=== PATIENT | female | born 1945 | race Two or more races ===

== ENCOUNTER 2016-11-18 07:12 | Inpatient (IN) | payer MEDICARE, MEDICAID ==
[2016-11-18] MEDS: PROPOFOL 100 ML IV PRN ×3 (07:28→23:15)
[2016-11-18] MEDS ORDERED: ETOMIDATE INJ/PF 20 MG/10 ML SDV IV ONE (07:32)
[2016-11-18] MEDS ORDERED: SUCCINYLCHOLINE CHLORIDE INJ 200 MG/10 ML VIAL IV ONE (07:32)
--- NOTE | 2016-11-18 07:32 | ER Document Report ---
ED General - General Stated Complaint: STROKE ALERT Mode of Arrival: Medic Information source: Emergency Med Personnel Cannot obtain history due to: Altered mental status Notes: 71-year-old female history of seizures presents seizing, patient was noted to be posturing by EMS concerns for CVA, patient noted to have uncontrolled hypertension. Patient not responding to any stimuli. TRAVEL OUTSIDE OF THE [place] IN LAST 30 DAYS: No - HPI Onset: Just prior to arrival Onset/Duration: Sudden Quality of pain: No pain Severity: Severe Pain Level: Denies Associated symptoms: Other Exacerbated by: Denies Relieved by: Denies Similar symptoms previously: Yes Recently seen / treated by doctor: No - Related Data Allergies/Adverse Reactions: codeine [Codeine] Allergy (Unknown, Verified 10/06/16 12:35) aspirin [Aspirin] Allergy (Verified 10/06/16 12:35) Past Medical History - Social History Smoking Status: Unknown if Ever Smoked Cigarette use (# per day): No Chew tobacco use (# tins/day): No Smoking Education Provided: No Family History: Reviewed & Not Pertinent - Past Medical History Cardiac Medical History: Reports: Hx Coronary Artery Disease Denies: Hx Heart Attack, Hx Hypertension Pulmonary Medical History: Reports: Hx COPD, Hx Pneumonia Denies: Hx Bronchitis, Hx Tuberculosis Neurological Medical History: Reports: Hx Seizures - 21 years. Denies: Hx Cerebrovascular Accident GI Medical History: Reports: Hx Gastroesophageal Reflux Disease Musculoskeltal Medical History: Reports Hx Arthritis, Reports Hx Musculoskeletal Trauma - spinal fx after fall, RECENT SHOULDER FX Skin Medical History: Denies Hx MRSA Psychiatric Medical History: Reports: Hx Dementia, Hx Depression Traumatic Medical History: Reports: Hx Fractures - Right shoulder fracture, spinal fractures after a fall Past Surgical History: Reports: Hx Cardiac Catheterization, Hx Hysterectomy, Hx Nose Surgery, Hx Orthopedic Surgery - back - Immunizations Immunizations up to date: Yes Hx Diphtheria, Pertussis, Tetanus Vaccination: Yes Hx Pneumococcal Vaccination: 05/07/14 Review of Systems - Review of Systems Notes: Unable to obtain review of systems due to patient's presentation PHYSICAL EXAMINATION: GENERAL: Thin chronically emaciated appearing, patient not responding to stimuli. HEAD: Atraumatic, normocephalic. EYES: Pupils equal round and reactive to light, extraocular movements intact, conjunctiva are normal. ENT: Nares patent, oropharynx clear without exudates. Moist mucous membranes. NECK: Normal range of motion, supple without lymphadenopathy LUNGS: Breath sounds clear to auscultation bilaterally and equal. No wheezes rales or rhonchi. HEART: Regular rate and rhythm without murmurs ABDOMEN: Soft, nontender, nondistended abdomen. No guarding, no rebound. No masses appreciated. Female : deferred Musculoskeletal: Patient is not moving any extremities even to painful stimuli NEUROLOGICAL: GCS 4 SKIN: Warm, Dry, normal turgor, no rashes or lesions noted. Physical Exam - Vital signs Vitals: Pulse Ox 100 11/18/16 07:16 Course - Re-evaluation Re-evalutation: 11/18/16 07:35 Patient was not responsive to pain stimuli, due to concerns of impending airway failure due to lack of protection with a GCS of 4, patient was intubated on the second try. Patient did not become hypoxic Patient's immediately being sent for CT of the head at this time to rule out acute CVA 11/18/16 08:41 pt noted ot be on keppra, levels and infusion ordered - Vital Signs Vital signs: Temp Pulse Resp BP Pulse Ox 98.3 F 14 137/84 H 100 11/18/16 09:56 11/18/16 09:56 11/18/16 09:56 11/18/16 09:56 - Laboratory Result Diagrams: 11/18/16 07:19 11/18/16 07:19 Laboratory results interpreted by me: 11/18/16 11/18/16 07:19 07:19 Hgb 15.6 H Sodium 136.5 L Carbon Dioxide 11 L Anion Gap 27 H Glucose 198 H Calcium 10.4 H Total Protein 9.2 H Albumin 5.1 H - Diagnostic Test Radiology reviewed: Image reviewed, Reports reviewed Procedures - Intubation Orotracheal Time of Intubation: 07:27 Airway evaluation: Normal anatomy Mallampati Classification: Class 3 Medications: Etomidate, Succinylcholine Blade type: Chris Blade size: 4 ETT size: 7.0 ETT secured at: Teeth ETT secured at (cm): 22 Breath Sounds after Intubation: Equal End tidal CO2 confirmed: Yes Intubation Complications: Oral-unsuccessful attempt - Additional Procedures IO insertion Time performed: 07:20 Additional Procedures: IO insertion - right tib placement, removed after IV access obtained Critical Care Note - Critical Care Note Total time excluding time spent on procedures (mins): 45 Comments: minutes of critical care time spent in direct contact evaluating and reevaluating the patient, treating symptoms, reviewing labs and studies and speaking with family and consultants excluding any procedures Discharge - Discharge Clinical Impression: Seizure, Post-ictal state, Endotracheally intubated Condition: Fair Disposition: ADMITTED INPATIENT Admitting Provider: [facility] Admitted: ICU
[2016-11-18 07:33] LABS: PROTHROMBIN TIME 13.5 SEC (11.4-15.4)
[2016-11-18 07:34] LABS: PARTIAL THROMBOPLASTIN TIME 27.5 SEC (23.5-35.8)
[2016-11-18] MEDS ORDERED: EPTIFIBATIDE 0 MG/0 ML INFUS..BTL IV ONE (07:40)
[2016-11-18 07:43] LABS: ABSOLUTE LYMPHOCYTES (AUTO) 2.8 10^3/uL (0.5-4.7); ABSOLUTE MONOCYTES (AUTO) 0.4 10^3/uL (0.1-1.4); ABSOLUTE NEUT (AUTO) 3.8 10^3/uL (1.7-8.2); BASOPHILS % (AUTO) 0.7 % (0-2); EOSINOPHILS % (AUTO) 0.3 % (0-6); HEMOGLOBIN 15.6 g/dL (12.0-15.5); HGB HCT DIFFERENCE -0.2; LYMPHOCYTES % (AUTO) 39.1 % (13-45); MEAN CORPUSCULAR HEMOGLOBIN 29.6 pg (27.0-33.4); MEAN CORPUSCULAR HGB CONC 33.2 g/dL (32.0-36.0); MEAN CORPUSCULAR VOLUME 89 fl (80-97); MONOCYTES % (AUTO) 5.9 % (3-13); RED BLOOD COUNT 5.27 10^6/uL (3.72-5.28); RED CELL DISTRIBUTION WIDTH 13.9 % (11.5-14.0); WHITE BLOOD COUNT 7.1 10^3/uL (4.0-10.5)
[2016-11-18 07:55] LABS: CREATINE KINASE MB 1.24 ng/mL (<4.55)
[2016-11-18 08:05] LABS: TROPONIN I < 0.012 ng/mL
[2016-11-18 08:06] LABS: ALANINE AMINOTRANSFERASE 10 U/L (9-52); ALBUMIN 5.1 g/dL (3.5-5.0); ALKALINE PHOSPHATASE 84 U/L (38-126); ASPARTATE AMINO TRANSFERASE 32 U/L (14-36); BILIRUBIN,TOTAL 0.6 mg/dL (0.2-1.3); BLOOD UREA NITROGEN 8 mg/dL (7-20); CALCIUM 10.4 mg/dL (8.4-10.2); CARBON DIOXIDE 11 mmol/L (22-30); CHLORIDE 99 mmol/L (98-107); CREATINE KINASE 62 U/L (30-135); CREATININE RESULT 0.79 mg/dL (0.52-1.25); GLUCOSE 198 mg/dL (75-110); SODIUM 136.5 mmol/L (137-145); TOTAL PROTEIN 9.2 g/dL (6.3-8.2)
[2016-11-18 08:19] LABS: ANION GAP 27 (5-19)
[2016-11-18] MEDS ORDERED: MIDAZOLAM HCL 100 ML IV PRN (08:26)
[2016-11-18] MEDS ORDERED: MIDAZOLAM HCL 100 ML IV ONE (08:28)
[2016-11-18] MEDS ORDERED: DIAZEPAM INJ 10 MG/2 ML DISP.SYRIN IV ONE (09:39)
[2016-11-18] MEDS ORDERED: NORMAL SALINE 1000 ML 1,000 ML IV ONE (09:40)
[2016-11-18] MEDS ORDERED: LEVETIRACETAM 1500 MG/NACL-ISO 100 ML IV SCH (10:00)
[2016-11-18] MEDS ORDERED: ACETAMINOPHEN 650 MG SUPP.RECT PR PRN (10:49)
[2016-11-18] MEDS ORDERED: LORAZEPAM INJ 2 MG/1 ML VIAL IV PRN (10:54)
[2016-11-18] MEDS ORDERED: ENOXAPARIN SODIUM INJ 40 MG/0.4 ML DISP.SYRIN SUBCUT ONE (11:15)
--- NOTE | 2016-11-18 11:28 | EKG REPORT ---
SEVERITY:- OTHERWISE NORMAL ECG - SINUS TACHYCARDIA BORDERLINE RIGHT AXIS DEVIATION : Confirmed by: Adelina Nicolas 18-Nov-2016 11:27:00
[2016-11-18] MEDS: CEFTRIAXONE 1 GM/D5W RTU 1 GM/50 ML RTUPB IV SCH (11:39)
[2016-11-18] MEDS ORDERED: PROPOFOL 100 ML IV ONE (12:41)
[2016-11-18] MEDS ORDERED: LEVETIRACETAM 1500 MG/NACL-ISO 1,500 MG/100 ML RTUPB IV SCH (13:00)
--- NOTE | 2016-11-18 14:10 | PDOC H&P ---
History of Present Illness Admission Date/PCP: 11/18/16 10:49 BARBARA TEJADA MD Patient complains of: Altered mental status and uncontrolled seizure History of Present Illness: JOSELITO RODRIGUEZ is a 71 year old female This is a 71-year-old with a significant history of the seizures disorder COPD and macroglobulinemia and top of that is a very noncompliant and a chronic smoker also during the in a hospital in several hospital admissions because of been noncompliant uncontrolled seizures came to the emergency department because of the patient had a seizures this morning and patient's was patient was intubated in the emergency depart initial CT scan of the head is negative for any acute stroke patient's otherwise according to the nursing stop patient is not taking the medications as prescribed for the seizures also patient is known for that pretty much patient at this point is currently intubated in the ER intensive care unit for further evaluation and treatment. Was given IV Keppra and continues IV fluid and IV antibiotic and consult pulmonary for further evaluation. Past Medical History Cardiac Medical History: Reports: Coronary Artery Disease Denies: Myocardial Infarction, Hypertension Pulmonary Medical History: Reports: Chronic Obstructive Pulmonary Disease (COPD) , Pneumonia Denies: Bronchitis, Tuberculosis Neurological Medical History: Reports: Seizures - 21 years GI Medical History: Reports: Gastroesophageal Reflux Disease Musculoskeltal Medical History: Reports: Arthritis Psychiatric Medical History: Reports: Dementia, Depression Hematology: Reports: Anemia Past Surgical History Past Surgical History: Reports: Cardiac Catheterization, Hysterectomy, Orthopedic Surgery - back Social History Smoking Status: Current Every Day Smoker Frequency of Alcohol Use: Social Hx Recreational Drug Use: No Hx Prescription Drug Abuse: No Family History Family History: Reviewed & Not Pertinent Parental Family History Reviewed: Yes Children Family History Reviewed: Yes Sibling(s) Family History Reviewed.: Yes Medication/Allergy Allergies/Adverse Reactions: codeine [Codeine] Allergy (Unknown, Verified 10/06/16 12:35) aspirin [Aspirin] Allergy (Verified 10/06/16 12:35) Review of Systems ROS unobtainable: Due to endotracheal tube, Due to mental status All systems: reviewed and no additional remarkable complaints except as stated Physical Exam Vital Signs: Temp Pulse Resp BP Pulse Ox 99.6 F 14 107/78 110 H 11/18/16 13:51 11/18/16 13:51 11/18/16 13:51 11/18/16 13:51 General appearance: PRESENT: no acute distress, other - Currently intubated under sedation Head exam: PRESENT: normocephalic Eye exam: PRESENT: PERRLA Mouth exam: PRESENT: neck supple Respiratory exam: PRESENT: clear to auscultation pavel Cardiovascular exam: PRESENT: +S1, +S2 GI/Abdominal exam: PRESENT: normal bowel sounds, soft Extremities exam: ABSENT: pedal edema Neurological exam: PRESENT: altered Additional comments: Currently under sedation Skin exam: PRESENT: dry Results Impressions: Chest X-Ray 11/18/16 07:16 IMPRESSION: COPD. SATISFACTORY POSITION OF THE LIFE LINES. NO ACUTE RADIOGRAPHIC FINDING IN THE CHEST. Head CT 11/18/16 07:16 IMPRESSION: CHRONIC CHANGES OF ATROPHY AND MICROVASCULAR ISCHEMIA. CHRONIC ENCEPHALOMALACIA IN THE LEFT OCCIPITAL LOBE. NO ACUTE PROCESS. Assessment & Plan - Diagnosis (1) Endotracheally intubated Is this a current diagnosis for this admission?: YesPlan: From respiratory distress currently follow with the pulmonary (2) Post-ictal state Is this a current diagnosis for this admission?: YesPlan: Patient start IV Keppra and put the as needed Ativan (3) Acute respiratory failure Qualifiers: Respiratory failure complication: hypoxia Qualified Code(s): J96.01 - Acute respiratory failure with hypoxia Is this a current diagnosis for this admission?: YesPlan: Uncontrolled seizures and the COPD currently intubated and follow-up with the pulmonary (4) Alcohol abuse Is this a current diagnosis for this admission?: YesPlan: Several counseling was done in the past and they may be triggered the patient's uncontrolled seizures with a not taking med (5) COPD (chronic obstructive pulmonary disease) Is this a current diagnosis for this admission?: YesPlan: Continuous nebulizer treatment (6) Hearing impairment Is this a current diagnosis for this admission?: Yes (7) 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 Herman (9) Pulmonary nodule Is this a current diagnosis for this admission?: YesPlan: Patient is seeing outpatients Dr. Herman and scheduled a PET scan on the December - Time Time Spent: 50 to 70 Minutes Critical Time spent with patient: 25-34 minutes Medications reviewed and adjusted accordingly: Yes Anticipated discharge: Other - Inpatient Certification Medical Necessity: Significant Comorbidiites Make Outpatient Treatment Too Risky , Need For IV Fluids, Need for Nebulizer Therapy and Monitoring of Response Post Hospital Care: D/C Tie Knitter Helper Documentation - Plan Summary Plan Summary: Patient however this is a recurrent episode of the hospital admission from noncompliance of the seizures medication for non-patient's currently intubated and followed with the no sign of an acute stroke and initial CT scan will further evaluate the patient's neurological symptoms when the patient extubated otherwise continues the current medication
[2016-11-18] MEDS: LEVALBUTEROL HCL NEB 1.25 MG/3 ML AMPUL NEB SCH ×2 (14:20→20:52)
[2016-11-18] MEDS ORDERED: SUCCINYLCHOLINE CHLORIDE INJ 200 MG/10 ML VIAL ONE (14:58)
[2016-11-18 15:10] LABS: ARTERIAL BLOOD BASE EXCESS -5.1 mmol/L
[2016-11-18] MEDS: NORMAL SALINE 1000 ML 1,000 ML IV PRN (15:18)
[2016-11-18] MEDS: LEVETIRACETAM 1500 MG/NACL-ISO 1,500 MG/100 ML RTUPB IV SCH (22:17)
[2016-11-18] MEDS: FAMOTIDINE INJ/PF 20 MG/2 ML SDV IV SCH (23:04)
[2016-11-19] MEDS: NORMAL SALINE 1000 ML 1,000 ML IV PRN ×2 (00:47→20:40)
[2016-11-19] MEDS: LEVALBUTEROL HCL NEB 1.25 MG/3 ML AMPUL NEB SCH ×4 (03:18→20:29)
[2016-11-19 04:41] LABS: ABSOLUTE LYMPHOCYTES (AUTO) 1.2 10^3/uL (0.5-4.7); ABSOLUTE MONOCYTES (AUTO) 0.7 10^3/uL (0.1-1.4); BASOPHILS % (AUTO) 0.5 % (0-2); EOSINOPHILS % (AUTO) 0.2 % (0-6); HEMATOCRIT 35.9 % (36.0-47.0); HGB HCT DIFFERENCE 1.3; LYMPHOCYTES % (AUTO) 24.5 % (13-45); MEAN CORPUSCULAR HEMOGLOBIN 29.5 pg (27.0-33.4); MEAN CORPUSCULAR HGB CONC 34.5 g/dL (32.0-36.0); MEAN CORPUSCULAR VOLUME 86 fl (80-97); MONOCYTES % (AUTO) 14.1 % (3-13); RED CELL DISTRIBUTION WIDTH 13.8 % (11.5-14.0); SEGMENTED NEUTROPHILS % (AUTO) 60.7 % (42-78); WHITE BLOOD COUNT 4.9 10^3/uL (4.0-10.5)
[2016-11-19 04:46] LABS: ALANINE AMINOTRANSFERASE 25 U/L (9-52); ALBUMIN 3.3 g/dL (3.5-5.0); ALKALINE PHOSPHATASE 61 U/L (38-126); ANION GAP 9 (5-19); ASPARTATE AMINO TRANSFERASE 22 U/L (14-36); BILIRUBIN,TOTAL 0.6 mg/dL (0.2-1.3); BLOOD UREA NITROGEN 6 mg/dL (7-20); CALCIUM 9.1 mg/dL (8.4-10.2); CHLORIDE 107 mmol/L (98-107); CREATININE RESULT 0.63 mg/dL (0.52-1.25); GLUCOSE 91 mg/dL (75-110); MAGNESIUM 1.8 mg/dL (1.6-2.3); PHOSPHORUS 3.4 mg/dL (2.5-4.5); POTASSIUM 3.1 mmol/L (3.6-5.0); SODIUM 137.1 mmol/L (137-145); TOTAL PROTEIN 6.3 g/dL (6.3-8.2)
[2016-11-19 04:48] LABS: HEMOGLOBIN 12.4 g/dL (12.0-15.5)
[2016-11-19 04:57] LABS: CARBON DIOXIDE 21 mmol/L (22-30)
--- NOTE | 2016-11-19 09:58 | PDOC PROGRESS REPORT ---
Subjective Progress Note for:: 11/19/16 Subjective:: Patient is still currently intubated otherwise no other events happen no any seizures activity. She is otherwise doing same per ICU nurses. Physical Exam Vital Signs: Temp Pulse Resp BP Pulse Ox 98.9 F 82 14 99/66 L 100 11/19/16 07:01 11/19/16 08:36 11/19/16 08:36 11/19/16 07:01 11/19/16 08:36 Intake & Output 11/18/16 11/19/16 11/20/16 06:59 06:59 06:59 Intake Total 300 Output Total 780 Balance -780 300 Physical Exam: Currently intubated and under sedation General appearance: PRESENT: no acute distress Head exam: PRESENT: normocephalic Eye exam: PRESENT: PERRLA Mouth exam: PRESENT: neck supple Respiratory exam: PRESENT: decreased breath sounds Cardiovascular exam: PRESENT: +S1, +S2 GI/Abdominal exam: PRESENT: normal bowel sounds, soft Additional comments: Currently intubated under sedation Skin exam: PRESENT: dry Results Laboratory Results: 11/19/16 04:14 11/19/16 04:14 11/18/16 11/19/16 11/19/16 14:56 04:14 04:14 WBC 4.9 RBC 4.20 Hgb 12.4 D Hct 35.9 L MCV 86 MCH 29.5 MCHC 34.5 RDW 13.8 Plt Count 106 L Seg Neutrophils % 60.7 Lymphocytes % 24.5 Monocytes % 14.1 H Eosinophils % 0.2 Basophils % 0.5 Absolute Neutrophils 3.0 Absolute Lymphocytes 1.2 Absolute Monocytes 0.7 Absolute Eosinophils 0.0 Absolute Basophils 0.0 Carbonic Acid 0.85 L HCO3/H2CO3 Ratio 21:1 ABG pH 7.42 ABG pCO2 28.4 L ABG pO2 146.8 H ABG HCO3 17.9 L ABG O2 Saturation 99.0 H ABG Base Excess -5.1 FiO2 40% Sodium 137.1 Potassium 3.1 L Chloride 107 Carbon Dioxide 21 L D Anion Gap 9 BUN 6 L Creatinine 0.63 Est GFR ( Amer) > 60 Est GFR (Non-Af Amer) > 60 Glucose 91 Calcium 9.1 Phosphorus 3.4 Magnesium 1.8 Total Bilirubin 0.6 AST 22 ALT 25 Alkaline Phosphatase 61 Total Protein 6.3 Albumin 3.3 L Impressions: Head CT 11/18/16 07:16 IMPRESSION: CHRONIC CHANGES OF ATROPHY AND MICROVASCULAR ISCHEMIA. CHRONIC ENCEPHALOMALACIA IN THE LEFT OCCIPITAL LOBE. NO ACUTE PROCESS. Chest X-Ray 11/19/16 06:00 IMPRESSION: COPD. STABLE APPEARANCE. NO ACUTE RADIOGRAPHIC FINDING IN THE CHEST. Assessment & Plan - Diagnosis (1) Endotracheally intubated Is this a current diagnosis for this admission?: YesPlan: From respiratory distress currently follow with the pulmonary (2) Post-ictal state Is this a current diagnosis for this admission?: YesPlan: Patient start IV Keppra and put the as needed Ativan (3) Acute respiratory failure Qualifiers: Respiratory failure complication: hypoxia Qualified Code(s): J96.01 - Acute respiratory failure with hypoxia Is this a current diagnosis for this admission?: YesPlan: Uncontrolled seizures and the COPD currently intubated and follow-up with the pulmonary (4) Alcohol abuse Is this a current diagnosis for this admission?: YesPlan: Several counseling was done in the past and they may be triggered the patient's uncontrolled seizures with a not taking med (5) COPD (chronic obstructive pulmonary disease) Is this a current diagnosis for this admission?: YesPlan: Continuous nebulizer treatment (6) Hearing impairment Is this a current diagnosis for this admission?: Yes (7) 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 Herman (9) Pulmonary nodule Is this a current diagnosis for this admission?: YesPlan: Patient is seeing outpatients Dr. Herman and scheduled a PET scan on the December - Time Time Spent with patient: 15-24 minutes Critical Time spent with patient: 15-24 minutes Medications reviewed and adjusted accordingly: Yes Anticipated discharge: Home - Inpatient Certification Medical Necessity: Need Close Monitoring Due to Risk of Patient Decompensation, Need for IV Antibiotics Post Hospital Care: D/C Rv Repairer Documentation - Plan Summary Plan Summary: Continues the IV Keppra and continues the current other medications follow with the pulmonary and replace the potassium and discussed with the ICU nurses the patient's continues to be improved
[2016-11-19] MEDS: POTASSI CL 20 MEQ/50 ML RIDER 20 MEQ/50 ML RTUPB IV SCH ×2 (10:00→13:19)
[2016-11-19] MEDS: LEVETIRACETAM 1500 MG/NACL-ISO 1,500 MG/100 ML RTUPB IV SCH (10:06)
[2016-11-19] MEDS: ENOXAPARIN SODIUM INJ 40 MG/0.4 ML DISP.SYRIN SUBCUT SCH (10:41)
[2016-11-19] MEDS: FAMOTIDINE INJ/PF 20 MG/2 ML SDV IV SCH ×2 (10:42→21:58)
[2016-11-19] MEDS: CEFTRIAXONE 1 GM/D5W RTU 1 GM/50 ML RTUPB IV SCH (14:46)
[2016-11-19 15:21] LABS: ARTERIAL BLOOD BASE EXCESS -5.9 mmol/L; ARTERIAL BLOOD O2 SATURATION 99.5 % (94-98)
[2016-11-19] MEDS: PROPOFOL 100 ML IV PRN ×2 (17:23→20:39)
[2016-11-19] MEDS: MIDAZOLAM HCL 100 ML IV PRN (20:38)
[2016-11-19] MEDS ORDERED: LEVETIRACETAM INJ/PF 500 MG/5 ML SDV IV ONE (23:48)
[2016-11-20] MEDS: PROPOFOL 100 ML IV PRN ×3 (00:21→17:56)
[2016-11-20] MEDS: LEVETIRACETAM 1500 MG/NACL-ISO 1,500 MG/100 ML RTUPB IV SCH ×3 (01:10→21:28)
[2016-11-20] MEDS: LEVALBUTEROL HCL NEB 1.25 MG/3 ML AMPUL NEB SCH ×4 (02:17→20:32)
[2016-11-20] MEDS ORDERED: INFLUENZA ADLT QUAD (36MOS+) 2016-17 VAC 0.5 ML SYR IM PRN (02:41)
[2016-11-20] MEDS: MIDAZOLAM HCL 100 ML IV PRN (03:33)
[2016-11-20] MEDS: NORMAL SALINE 1000 ML 1,000 ML IV PRN ×3 (03:34→23:10)
[2016-11-20 04:52] LABS: ABSOLUTE LYMPHOCYTES (AUTO) 0.6 10^3/uL (0.5-4.7); ABSOLUTE MONOCYTES (AUTO) 0.4 10^3/uL (0.1-1.4); ABSOLUTE NEUT (AUTO) 3.5 10^3/uL (1.7-8.2); BASOPHILS % (AUTO) 0.5 % (0-2); EOSINOPHILS % (AUTO) 0.7 % (0-6); HEMATOCRIT 34.3 % (36.0-47.0); HEMOGLOBIN 11.7 g/dL (12.0-15.5); HGB HCT DIFFERENCE 0.8; LYMPHOCYTES % (AUTO) 13.7 % (13-45); MEAN CORPUSCULAR HEMOGLOBIN 29.6 pg (27.0-33.4); MEAN CORPUSCULAR HGB CONC 34.1 g/dL (32.0-36.0); MEAN CORPUSCULAR VOLUME 87 fl (80-97); MONOCYTES % (AUTO) 9.5 % (3-13); RED BLOOD COUNT 3.95 10^6/uL (3.72-5.28); RED CELL DISTRIBUTION WIDTH 13.8 % (11.5-14.0); SEGMENTED NEUTROPHILS % (AUTO) 75.6 % (42-78); WHITE BLOOD COUNT 4.6 10^3/uL (4.0-10.5)
[2016-11-20 05:05] LABS: ANION GAP 10 (5-19); BLOOD UREA NITROGEN 4 mg/dL (7-20); CALCIUM 8.8 mg/dL (8.4-10.2); CARBON DIOXIDE 20 mmol/L (22-30); CHLORIDE 111 mmol/L (98-107); CREATININE RESULT 0.47 mg/dL (0.52-1.25); GLUCOSE 78 mg/dL (75-110); POTASSIUM 3.3 mmol/L (3.6-5.0); TRIGLYCERIDES 89 mg/dL (<150)
[2016-11-20] MEDS: POTASSIUM CHLORIDE 20 MEQ/50 ML RTU IV SCH ×2 (05:31→09:39)
[2016-11-20] MEDS: FAMOTIDINE INJ/PF 20 MG/2 ML SDV IV SCH ×2 (09:37→21:28)
[2016-11-20] MEDS: ENOXAPARIN SODIUM INJ 40 MG/0.4 ML DISP.SYRIN SUBCUT SCH (09:37)
[2016-11-20] MEDS: CEFTRIAXONE 1 GM/D5W RTU 1 GM/50 ML RTUPB IV SCH (12:04)
[2016-11-21] MEDS: LEVALBUTEROL HCL NEB 1.25 MG/3 ML AMPUL NEB SCH ×4 (01:33→21:18)
[2016-11-21] MEDS: PROPOFOL 100 ML IV PRN ×3 (01:49→23:24)
[2016-11-21 05:18] LABS: ABSOLUTE LYMPHOCYTES (AUTO) 0.8 10^3/uL (0.5-4.7); ABSOLUTE MONOCYTES (AUTO) 0.5 10^3/uL (0.1-1.4); ABSOLUTE NEUT (AUTO) 2.8 10^3/uL (1.7-8.2); HEMATOCRIT 33.9 % (36.0-47.0); HEMOGLOBIN 11.7 g/dL (12.0-15.5); HGB HCT DIFFERENCE 1.2; LYMPHOCYTES % (AUTO) 19.5 % (13-45); MEAN CORPUSCULAR HEMOGLOBIN 29.7 pg (27.0-33.4); MEAN CORPUSCULAR HGB CONC 34.4 g/dL (32.0-36.0); MEAN CORPUSCULAR VOLUME 86 fl (80-97); RED BLOOD COUNT 3.93 10^6/uL (3.72-5.28); RED CELL DISTRIBUTION WIDTH 13.7 % (11.5-14.0); SEGMENTED NEUTROPHILS % (AUTO) 66.5 % (42-78); WHITE BLOOD COUNT 4.1 10^3/uL (4.0-10.5)
[2016-11-21] MEDS: ENOXAPARIN SODIUM INJ 40 MG/0.4 ML DISP.SYRIN SUBCUT SCH (07:59)
[2016-11-21 08:25] LABS: ANION GAP 10 (5-19); BLOOD UREA NITROGEN 6 mg/dL (7-20); CALCIUM 9.1 mg/dL (8.4-10.2); CARBON DIOXIDE 20 mmol/L (22-30); CHLORIDE 109 mmol/L (98-107); CREATININE RESULT 0.45 mg/dL (0.52-1.25); GLUCOSE 78 mg/dL (75-110); SODIUM 138.6 mmol/L (137-145)
[2016-11-21 08:49] LABS: POTASSIUM 3.3 mmol/L (3.6-5.0)
[2016-11-21] MEDS: LEVETIRACETAM 1500 MG/NACL-ISO 1,500 MG/100 ML RTUPB IV SCH ×2 (09:05→21:31)
[2016-11-21] MEDS: NORMAL SALINE 1000 ML 1,000 ML IV PRN ×2 (09:05→19:55)
[2016-11-21] MEDS: FAMOTIDINE INJ/PF 20 MG/2 ML SDV IV SCH ×2 (09:05→21:31)
[2016-11-21] MEDS: POTASSIUM CHLORIDE 20 MEQ/50 ML RTU IV SCH ×2 (10:15→11:59)
[2016-11-21] MEDS: MIDAZOLAM HCL 100 ML IV PRN (10:21)
[2016-11-21] MEDS: CEFTRIAXONE 1 GM/D5W RTU 1 GM/50 ML RTUPB IV SCH (11:59)
--- NOTE | 2016-11-21 15:20 | PDOC PROGRESS REPORT ---
Subjective Progress Note for:: 11/20/16 Subjective:: Patient was seen in ICU, intubated, sedated Physical Exam Vital Signs: Temp Pulse Resp BP Pulse Ox 100.4 F 111 H 14 139/83 H 100 11/20/16 16:00 11/20/16 16:00 11/20/16 16:00 11/20/16 16:00 11/20/16 16:00 Intake & Output 11/19/16 11/20/16 11/21/16 06:59 06:59 06:59 Intake Total 3277 Output Total 780 1525 1060 Balance -780 1752 -1060 Weight 49.2 kg Eye exam: PRESENT: PERRLA Respiratory exam: PRESENT: unlabored Cardiovascular exam: PRESENT: +S1, +S2 Results Laboratory Results: 11/20/16 04:10 11/20/16 14:35 11/19/16 11/20/16 11/20/16 17:20 04:10 04:10 WBC 4.6 RBC 3.95 Hgb 11.7 L Hct 34.3 L MCV 87 MCH 29.6 MCHC 34.1 RDW 13.8 Plt Count 92 L Seg Neutrophils % 75.6 Lymphocytes % 13.7 Monocytes % 9.5 Eosinophils % 0.7 Basophils % 0.5 Absolute Neutrophils 3.5 Absolute Lymphocytes 0.6 Absolute Monocytes 0.4 Absolute Eosinophils 0.0 Absolute Basophils 0.0 Sodium 141.0 Potassium 3.6 3.3 L Chloride 111 H Carbon Dioxide 20 L Anion Gap 10 BUN 4 L Creatinine 0.47 L Est GFR ( Amer) > 60 Est GFR (Non-Af Amer) > 60 Glucose 78 Calcium 8.8 Triglycerides 89 11/20/16 14:35 WBC RBC Hgb Hct MCV MCH MCHC RDW Plt Count Seg Neutrophils % Lymphocytes % Monocytes % Eosinophils % Basophils % Absolute Neutrophils Absolute Lymphocytes Absolute Monocytes Absolute Eosinophils Absolute Basophils Sodium Potassium 4.7 D Chloride Carbon Dioxide Anion Gap BUN Creatinine Est GFR ( Amer) Est GFR (Non-Af Amer) Glucose Calcium Triglycerides 11/18/16 11:04 Catheterized Urine Urine Culture - Final NO GROWTH 2 DAYS Impressions: Head CT 11/18/16 07:16 IMPRESSION: CHRONIC CHANGES OF ATROPHY AND MICROVASCULAR ISCHEMIA. CHRONIC ENCEPHALOMALACIA IN THE LEFT OCCIPITAL LOBE. NO ACUTE PROCESS. Chest X-Ray 11/19/16 06:00 IMPRESSION: COPD. STABLE APPEARANCE. NO ACUTE RADIOGRAPHIC FINDING IN THE CHEST. Assessment & Plan - Diagnosis (1) Endotracheally intubated Is this a current diagnosis for this admission?: Yes (2) Post-ictal state Is this a current diagnosis for this admission?: Yes (3) Seizure Is this a current diagnosis for this admission?: Yes (4) Acute respiratory failure Qualifiers: Respiratory failure complication: hypoxia Qualified Code(s): J96.01 - Acute respiratory failure with hypoxia Is this a current diagnosis for this admission?: YesPlan: Continue mechanical ventilation, patient to be started on Tuesday (5) Alcohol abuse Is this a current diagnosis for this admission?: Yes (6) Alcoholism Is this a current diagnosis for this admission?: Yes (7) COPD (chronic obstructive pulmonary disease) Is this a current diagnosis for this admission?: Yes
--- NOTE | 2016-11-21 15:21 | PDOC PROGRESS REPORT ---
Subjective Progress Note for:: 11/21/16 Subjective:: Patient still intubated on mechanical ventilation Physical Exam Vital Signs: Temp Pulse Resp BP Pulse Ox 100.1 F 92 21 H 110/68 100 11/21/16 14:00 11/21/16 14:00 11/21/16 14:01 11/21/16 14:01 11/21/16 14:01 Intake & Output 11/20/16 11/21/16 11/22/16 06:59 06:59 06:59 Intake Total 3277 3433 Output Total 1525 2210 965 Balance 1752 1223 -965 Weight 49.2 kg 50.8 kg Eye exam: PRESENT: PERRLA Respiratory exam: PRESENT: rhonchi Cardiovascular exam: PRESENT: +S1, +S2 Results Laboratory Results: 11/21/16 04:20 11/21/16 04:20 11/20/16 11/21/16 11/21/16 14:35 04:20 04:20 WBC 4.1 RBC 3.93 Hgb 11.7 L Hct 33.9 L MCV 86 MCH 29.7 MCHC 34.4 RDW 13.7 Plt Count 91 L Seg Neutrophils % 66.5 Lymphocytes % 19.5 Monocytes % 12.0 Eosinophils % 1.0 Basophils % 1.0 Absolute Neutrophils 2.8 Absolute Lymphocytes 0.8 Absolute Monocytes 0.5 Absolute Eosinophils 0.0 Absolute Basophils 0.0 Sodium 138.6 Potassium 4.7 D 3.3 L D Chloride 109 H Carbon Dioxide 20 L Anion Gap 10 BUN 6 L Creatinine 0.45 L Est GFR ( Amer) > 60 Est GFR (Non-Af Amer) > 60 Glucose 78 Calcium 9.1 11/18/16 11:04 Catheterized Urine Urine Culture - Final NO GROWTH 2 DAYS Impressions: Head CT 11/18/16 07:16 IMPRESSION: CHRONIC CHANGES OF ATROPHY AND MICROVASCULAR ISCHEMIA. CHRONIC ENCEPHALOMALACIA IN THE LEFT OCCIPITAL LOBE. NO ACUTE PROCESS. Chest X-Ray 11/19/16 06:00 IMPRESSION: COPD. STABLE APPEARANCE. NO ACUTE RADIOGRAPHIC FINDING IN THE CHEST. Assessment & Plan - Diagnosis (1) Endotracheally intubated Is this a current diagnosis for this admission?: Yes (2) Post-ictal state Is this a current diagnosis for this admission?: Yes (3) Seizure Is this a current diagnosis for this admission?: Yes (4) Acute respiratory failure Qualifiers: Respiratory failure complication: hypoxia Qualified Code(s): J96.01 - Acute respiratory failure with hypoxia Is this a current diagnosis for this admission?: Yes (5) Alcohol abuse Is this a current diagnosis for this admission?: Yes (6) Alcoholism Is this a current diagnosis for this admission?: Yes (7) COPD (chronic obstructive pulmonary disease) Is this a current diagnosis for this admission?: Yes
[2016-11-22] MEDS: LEVALBUTEROL HCL NEB 1.25 MG/3 ML AMPUL NEB SCH ×4 (02:00→19:57)
[2016-11-22] MEDS: NORMAL SALINE 1000 ML 1,000 ML IV PRN ×2 (05:34→16:41)
[2016-11-22 06:34] LABS: ANION GAP 7 (5-19); BLOOD UREA NITROGEN 7 mg/dL (7-20); CARBON DIOXIDE 24 mmol/L (22-30); CHLORIDE 109 mmol/L (98-107); CREATININE RESULT 0.43 mg/dL (0.52-1.25); GLUCOSE 98 mg/dL (75-110); POTASSIUM 3.3 mmol/L (3.6-5.0); SODIUM 140.4 mmol/L (137-145)
[2016-11-22] MEDS ORDERED: POTASSI CL 20 MEQ/50 ML RIDER 20 MEQ/50 ML RTUPB IV ONE (06:50)
[2016-11-22] MEDS: ENOXAPARIN SODIUM INJ 40 MG/0.4 ML DISP.SYRIN SUBCUT SCH (08:00)
[2016-11-22] MEDS: POTASSIUM CHLORIDE 20 MEQ/50 ML RTU IV SCH ×2 (08:00→09:11)
[2016-11-22] MEDS ORDERED: POTASSI CL 20 MEQ/50 ML RIDER 50 ML IV ONE (08:45)
[2016-11-22] MEDS: FAMOTIDINE INJ/PF 20 MG/2 ML SDV IV SCH ×2 (09:09→21:19)
[2016-11-22] MEDS: LEVETIRACETAM 1500 MG/NACL-ISO 1,500 MG/100 ML RTUPB IV SCH ×2 (09:09→21:19)
[2016-11-22] MEDS: CEFTRIAXONE 1 GM/D5W RTU 1 GM/50 ML RTUPB IV SCH (11:51)
[2016-11-22] MEDS: MIDAZOLAM HCL 100 ML IV PRN (11:52)
[2016-11-22] MEDS: PROPOFOL 100 ML IV PRN (18:12)
--- NOTE | 2016-11-22 19:33 | PROGRESS NOTE E ---
Progress Note NAME: JOSELITO RODRIGUEZ : 1945 AGE: 71Y DATE: 11/22/2016 ROOM: ED11 SUBJECTIVE: Patient is currently still intubated and *------*. Discussed with the ICU nurse. No seizures. The patient is currently followed by Dr. Bailey and no change in the weekend. OBJECTIVE: VITAL SIGNS: Blood pressure was 135/79. Pulse is 90. Respiration was currently on mechanical ventilator. GENERAL: The patient is lying in the bed currently *------*. HEAD AND NECK: Normocephalic. PERRLA. LUNGS: There is no wheezing, no rales. HEART: S1, S2 present. ABDOMEN: Soft. Bowel sounds present. EXTREMITIES: No edema. NEUROLOGIC: The patient is currently intubated. ASSESSMENT: 1. ACUTE RESPIRATORY DISTRESS STATUS POST INTUBATION. 2. UNCONTROLLED SEIZURES, CURRENTLY ON IV KEPPRA, STABLE. 3. CHRONIC OBSTRUCTIVE PULMONARY DISEASE. 4. STAPHYLOCOCCUS AUREUS PNEUMONIA CURRENTLY ON ROCEPHIN. 5. HYPERTENSION. 6. CHRONIC SMOKER. 7. HYPOGAMMAGLOBINEMIA. PLAN: At this point, continue IV Rocephin. Continue to follow with Pulmonary for vent management. Order the chest x-ray and continue to monitor the patient. DICTATING PHYSICIAN: BARBARA TEJADA M.D. [id number] [id number] ID: [id number] JOB#: [id number] ACCT: [id number] cc: >
[2016-11-23] MEDS: PROPOFOL 100 ML IV PRN ×4 (00:31→19:41)
[2016-11-23] MEDS: LEVALBUTEROL HCL NEB 1.25 MG/3 ML AMPUL NEB SCH ×4 (02:08→21:00)
[2016-11-23] MEDS: NORMAL SALINE 1000 ML 1,000 ML IV PRN ×2 (03:18→15:33)
[2016-11-23 04:35] LABS: ANION GAP 6 (5-19); BLOOD UREA NITROGEN 6 mg/dL (7-20); CALCIUM 8.7 mg/dL (8.4-10.2); CARBON DIOXIDE 26 mmol/L (22-30); CHLORIDE 111 mmol/L (98-107); CREATININE RESULT 0.45 mg/dL (0.52-1.25); GLUCOSE 97 mg/dL (75-110); POTASSIUM 3.4 mmol/L (3.6-5.0); SODIUM 143.2 mmol/L (137-145); TRIGLYCERIDES 65 mg/dL (<150)
[2016-11-23 04:45] LABS: ABSOLUTE EOSINOPHILS # (AUTO) 0.1 10^3/uL (0.0-0.6); ABSOLUTE LYMPHOCYTES (AUTO) 0.8 10^3/uL (0.5-4.7); ABSOLUTE MONOCYTES (AUTO) 0.4 10^3/uL (0.1-1.4); ABSOLUTE NEUT (AUTO) 2.2 10^3/uL (1.7-8.2); BASOPHILS % (AUTO) 0.8 % (0-2); HEMATOCRIT 32.6 % (36.0-47.0); HEMOGLOBIN 11.1 g/dL (12.0-15.5); HGB HCT DIFFERENCE 0.7; LYMPHOCYTES % (AUTO) 22.2 % (13-45); MEAN CORPUSCULAR HEMOGLOBIN 29.5 pg (27.0-33.4); MEAN CORPUSCULAR HGB CONC 34.1 g/dL (32.0-36.0); MEAN CORPUSCULAR VOLUME 87 fl (80-97); MONOCYTES % (AUTO) 11.9 % (3-13); RED BLOOD COUNT 3.77 10^6/uL (3.72-5.28); RED CELL DISTRIBUTION WIDTH 14.4 % (11.5-14.0); SEGMENTED NEUTROPHILS % (AUTO) 63.1 % (42-78); WHITE BLOOD COUNT 3.5 10^3/uL (4.0-10.5)
[2016-11-23 05:27] LABS: ARTERIAL BLOOD BASE EXCESS 0.3 mmol/L
--- NOTE | 2016-11-23 08:24 | PDOC PROGRESS REPORT ---
Subjective Progress Note for:: 11/23/16 Subjective:: Patient is is doing same . No seziure overnight patient still intubated and currently under sedations Physical Exam Vital Signs: Temp Pulse Resp BP Pulse Ox 99.2 F 78 14 88/51 L 97 11/22/16 16:00 11/23/16 02:10 11/23/16 06:02 11/23/16 06:02 11/23/16 06:02 Intake & Output 11/22/16 11/23/16 11/24/16 06:59 06:59 06:59 Intake Total 3616 3428 Output Total 2190 2565 Balance 1426 863 Weight 52 kg 52.4 kg Physical Exam: Currently intubated and under sedation General appearance: PRESENT: no acute distress Eye exam: PRESENT: PERRLA Mouth exam: PRESENT: neck supple Respiratory exam: PRESENT: clear to auscultation pavel Cardiovascular exam: PRESENT: +S1, +S2 GI/Abdominal exam: PRESENT: normal bowel sounds Extremities exam: ABSENT: pedal edema Neurological exam: PRESENT: alert, awake Psychiatric exam: PRESENT: anxious Skin exam: PRESENT: dry Results Laboratory Results: 11/23/16 03:52 11/23/16 03:52 11/22/16 11/23/16 11/23/16 14:47 03:52 03:52 WBC 3.5 L RBC 3.77 Hgb 11.1 L Hct 32.6 L MCV 87 MCH 29.5 MCHC 34.1 RDW 14.4 H Plt Count 92 L Seg Neutrophils % 63.1 Lymphocytes % 22.2 Monocytes % 11.9 Eosinophils % 2.0 Basophils % 0.8 Absolute Neutrophils 2.2 Absolute Lymphocytes 0.8 Absolute Monocytes 0.4 Absolute Eosinophils 0.1 Absolute Basophils 0.0 Carbonic Acid HCO3/H2CO3 Ratio ABG pH ABG pCO2 ABG pO2 ABG HCO3 ABG O2 Saturation ABG Base Excess FiO2 Sodium 143.2 Potassium 4.1 3.4 L Chloride 111 H Carbon Dioxide 26 Anion Gap 6 BUN 6 L Creatinine 0.45 L Est GFR ( Amer) > 60 Est GFR (Non-Af Amer) > 60 Glucose 97 Calcium 8.7 Triglycerides 65 11/23/16 05:15 WBC RBC Hgb Hct MCV MCH MCHC RDW Plt Count Seg Neutrophils % Lymphocytes % Monocytes % Eosinophils % Basophils % Absolute Neutrophils Absolute Lymphocytes Absolute Monocytes Absolute Eosinophils Absolute Basophils Carbonic Acid 1.14 HCO3/H2CO3 Ratio 21:1 ABG pH 7.43 ABG pCO2 38.0 ABG pO2 89.1 ABG HCO3 24.5 ABG O2 Saturation 97.0 ABG Base Excess 0.3 FiO2 28% Sodium Potassium Chloride Carbon Dioxide Anion Gap BUN Creatinine Est GFR ( Amer) Est GFR (Non-Af Amer) Glucose Calcium Triglycerides Impressions: Head CT 11/18/16 07:16 IMPRESSION: CHRONIC CHANGES OF ATROPHY AND MICROVASCULAR ISCHEMIA. CHRONIC ENCEPHALOMALACIA IN THE LEFT OCCIPITAL LOBE. NO ACUTE PROCESS. Chest X-Ray 11/23/16 06:00 IMPRESSION: Ill-defined bibasilar densities as noted above. Other findings as noted above. Assessment & Plan - Diagnosis (1) Endotracheally intubated Is this a current diagnosis for this admission?: YesPlan: From respiratory distress currently follow with the pulmonary (2) Post-ictal state Is this a current diagnosis for this admission?: YesPlan: Patient start IV Keppra and put the as needed Ativan (3) Acute respiratory failure Qualifiers: Respiratory failure complication: hypoxia Qualified Code(s): J96.01 - Acute respiratory failure with hypoxia Is this a current diagnosis for this admission?: YesPlan: Uncontrolled seizures and the COPD currently intubated and follow-up with the pulmonary (4) Alcohol abuse Is this a current diagnosis for this admission?: YesPlan: Several counseling was done in the past and they may be triggered the patient's uncontrolled seizures with a not taking med (5) COPD (chronic obstructive pulmonary disease) Is this a current diagnosis for this admission?: YesPlan: Continuous nebulizer treatment (6) Hearing impairment Is this a current diagnosis for this admission?: Yes (7) 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 Herman (9) Pulmonary nodule Is this a current diagnosis for this admission?: Yes - Time Time Spent with patient: 15-24 minutes Medications reviewed and adjusted accordingly: Yes Anticipated discharge: Home - Inpatient Certification Post Hospital Care: D/C Sewage Disposal Engineer Documentation - Plan Summary Plan Summary: Continues the current medication
[2016-11-23] MEDS: FAMOTIDINE INJ/PF 20 MG/2 ML SDV IV SCH ×2 (11:29→21:33)
[2016-11-23] MEDS: LEVETIRACETAM 1500 MG/NACL-ISO 1,500 MG/100 ML RTUPB IV SCH ×2 (11:30→21:33)
[2016-11-23] MEDS: CEFTRIAXONE 1 GM/D5W RTU 1 GM/50 ML RTUPB IV SCH (11:30)
[2016-11-23] MEDS: MIDAZOLAM HCL 100 ML IV PRN (22:00)
[2016-11-24] MEDS: LEVALBUTEROL HCL NEB 1.25 MG/3 ML AMPUL NEB SCH ×4 (02:08→19:58)
[2016-11-24 04:42] LABS: ANION GAP 7 (5-19); BLOOD UREA NITROGEN 7 mg/dL (7-20); CALCIUM 8.6 mg/dL (8.4-10.2); CARBON DIOXIDE 26 mmol/L (22-30); CHLORIDE 110 mmol/L (98-107); CREATININE RESULT 0.46 mg/dL (0.52-1.25); GLUCOSE 96 mg/dL (75-110); POTASSIUM 3.5 mmol/L (3.6-5.0); SODIUM 142.9 mmol/L (137-145)
[2016-11-24] MEDS: PROPOFOL 100 ML IV PRN (07:15)
[2016-11-24 08:23] LABS: ARTERIAL BLOOD BASE EXCESS -0.3 mmol/L; ARTERIAL BLOOD O2 SATURATION 97.2 % (94-98)
--- NOTE | 2016-11-24 08:26 | PDOC PROGRESS REPORT ---
Subjective Progress Note for:: 11/24/16 Subjective:: Patient is is doing same . No seziure overnight patient still intubated and currently under sedations Physical Exam Vital Signs: Temp Pulse Resp BP Pulse Ox 98.4 F 80 10 L 126/79 H 100 11/24/16 03:00 11/24/16 02:08 11/24/16 06:01 11/24/16 06:00 11/24/16 06:01 Intake & Output 11/23/16 11/24/16 11/25/16 06:59 06:59 06:59 Intake Total 3428 3145 Output Total 2565 2075 Balance 863 1070 Weight 52.4 kg 54 kg Physical Exam: intbated and under sedation General appearance: PRESENT: no acute distress Eye exam: PRESENT: PERRLA Mouth exam: PRESENT: neck supple Respiratory exam: PRESENT: clear to auscultation pavel Cardiovascular exam: PRESENT: +S1, +S2 GI/Abdominal exam: PRESENT: normal bowel sounds, soft Extremities exam: ABSENT: pedal edema Neurological exam: PRESENT: other Additional comments: under sedation Results Laboratory Results: 11/23/16 03:52 11/24/16 04:17 11/24/16 04:17 Sodium 142.9 Potassium 3.5 L Chloride 110 H Carbon Dioxide 26 Anion Gap 7 BUN 7 Creatinine 0.46 L Est GFR ( Amer) > 60 Est GFR (Non-Af Amer) > 60 Glucose 96 Calcium 8.6 11/18/16 12:36 Blood Blood Culture - Final NO GROWTH IN 5 DAYS Impressions: Head CT 11/18/16 07:16 IMPRESSION: CHRONIC CHANGES OF ATROPHY AND MICROVASCULAR ISCHEMIA. CHRONIC ENCEPHALOMALACIA IN THE LEFT OCCIPITAL LOBE. NO ACUTE PROCESS. Chest X-Ray 11/23/16 06:00 IMPRESSION: Ill-defined bibasilar densities as noted above. Other findings as noted above. Assessment & Plan - Diagnosis (1) Endotracheally intubated Is this a current diagnosis for this admission?: YesPlan: try to extubated today (2) Post-ictal state Is this a current diagnosis for this admission?: YesPlan: stable (3) Acute respiratory failure Qualifiers: Respiratory failure complication: hypoxia Qualified Code(s): J96.01 - Acute respiratory failure with hypoxia Is this a current diagnosis for this admission?: YesPlan: Uncontrolled seizures and the COPD currently intubated and follow-up with the pulmonary (4) Alcohol abuse Is this a current diagnosis for this admission?: YesPlan: Several counseling was done in the past and they may be triggered the patient's uncontrolled seizures with a not taking med (5) COPD (chronic obstructive pulmonary disease) Is this a current diagnosis for this admission?: YesPlan: Continuous nebulizer treatment (6) Hearing impairment Is this a current diagnosis for this admission?: Yes (7) 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 Is this a current diagnosis for this admission?: YesPlan: Currently put on IV Keppra (8) Waldenstrom macroglobulinemia Is this a current diagnosis for this admission?: Yes (9) Pulmonary nodule Is this a current diagnosis for this admission?: Yes - Time Time Spent with patient: 15-24 minutes Critical Time spent with patient: 15-24 minutes Medications reviewed and adjusted accordingly: Yes Anticipated discharge: Home - Inpatient Certification Medical Necessity: Need Close Monitoring Due to Risk of Patient Decompensation Post Hospital Care: D/C Telecommunications Switch Technician Documentation - Plan Summary Plan Summary: d/w icu nurse order cxr order abg f/u with pulmonary plan to extubated today per protocol d/w rajendra
[2016-11-24] MEDS: FAMOTIDINE INJ/PF 20 MG/2 ML SDV IV SCH ×2 (09:22→21:00)
[2016-11-24] MEDS: LEVETIRACETAM 1500 MG/NACL-ISO 1,500 MG/100 ML RTUPB IV SCH ×2 (09:22→21:00)
[2016-11-24] MEDS: CEFTRIAXONE 1 GM/D5W RTU 1 GM/50 ML RTUPB IV SCH (11:03)
[2016-11-24] MEDS: NORMAL SALINE 1000 ML 1,000 ML IV PRN ×2 (12:26→17:31)
[2016-11-24 13:17] LABS: ARTERIAL BLOOD BASE EXCESS -1.9 mmol/L
[2016-11-25] MEDS: LEVALBUTEROL HCL NEB 1.25 MG/3 ML AMPUL NEB SCH ×4 (01:52→20:45)
[2016-11-25 04:32] LABS: ABSOLUTE EOSINOPHILS # (AUTO) 0.1 10^3/uL (0.0-0.6); ABSOLUTE LYMPHOCYTES (AUTO) 0.8 10^3/uL (0.5-4.7); ABSOLUTE MONOCYTES (AUTO) 0.3 10^3/uL (0.1-1.4); ABSOLUTE NEUT (AUTO) 2.3 10^3/uL (1.7-8.2); BASOPHILS % (AUTO) 0.7 % (0-2); EOSINOPHILS % (AUTO) 2.5 % (0-6); HEMATOCRIT 35.9 % (36.0-47.0); HGB HCT DIFFERENCE 0.1; LYMPHOCYTES % (AUTO) 22.9 % (13-45); MEAN CORPUSCULAR HEMOGLOBIN 29.4 pg (27.0-33.4); MEAN CORPUSCULAR HGB CONC 33.5 g/dL (32.0-36.0); MEAN CORPUSCULAR VOLUME 88 fl (80-97); MONOCYTES % (AUTO) 9.5 % (3-13); RED BLOOD COUNT 4.09 10^6/uL (3.72-5.28); RED CELL DISTRIBUTION WIDTH 14.3 % (11.5-14.0); SEGMENTED NEUTROPHILS % (AUTO) 64.4 % (42-78); WHITE BLOOD COUNT 3.5 10^3/uL (4.0-10.5)
[2016-11-25 05:09] LABS: ANION GAP 10 (5-19); BLOOD UREA NITROGEN 6 mg/dL (7-20); CALCIUM 9.5 mg/dL (8.4-10.2); CARBON DIOXIDE 27 mmol/L (22-30); CHLORIDE 107 mmol/L (98-107); CREATININE RESULT 0.38 mg/dL (0.52-1.25); GLUCOSE 71 mg/dL (75-110); POTASSIUM 3.3 mmol/L (3.6-5.0); SODIUM 144.2 mmol/L (137-145)
[2016-11-25] MEDS: NORMAL SALINE 1000 ML 1,000 ML IV PRN (06:50)
--- NOTE | 2016-11-25 08:22 | PDOC PROGRESS REPORT ---
Subjective Progress Note for:: 11/25/16 Subjective:: Patient's is successfully extubated yesterday currently on 3 L nasal cannula and patient is currently doing much better. His denied any chest pain no shortness of the breath and no fever and no seizures activity Physical Exam Vital Signs: Temp Pulse Resp BP Pulse Ox 98.0 F 86 20 160/85 H 100 11/25/16 08:00 11/25/16 08:00 11/25/16 08:00 11/25/16 08:00 11/25/16 08:00 Intake & Output 11/24/16 11/25/16 11/26/16 06:59 06:59 06:59 Intake Total 3145 2983 Output Total 3291 6145 75 Balance 1070 -4212 -75 Weight 54 kg 49.4 kg General appearance: PRESENT: no acute distress Head exam: PRESENT: normocephalic Eye exam: PRESENT: PERRLA Mouth exam: PRESENT: neck supple Respiratory exam: PRESENT: clear to auscultation pavel Cardiovascular exam: PRESENT: +S1, +S2 GI/Abdominal exam: PRESENT: normal bowel sounds, soft. ABSENT: tenderness Neurological exam: PRESENT: alert, awake, oriented to person, oriented to place , oriented to time Skin exam: PRESENT: dry Results Laboratory Results: 11/25/16 03:54 11/25/16 03:54 11/24/16 11/24/16 11/25/16 08:00 12:55 03:54 WBC RBC Hgb Hct MCV MCH MCHC RDW Plt Count Seg Neutrophils % Lymphocytes % Monocytes % Eosinophils % Basophils % Absolute Neutrophils Absolute Lymphocytes Absolute Monocytes Absolute Eosinophils Absolute Basophils Carbonic Acid 1.07 1.13 HCO3/H2CO3 Ratio 21:1 20:1 ABG pH 7.44 7.40 ABG pCO2 35.7 37.6 ABG pO2 90.0 108.5 H ABG HCO3 23.5 22.6 ABG O2 Saturation 97.2 98.0 ABG Base Excess -0.3 -1.9 FiO2 28% 40% Sodium 144.2 Potassium 3.3 L Chloride 107 Carbon Dioxide 27 Anion Gap 10 BUN 6 L Creatinine 0.38 L Est GFR ( Amer) > 60 Est GFR (Non-Af Amer) > 60 Glucose 71 L Calcium 9.5 11/25/16 03:54 WBC 3.5 L RBC 4.09 Hgb 12.0 Hct 35.9 L MCV 88 MCH 29.4 MCHC 33.5 RDW 14.3 H Plt Count 105 L Seg Neutrophils % 64.4 Lymphocytes % 22.9 Monocytes % 9.5 Eosinophils % 2.5 Basophils % 0.7 Absolute Neutrophils 2.3 Absolute Lymphocytes 0.8 Absolute Monocytes 0.3 Absolute Eosinophils 0.1 Absolute Basophils 0.0 Carbonic Acid HCO3/H2CO3 Ratio ABG pH ABG pCO2 ABG pO2 ABG HCO3 ABG O2 Saturation ABG Base Excess FiO2 Sodium Potassium Chloride Carbon Dioxide Anion Gap BUN Creatinine Est GFR ( Amer) Est GFR (Non-Af Amer) Glucose Calcium Impressions: Head CT 11/18/16 07:16 IMPRESSION: CHRONIC CHANGES OF ATROPHY AND MICROVASCULAR ISCHEMIA. CHRONIC ENCEPHALOMALACIA IN THE LEFT OCCIPITAL LOBE. NO ACUTE PROCESS. Chest X-Ray 11/24/16 00:00 IMPRESSION: Stable chest status post extubation. No pneumothorax. Assessment & Plan - Diagnosis (1) Endotracheally intubated Is this a current diagnosis for this admission?: YesPlan: Currently extubated (2) Post-ictal state Is this a current diagnosis for this admission?: YesPlan: Stable (3) Acute respiratory failure Qualifiers: Respiratory failure complication: hypoxia Qualified Code(s): J96.01 - Acute respiratory failure with hypoxia Is this a current diagnosis for this admission?: YesPlan: Resolved (4) Alcohol abuse Is this a current diagnosis for this admission?: YesPlan: Several counseling was done in the past and they may be triggered the patient's uncontrolled seizures with a not taking med (5) COPD (chronic obstructive pulmonary disease) Is this a current diagnosis for this admission?: YesPlan: Continuous nebulizer treatment (6) Hearing impairment Is this a current diagnosis for this admission?: Yes (7) 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 Is this a current diagnosis for this admission?: YesPlan: DC IV Keppra and start the by mouth (8) Waldenstrom macroglobulinemia Is this a current diagnosis for this admission?: Yes (9) Pulmonary nodule Is this a current diagnosis for this admission?: Yes - Time Time Spent with patient: 15-24 minutes Medications reviewed and adjusted accordingly: Yes Anticipated discharge: Home Within: within 48 hours - Inpatient Certification Medical Necessity: Significant Comorbidiites Make Outpatient Treatment Too Risky Post Hospital Care: D/C Retail Merchandising Specialist Documentation - Plan Summary Plan Summary: Now patient was transported to the telemetry bed and DC on IV med and start the by mouth medications and continues towards next 2448 hrs. discussed with the son the patient's current conditions and plan
[2016-11-25] MEDS: LEVETIRACETAM 500 MG TABLET PO SCH ×2 (10:18→21:38)
[2016-11-25] MEDS: METOPROLOL SUCCINATE 25 MG TAB.SR.24H PO SCH (10:19)
[2016-11-25] MEDS: FLUTICASONE/SALMETEROL DISKUS 100-50 MCG/DOSE IH SCH ×2 (11:32→21:38)
[2016-11-25] MEDS: POTASSIUM CHLORIDE 20 MEQ/50 ML RTU IV SCH ×2 (11:32→13:17)
[2016-11-25] MEDS: GABAPENTIN 300 MG CAPSULE PO SCH ×2 (13:23→21:38)
[2016-11-25] MEDS: DOCUSATE SODIUM 100 MG CAPSULE PO SCH (17:45)
[2016-11-26] MEDS: LEVALBUTEROL HCL NEB 1.25 MG/3 ML AMPUL NEB SCH ×4 (02:01→20:11)
[2016-11-26 05:50] LABS: ABSOLUTE EOSINOPHILS # (AUTO) 0.1 10^3/uL (0.0-0.6); ABSOLUTE LYMPHOCYTES (AUTO) 0.8 10^3/uL (0.5-4.7); ABSOLUTE MONOCYTES (AUTO) 0.3 10^3/uL (0.1-1.4); ABSOLUTE NEUT (AUTO) 1.9 10^3/uL (1.7-8.2); BASOPHILS % (AUTO) 0.7 % (0-2); EOSINOPHILS % (AUTO) 2.3 % (0-6); HEMATOCRIT 34.7 % (36.0-47.0); HEMOGLOBIN 11.7 g/dL (12.0-15.5); HGB HCT DIFFERENCE 0.4; LYMPHOCYTES % (AUTO) 25.9 % (13-45); MEAN CORPUSCULAR HEMOGLOBIN 29.1 pg (27.0-33.4); MEAN CORPUSCULAR HGB CONC 33.7 g/dL (32.0-36.0); MEAN CORPUSCULAR VOLUME 86 fl (80-97); RED BLOOD COUNT 4.02 10^6/uL (3.72-5.28); RED CELL DISTRIBUTION WIDTH 14.1 % (11.5-14.0); SEGMENTED NEUTROPHILS % (AUTO) 60.1 % (42-78); WHITE BLOOD COUNT 3.1 10^3/uL (4.0-10.5)
[2016-11-26 06:08] LABS: ANION GAP 10 (5-19); BLOOD UREA NITROGEN 7 mg/dL (7-20); CALCIUM 9.9 mg/dL (8.4-10.2); CARBON DIOXIDE 28 mmol/L (22-30); CHLORIDE 105 mmol/L (98-107); CREATININE RESULT 0.41 mg/dL (0.52-1.25); GLUCOSE 80 mg/dL (75-110); POTASSIUM 3.1 mmol/L (3.6-5.0)
[2016-11-26] MEDS: GABAPENTIN 300 MG CAPSULE PO SCH ×3 (06:46→21:12)
[2016-11-26] MEDS ORDERED: POTASSIUM CHLORIDE 10 MEQ TABLET.SA PO ONE (08:00)
[2016-11-26] MEDS ORDERED: POTASSI CL 20 MEQ/50 ML RIDER 50 ML IV ONE (08:00)
[2016-11-26] MEDS: METOPROLOL SUCCINATE 25 MG TAB.SR.24H PO SCH (09:34)
[2016-11-26] MEDS: DOCUSATE SODIUM 100 MG CAPSULE PO SCH ×2 (09:34→17:43)
[2016-11-26] MEDS: LEVETIRACETAM 500 MG TABLET PO SCH ×2 (09:35→21:12)
[2016-11-26] MEDS: FLUTICASONE/SALMETEROL DISKUS 100-50 MCG/DOSE IH SCH ×2 (09:35→21:12)
--- NOTE | 2016-11-26 13:17 | PDOC PROGRESS REPORT ---
Subjective Progress Note for:: 11/26/16 Subjective:: Patient is feeling much better denied any chest pain no shortness of the. Patient is having no seizures activity Physical Exam Vital Signs: Temp Pulse Resp BP Pulse Ox 98.6 F 84 16 113/67 98 11/26/16 11:41 11/26/16 11:41 11/26/16 11:41 11/26/16 11:41 11/26/16 11:41 Intake & Output 11/25/16 11/26/16 11/27/16 06:59 06:59 06:59 Intake Total 1933 545 Output Total 6171 2841 Balance -4212 -2204 Weight 49.4 kg 50.5 kg General appearance: PRESENT: no acute distress Head exam: PRESENT: normocephalic Eye exam: PRESENT: PERRLA Mouth exam: PRESENT: neck supple Respiratory exam: PRESENT: clear to auscultation pavel Cardiovascular exam: PRESENT: +S1, +S2 GI/Abdominal exam: PRESENT: normal bowel sounds, soft Extremities exam: ABSENT: pedal edema Neurological exam: PRESENT: alert, awake, oriented to person, oriented to place , oriented to time, oriented to situation Psychiatric exam: PRESENT: anxious Results Laboratory Results: 11/26/16 04:49 11/26/16 04:49 11/26/16 11/26/16 04:49 04:49 WBC 3.1 L RBC 4.02 Hgb 11.7 L Hct 34.7 L MCV 86 MCH 29.1 MCHC 33.7 RDW 14.1 H Plt Count 129 L Seg Neutrophils % 60.1 Lymphocytes % 25.9 Monocytes % 11.0 Eosinophils % 2.3 Basophils % 0.7 Absolute Neutrophils 1.9 Absolute Lymphocytes 0.8 Absolute Monocytes 0.3 Absolute Eosinophils 0.1 Absolute Basophils 0.0 Sodium 143.0 Potassium 3.1 L Chloride 105 Carbon Dioxide 28 Anion Gap 10 BUN 7 Creatinine 0.41 L Est GFR ( Amer) > 60 Est GFR (Non-Af Amer) > 60 Glucose 80 Calcium 9.9 Impressions: Head CT 11/18/16 07:16 IMPRESSION: CHRONIC CHANGES OF ATROPHY AND MICROVASCULAR ISCHEMIA. CHRONIC ENCEPHALOMALACIA IN THE LEFT OCCIPITAL LOBE. NO ACUTE PROCESS. Chest X-Ray 11/26/16 00:00 IMPRESSION: New trace bilateral pleural effusions right greater than left Assessment & Plan - Diagnosis (1) Endotracheally intubated Is this a current diagnosis for this admission?: YesPlan: Currently extubated (2) Post-ictal state Is this a current diagnosis for this admission?: YesPlan: Stable (3) Acute respiratory failure Qualifiers: Respiratory failure complication: hypoxia Qualified Code(s): J96.01 - Acute respiratory failure with hypoxia Is this a current diagnosis for this admission?: YesPlan: All resolved (4) Alcohol abuse Is this a current diagnosis for this admission?: YesPlan: Several counseling was done in the past and they may be triggered the patient's uncontrolled seizures with a not taking med (5) COPD (chronic obstructive pulmonary disease) Is this a current diagnosis for this admission?: YesPlan: Continuous nebulizer treatment (6) Hearing impairment Is this a current diagnosis for this admission?: Yes (7) 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 Is this a current diagnosis for this admission?: YesPlan: DC IV Keppra and start the by mouth (8) Waldenstrom macroglobulinemia Is this a current diagnosis for this admission?: Yes (9) Pulmonary nodule Is this a current diagnosis for this admission?: Yes - Time Time Spent with patient: 15-24 minutes Medications reviewed and adjusted accordingly: Yes Anticipated discharge: Home - Plan Summary Plan Summary: The chest x-ray shows some mild pleural effusion patient's clinically looks much since potassium is low will replace the potassium rechecked today and put the patient in the oral antibiotics
[2016-11-26] MEDS: CEPHALEXIN 500 MG CAPSULE PO SCH ×2 (14:40→21:11)
[2016-11-27] MEDS: LEVALBUTEROL HCL NEB 1.25 MG/3 ML AMPUL NEB SCH ×4 (02:36→20:02)
[2016-11-27 04:42] LABS: ANION GAP 8 (5-19); BLOOD UREA NITROGEN 9 mg/dL (7-20); CALCIUM 10.1 mg/dL (8.4-10.2); CARBON DIOXIDE 28 mmol/L (22-30); CHLORIDE 108 mmol/L (98-107); CREATININE RESULT 0.45 mg/dL (0.52-1.25); GLUCOSE 87 mg/dL (75-110); POTASSIUM 3.6 mmol/L (3.6-5.0); SODIUM 143.7 mmol/L (137-145)
[2016-11-27] MEDS: GABAPENTIN 300 MG CAPSULE PO SCH ×3 (07:06→22:36)
[2016-11-27] MEDS: CEPHALEXIN 500 MG CAPSULE PO SCH ×3 (07:06→22:36)
[2016-11-27] MEDS: FLUTICASONE/SALMETEROL DISKUS 100-50 MCG/DOSE IH SCH ×2 (10:27→22:36)
[2016-11-27] MEDS: DOCUSATE SODIUM 100 MG CAPSULE PO SCH ×2 (10:28→17:28)
[2016-11-27] MEDS: METOPROLOL SUCCINATE 25 MG TAB.SR.24H PO SCH (10:28)
[2016-11-27] MEDS: LEVETIRACETAM 500 MG TABLET PO SCH ×2 (10:28→22:36)
--- NOTE | 2016-11-27 12:09 | PDOC PROGRESS REPORT ---
Subjective Progress Note for:: 11/27/16 Subjective:: Patient reported ongoing improvement in her breathing. No recurrent seizure activities. She denied any chest pain. No nausea or vomiting. P.O intake remain fairly satisfactory. No fever or chills but reported been always cold. Physical Exam Vital Signs: Temp Pulse Resp BP Pulse Ox 98.0 F 92 17 122/79 94 11/27/16 07:28 11/27/16 08:19 11/27/16 08:19 11/27/16 07:28 11/27/16 07:28 Intake & Output 11/26/16 11/27/16 11/28/16 06:59 06:59 06:59 Intake Total 545 1550 Output Total 2750 Balance -2205 1550 Weight 50.5 kg 49.3 kg General appearance: PRESENT: no acute distress, cooperative, thin Head exam: PRESENT: atraumatic, normocephalic Eye exam: PRESENT: conjunctiva pink, EOMI, PERRLA. ABSENT: scleral icterus Mouth exam: PRESENT: moist Neck exam: PRESENT: full ROM. ABSENT: carotid bruit, JVD, lymphadenopathy, thyromegaly Respiratory exam: PRESENT: decreased breath sounds. ABSENT: accessory muscle use, chest wall tenderness, clear to auscultation pavel, crackles, prolonged expiratory phas, rales, retraction, rhonchi, stridor, symmetrical, tachypnea, unlabored, wheezes, other Cardiovascular exam: PRESENT: RRR. ABSENT: diastolic murmur, rubs, systolic murmur GI/Abdominal exam: PRESENT: normal bowel sounds, soft. ABSENT: distended, guarding, mass, organolmegaly, rebound, tenderness Extremities exam: PRESENT: full ROM Musculoskeletal exam: PRESENT: ambulatory, deformity - due to joint involvement with arthritis, full ROM Neurological exam: PRESENT: alert, awake, oriented to person, oriented to place , oriented to time, oriented to situation, CN II-XII grossly intact. ABSENT: motor sensory deficit Psychiatric exam: PRESENT: appropriate affect, normal mood. ABSENT: homicidal ideation, suicidal ideation Results Laboratory Results: 11/26/16 04:49 11/27/16 04:02 11/26/16 11/27/16 13:59 04:02 Sodium 143.7 Potassium 4.1 D 3.6 Chloride 108 H Carbon Dioxide 28 Anion Gap 8 BUN 9 Creatinine 0.45 L Est GFR ( Amer) > 60 Est GFR (Non-Af Amer) > 60 Glucose 87 Calcium 10.1 Impressions: Head CT 11/18/16 07:16 IMPRESSION: CHRONIC CHANGES OF ATROPHY AND MICROVASCULAR ISCHEMIA. CHRONIC ENCEPHALOMALACIA IN THE LEFT OCCIPITAL LOBE. NO ACUTE PROCESS. Chest X-Ray 11/26/16 00:00 IMPRESSION: New trace bilateral pleural effusions right greater than left Assessment & Plan - Diagnosis (1) Seizure Is this a current diagnosis for this admission?: YesPlan: Continue current medication management. (2) COPD (chronic obstructive pulmonary disease) Is this a current diagnosis for this admission?: YesPlan: Continue current medication management. (3) 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 Is this a current diagnosis for this admission?: YesPlan: Continue current medication management. Monitor anti seizure medication serum level to tailor her medication management. (4) Smoker Is this a current diagnosis for this admission?: YesPlan: Continue current medication management. Continue counseling was done on smoking cessation and associated health risks. - Time Time Spent with patient: 25-34 minutes Smoking Cessation Education: 3 to 10 minutes Medications reviewed and adjusted accordingly: Yes Anticipated discharge: Home with Homehealth Within: Other - Inpatient Certification Based on my medical assessment, after consideration of the patient's comorbidities, presenting symptoms, or acuity I expect that the services needed warrant INPATIENT care.: Yes I certify that my determination is in accordance with my understanding of Medicare's requirements for reasonable and necessary INPATIENT services [42 CFR 412.3e].: Yes Medical Necessity: Risk of Complication if Not Cared For in Hospital Post Hospital Care: D/C H[employer] Cooper Documentation - Plan Summary Plan Summary: see covering attending note.
[2016-11-28] MEDS: LEVALBUTEROL HCL NEB 1.25 MG/3 ML AMPUL NEB SCH ×4 (02:20→19:37)
[2016-11-28 05:49] LABS: ANION GAP 9 (5-19); BLOOD UREA NITROGEN 7 mg/dL (7-20); CALCIUM 9.8 mg/dL (8.4-10.2); CARBON DIOXIDE 26 mmol/L (22-30); CHLORIDE 107 mmol/L (98-107); CREATININE RESULT 0.46 mg/dL (0.52-1.25); GLUCOSE 79 mg/dL (75-110); POTASSIUM 3.4 mmol/L (3.6-5.0)
[2016-11-28] MEDS: CEPHALEXIN 500 MG CAPSULE PO SCH ×3 (06:16→21:49)
[2016-11-28] MEDS: GABAPENTIN 300 MG CAPSULE PO SCH ×3 (06:16→21:49)
[2016-11-28] MEDS: LEVETIRACETAM 500 MG TABLET PO SCH ×2 (10:36→21:49)
[2016-11-28] MEDS: METOPROLOL SUCCINATE 25 MG TAB.SR.24H PO SCH (10:37)
[2016-11-28] MEDS: DOCUSATE SODIUM 100 MG CAPSULE PO SCH ×2 (10:37→18:49)
[2016-11-28] MEDS: FLUTICASONE/SALMETEROL DISKUS 100-50 MCG/DOSE IH SCH ×2 (10:38→21:49)
--- NOTE | 2016-11-28 10:56 | PDOC PROGRESS REPORT ---
Subjective Progress Note for:: 11/28/16 Subjective:: Patient reported no chest pain or difficulty with breathing. No recurrent seizure activities. No nausea or vomiting. P.O intake remain fairly satisfactory. No fever or chills. Physical Exam Vital Signs: Temp Pulse Resp BP Pulse Ox 98.4 F 85 14 110/70 96 11/28/16 07:51 11/28/16 07:51 11/28/16 07:51 11/28/16 07:51 11/28/16 07:51 Intake & Output 11/27/16 11/28/16 11/29/16 06:59 06:59 06:59 Intake Total 1550 1875 Balance 1550 1875 Weight 49.3 kg 47.8 kg Physical Exam: General appearance: PRESENT: no acute distress, cooperative, thin Head exam: PRESENT: atraumatic, normocephalic Eye exam: PRESENT: conjunctiva pink, EOMI, PERRLA. ABSENT: scleral icterus Mouth exam: PRESENT: moist Neck exam: PRESENT: full ROM. ABSENT: carotid bruit, JVD, lymphadenopathy, thyromegaly Respiratory exam: PRESENT: decreased breath sounds. ABSENT: accessory muscle use, chest wall tenderness, clear to auscultation pavel, crackles, prolonged expiratory phas, rales, retraction, rhonchi, stridor, symmetrical, tachypnea, unlabored, wheezes, other Cardiovascular exam: PRESENT: RRR. ABSENT: diastolic murmur, rubs, systolic murmur GI/Abdominal exam: PRESENT: normal bowel sounds, soft. ABSENT: distended, guarding, mass, organolmegaly, rebound, tenderness Extremities exam: PRESENT: full ROM Musculoskeletal exam: PRESENT: ambulatory, deformity - due to joint involvement with arthritis, full ROM Neurological exam: PRESENT: alert, awake, oriented to person, oriented to place , oriented to time, oriented to situation, CN II-XII grossly intact. ABSENT: motor sensory deficit Psychiatric exam: PRESENT: appropriate affect, normal mood. ABSENT: homicidal ideation, suicidal ideation Results Laboratory Results: 11/26/16 04:49 11/28/16 04:37 11/28/16 04:37 Sodium 142.0 Potassium 3.4 L Chloride 107 Carbon Dioxide 26 Anion Gap 9 BUN 7 Creatinine 0.46 L Est GFR ( Amer) > 60 Est GFR (Non-Af Amer) > 60 Glucose 79 Calcium 9.8 Impressions: Head CT 11/18/16 07:16 IMPRESSION: CHRONIC CHANGES OF ATROPHY AND MICROVASCULAR ISCHEMIA. CHRONIC ENCEPHALOMALACIA IN THE LEFT OCCIPITAL LOBE. NO ACUTE PROCESS. Chest X-Ray 11/26/16 00:00 IMPRESSION: New trace bilateral pleural effusions right greater than left Assessment & Plan - Diagnosis (1) Seizure Is this a current diagnosis for this admission?: YesPlan: Continue current medication management. (2) COPD (chronic obstructive pulmonary disease) Is this a current diagnosis for this admission?: Yes (3) 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 Is this a current diagnosis for this admission?: YesPlan: Continue current medication management. (4) Smoker Is this a current diagnosis for this admission?: Yes (5) Hypokalemia due to inadequate potassium intake Is this a current diagnosis for this admission?: YesPlan: Patient will receive oral replacement of potassium. I will check her magnesium level for possible need for replacement. - Time Time Spent with patient: 25-34 minutes Medications reviewed and adjusted accordingly: Yes Anticipated discharge: Other Within: Other - Inpatient Certification Medical Necessity: Need Close Monitoring Due to Risk of Patient Decompensation, Risk of Complication if Not Cared For in Hospital Post Hospital Care: D/C Manager Clinical Informatics Documentation - Plan Summary Plan Summary: see covering physician orders for details.
[2016-11-28] MEDS: POTASSIUM CHLORIDE 10 MEQ TABLET.SA PO SCH ×2 (10:57→14:35)
[2016-11-29] MEDS: LEVALBUTEROL HCL NEB 1.25 MG/3 ML AMPUL NEB SCH ×2 (02:45→08:04)
[2016-11-29] MEDS: CEPHALEXIN 500 MG CAPSULE PO SCH (05:50)
[2016-11-29] MEDS: GABAPENTIN 300 MG CAPSULE PO SCH (05:50)
[2016-11-29 06:26] LABS: ANION GAP 10 (5-19); BLOOD UREA NITROGEN 8 mg/dL (7-20); CALCIUM 10.2 mg/dL (8.4-10.2); CARBON DIOXIDE 25 mmol/L (22-30); CHLORIDE 107 mmol/L (98-107); CREATININE RESULT 0.53 mg/dL (0.52-1.25); GLUCOSE 79 mg/dL (75-110); POTASSIUM 4.5 mmol/L (3.6-5.0); SODIUM 141.6 mmol/L (137-145)
[2016-11-29] MEDS: FLUTICASONE/SALMETEROL DISKUS 100-50 MCG/DOSE IH SCH (09:30)
[2016-11-29] MEDS: METOPROLOL SUCCINATE 25 MG TAB.SR.24H PO SCH (09:31)
[2016-11-29] MEDS: LEVETIRACETAM 500 MG TABLET PO SCH (09:31)
[2016-11-29] MEDS: DOCUSATE SODIUM 100 MG CAPSULE PO SCH (09:31)
[2016-11-29 09:39] VITALS: BP 127/77
--- NOTE | 2016-11-29 12:36 | PDOC DISCHARGE SUMMARY ---
General - Admit/Disc Date/PCP Admission Date/Primary Care Provider: 11/18/16 10:49 BARBARA TEJADA MD Discharge Date: 12/06/16 - Discharge Diagnosis (1) Endotracheally intubated Is this a current diagnosis for this admission?: YesSummary: Extubated and doing (2) Post-ictal state Is this a current diagnosis for this admission?: Yes (3) Acute respiratory failure Is this a current diagnosis for this admission?: YesSummary: All resolved (4) Alcohol abuse Is this a current diagnosis for this admission?: YesSummary: Discussed with the patient and the son not using any alcohol due to the seizures medications (5) COPD (chronic obstructive pulmonary disease) Is this a current diagnosis for this admission?: YesSummary: Continues the current inhaler and discuss about the smoking cessation (6) Hearing impairment Is this a current diagnosis for this admission?: Yes (7) 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 Is this a current diagnosis for this admission?: YesSummary: Discussed with the patient and the son about complaints about the medication (8) Waldenstrom macroglobulinemia Is this a current diagnosis for this admission?: YesSummary: Follow-up with the oncology (9) Pulmonary nodule Is this a current diagnosis for this admission?: YesSummary: Patient scheduled for the PET scan as per oncology next - Additional Information Resuscitation Status: Full Code Discharge Activity: Activity As Tolerated Home Medications: Gabapentin 600 mg PO Q8 11/18/16 Levetiracetam [Keppra 500 mg Tablet] 1,500 mg PO Q12 11/18/16 Metoprolol Succinate [Toprol Xl] 25 mg PO DAILY 11/18/16 Tiotropium Odem [Spiriva Handihaler 18 mcg/dose (30 Dose)] 1 cap IH DAILY 12/03 Cephalexin Monohydrate [Keflex 500 mg Capsule] 500 mg PO Q8 #21 capsule Fluticasone/Salmeterol [Advair 100-50 Diskus 14 Dose/Diskus] 1 inh IH Q12 #1 inhaler 11/29/16 History of Present Illness History of Present Illness: JOSELITO RODRIGUEZ is a 71 year old female This is a 71-year-old with a significant history of the seizures disorder COPD and macroglobulinemia and top of that is a very noncompliant and a chronic smoker also during the in a hospital in several hospital admissions because of been noncompliant uncontrolled seizures came to the emergency department because of the patient had a seizures this morning and patient's was patient was intubated in the emergency depart initial CT scan of the head is negative for any acute stroke patient's otherwise according to the nursing stop patient is not taking the medications as prescribed for the seizures also patient is known for that pretty much patient at this point is currently intubated in the ER intensive care unit for further evaluation and treatment. Was given IV Keppra and continues IV fluid and IV antibiotic and consult pulmonary for further evaluation. Hospital Course Hospital Course: This is a 71-year-old female with a significant history of recurrent episode of the hospital admission due to the noncompliance of the medication and the seizures activity in the patient's came with the uncontrolled seizure and respiratory distress and patient was intubated and kept in ICU. Patient's was extubated and patient's put on all p.o. medic and patient's renal from the oxygen and patient is doing much better. Patient is walking the hallway without any patient with no seizures and patient's p.o. intake is good. Maylin with the son about the patient's current condition and compliance of the medication and son is tried to move patients with him is going to take care of the Physical Exam Vital Signs: Temp Pulse Resp BP Pulse Ox 97.5 F 71 18 127/77 H 98 11/29/16 09:37 11/29/16 09:37 11/29/16 09:37 11/29/16 09:37 11/29/16 09:37 Intake & Output 11/28/16 11/29/16 11/30/16 06:59 06:59 06:59 Intake Total 1875 2400 Balance 1875 2400 Weight 47.8 kg 48.2 kg General appearance: PRESENT: no acute distress, well-developed, well-nourished Head exam: PRESENT: atraumatic, normocephalic Eye exam: PRESENT: conjunctiva pink, EOMI, PERRLA. ABSENT: scleral icterus Ear exam: PRESENT: normal external ear exam Mouth exam: PRESENT: moist, tongue midline Neck exam: PRESENT: full ROM. ABSENT: carotid bruit, JVD, lymphadenopathy, thyromegaly Cardiovascular exam: PRESENT: RRR. ABSENT: diastolic murmur, rubs, systolic murmur Pulses: PRESENT: normal dorsalis pedis pul, +2 pedal pulses bilateral Vascular exam: PRESENT: normal capillary refill GI/Abdominal exam: PRESENT: normal bowel sounds, soft. ABSENT: distended, guarding, mass, organolmegaly, rebound, tenderness Rectal exam: PRESENT: deferred Neurological exam: PRESENT: alert, awake, oriented to person, oriented to place , oriented to time, oriented to situation, CN II-XII grossly intact. ABSENT: motor sensory deficit Psychiatric exam: PRESENT: appropriate affect, normal mood. ABSENT: homicidal ideation, suicidal ideation Skin exam: PRESENT: dry, intact, warm. ABSENT: cyanosis, rash Results Laboratory Results: 11/26/16 04:49 11/29/16 05:26 11/29/16 05:26 Sodium 141.6 Potassium 4.5 Chloride 107 Carbon Dioxide 25 Anion Gap 10 BUN 8 Creatinine 0.53 Est GFR ( Amer) > 60 Est GFR (Non-Af Amer) > 60 Glucose 79 Calcium 10.2 Impressions: Head CT 11/18/16 07:16 IMPRESSION: CHRONIC CHANGES OF ATROPHY AND MICROVASCULAR ISCHEMIA. CHRONIC ENCEPHALOMALACIA IN THE LEFT OCCIPITAL LOBE. NO ACUTE PROCESS. Chest X-Ray 11/26/16 00:00 IMPRESSION: New trace bilateral pleural effusions right greater than left Plan Time Spent: Greater than 30 Minutes - Discussed with the son about the compliance of the med and continues to take same medicine and follow an outpatient in the office in 1 week
== END 2016-11-29 09:52 | disposition home or self-care (01) | DRG 207 ==
LOC: ER 07:12 → EH 10:49 → UNDOADMIN 10:52 → EH 10:52 → 5 11-25 15:20
PROVIDERS: ADMIT Family Medicine; ATTEND Family Medicine
PROC: 0BH17EZ Insertion of Endotracheal Airway into Trachea, Via Natural or Artificial Opening (ICD-10-PCS; principal; 2016-11-18)
PROC: 5A1955Z Respiratory Ventilation, Greater than 96 Consecutive Hours (ICD-10-PCS; 2016-11-18)
DX: J96.01 Acute respiratory failure with hypoxia (principal); J15.211 Pneumonia due to Methicillin susceptible Staphylococcus aureus; E87.6 Hypokalemia; G40.909 Epilepsy, unspecified, not intractable, without status epilepticus; Z91.14 Patient's other noncompliance with medication regimen; F10.10 Alcohol abuse, uncomplicated; J44.9 Chronic obstructive pulmonary disease, unspecified; R91.1 Solitary pulmonary nodule; C88.0 Waldenstrom macroglobulinemia; I25.10 Atherosclerotic heart disease of native coronary artery without angina pectoris; K21.9 Gastro-esophageal reflux disease without esophagitis; M19.90 Unspecified osteoarthritis, unspecified site; H91.90 Unspecified hearing loss, unspecified ear; Z79.899 Other long term (current) drug therapy; F17.200 Nicotine dependence, unspecified, uncomplicated; Z90.710 Acquired absence of both cervix and uterus; Z88.6 Allergy status to analgesic agent; Z88.8 Allergy status to other drugs, medicaments and biological substances
CPT/HCPCS: 36415; 36600; 51702; 70450; 71010; 71020; 80048; 80053; 80177; 82550; 82553; 82803; 83735; 84100; 84132; 84478; 84484; 85025; 85610; 85730; 87040; 87070; 87077; 87086; 87186; 87205; 90686; 93005; 93010; 94002; 94003; 94640; 96361; 96374; 99291; G8978-GP; G8979-GP; J0330; J0696; J1650; J1953; J2250; J2704; J3360; J3480; J3490; J7030; S0028

== ENCOUNTER 2017-02-22 10:18 | Day surgery (SDC) | payer MEDICARE, MEDICAID ==
[~2017-02-22 10:18] MED LIST: BACITRACIN INJ 50,000 UNIT VIAL MC PRN; CEFAZOLIN 1 GM/D5W RTU 1 GM/50 ML RTUPB IV PRN; DEXTROSE 5%-1/2 NORMAL SALINE 1,000 ML IV PRN
[2017-02-22] MEDS ORDERED: DIAZEPAM 5 MG TABLET ONE (11:41)
[2017-02-22] MEDS ORDERED: OXYCODONE-ACETAMINOPHEN 5-325 MG TABLET ONE (11:42)
[2017-02-22] MEDS ORDERED: CEFAZOLIN 1 GM/D5W RTU 1 GM/50 ML RTUPB IV ONE (11:43)
[2017-02-22 11:59] LABS: HEMATOCRIT 42.1 % (36.0-47.0); HEMOGLOBIN 14.4 g/dL (12.0-15.5); HGB HCT DIFFERENCE 1.1; MEAN CORPUSCULAR HEMOGLOBIN 29.9 pg (27.0-33.4); MEAN CORPUSCULAR HGB CONC 34.3 g/dL (32.0-36.0); MEAN CORPUSCULAR VOLUME 87 fl (80-97); RED BLOOD COUNT 4.83 10^6/uL (3.72-5.28); RED CELL DISTRIBUTION WIDTH 14.1 % (11.5-14.0); WHITE BLOOD COUNT 3.7 10^3/uL (4.0-10.5)
[2017-02-22] MEDS ORDERED: MIDAZOLAM 2 MG/2 ML INJ ONE (12:10)
[2017-02-22] MEDS ORDERED: FENTANYL CITRATE INJ/PF 100 MCG/2 ML AMPUL ONE (12:12)
[2017-02-22 12:18] LABS: ANION GAP 13 (5-19); BLOOD UREA NITROGEN 12 mg/dL (7-20); CALCIUM 10.4 mg/dL (8.4-10.2); CARBON DIOXIDE 25 mmol/L (22-30); CHLORIDE 100 mmol/L (98-107); CREATININE RESULT 0.55 mg/dL (0.52-1.25); GLUCOSE 100 mg/dL (75-110); SODIUM 137.5 mmol/L (137-145)
[2017-02-22] MEDS ORDERED: LIDOCAINE 0.5% INJ-PF (5 MG/ML) 50 ML SDV ONE (12:52)
--- NOTE | 2017-02-22 14:00 | PDOC H&P ---
General Chief Complaint: This patient is seen for insertion of a Port-A-Cath. She has a diagnosis of lung cancer requiring chemotherapy. - Current Medications/Allergies Home Medications: Gabapentin 600 mg PO Q8 11/18/16 Levetiracetam [Keppra 500 mg Tablet] 1,500 mg PO Q12 11/18/16 Metoprolol Succinate [Toprol Xl] 25 mg PO DAILY 11/18/16 Tiotropium [place] [Spiriva Handihaler 18 mcg/dose (30 Dose)] 1 cap IH DAILY 12/03 Allergies/Adverse Reactions: aspirin [Aspirin] Allergy (Unknown, Verified 02/22/17 10:51) codeine [Codeine] Allergy (Unknown, Verified 02/22/17 10:51) Past Medical History Cardiac Medical History: Reports: Coronary Artery Disease Denies: Myocardial Infarction, Hypertension Pulmonary Medical History: Reports: Chronic Obstructive Pulmonary Disease (COPD) Denies: Asthma, Bronchitis, Pneumonia, Tuberculosis Neurological Medical History: Reports: Seizures - 2 MONTHS GI Medical History: Reports: Gastroesophageal Reflux Disease Musculoskeltal Medical History: Reports: Arthritis Psychiatric Medical History: Reports: Dementia, Depression Hematology: Reports: Anemia Past Surgical History Past Surgical History: Reports: Cardiac Catheterization, Hysterectomy, Orthopedic Surgery - back Family History Family History: Reviewed & Not Pertinent Parental Family History Reviewed: No Children Family History Reviewed: No Sibling(s) Family History Reviewed.: No Social History Smoking Status: Current Every Day Smoker Frequency of Alcohol Use: Social Hx Recreational Drug Use: No Drugs: None Hx Prescription Drug Abuse: No Physical Exam Vital Signs: Temp Pulse Resp BP Pulse Ox 97.5 F 61 16 115/62 100 02/22/17 10:56 02/22/17 13:53 02/22/17 10:56 02/22/17 10:56 02/22/17 10:56 Intake & Output 02/21/17 02/22/17 02/23/17 06:59 06:59 06:59 Weight 45 kg 44.906 kg Additional comments: Constitutional: A well-developed well-nourished lady. No acute distress. Eyes: Mucous membranes pink and moist, sclerae anicteric, pupils react normally. Respiratory: No shortness of breath or wheezing. Breath sounds are normal and equal. Cardiac: Heart sounds normal, no murmurs, no increased JVP. Peripheral edema. Extremities: Upper extremities shows normal range of movement and pulses. Psychiatric: judgment, memory, insight seem normal. Mood is normal, appropriate and pleasant. Impression/Plan Impression: #1 lung cancer. #2 COPD. #3 history of seizures. # Waldenstrom's macroglobulinemia. #5 hyperlipidemia. Plan: Insertion of a Port-A-Cath is recommended for reliable access in this patient needs multiple IV axis cc per medication and that testing. The risks, benefits , expected outcome alternatives were discussed with her and she is agreeable to proceeding.
--- NOTE | 2017-02-22 14:04 | PDOC DISCHARGE SUMMARY ---
Discharge Summary (SDC) - Discharge Final Diagnosis: #1 lung cancer. #2 COPD. #3 history of seizures. # Waldenstrom's macroglobulinemia. #5 hyperlipidemia. Date of Surgery: 02/22/17 Discharge Date: 02/22/17 Condition: Fair Treatment or Instructions: #1 discharge patient home after achieving ASU criteria. #2 continue medications per medication reconciliation sheet. #3 follow-up in office by appointment in about 1 week, call for appointment. #4 dressing to be left on until office. #5 Percocet prescription for pain. #6 may shower starting in 48 hours. Important to keep dressings clean and dry Prescriptions: Oxycodone HCl/Acetaminophen [Percocet 5-325 mg Tablet] 1 tab PO ASDIR PRN #15 tab PRN Reason: Discharge Diet: As Tolerated Respiratory Treatments at Home: Deep Breathing/Coughing Discharge Activity: Activity As Tolerated Report the Following to Your Physician Immediately: Shortness of Breath, Unusual Bleeding
--- NOTE | 2017-02-22 14:07 | Operative Report ---
Operative Report DATE OF SURGERY: 02/22/17 PREOPERATIVE DIAGNOSIS: #1 lung cancer. #2 COPD. #3 history of seizures. # Waldenstrom's macroglobulinemia. #5 hyperlipidemia. POSTOPERATIVE DIAGNOSIS: #1 lung cancer. Post insertion of Port-A-Cath. #2 COPD. #3 history of seizures. # Waldenstrom's macroglobulinemia. #5 hyperlipidemia. OPERATION: #1 ultrasound evaluation of the right internal jugular vein. #2 Port -A-Cath insertion via real-time access on ultrasound guidance in the right internal jugular vein. #3 angiogram and interpretation. SURGEON: VICTOR HUGO CASTRO VP CARDIOVASCULAR SERVICE LINE: none ANESTHESIA: Moderate Sedation TISSUE REMOVED OR ALTERED: Not applicable. COMPLICATIONS: None ESTIMATED BLOOD LOSS: 5 mL. INTRAOPERATIVE FINDINGS: Satisfactory right internal jugular vein to support Port-A-Cath. Estimated to be 1.2 cm in diameter. Satisfactory position of catheter with the tip just down in the right atrium. Smooth flow of contrast through the right atrium, ventricle and pulmonary outflow tract. Easy egress of blood and ingress of heparinized solution. PROCEDURE: After obtaining informed consent, the patient was taken to the [facility] and positioned supine. The [right] neck and chest were prepared with chlorhexidine and draped out with sterile linen. After the " universal timeout", in which it was verified that the patient continued to receive antibiotic, the procedure commenced. A steriley sheathed ultrasound probe was used to evaluate the [ right] internal jugular vein. Local anesthesia was infiltrated adjacent to the probe. Access into the [right] internal jugular vein was obtained using a micropuncture needle, followed by micropuncture wire and then a micropuncture catheter. This was followed by introduction of a 0.035 guidewire the tip of which was placed down into the inferior vena cava . The port sites was marked , locally anesthetized and incision made. Dissection now proceeded to the deep subcutaneous subcutaneous tissues so that a pocket for the port was made. Meticulous hemostasis was secured and the catheter was tunneled between the 2 incisions. Proximally, the catheter was now positioned using a peel-away sheath. Distally the catheter was tailored to an appropriate length and then mated to the port using the contained fixating device. The port was now placed in the pocket and the catheter optimally positioned. The port was accessed with a White needle and an angiogram done under digital subtraction. The findings as dictated. With adequate and satisfactory positioning, both lumens of the chamber were irrigated with heparinized solution. The wounds were now closed using interrupted 3-0 PDS to the subcutaneous tissues and a continuous subcuticular suture of 4-0 Monocryl to the skin. These are reinforced with Steri-Strips over benzoin and then dressings applied. Time: 0.1 Minute. Dose: 3m Gy Contrast: 5 mls. Isovue 300. Copies of the dictated operative report for Dr. Victor Hugo Delgado MD.
[2017-02-22 15:20] VITALS: BP 121/77
--- NOTE | 2017-02-22 17:01 | EKG REPORT ---
SEVERITY:- ABNORMAL ECG - SINUS RHYTHM NONSPECIFIC T ABNORMALITIES, ANT-LAT LEADS : Confirmed by: Adelina Nicolas 22-Feb-2017 17:00:36
== END 2017-02-22 15:15 | disposition home or self-care (01) ==
LOC: CCL 10:18
PROVIDERS: ATTEND Surgery
PROC: 05H533Z Insertion of Infusion Device into Right Subclavian Vein, Percutaneous Approach (ICD-10-PCS; principal; 2017-02-22)
DX: C34.12 Malignant neoplasm of upper lobe, left bronchus or lung (principal); C88.0 Waldenstrom macroglobulinemia; J44.9 Chronic obstructive pulmonary disease, unspecified; E78.5 Hyperlipidemia, unspecified; I25.10 Atherosclerotic heart disease of native coronary artery without angina pectoris; D64.9 Anemia, unspecified; F17.210 Nicotine dependence, cigarettes, uncomplicated; G40.909 Epilepsy, unspecified, not intractable, without status epilepticus; Z79.51 Long term (current) use of inhaled steroids; Z79.899 Other long term (current) drug therapy; Z88.6 Allergy status to analgesic agent; Z88.5 Allergy status to narcotic agent
CPT/HCPCS: 36415; 85027; 80048; 36561; 76937; 77001; 71010; 93005; 93010; C1788; Q9967; J2250; J3490 ×2; J0690; A9270 ×2; J3010; J1644

== ENCOUNTER 2017-05-13 07:38 | Emergency (ER) | payer MEDICARE, MEDICAID ==
[2017-05-13] MEDS ORDERED: LORAZEPAM INJ 2 MG/1 ML VIAL ONE (07:46)
[2017-05-13] MEDS ORDERED: LORAZEPAM INJ 2 MG/1 ML VIAL IM ONE (07:47)
[2017-05-13] MEDS ORDERED: NORMAL SALINE 1000 ML 1,000 ML IV ONE ×3 (07:51→17:06)
[2017-05-13 08:23] LABS: ABSOLUTE BASOPHILS # (AUTO) 0.1 10^3/uL (0.0-0.2); ABSOLUTE MONOCYTES (AUTO) 0.7 10^3/uL (0.1-1.4); ABSOLUTE NEUT (AUTO) 12.9 10^3/uL (1.7-8.2); BASOPHILS % (AUTO) 0.4 % (0-2); EOSINOPHILS % (AUTO) 0.2 % (0-6); HEMATOCRIT 41.7 % (36.0-47.0); HEMOGLOBIN 13.7 g/dL (12.0-15.5); HGB HCT DIFFERENCE -0.6; LYMPHOCYTES % (AUTO) 12.8 % (13-45); MEAN CORPUSCULAR HEMOGLOBIN 29.2 pg (27.0-33.4); MEAN CORPUSCULAR HGB CONC 32.9 g/dL (32.0-36.0); MEAN CORPUSCULAR VOLUME 89 fl (80-97); MONOCYTES % (AUTO) 4.4 % (3-13); RED CELL DISTRIBUTION WIDTH 14.5 % (11.5-14.0); SEGMENTED NEUTROPHILS % (AUTO) 82.2 % (42-78); WHITE BLOOD COUNT 15.6 10^3/uL (4.0-10.5)
--- NOTE | 2017-05-13 08:37 | ER Document Report ---
ED Seizure - General Chief Complaint: Seizure Stated Complaint: POSSIBLE SEIZURE Time Seen by Provider: 05/13/17 07:47 Notes: The patient is a 72-year-old female, past medical history seizure disorder ( frequently non-compliant with Keppra), COPD, current smoker, presents by EMS after a family member witnessed generalized seizure activity earlier today. The family member has Down's syndrome and called 911. He does not know how long the seizure lasted. When EMS arrived, the patient appeared postictal. She was only responding to painful stimulation. During transport, the patient became combative and arrived combative in the emergency room. She is nonverbal at this time and unable to provide any additional history. No family member in ED. - Related Data Allergies/Adverse Reactions: codeine [Codeine] Allergy (Unknown, Verified 02/22/17 10:51) Home Medications: Current Home Medications Ondansetron HCl [Ondansetron HCl] 8 mg PO Q4H PRN 05/13/17 [History] Promethazine HCl 25 mg PO Q6H PRN 05/13/17 [History] Past Medical History - General Information source: Emergency Med Personnel - Social History Smoking Status: Current Every Day Smoker Family History: Reviewed & Not Pertinent - Past Medical History Cardiac Medical History: Reports: Hx Coronary Artery Disease Denies: Hx Heart Attack, Hx Hypertension Pulmonary Medical History: Reports: Hx COPD Denies: Hx Asthma, Hx Bronchitis, Hx Pneumonia, Hx Tuberculosis Neurological Medical History: Reports: Hx Cerebrovascular Accident, Hx Seizures - 2 MONTHS GI Medical History: Reports: Hx Gastroesophageal Reflux Disease Musculoskeltal Medical History: Reports Hx Arthritis, Reports Hx Musculoskeletal Trauma - spinal fx after fall, RECENT SHOULDER FX Skin Medical History: Denies Hx MRSA Psychiatric Medical History: Reports: Hx Dementia, Hx Depression Traumatic Medical History: Reports: Hx Fractures - Right shoulder fracture, spinal fractures after a fall Past Surgical History: Reports: Hx Cardiac Catheterization, Hx Hysterectomy, Hx Nose Surgery, Hx Orthopedic Surgery - back - Immunizations Immunizations up to date: Yes Hx Diphtheria, Pertussis, Tetanus Vaccination: No Hx Pneumococcal Vaccination: 05/07/14 Review of Systems - Review of Systems -: Yes ROS unobtainable due to patient's medical condition Physical Exam - Vital signs Vitals: Pulse Ox 90 L 05/13/17 07:44 - Notes Notes: PHYSICAL EXAMINATION: GENERAL: Slight agitation. Non-verbal. HEAD: Atraumatic, normocephalic. EYES: Pupils equal round and reactive to light, extraocular movements intact, sclera anicteric, conjunctiva are normal. ENT: nares patent, oropharynx clear without exudates. Moist mucous membranes. NECK: Normal range of motion, supple without lymphadenopathy LUNGS: Breath sounds clear to auscultation bilaterally and equal. No wheezes rales or rhonchi. HEART: Tachycardic. ABDOMEN: Soft, nontender, normoactive bowel sounds. No guarding, no rebound. No masses appreciated. EXTREMITIES: Normal range of motion, no pitting or edema. No cyanosis. NEUROLOGICAL: Moving all 4 extremities. SKIN: Warm, Dry, normal turgor, no rashes or lesions noted. Course - Re-evaluation Re-evalutation: 05/13/17 08:[address] Mcnally (director of diversity and inclusion Cardiology EKG reads) about concerning EKG with [address] Elevation in V3-V4, but no reciprocal changes. On repeat EKGs, it resolved and there are no posterior or reciprocal changes. He thinks that the ST changes are related to the rate since they resolved when her HR slowed down. First troponin 0.161. Patient no longer had any seizure activities on the emergency room. She missed her Keppra dose last night and this was provided to her through the IV. 05/13/17 15:22 Second troponin 0.4. Family members at bedside and said that patient often has a prolonged postictal phase where she does get intermittently agitated. Aspirin and Lovenox provided to patient. Patient needs transfer to facility with dairy technologist due to NSTEMI. Spoke to [facility] patient transfer center at 1520 and awaiting callback. 05/13/17 15:33 Spoke to Carmelina (her daughter) and she said that her mom has had care by the supervisor sintering plant at [facility] and is requesting transfer there. Spoke to [facility] transfer center at 1535 and awaiting callback. 05/13/17 16:[address] Avitia at [facility] and she has accepted patient. 4-6 hour wait at [facility]. 05/13/17 16:[address] Logan ([facility] Nuerologist) and he has accepted patient to Neurology floor. Dr. Gordillo (prosthetic aides teacher) said that he will consult. No beds at [facility] currently. - Vital Signs Vital signs: Temp Pulse Resp BP Pulse Ox 98.5 F 18 106/75 98 05/13/17 10:16 05/13/17 15:00 05/13/17 13:01 05/13/17 15:00 - Laboratory Result Diagrams: 05/13/17 08:15 05/13/17 08:15 Laboratory results interpreted by me: 05/13/17 05/13/17 05/13/17 08:15 08:15 10:18 WBC 15.6 H RDW 14.5 H Seg Neutrophils % 82.2 H Lymphocytes % 12.8 L Absolute Neutrophils 12.9 H Sodium 132.5 L Chloride 97 L Carbon Dioxide 12 L Anion Gap 24 H Glucose 204 H Calcium 10.3 H Creatine Kinase 178 H Total Protein 8.7 H Urine Protein 30 H Urine Blood SMALL H - Diagnostic Test Radiology reviewed: Image reviewed, Reports reviewed Radiology results interpreted by me: CXR: NAD - EKG Interpretation by Me EKG shows normal: Sinus rhythm, [place] Rate: Tachycardia Critical Care Note - Critical Care Note Total time excluding time spent on procedures (mins): 55 Discharge - Discharge Clinical Impression: NSTEMI (non-ST elevated myocardial infarction), Seizure Condition: Stable Disposition: [facility] Forms: Parent Work Note Referrals: BARBARA TEJADA MD [Primary Care Provider] - Follow up as needed
[2017-05-13 08:45] LABS: ALANINE AMINOTRANSFERASE 21 U/L (9-52); ALBUMIN 4.8 g/dL (3.5-5.0); ALKALINE PHOSPHATASE 103 U/L (38-126); ASPARTATE AMINO TRANSFERASE 29 U/L (14-36); BILIRUBIN,DIRECT 0.4 mg/dL (0.0-0.4); BILIRUBIN,TOTAL 0.5 mg/dL (0.2-1.3); BLOOD UREA NITROGEN 8 mg/dL (7-20); CALCIUM 10.3 mg/dL (8.4-10.2); CHLORIDE 97 mmol/L (98-107); CREATINE KINASE 178 U/L (30-135); CREATININE RESULT 0.81 mg/dL (0.52-1.25); GLUCOSE 204 mg/dL (75-110); POTASSIUM 4.3 mmol/L (3.6-5.0); TOTAL PROTEIN 8.7 g/dL (6.3-8.2)
--- NOTE | 2017-05-13 08:45 | EKG REPORT ---
SEVERITY:- ABNORMAL ECG - SINUS TACHYCARDIA RIGHT AXIS DEVIATION BORDERLINE R WAVE PROGRESSION, ANTERIOR LEADS NONSPECIFIC T ABNORMALITIES, DIFFUSE LEADS : Confirmed by: Nicolle Guerra MD 13-May-2017 08:45:25
[2017-05-13 08:50] LABS: ALCOHOL < 10 mg/dL (NONE DETECTED)
[2017-05-13 08:57] LABS: CARBON DIOXIDE 12 mmol/L (22-30); SODIUM 132.5 mmol/L (137-145)
[2017-05-13 09:03] LABS: ANION GAP 24 (5-19)
--- NOTE | 2017-05-13 09:09 | RADIOLOGY REPORT (SQ) ---
EXAM DESCRIPTION: CHEST SINGLE VIEW COMPLETED DATE/TIME: 05/13/2017 8:54 am REASON FOR STUDY: hypoxia COMPARISON: None. NUMBER OF VIEWS: One view. TECHNIQUE: Single frontal radiographic view of the chest acquired. LIMITATIONS: None. FINDINGS: LUNGS AND PLEURA: No opacities, masses or pneumothorax. No pleural effusion. Attenuated bl ood vessels and flattened joao-diaphragms. MEDIASTINUM AND HILAR STRUCTURES: No masses. Contour normal. HEART AND VASCULAR STRUCTURES: Heart normal in size. Normal vasculature. BONES: No acute findings. Chronic changes in the spine with kyphoplasty. HARDWARE: Vascular access port. Surgical clips. OTHER: No other significant finding. IMPRESSION: COPD. NO ACUTE RADIOGRAPHIC FINDING IN THE CHEST. TECHNICAL DOCUMENTATION: JOB ID: [id number] [employer]- All Rights Reserved
[2017-05-13] MEDS ORDERED: ASPIRIN 300 MG SUPP, RECTAL PR ONE (09:49)
[2017-05-13] MEDS ORDERED: LEVETIRACETAM 1500 MG/NACL-ISO 100 ML IV ONE (10:16)
[2017-05-13 10:50] LABS: APPEARANCE,URINE CLEAR; BILIRUBIN,URINE NEGATIVE (NEGATIVE); GLUCOSE, URINE NEGATIVE (NEGATIVE); KETONES,URINE NEGATIVE (NEGATIVE); LEUKOCYTE ESTERASE,URINE NEGATIVE (NEGATIVE); NITRITE,URINE NEGATIVE (NEGATIVE); PROTEIN,URINE 30 mg/dL (NEGATIVE); URINE SPECIFIC GRAVITY 1.008; UROBILINOGEN,URINE NEGATIVE mg/dL (<2.0)
--- NOTE | 2017-05-13 12:16 | EKG REPORT ---
SEVERITY:- OTHERWISE NORMAL ECG - SINUS TACHYCARDIA : Confirmed by: Nicolle Guerra MD 13-May-2017 12:16:10
[2017-05-13] MEDS ORDERED: ENOXAPARIN SODIUM INJ 60 MG/0.6 ML DISP.SYRIN SUBCUT SCH (15:30)
--- NOTE | 2017-05-13 16:44 | RADIOLOGY REPORT (SQ) ---
EXAM DESCRIPTION: CT HEAD WITHOUT COMPLETED DATE/TIME: 05/13/2017 4:35 pm REASON FOR STUDY: AMS COMPARISON: 11/18/2016. TECHNIQUE: Axial images acquired through the brain without intravenous contrast. Images reviewed wi th bone, brain and subdural windows. Images stored on PACS. All CT scanners at this facility use dose modulation, iterative reconstruction, and/or weight based d osing when appropriate to reduce radiation dose to as low as reasonably achievable (ALARA). [facility]: Dose Right [facility]: CareDose [facility]: Dose Right [facility]: Teradose 4D [facility]: [employer] RADIATION DOSE: Up-to-date CT equipment and radiation dose reduction techniques were employed. CTDIv ol: 67.0 mGy. DLP: 1450 mGy-cm.mGy. LIMITATIONS: None. FINDINGS: VENTRICLES: Prominent. CEREBRUM: No masses. No hemorrhage. No midline shift. Areas of low density in the white matter mos t likely due to chronic micro-vascular ischemic change. Old encephalomalacia in the left occipital l obe. No evidence for acute infarction. CEREBELLUM: No masses. No hemorrhage. No alteration of density. No evidence for acute infarction. EXTRAAXIAL SPACES: Age-related involutional change. No fluid collections. No masses. ORBITS AND GLOBE: No intra- or extraconal masses. Normal contour of globe without masses. CALVARIUM: No fracture. PARANASAL SINUSES: No fluid or mucosal thickening. SOFT TISSUES: No mass or hematoma. OTHER: No other significant finding. IMPRESSION: CHRONIC CHANGES OF ATROPHY AND MICROVASCULAR ISCHEMIA. OLD ENCEPHALOMALACIA IN THE LEFT OCCIPITAL LOBE. NO ACUTE PROCESS. TECHNICAL DOCUMENTATION: JOB ID: [id number] Quality ID # [id number]: Final reports with documentation of one or more dose reduction techniques (e.g., Au tomated exposure control, adjustment of the mA and/or kV according to patient size, use of iterative reconstruction technique) 2010 [employer]- All Rights Reserved
--- NOTE | 2017-05-13 18:59 | EKG REPORT ---
SEVERITY:- ABNORMAL ECG - SINUS TACHYCARDIA PROBABLE LEFT ATRIAL ABNORMALITY BORDERLINE RIGHT AXIS DEVIATION CONSIDER ANTEROSEPTAL INFARCT BORDERLINE T ABNORMALITIES, INFERIOR LEADS : Confirmed by: Nicolle Guerra MD 13-May-2017 18:58:09
[2017-05-13 19:26] VITALS: BP 106/65
[2017-05-13] MEDS ORDERED: LEVETIRACETAM 1500 MG/NACL-ISO 100 ML IV SCH (22:00)
== END 2017-05-13 20:30 | disposition short-term general hospital (02) ==
LOC: ER 07:38
DX: G40.909 Epilepsy, unspecified, not intractable, without status epilepticus (principal); T42.6X6A Underdosing of other antiepileptic and sedative-hypnotic drugs, initial encounter; Z91.14 Patient's other noncompliance with medication regimen; I21.4 Non-ST elevation (NSTEMI) myocardial infarction; R00.0 Tachycardia, unspecified; I25.10 Atherosclerotic heart disease of native coronary artery without angina pectoris; J44.9 Chronic obstructive pulmonary disease, unspecified; F17.200 Nicotine dependence, unspecified, uncomplicated; Z88.5 Allergy status to narcotic agent; Z79.899 Other long term (current) drug therapy
CPT/HCPCS: 93005; 99291; 96372; 96361; 96374; 96375; 36415; 80177; 80307; 82550; 85025; 80053; 81001; 84484; 71010; 70450; 93010; A9270; J2060; J7030; J1650; J1953; J3490

== ENCOUNTER → 2017-06-17 | Outpatient (CLI) | payer MEDICARE, MEDICAID ==
--- NOTE | 2017-06-20 13:52 | RADIOLOGY REPORT (SQ) ---
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 TECHNIQUE: Blood glucose level was verified. Above dose of FDG was injected intravenously. 2-D seg mented attenuation correction images were obtained from the base of the skull to the midthighs. Nonc ontrast CT images were obtained for attenuation correction and fusion with emission images. CT image s were performed without oral or intravenous contrast and are not sensitive for parenchymal lesions. A series of overlapping emission PET images were obtained. Images reviewed and manipulated at [facility] work station by the radiologist. Images stored on PACS. LIMITATIONS: None. FINDINGS: HEAD AND NECK: No areas of abnormal metabolic activity in the soft tissues of the head and neck. CHEST: No areas of abnormal metabolic activity in the chest. ABDOMEN AND PELVIS: No areas of abnormal metabolic activity in the abdomen or pelvis. Expected physi ologic activity is present in the genitourinary system and bowel. PROXIMAL LOWER EXTREMITIES: No areas of abnormal metabolic activity in the soft tissues of the lower extremities. BONES: No abnormal metabolic activity in the visualized skeleton. ADDITIONAL CT FINDINGS: Right-sided permanent central line tip superior vena cava. Stable scarring i n the left upper lobe, non metabolic. Obstructive lung disease. Hiatal hernia. Mucous membrane thi ckening left maxillary sinus. Heavy atherosclerotic aortoiliac calcifications. OTHER: There is diffuse mild increased uptake throughout the right upper extremity venous system to t he right subclavian vein. This could be FDG activity within a right upper extremity venous thrombus. Recommend follow-up with bilateral upper extremity venous Doppler. Blood pool activity 1.0 SUV, liver activity 1.2 SUV. IMPRESSION: No hypermetabolic lesions in the left upper lobe worrisome for recurrent malignancy. There is diffuse FDG uptake along the right upper extremity multiple basilic or cephalic vein. Bilat eral upper extremity venous Doppler recommended for followup. TECHNICAL DOCUMENTATION: JOB ID: [id number]- All Rights Reserved
== END ==
LOC: RAD 16:18
PROVIDERS: ATTEND Internal Medicine
DX: C34.12 Malignant neoplasm of upper lobe, left bronchus or lung (principal)
CPT/HCPCS: 78815; A9552

== ENCOUNTER → 2017-07-07 | Outpatient (CLI) | payer MEDICARE, MEDICAID ==
--- NOTE | 2017-07-07 12:21 | XCELERA REPORT ---
[address] [address] Upper Extremity Venous Evaluation Name: JOSELITO RODRIGUEZ Age: 72 yrs Gender: Female : 1945 Patient Status: Outpatient Patient Location: Study Date: 07/07/2017 10:05 AM Procedure: Unilateral duplex scan of the right upper extremity veins was performed, including responses to compression and other maneuvers. Reason For Study: RUE SWELLING Ordering Physician: KELLY TAPIA Performed By: Orly Soto Right Side Venous Evaluation Normal vessel filling wall to wall, compression and augmentation as well as Colour flow down to the forearm veins. Interpretation Summary Normal compression, patency, spontaneous and phasic flow of the right upper extremity veins. : KELLY TAPIA > Thomas Delgado
== END ==
LOC: SP 09:59
PROVIDERS: ATTEND Internal Medicine
DX: R22.31 Localized swelling, mass and lump, right upper limb (principal)
CPT/HCPCS: 93971

== ENCOUNTER 2017-08-30 12:53 | Emergency (ER) | payer MEDICARE, MEDICAID ==
[2017-08-30 13:13] VITALS: BP 117/73
[2017-08-30] MEDS ORDERED: NORMAL SALINE 1000 ML 1,000 ML IV ONE (13:37)
--- NOTE | 2017-08-30 13:37 | ER Document Report ---
ED Medical Screen (RME) - General Chief Complaint: Headache Stated Complaint: HEADACHES NOSEBLEED Time Seen by Provider: 08/30/17 13:32 Notes: pt with [place] presents with headache, chest congestion and productive cough, and nosebleed. Patient is also been weak and fatigued. TRAVEL OUTSIDE OF THE [place] IN LAST 30 DAYS: No - Related Data Allergies/Adverse Reactions: codeine [Codeine] Allergy (Unknown, Verified 02/22/17 10:51) Home Medications: Current Home Medications Atorvastatin Calcium 40 mg PO DAILY 08/30/17 [History] Clopidogrel Bisulfate [Clopidogrel] 1 tab PO DAILY 08/30/17 [History] Metoprolol Succinate 1 tab PO DAILY 08/30/17 [History] Past Medical History - Social History Chew tobacco use (# tins/day): - 15 Frequency of alcohol use: Rare Drug Abuse: None - Past Medical History Cardiac Medical History: Reports: Hx Coronary Artery Disease Denies: Hx Heart Attack, Hx Hypertension Pulmonary Medical History: Reports: Hx COPD Denies: Hx Asthma, Hx Bronchitis, Hx Pneumonia, Hx Tuberculosis Neurological Medical History: Reports: Hx Cerebrovascular Accident, Hx Seizures - 2 MONTHS Renal/ Medical History: Denies: Hx Peritoneal Dialysis GI Medical History: Reports: Hx Gastroesophageal Reflux Disease Musculoskeltal Medical History: Reports Hx Arthritis, Reports Hx Musculoskeletal Trauma - spinal fx after fall, RECENT SHOULDER FX Skin Medical History: Denies Hx MRSA Psychiatric Medical History: Reports: Hx Dementia, Hx Depression Traumatic Medical History: Reports: Hx Fractures - Right shoulder fracture, spinal fractures after a fall Past Surgical History: Reports: Hx Cardiac Catheterization, Hx Hysterectomy, Hx Nose Surgery, Hx Orthopedic Surgery - back - Immunizations Immunizations up to date: Yes Hx Diphtheria, Pertussis, Tetanus Vaccination: No Physical Exam - Vital signs Vitals: Temp Pulse Resp BP Pulse Ox 97.2 F 101 H 18 117/73 97 08/30/17 13:10 08/30/17 13:10 08/30/17 13:10 08/30/17 13:10 08/30/17 13:10 Course - Vital Signs Vital signs: Temp Pulse Resp BP Pulse Ox 97.2 F 101 H 18 117/73 97 08/30/17 13:10 08/30/17 13:10 08/30/17 13:10 08/30/17 13:10 08/30/17 13:10
--- NOTE | 2017-08-30 14:07 | RADIOLOGY REPORT (SQ) ---
EXAM DESCRIPTION: CT HEAD WITHOUT COMPLETED DATE/TIME: 08/30/2017 1:46 pm REASON FOR STUDY: hughes COMPARISON: April 2017 TECHNIQUE: Axial images acquired through the brain without intravenous contrast. Images reviewed wi th bone, brain and subdural windows. Images stored on PACS. All CT scanners at this facility use dose modulation, iterative reconstruction, and/or weight based d osing when appropriate to reduce radiation dose to as low as reasonably achievable (ALARA). [facility]: Dose Right [facility]: CareDose [facility]: Dose Right [facility]: Teradose 4D [facility]: Smart Verdiem RADIATION DOSE: Up-to-date CT equipment and radiation dose reduction techniques were employed. CTDIv ol: 64.6 mGy. DLP: 1034 mGy-cm.mGy. LIMITATIONS: None. FINDINGS: VENTRICLES: Prominent. CEREBRUM: No masses. No hemorrhage. No midline shift. Areas of low density in the white matter mos t likely due to chronic micro-vascular ischemic change. The previously described old encephalomalaci a in the left occipital lobe appears stable. No evidence for acute infarction. CEREBELLUM: No masses. No hemorrhage. No alteration of density. No evidence for acute infarction. EXTRAAXIAL SPACES: Age-related involutional change. No fluid collections. No masses. ORBITS AND GLOBE: No intra- or extraconal masses. Normal contour of globe without masses. CALVARIUM: No fracture. PARANASAL SINUSES: Mucosal thickening is identified in the left maxillary antra with associated corti romy thickening of the roberts of the sinus. SOFT TISSUES: No mass or hematoma. OTHER: No other significant finding. IMPRESSION: CHRONIC CHANGES OF ATROPHY AND MICROVASCULAR ISCHEMIA. NO ACUTE PROCESS. EVIDENCE OF ACUTE STROKE: NO. TECHNICAL DOCUMENTATION: JOB ID: [id number] Quality ID # [id number]: Final reports with documentation of one or more dose reduction techniques (e.g., Au tomated exposure control, adjustment of the mA and/or kV according to patient size, use of iterative reconstruction technique) 2010 [employer]- All Rights Reserved
--- NOTE | 2017-08-30 14:10 | RADIOLOGY REPORT (SQ) ---
EXAM DESCRIPTION: CHEST PA/LAT COMPLETED DATE/TIME: 08/30/2017 1:48 pm REASON FOR STUDY: hughes COMPARISON: 11/26/2016 EXAM PARAMETERS: NUMBER OF VIEWS: two views TECHNIQUE: Digital Frontal and Lateral radiographic views of the chest acquired. RADIATION DOSE: NA LIMITATIONS: none FINDINGS: LUNGS AND PLEURA: The lungs are hyperexpanded. There are no infiltrates or effusions. Th ere is no mass. MEDIASTINUM AND HILAR STRUCTURES: No masses or contour abnormalities. HEART AND VASCULAR STRUCTURES: Heart normal size. No evidence for failure. BONES: No acute findings. HARDWARE: Kyphoplasty changes are present in 4 contiguous mid thoracic vertebrae. An injection port is present on the right. OTHER: No other significant finding. IMPRESSION: Chronic lung changes with no acute cardiopulmonary disease. TECHNICAL DOCUMENTATION: JOB ID: [id number] [employer]- All Rights Reserved
[2017-08-30 14:32] LABS: ABSOLUTE BASOPHILS # (AUTO) 0.1 10^3/uL (0.0-0.2); ABSOLUTE EOSINOPHILS # (AUTO) 0.1 10^3/uL (0.0-0.6); ABSOLUTE LYMPHOCYTES (AUTO) 1.4 10^3/uL (0.5-4.7); ABSOLUTE MONOCYTES (AUTO) 0.4 10^3/uL (0.1-1.4); ABSOLUTE NEUT (AUTO) 3.2 10^3/uL (1.7-8.2); BASOPHILS % (AUTO) 1.3 % (0-2); EOSINOPHILS % (AUTO) 1.5 % (0-6); HEMOGLOBIN 15.5 g/dL (12.0-15.5); HGB HCT DIFFERENCE 1.5; LYMPHOCYTES % (AUTO) 27.8 % (13-45); MEAN CORPUSCULAR HEMOGLOBIN 29.2 pg (27.0-33.4); MEAN CORPUSCULAR HGB CONC 34.4 g/dL (32.0-36.0); MEAN CORPUSCULAR VOLUME 85 fl (80-97); MONOCYTES % (AUTO) 7.1 % (3-13); RED BLOOD COUNT 5.31 10^6/uL (3.72-5.28); RED CELL DISTRIBUTION WIDTH 14.7 % (11.5-14.0); SEGMENTED NEUTROPHILS % (AUTO) 62.3 % (42-78); WHITE BLOOD COUNT 5.2 10^3/uL (4.0-10.5)
--- NOTE | 2017-08-30 15:51 | ER Document Report ---
ED General - General Chief Complaint: Headache Stated Complaint: HEADACHES NOSEBLEED Time Seen by Provider: 08/30/17 13:32 Notes: Patient has had a cough for the past month, worse in the past couple of days. She is producing phlegm with the cough. She has a history of severe COPD, lung cancer, and has a nebulizer machine at home. She started having a nosebleed 2 days ago but it stopped this morning and has not returned. It has been intermittent. Not aware of any fever. Patient has severe COPD and continues to smoke. Planes of a headache. TRAVEL OUTSIDE OF THE [place] IN LAST 30 DAYS: No - Related Data Allergies/Adverse Reactions: codeine [Codeine] Allergy (Unknown, Verified 02/22/17 10:51) Home Medications: Current Home Medications Atorvastatin Calcium 40 mg PO DAILY 08/30/17 [History] Clopidogrel Bisulfate [Clopidogrel] 1 tab PO DAILY 08/30/17 [History] Metoprolol Succinate 1 tab PO DAILY 08/30/17 [History] Past Medical History - Social History Smoking Status: Current Every Day Smoker Chew tobacco use (# tins/day): - 15 Frequency of alcohol use: Rare Drug Abuse: None Family History: Reviewed & Not Pertinent Patient has suicidal ideation: No Patient has homicidal ideation: No - Past Medical History Cardiac Medical History: Reports: Hx Coronary Artery Disease Pulmonary Medical History: Reports: Hx COPD Neurological Medical History: Reports: Hx Cerebrovascular Accident, Hx Seizures - 2 MONTHS GI Medical History: Reports: Hx Gastroesophageal Reflux Disease Musculoskeltal Medical History: Reports Hx Arthritis, Reports Hx Musculoskeletal Trauma - spinal fx after fall, RECENT SHOULDER FX Skin Medical History: Denies Hx MRSA Psychiatric Medical History: Reports: Hx Dementia, Hx Depression Traumatic Medical History: Reports: Hx Fractures - Right shoulder fracture, spinal fractures after a fall Past Surgical History: Reports: Hx Cardiac Catheterization, Hx Hysterectomy, Hx Nose Surgery, Hx Orthopedic Surgery - back - Immunizations Immunizations up to date: Yes Hx Diphtheria, Pertussis, Tetanus Vaccination: No Hx Pneumococcal Vaccination: 05/07/14 Review of Systems - Review of Systems Notes: REVIEW OF SYSTEMS: CONSTITUTIONAL : Denies fever. EENT: Denies eye, ear, or mouth or throat pain or other symptoms. Mitten nosebleed for the past 2 days. Not present now. CARDIOVASCULAR: Denies chest pain. RESPIRATORY: Has a cough and chest congestion and producing mucus. GASTROINTESTINAL: Denies abdominal pain or nausea, vomiting, or diarrhea. GENITOURINARY: Denies difficulty or painful urinating, urinary frequency, blood in urine. MUSCULOSKELETAL: Denies back or neck pain. Denies joint pain or swelling. SKIN: Denies rash or skin lesions. NEUROLOGICAL: Denies LOC or altered mental status. Complains of headache. Denies sensory loss or motor deficits. ALL OTHER SYSTEMS REVIEWED AND NEGATIVE. Constitutional: denies: Fever EENT: Other - Nosebleeds intermittently for a couple of days. Not present now. Cardiovascular: denies: Chest pain Respiratory: Cough, Short of breath. denies: Hemoptysis Physical Exam - Vital signs Vitals: Temp Pulse Resp BP Pulse Ox 97.2 F 101 H 18 117/73 97 08/30/17 13:10 08/30/17 13:10 08/30/17 13:10 08/30/17 13:10 08/30/17 13:10 Interpretation: Normal - Notes Notes: PHYSICAL EXAMINATION: GENERAL: Well-appearing, in no acute distress. Thin. HEAD: Atraumatic, normocephalic. EYES: Pupils equal round and reactive to light, extraocular movements intact. ENT: oropharynx clear without exudates. Moist mucous membranes. NECK: Normal range of motion, supple. LUNGS: Breath sounds decreased, but equal bilaterally. No wheezes present. HEART: Regular rate and rhythm without murmurs. ABDOMEN: Soft, nontender. No guarding or rebound. BACK: No tenderness throughout entire back. EXTREMITIES: Normal range of motion without pain. NEUROLOGICAL: Normal speech, normal gait. Normal sensory, motor, and reflex exams. Awake, alert, and oriented x3. Cranial nerves normal. PSYCH: Normal mood, normal affect. SKIN: Warm, dry, no rashes. Course - Re-evaluation Re-evalutation: 08/30/17 15:[address] Tejada, patient's private doctor and patient will be started on doxycycline twice a day for 7 days. He wants to see her in his office tomorrow morning. - Vital Signs Vital signs: Temp Pulse Resp BP Pulse Ox 97.2 F 101 H 18 117/73 97 08/30/17 13:10 08/30/17 13:10 08/30/17 13:10 08/30/17 13:10 08/30/17 13:10 - Laboratory Result Diagrams: 08/30/17 14:08 08/30/17 14:08 Laboratory results interpreted by me: 08/30/17 14:08 RBC 5.31 H RDW 14.7 H - Diagnostic Test Radiology reviewed: Image reviewed, Reports reviewed - CT scan of the head is essentially normal. Radiology results interpreted by me: 08/30/17 15:47 Chest x-ray shows severe COPD, but no other findings of significance. Discharge - Discharge Clinical Impression: COPD (chronic obstructive pulmonary disease), Bronchitis Condition: Stable Disposition: HOME, SELF-CARE Additional Instructions: Chronic Obstructive Lung Disease You have chronic obstructive lung disease (COPD). The symptoms come from emphysema (damage to small airways, with trapping of air in large sacks in the lung) and chronic bronchitis (repeated infection and damage to larger airways). The cause is almost always cigarette smoking, although dust exposure, asthma, and infections contribute. You should avoid fumes, dust, and smoke (especially tobacco smoke). Your condition will flare from time to time. There is no cure, but the symptoms can be treated. Bronchodilators (asthma medicine) are often helpful. Antibiotics help when infection is present. When shortness of breath is severe, we may prescribe cortisone medication. If medicine doesn't help enough, we can arrange for you to have an oxygen tank at home. Notify your doctor at once if sputum becomes thick, foul, or bloody, if you develop a fever or chest pain, or if your shortness of breath worsens. BRONCHITIS: You have acute bronchitis. This disease is an infection or inflammation of the air passageways in your lungs. Symptoms usually include cough, low grade fever, shortness of breath, and wheezing. The cough usually persists for a couple of weeks. Most cases of bronchitis get better without antibiotics. We prescribe antibiotics when we believe bacteria are damaging your airways, or if there's high risk the bronchitis will worsen into pneumonia. Increase your fluid intake. A cool mist humidifier may make your lungs more comfortable. An expectorant (cough medicine that loosens phlegm) can help. If you smoke, STOP!!! Recovery from bronchitis can be somewhat slow, but you should see improvement within a day or two. Repeated episodes of bronchitis may result in lung damage -- for example, chronic bronchitis, recurrent pneumonias, or emphysema. Call the doctor if you develop increasing fever, shortness of breath, chest pain, bloody sputum, or otherwise worsen. If you have not improved at all after several days, contact the physician. BRONCHITIS WITH BRONCHOSPASM (WHEEZING): You have bronchitis with bronchospasm (wheezing). Sometimes people develop wheezing with a chest cold. This occurs either because of an underlying tendency toward asthma or because the virus itself irritates the bronchial tubes. This irritation causes cough, shortness of breath, and wheezing. Emergency treatment of bronchospasm may include adrenaline shots or bronchodilator aerosol. You may feel lightheaded and have a rapid pulse for an hour or two. Rest and get plenty of fluids. At home, we'll treat you with a bronchodilator inhaler. Corticosteroids may be required for some patients. Until you recover, avoid chemical fumes, dusts, pollens, and exercising in very cold or dry air. If you smoke, stop now! Most cases of bronchitis get better without antibiotics. We prescribe antibiotics when we believe bacteria are damaging your airways, or if there's high risk the bronchitis will worsen into pneumonia. Increase your fluid intake. A cool mist humidifier may make your lungs more comfortable. An expectorant (cough medicine that loosens phlegm) can help. Repeated episodes of bronchitis and bronchospasm may result in lung damage -- for example, chronic bronchitis, recurrent pneumonias, or emphysema. If you develop a fever, increased wheezing, chest pain, or severe shortness of breath, you should contact the doctor immediately. Continue to use your home nebulizer. INHALED BRONCHODILATORS: You have received a treatment of and/or prescription for an inhaled bronchodilator -- a medication which stimulates the airways in the lung to dilate. This improves the flow of air in asthma, bronchitis, and emphysema. These medicines have some similarity to adrenaline, and can cause similar side effects: shakiness, racing heart, and a sense of nervousness. These side effects decrease with time. Contact your doctor if these side effects are severe. Do not over-use the medicine. Too-frequent use of the inhaler may make it ineffective. Call your doctor if the inhaler is not controlling your symptoms at the prescribed doses. ANTIBIOTIC THERAPY: You have been given an antibiotic prescription. It's important that you take all the medication, unless instructed otherwise by your physician. Failure to complete the entire course can result in relapse of your condition. Common side effects of antibiotics include nausea, intestinal cramping, or diarrhea. Women may develop vaginal yeast infections, and babies can get yeast (thrush) in the mouth following the use of antibiotics. Contact your physician if you develop significant side effects from this medication. Allergy to this antibiotic can result in hives, wheezing, faintness, or itching. If symptoms of allergy occur, stop the medication and call your doctor. DOXYCYCLINE: Doxycycline (Vibramycin, Doryx) is an antibiotic of the tetracycline family. This type of drug is useful for infections of the respiratory tract and genital tract, and is sometimes used for intestinal infections. Unlike most tetracyclines, doxycycline can be taken with food. It is longer acting, and (usually) less prone to side effects than regular tetracycline. Tetracycline antibiotics can stain immature teeth and SHOULD NOT BE TAKEN BY CHILDREN, NURSING MOTHERS, OR WOMEN. Tetracyclines can make you more prone to sunburn. Abdominal cramping, nausea, and diarrhea are occasional side effects. Women may experience vaginal yeast infections. Call the doctor at once if you develop hives, itching, shortness of breath , or lightheadedness. SMOKING: If you smoke, you should stop smoking. The tar and chemicals in cigarette smoke are harmful. Smoking has been shown to cause: emphysema chronic bronchitis lung cancer mouth and throat cancer stomach and pancreas cancer premature aging defects In addition, smoking increases ear and lung infections in children of smokers. FOLLOW-UP CARE: If you have been referred to a physician for follow-up care, call the physician s office for an appointment as you were instructed or within the next two days. If you experience worsening or a significant change in your symptoms, notify the physician immediately or return to the Emergency Department at any time for re-evaluation. Dr. Tejada wants to see you at 8:00 tomorrow morning in his office. Prescriptions: Doxycycline Hyclate 100 mg PO BID #14 capsule Referrals: BARBARA TEJADA MD [Primary Care Provider] - Follow up tomorrow
== END 2017-08-30 16:25 | disposition home or self-care (01) ==
LOC: ER 12:53
DX: J44.9 Chronic obstructive pulmonary disease, unspecified (principal); R05 Cough; R51 Headache; R04.0 Epistaxis; R09.89 Other specified symptoms and signs involving the circulatory and respiratory systems; R06.02 Shortness of breath; F17.200 Nicotine dependence, unspecified, uncomplicated; I25.10 Atherosclerotic heart disease of native coronary artery without angina pectoris; Z85.118 Personal history of other malignant neoplasm of bronchus and lung; Z86.73 Personal history of transient ischemic attack (TIA), and cerebral infarction without residual deficits
CPT/HCPCS: 99284; 96360; 36415; 85025; 71020; 70450; J7030

== ENCOUNTER → 2017-10-30 | Outpatient (CLI) | payer MEDICARE, MEDICAID ==
--- NOTE | 2017-10-31 10:21 | RADIOLOGY REPORT (SQ) ---
EXAM DESCRIPTION: PET CT SKULL/THIGH COMPLETED DATE/TIME: 10/30/2017 8:59 pm REASON FOR STUDY: LUNG CANCER C34.12 MALIGNANT NEOPLASM OF UPPER LOBE, LEFT BRONCHUS OR YAN COMPARISON: 06/17/2017 RADIONUCLIDE AND DOSE: 10.0 mCi F18 FDG The route of agent administration: Intravenous FASTING BLOOD SUGAR: 65 mg/dl CONTRAST TYPE AND DOSE: No CT contrast given. TECHNIQUE: Blood glucose level was verified. Above dose of FDG was injected intravenously. 2-D seg mented attenuation correction images were obtained from the base of the skull to the midthighs. Nonc ontrast CT images were obtained for attenuation correction and fusion with emission images. CT image s were performed without oral or intravenous contrast and are not sensitive for parenchymal lesions. A series of overlapping emission PET images were obtained. Images reviewed and manipulated at [facility] work station by the radiologist. Images stored on PACS. LIMITATIONS: None. FINDINGS: HEAD AND NECK: No areas of abnormal metabolic activity in the soft tissues of the head and neck. CHEST: No areas of abnormal metabolic activity in the chest. ABDOMEN AND PELVIS: No areas of abnormal metabolic activity in the abdomen or pelvis. Expected physi ologic activity is present in the genitourinary system and bowel. PROXIMAL LOWER EXTREMITIES: No areas of abnormal metabolic activity in the soft tissues of the lower extremities. BONES: No abnormal metabolic activity in the visualized skeleton. ADDITIONAL CT FINDINGS: Stable scarring left upper lobe. Right-sided central line tip in the SVC. OTHER: No other significant findings. IMPRESSION: No evidence of local recurrence or metastatic disease. TECHNICAL DOCUMENTATION: JOB ID: [id number] [employer]- All Rights Reserved
== END ==
LOC: RAD 18:27
PROVIDERS: ATTEND Internal Medicine
DX: C34.12 Malignant neoplasm of upper lobe, left bronchus or lung (principal)
CPT/HCPCS: 78815; A9552

== ENCOUNTER → 2017-11-09 | Outpatient (CLI) | payer MEDICARE, MEDICAID ==
--- NOTE | 2017-11-09 10:03 | WOMENS IMAGING REPORT ---
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 Additio nal selected color Doppler and spectral images recorded. LIMITATIONS: None. FINDINGS: PANCREAS: Midline pancreas unremarkable LIVER: No masses. Echotexture normal. LIVER VASCULATURE: Normal directional flow of the main portal vein and hepatic veins. GALLBLADDER: No stones. Normal wall thickness. No pericholecystic fluid. ULTRASOUND-DETECTED BRENNAN'S SIGN: Negative. INTRAHEPATIC DUCTS AND COMMON DUCT: CBD and intrahepatic ducts normal caliber. No filling defects. C ommon bile duct at the cat hepatis 6.3 mm in diameter. Distal most common duct not well seen due t o duodenum gas. INFERIOR VENA CAVA: Normal flow. AORTA: Not well seen RIGHT KIDNEY: 9 cm in length with diffuse cortical thinning and increased echogenicity likely from medical renal disease. No solid or suspicious masses. No hydronephrosis. No calcifications. LEFT KIDNEY: 11.5 cm in length with diffuse cortical thinning and increased echogenicity from medi romy renal disease No solid or suspicious masses. No hydronephrosis. No calcifications. SPLEEN: Normal size. No solid masses. PERITONEAL AND PLEURAL SPACES: No ascites or effusions. OTHER: No other significant finding. IMPRESSION: No gallstones. No biliary ductal dilatation. Echogenic kidneys with cortical thinning from medical renal disease. No hydronephrosis TECHNICAL DOCUMENTATION: JOB ID: [id number]- All Rights Reserved
== END ==
LOC: WI 07:44
PROVIDERS: ATTEND Internal Medicine
DX: E80.6 Other disorders of bilirubin metabolism (principal); R17 Unspecified jaundice
CPT/HCPCS: 76700

== ENCOUNTER → 2017-11-10 | Outpatient (CLI) | payer MEDICARE, MEDICAID ==
[2017-11-10 13:48] LABS: ALANINE AMINOTRANSFERASE 272 U/L (9-52); ALBUMIN 4.8 g/dL (3.5-5.0); ALKALINE PHOSPHATASE 826 U/L (38-126); ANION GAP 14 (5-19); ASPARTATE AMINO TRANSFERASE 621 U/L (14-36); BILIRUBIN,DIRECT 6.8 mg/dL (0.0-0.4); BILIRUBIN,TOTAL 7.7 mg/dL (0.2-1.3); BLOOD UREA NITROGEN 8 mg/dL (7-20); CALCIUM 10.9 mg/dL (8.4-10.2); CARBON DIOXIDE 26 mmol/L (22-30); CHLORIDE 94 mmol/L (98-107); GLUCOSE 100 mg/dL (75-110); SODIUM 134.2 mmol/L (137-145); TOTAL PROTEIN 9.8 g/dL (6.3-8.2)
== END ==
LOC: OD 12:42
PROVIDERS: ATTEND Physician Assistant Medical
DX: L94 Other localized connective tissue disorders (principal); R17 Unspecified jaundice; E80.6 Other disorders of bilirubin metabolism; C34.12 Malignant neoplasm of upper lobe, left bronchus or lung
CPT/HCPCS: 36415; 80053; 82140

== ENCOUNTER → 2017-11-15 | Outpatient (CLI) | payer MEDICARE, MEDICAID ==
--- NOTE | 2017-11-15 12:24 | RADIOLOGY REPORT (SQ) ---
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 TECHNIQUE: Noncontrast MRCP. Source and MIP images reviewed. LIMITATIONS: Patient motion. FINDINGS: GALLBLADDER: Normal. INTRAHEPATIC DUCTS: Nondilated. EXTRAHEPATIC DUCTS: Common duct is normal caliber. No dilatation of the pancreatic duct. No ductal filling defects noted. PANCREAS: Generally homogeneous, no gross mass or significant signal alteration. No surrounding infl ammatory changes or fluid. Pancreatic duct is normal. LIVER, SPLEEN, KIDNEYS, ADRENALS: No significant abnormality. VESSELS: No aneurysm. LUNG BASES: Grossly clear. OTHER: No other significant finding. IMPRESSION: NORMAL HEPATOBILIARY SYSTEM. NO STONES OR COMMON DUCT ABNORMALITIES. TECHNICAL DOCUMENTATION: JOB ID: [id number] [employer]- All Rights Reserved
== END ==
LOC: RAD 08:47
PROVIDERS: ATTEND Internal Medicine
DX: E80.6 Other disorders of bilirubin metabolism (principal); C34.12 Malignant neoplasm of upper lobe, left bronchus or lung; R17 Unspecified jaundice
CPT/HCPCS: 74181

== ENCOUNTER 2017-11-20 12:04 | Emergency (ER) | payer MEDICARE, MEDICAID ==
[2017-11-20 12:37] LABS: ABSOLUTE LYMPHOCYTES (AUTO) 0.5 10^3/uL (0.5-4.7); ABSOLUTE MONOCYTES (AUTO) 0.3 10^3/uL (0.1-1.4); ABSOLUTE NEUT (AUTO) 3.4 10^3/uL (1.7-8.2); BASOPHILS % (AUTO) 0.8 % (0-2); EOSINOPHILS % (AUTO) 0.2 % (0-6); HEMATOCRIT 41.9 % (36.0-47.0); HEMOGLOBIN 14.3 g/dL (12.0-15.5); LYMPHOCYTES % (AUTO) 12.8 % (13-45); MEAN CORPUSCULAR HEMOGLOBIN 29.1 pg (27.0-33.4); MEAN CORPUSCULAR VOLUME 86 fl (80-97); MONOCYTES % (AUTO) 7.4 % (3-13); PLATELET COUNT 174 10^3/uL (150-450); RED CELL DISTRIBUTION WIDTH 17.2 % (11.5-14.0); SEGMENTED NEUTROPHILS % (AUTO) 78.8 % (42-78); TOTAL CELLS COUNTED % (AUTO) 100 %; WHITE BLOOD COUNT 4.3 10^3/uL (4.0-10.5)
[2017-11-20 12:57] LABS: ALANINE AMINOTRANSFERASE 239 U/L (9-52); ALBUMIN 4.5 g/dL (3.5-5.0); ALKALINE PHOSPHATASE 531 U/L (38-126); ANION GAP 9 (5-19); ASPARTATE AMINO TRANSFERASE 229 U/L (14-36); BILIRUBIN,DIRECT 3.4 mg/dL (0.0-0.4); BILIRUBIN,TOTAL 4.2 mg/dL (0.2-1.3); BLOOD UREA NITROGEN 12 mg/dL (7-20); CALCIUM 10.9 mg/dL (8.4-10.2); CARBON DIOXIDE 27 mmol/L (22-30); CHLORIDE 97 mmol/L (98-107); GLUCOSE 85 mg/dL (75-110); POTASSIUM 4.2 mmol/L (3.6-5.0); SODIUM 132.6 mmol/L (137-145); TOTAL PROTEIN 9.2 g/dL (6.3-8.2)
[2017-11-20 13:16] LABS: APPEARANCE,URINE SLIGHTLY-CLOUDY; BILIRUBIN,URINE NEGATIVE (NEGATIVE); COLOR,URINE YELLOW; GLUCOSE, URINE NEGATIVE (NEGATIVE); KETONES,URINE TRACE mg/dL (NEGATIVE); LEUKOCYTE ESTERASE,URINE NEGATIVE (NEGATIVE); NITRITE,URINE NEGATIVE (NEGATIVE); PROTEIN,URINE NEGATIVE (NEGATIVE); UROBILINOGEN,URINE NEGATIVE mg/dL (<2.0)
--- NOTE | 2017-11-20 13:28 | ER Document Report ---
ED General - General Chief Complaint: Probable Seizure Stated Complaint: POSSIBLE SEIZURE Time Seen by Provider: 11/20/17 12:23 Information source: Transfer Record, [facility] Records TRAVEL OUTSIDE OF THE [place] IN LAST 30 DAYS: No - HPI Patient complains to provider of: sz Onset: Just prior to arrival Similar symptoms previously: Yes Recently seen / treated by doctor: Yes Notes: Patient has a history of seizures. Family stated they found her with urinary incontinence and appearing postictal. Seizure was not witnessed but it was assumed the patient did have a seizure today prior to arrival. - Related Data Allergies/Adverse Reactions: codeine [Codeine] Allergy (Unknown, Verified 02/22/17 10:51) Past Medical History - General Information source: Transfer Record, [facility] Records - Social History Smoking Status: Unknown if Ever Smoked Chew tobacco use (# tins/day): No Frequency of alcohol use: None Drug Abuse: None Lives with: Family Family History: Reviewed & Not Pertinent Patient has suicidal ideation: No Patient has homicidal ideation: No - Past Medical History Cardiac Medical History: Reports: Hx Coronary Artery Disease Denies: Hx Heart Attack, Hx Hypertension Pulmonary Medical History: Reports: Hx COPD Denies: Hx Asthma, Hx Bronchitis, Hx Pneumonia, Hx Tuberculosis Neurological Medical History: Reports: Hx Cerebrovascular Accident, Hx Seizures - 2 MONTHS Renal/ Medical History: Denies: Hx Peritoneal Dialysis Malignancy Medical History: Reports: Hx Lung Cancer GI Medical History: Reports: Hx Gastroesophageal Reflux Disease Musculoskeltal Medical History: Reports Hx Arthritis, Reports Hx Musculoskeletal Trauma - spinal fx after fall, RECENT SHOULDER FX Skin Medical History: Denies Hx MRSA Psychiatric Medical History: Reports: Hx Dementia, Hx Depression Traumatic Medical History: Reports: Hx Fractures - Right shoulder fracture, spinal fractures after a fall Past Surgical History: Reports: Hx Cardiac Catheterization, Hx Hysterectomy, Hx Nose Surgery, Hx Orthopedic Surgery - back, Hx Vascular Surgery - Port-A-Cath - Immunizations Immunizations up to date: Yes Hx Diphtheria, Pertussis, Tetanus Vaccination: No Hx Pneumococcal Vaccination: 05/07/14 Review of Systems - Review of Systems -: Yes ROS unobtainable due to patient's medical condition Physical Exam - Vital signs Vitals: Pulse Ox 98 11/20/17 12:10 - Notes Notes: PHYSICAL EXAMINATION: GENERAL: Frail elderly appearing female lying in bed in no apparent distress HEAD: Atraumatic, normocephalic. EYES: extraocular movements intact, conjunctiva are normal. PERRLA. ENT: Nares patent, oropharynx clear without exudates. Moist mucous membranes. NECK: Normal range of motion, supple without lymphadenopathy LUNGS: Breath sounds clear to auscultation bilaterally and equal. No wheezes rales or rhonchi. HEART: Regular rate and rhythm ABDOMEN: Soft, nontender, nondistended abdomen. No guarding, no rebound. No masses appreciated. Female : deferred Musculoskeletal: Normal range of motion, no pitting or edema. No cyanosis. NEUROLOGICAL: Cranial nerves grossly intact. Normal sensory, motor exams. PSYCH: flat affect SKIN: Warm, Dry, normal turgor, no rashes or lesions noted. Course - Re-evaluation Re-evalutation: 11/20/17 13:24 Dr. Tejada was in the ED and saw the patient. He states she is at her baseline and can go home if her lab work looks okay. 11/20/17 13:28 Patient's LFTs are abnormally high. However they have come down significantly since October. I did review old charts and patient had an abdominal MRI as well as an abdominal ultrasound and PET scan that showed normal hepatobiliary system without stones with no abnormality of the common bile duct. 11/20/17 13:29 Labs- All tests 24 hr 11/20/17 11/20/17 11/20/17 12:26 12:26 12:45 WBC 4.3 RBC 4.90 Hgb 14.3 Hct 41.9 MCV 86 MCH 29.1 MCHC 34.0 RDW 17.2 H Plt Count 174 Seg Neutrophils % 78.8 H Lymphocytes % 12.8 L Monocytes % 7.4 Eosinophils % 0.2 Basophils % 0.8 Absolute Neutrophils 3.4 Absolute Lymphocytes 0.5 Absolute Monocytes 0.3 Absolute Eosinophils 0.0 Absolute Basophils 0.0 Sodium 132.6 L Potassium 4.2 Chloride 97 L Carbon Dioxide 27 Anion Gap 9 BUN 12 Creatinine 0.58 Est GFR ( Amer) > 60 Est GFR (Non-Af Amer) > 60 Glucose 85 Calcium 10.9 H Total Bilirubin 4.2 H Direct Bilirubin 3.4 H Neonat Total Bilirubin Not Reportable Neonat Direct Bilirubin Not Reportable Neonat Indirect Bili Not Reportable AST 229 H ALT 239 H Alkaline Phosphatase 531 H Total Protein 9.2 H Albumin 4.5 Urine Color YELLOW Urine Appearance SLIGHTLY-CLOUDY Urine pH 8.0 Ur Specific [place] 1.010 Urine Protein NEGATIVE Urine Glucose (UA) NEGATIVE Urine Ketones TRACE H Urine Blood NEGATIVE Urine Nitrite NEGATIVE Urine Bilirubin NEGATIVE Urine Urobilinogen NEGATIVE Ur Leukocyte Esterase NEGATIVE Urine WBC (Auto) 1 Urine RBC (Auto) 1 Squamous Epi Cells Auto <1 Urine Mucus (Auto) RARE Urine Ascorbic Acid NEGATIVE - Vital Signs Vital signs: Temp Pulse Resp BP Pulse Ox 19 150/87 H 98 11/20/17 13:01 11/20/17 13:01 11/20/17 13:01 - Laboratory Result Diagrams: 11/20/17 12:26 11/20/17 12:26 Laboratory results interpreted by me: 11/20/17 11/20/17 11/20/17 12:26 12:26 12:45 RDW 17.2 H Seg Neutrophils % 78.8 H Lymphocytes % 12.8 L Sodium 132.6 L Chloride 97 L Calcium 10.9 H Total Bilirubin 4.2 H Direct Bilirubin 3.4 H AST 229 H ALT 239 H Alkaline Phosphatase 531 H Total Protein 9.2 H Urine Ketones TRACE H Discharge - Discharge Clinical Impression: Seizure Disposition: HOME, SELF-CARE Instructions: Seizure, Known Epileptic ([facility]) Additional Instructions: Follow-up Follow up with your physician tomorrow for further care or return to the ED IMMEDIATELY if symptoms worsen or new concerns occur. If you cannot afford to follow up with your primary care physician a list of low cost clinics have been provided at the end of your discharge papers as well. Referrals: BARBARA TEJADA MD [Primary Care Provider] - Follow up as needed
[2017-11-20 14:14] VITALS: BP 163/90
[2017-11-20] MEDS ORDERED: LORAZEPAM INJ 2 MG/1 ML VIAL ONE (15:29)
[2017-11-20] MEDS ORDERED: NORMAL SALINE 1000 ML 1,000 ML IV PRN (15:52)
[2017-11-20] MEDS ORDERED: ONDANSETRON HCL INJ/PF 4 MG/2 ML SDV IV PRN (15:52)
[2017-11-20] MEDS ORDERED: LEVALBUTEROL HCL NEB 1.25 MG/3 ML AMPUL NEB SCH (16:00)
[2017-11-20] MEDS ORDERED: LORAZEPAM INJ 2 MG/1 ML VIAL IV PRN (16:00)
--- NOTE | 2017-11-20 16:09 | EKG REPORT ---
SEVERITY:- ABNORMAL ECG - SINUS RHYTHM BORDERLINE RIGHT AXIS DEVIATION NONSPECIFIC T ABNORMALITIES, LATERAL LEADS : Confirmed by: Rubio Rodriguez MD 20-Nov-2017 16:09:00
--- NOTE | 2017-11-20 16:16 | PDOC H&P ---
History of Present Illness Admission Date/PCP: BARBARA TEJADA MD Patient complains of: Uncontrolled seizures History of Present Illness: JOSELITO RODRIGUEZ is a 72 year old female This is a 72-year-old female with a significant history of the COPD and a history of the multiple admissions for the uncontrolled seizures due to the noncompliance of the medicationWith recent history of the lung cancer and currently on immunotherapy with the history of the Waldenstrm gamma globin anemiaCame to the emergency department with the complaining of uncontrolled seizuresIn the initially patient was giving the Lorazepam and pretty much controlled seizures and pretty much ready to discharge but again the patient have a couple of more seizures activity and possible aspirations and decided to admit in the hospital Patient's also recently have a diagnosed with the elevated LFT and a bilirubin and an extensive workup done by oncology including the abdominal MRI and the recent PET scans was all stable Patient's denied any abdominal pain no nausea no vomiting Patient is a very hard to hearing due to significant hearing loss Past Medical History Cardiac Medical History: Reports: Coronary Artery Disease Denies: Myocardial Infarction, Hypertension Pulmonary Medical History: Reports: Chronic Obstructive Pulmonary Disease (COPD) , Intubation Denies: Asthma, Bronchitis, Pneumonia, Tuberculosis Neurological Medical History: Reports: Seizures - 2 MONTHS Malignancy Medical History: Reports: Lung Cancer GI Medical History: Reports: Gastroesophageal Reflux Disease Musculoskeltal Medical History: Reports: Arthritis Psychiatric Medical History: Reports: Dementia, Depression Hematology: Reports: Anemia Past Surgical History Past Surgical History: Reports: Cardiac Catheterization, Hysterectomy, Orthopedic Surgery - back, Vascular Surgery - Port-A-Cath Social History Lives with: Family Smoking Status: Unknown if Ever Smoked Frequency of Alcohol Use: Social Hx Recreational Drug Use: No Drugs: None Hx Prescription Drug Abuse: No Family History Family History: Reviewed & Not Pertinent Parental Family History Reviewed: Yes Children Family History Reviewed: Yes Sibling(s) Family History Reviewed.: Yes Medication/Allergy Home Medications: Gabapentin 600 mg PO Q8 11/18/16 Levetiracetam [Keppra 500 mg Tablet] 1,500 mg PO BID 11/18/16 Tiotropium [place] [Spiriva Handihaler 18 mcg/dose (30 Dose)] 1 cap IH DAILY 12/03 Atorvastatin Calcium 40 mg PO DAILY 08/30/17 Clopidogrel Bisulfate [Clopidogrel] 1 tab PO DAILY 08/30/17 Doxycycline Hyclate 100 mg PO BID #14 capsule 08/30/17 Metoprolol Succinate 1 tab PO DAILY 08/30/17 Allergies/Adverse Reactions: codeine [Codeine] Allergy (Unknown, Verified 02/22/17 10:51) Review of Systems Constitutional: ABSENT: chills, fever(s), headache(s), weight gain, weight loss Eyes: ABSENT: visual disturbances Ears: ABSENT: hearing changes Cardiovascular: ABSENT: chest pain, dyspnea on exertion, edema, orthropnea, palpitations Respiratory: ABSENT: cough, hemoptysis Gastrointestinal: ABSENT: abdominal pain, constipation, diarrhea, hematemesis, hematochezia, nausea, vomiting Genitourinary: ABSENT: dysuria, hematuria Musculoskeletal: ABSENT: joint swelling Integumentary: ABSENT: rash, wounds Neurological: ABSENT: abnormal gait, abnormal speech, confusion, dizziness, focal weakness, syncope Psychiatric: ABSENT: anxiety, depression, homidical ideation, suicidal ideation Endocrine: ABSENT: cold intolerance, heat intolerance, menstrual abnormalities, polydipsia, polyuria Hematologic/Lymphatic: ABSENT: easy bleeding, easy bruising, lymphadenopathy Physical Exam Vital Signs: Temp Pulse Resp BP Pulse Ox 81 18 163/90 H 98 11/20/17 14:13 11/20/17 14:13 11/20/17 14:13 11/20/17 14:13 General appearance: PRESENT: no acute distress, well-developed, well-nourished Head exam: PRESENT: atraumatic, normocephalic Eye exam: PRESENT: conjunctiva pink, EOMI, PERRLA. ABSENT: scleral icterus Ear exam: PRESENT: normal external ear exam Mouth exam: PRESENT: moist, tongue midline Neck exam: PRESENT: full ROM. ABSENT: carotid bruit, JVD, lymphadenopathy, thyromegaly Respiratory exam: PRESENT: clear to auscultation pavel Cardiovascular exam: PRESENT: RRR. ABSENT: diastolic murmur, rubs, systolic murmur Pulses: PRESENT: normal dorsalis pedis pul, +2 pedal pulses bilateral Vascular exam: PRESENT: normal capillary refill GI/Abdominal exam: PRESENT: normal bowel sounds, soft. ABSENT: distended, guarding, mass, organolmegaly, rebound, tenderness Rectal exam: PRESENT: deferred Neurological exam: PRESENT: alert, awake, oriented to person. ABSENT: motor sensory deficit Additional comments: After the seizure patients go to the postictal status Psychiatric exam: PRESENT: appropriate affect, normal mood. ABSENT: homicidal ideation, suicidal ideation Skin exam: PRESENT: dry, intact, warm. ABSENT: cyanosis, rash Results Laboratory Results: 11/20/17 12:26 11/20/17 12:26 11/20/17 11/20/17 11/20/17 12:26 12:26 12:45 WBC 4.3 RBC 4.90 Hgb 14.3 Hct 41.9 MCV 86 MCH 29.1 MCHC 34.0 RDW 17.2 H Plt Count 174 Seg Neutrophils % 78.8 H Lymphocytes % 12.8 L Monocytes % 7.4 Eosinophils % 0.2 Basophils % 0.8 Absolute Neutrophils 3.4 Absolute Lymphocytes 0.5 Absolute Monocytes 0.3 Absolute Eosinophils 0.0 Absolute Basophils 0.0 Sodium 132.6 L Potassium 4.2 Chloride 97 L Carbon Dioxide 27 Anion Gap 9 BUN 12 Creatinine 0.58 Est GFR ( Amer) > 60 Est GFR (Non-Af Amer) > 60 Glucose 85 Calcium 10.9 H Total Bilirubin 4.2 H AST 229 H ALT 239 H Alkaline Phosphatase 531 H Total Protein 9.2 H Albumin 4.5 Urine Color YELLOW Urine Appearance SLIGHTLY-CLOUDY Urine pH 8.0 Ur Specific [place] 1.010 Urine Protein NEGATIVE Urine Glucose (UA) NEGATIVE Urine Ketones TRACE H Urine Blood NEGATIVE Urine Nitrite NEGATIVE Ur Leukocyte Esterase NEGATIVE Urine WBC (Auto) 1 Urine RBC (Auto) 1 Assessment & Plan - Diagnosis (1) Uncontrolled seizures Qualifiers: Convulsion type: unspecified Qualified Code(s): R56.9 - Unspecified convulsions Is this a current diagnosis for this admission?: Yes Plan: Start the patient on IV KeppraMost likely due to the patient's with a significant noncompliance with the medications Seizures precautions (2) Aspiration pneumonia Qualifiers: Aspiration pneumonia type: unspecified Is this a current diagnosis for this admission?: Yes Plan: Start the patient on IV antibiotic (3) Hearing impairment Qualifiers: Hearing loss type: unspecified Is this a current diagnosis for this admission?: Yes (4) Lung cancer Qualifiers: Lung location: unspecified part of lung Is this a current diagnosis for this admission?: Yes Plan: We consult the oncology for further continuous care (5) Migraine Qualifiers: Migraine type: unspecified Is this a current diagnosis for this admission?: Yes (6) Waldenstrom macroglobulinemia Is this a current diagnosis for this admission?: Yes Plan: Follow with oncology (7) Abnormal LFTs Is this a current diagnosis for this admission?: Yes Plan: Patient had very extensive evaluations done by oncology be consulted Dr. Lemon for further evaluation (8) Alcoholism Is this a current diagnosis for this admission?: Yes Plan: According to the family patient is not drinking since last several months - Time Time Spent: 30 to 50 Minutes Medications reviewed and adjusted accordingly: Yes Anticipated discharge: Other Within: Other - Inpatient Certification Medical Necessity: Need Close Monitoring Due to Risk of Patient Decompensation, Need For IV Fluids, Need for IV Antibiotics Post Hospital Care: D/C Optical Advisor Documentation - Plan Summary Plan Summary: Admit the patient in IMCU start the patient on IV Keppra and IV fluid and IV antibiotic and see other MD orders
[2017-11-20] MEDS ORDERED: CEFEPIME 1 GM/D5W RTU 1 GM/50 ML RTUPB IV SCH (22:00)
[2017-11-20] MEDS ORDERED: HEPARIN SOD (PORCINE) 5,000 UNIT/ML 1 ML SYRINGE SUBCUT SCH (22:00)
[2017-11-20] MEDS ORDERED: FAMOTIDINE INJ/PF 20 MG/2 ML SDV IV SCH (22:00)
[2017-11-20] MEDS ORDERED: LEVETIRACETAM 1500 MG/NACL-ISO 1,500 MG/100 ML RTUPB IV SCH (22:00)
== END 2017-11-20 14:14 | disposition home or self-care (01) ==
LOC: ER 12:04
DX: R56.9 Unspecified convulsions (principal); R32 Unspecified urinary incontinence
CPT/HCPCS: 36415; 51701; 80053; 81001; 85025; 87040; 93005; 93010; 99284

== ENCOUNTER 2017-11-20 15:21 | Inpatient (IN) | payer MEDICARE, MEDICAID ==
[2017-11-20] MEDS ORDERED: NORMAL SALINE 1000 ML 1,000 ML IV PRN ×2 (15:52→20:56)
[2017-11-20] MEDS ORDERED: ONDANSETRON HCL INJ/PF 4 MG/2 ML SDV IV PRN (15:52)
[2017-11-20] MEDS ORDERED: LORAZEPAM INJ 2 MG/1 ML VIAL IV PRN (16:00)
--- NOTE | 2017-11-20 16:01 | ER Document Report ---
ED General - General Stated Complaint: UNRESPONSIVE Time Seen by Provider: 11/20/17 15:39 Mode of Arrival: Medic Information source: Emergency Med Personnel, [facility] Records TRAVEL OUTSIDE OF THE [place] IN LAST 30 DAYS: No - HPI Patient complains to provider of: Seizure Onset: Just prior to arrival Notes: Patient was just discharged from here. She returns with a tonic-clonic seizure in route to the hospital. EMS did give 2-1/2 mg of intranasal Versed and the seizure did cease. Medics stated that the patient had a right lateral deviation she felt the patient was having another seizure so she gave 2 mg of Ativan. - Related Data Allergies/Adverse Reactions: codeine [Codeine] Allergy (Unknown, Verified 02/22/17 10:51) Past Medical History - General Information source: [facility] Records - Social History Smoking Status: Never Smoker Family History: Reviewed & Not Pertinent - Past Medical History Cardiac Medical History: Reports: Hx Coronary Artery Disease Denies: Hx Heart Attack, Hx Hypertension Pulmonary Medical History: Reports: Hx COPD Denies: Hx Asthma, Hx Bronchitis, Hx Pneumonia, Hx Tuberculosis Neurological Medical History: Reports: Hx Cerebrovascular Accident, Hx Seizures - 2 MONTHS Renal/ Medical History: Denies: Hx Peritoneal Dialysis Malignancy Medical History: Reports: Hx Lung Cancer GI Medical History: Reports: Hx Gastroesophageal Reflux Disease Musculoskeltal Medical History: Reports Hx Arthritis, Reports Hx Musculoskeletal Trauma - spinal fx after fall, RECENT SHOULDER FX Skin Medical History: Denies Hx MRSA Psychiatric Medical History: Reports: Hx Dementia, Hx Depression Traumatic Medical History: Reports: Hx Fractures - Right shoulder fracture, spinal fractures after a fall Past Surgical History: Reports: Hx Cardiac Catheterization, Hx Hysterectomy, Hx Nose Surgery, Hx Orthopedic Surgery - back, Hx Vascular Surgery - Port-A-Cath - Immunizations Immunizations up to date: Yes Hx Diphtheria, Pertussis, Tetanus Vaccination: No Hx Pneumococcal Vaccination: 05/07/14 Review of Systems - Review of Systems -: Yes ROS unobtainable due to patient's medical condition Physical Exam - Notes Notes: PHYSICAL EXAMINATION: GENERAL: Patient is laying in bed, responsive to noxious stimuli only, with spontaneous respirations. HEAD: Atraumatic, normocephalic. EYES: Pupils equal round and reactive to light, extraocular movements intact, conjunctiva are normal. ENT: Nares patent, oropharynx clear without exudates. Moist mucous membranes. NECK: Trachea midline, supple without lymphadenopathy. LUNGS: Breath sounds clear to auscultation bilaterally and equal. Rhonchi b/l. HEART: Tachy without murmurs ABDOMEN: Soft, nontender, nondistended abdomen. No guarding, no rebound. No masses appreciated. Female : deferred Musculoskeletal: No pitting or edema. No cyanosis. NEUROLOGICAL: Patient moves towards noxious stimuli. She does open her eyes spontaneously. SKIN: Warm, Dry, normal turgor, no rashes or lesions noted. Course - Re-evaluation Re-evalutation: 11/20/17 15:[address] Franco he wants a CT of the chest without. I told him is get a chest x-ray CT of the head dense patient had seizures with history of lung cancer. Patient will also get [address] Franco to admit. 11/20/17 17:[address] 11/20/17 15:44 IMPRESSION: No acute findings EVIDENCE OF ACUTE STROKE: NO. Chest CT 11/20/17 15:45 IMPRESSION: Obstructive lung disease. Stable scarring posterior left upper lobe. 11/20/17 17:25 Patient originally came in her vital signs are stable. Her heart rate was a bit tacky at 140 sinus tach. She did have right eye deviation. She has spontaneous respirations and pulse ox showed 97-99. Patient was given 2 mg IV upon arrival for possible seizure activity. 11/20/17 17:26 DR. Franco was called back and I did go over the CT chest results with him. He stated here to put in orders. - Laboratory Result Diagrams: 11/20/17 16:14 11/20/17 16:14 Laboratory results interpreted by me: 11/20/17 11/20/17 16:14 16:14 RDW 17.3 H Seg Neuts % (Manual) 89 H Lymphocytes % (Manual) 4 L Abs Lymphs (Manual) 0.3 L Sodium 133.0 L Chloride 96 L Glucose 111 H Calcium 10.8 H Critical Care Note - Critical Care Note Total time excluding time spent on procedures (mins): 30 Comments: 30 minutes of critical care time spent in direct contact evaluating and reevaluating the patient, treating symptoms, reviewing labs and studies and speaking with family and consultants excluding any procedures Discharge - Discharge Clinical Impression: Seizure Condition: Serious Disposition: ADMITTED INPATIENT Admitting Provider: [facility] Unit Admitted: ICU
[2017-11-20] MEDS ORDERED: LORAZEPAM INJ 2 MG/1 ML VIAL IV ONE (16:05)
[2017-11-20 16:50] LABS: MEAN CORPUSCULAR HEMOGLOBIN 29.2 pg (27.0-33.4); MEAN CORPUSCULAR HGB CONC 34.1 g/dL (32.0-36.0); MEAN CORPUSCULAR VOLUME 86 fl (80-97); PLATELET COUNT 163 10^3/uL (150-450); RED BLOOD COUNT 4.79 10^6/uL (3.72-5.28); RED CELL DISTRIBUTION WIDTH 17.3 % (11.5-14.0); WHITE BLOOD COUNT 6.9 10^3/uL (4.0-10.5)
[2017-11-20 17:07] LABS: ANION GAP 13 (5-19); BLOOD UREA NITROGEN 12 mg/dL (7-20); CALCIUM 10.8 mg/dL (8.4-10.2); CARBON DIOXIDE 24 mmol/L (22-30); CHLORIDE 96 mmol/L (98-107); GLUCOSE 111 mg/dL (75-110); POTASSIUM 4.5 mmol/L (3.6-5.0)
--- NOTE | 2017-11-20 17:10 | RADIOLOGY REPORT (SQ) ---
EXAM DESCRIPTION: CT HEAD WITHOUT COMPLETED DATE/TIME: 11/20/2017 4:45 pm REASON FOR STUDY: seizure/lung cancer COMPARISON: CT brain 08/30/2017, 01/24/2016 TECHNIQUE: Axial images acquired through the brain without intravenous contrast. Images reviewed wi th bone, brain and subdural windows. Images stored on PACS. All CT scanners at this facility use dose modulation, iterative reconstruction, and/or weight based d osing when appropriate to reduce radiation dose to as low as reasonably achievable (ALARA). [facility]: Dose Right [facility]: CareDose [facility]: Dose Right [facility]: Teradose 4D [facility]: Smart Technologies RADIATION DOSE: CT Rad equipment meets quality standard of care and radiation dose reduction techniq ues were employed. CTDIvol: 63.3 mGy. DLP: 1034 mGy-cm. mGy. LIMITATIONS: None. FINDINGS: VENTRICLES: Normal size and contour. CEREBRUM: Old infarct in the left posterior temporal/ occipital cortex and subcortical white matter. No CT evidence of acute large territory ischemic change, acute intracranial hemorrhage, mass effect, or midline shift. Spotty low attenuation in the white matter from chronic small vessel ischemic cabrales ge. CEREBELLUM: No masses. No hemorrhage. No alteration of density. No evidence for acute infarction. EXTRAAXIAL SPACES: No fluid collections. No masses. ORBITS AND GLOBE: Post cataract surgery CALVARIUM: No fracture. PARANASAL SINUSES: Chronic inflammatory change left maxillary sinus with mucoperiosteal thickening. SOFT TISSUES: No mass or hematoma. OTHER: No other significant finding. IMPRESSION: No acute findings EVIDENCE OF ACUTE STROKE: NO. COMMENT: Quality ID # [id number]: Final reports with documentation of one or more dose reduction techniques (e.g., Automated exposure control, adjustment of the mA and/or kV according to patient size, use of iterative reconstruction technique) TECHNICAL DOCUMENTATION: JOB ID: [id number] [employer]- All Rights Reserved
[2017-11-20 17:13] LABS: ABSOLUTE LYMPHOCYTES# (MANUAL) 0.3 10^3/uL (0.5-4.7); ABSOLUTE MONOCYTES # (MANUAL) 0.4 10^3/uL (0.1-1.4); ABSOLUTE NEUTROPHILS# (MANUAL) 6.1 10^3/uL (1.7-8.2); BASOPHILS % (MANUAL) 0 % (0-2); EOSINOPHILS % (MANUAL) 0 % (0-6); LYMPHOCYTES % (MANUAL) 4 % (13-45); MONOCYTES % (MANUAL) 6 % (3-13); SEGMENTED NEUTROPHILS % (MAN) 89 % (42-78); TOTAL CELLS COUNTED 100
--- NOTE | 2017-11-20 17:13 | RADIOLOGY REPORT (SQ) ---
EXAM DESCRIPTION: CT CHEST WITHOUT COMPLETED DATE/TIME: 11/20/2017 4:45 pm REASON FOR STUDY: seizure/lung cancer COMPARISON: CT chest 11/03/2015, 02/19/2015, 05/03/2014 PET-CT 10/30/2017 TECHNIQUE: CT scan performed of the chest without intravenous contrast. Images reviewed with lung, soft tissue and bone windows. Reconstructed coronal and sagittal MPR images reviewed. All images st ored on PACS. All CT scanners at this facility use dose modulation, iterative reconstruction, and/or weight based d osing when appropriate to reduce radiation dose to as low as reasonably achievable (ALARA). [facility]: Dose Right [facility]: CareDose [facility]: Dose Right [facility]: Teradose 4D [facility]: [employer] RADIATION DOSE: CT Rad equipment meets quality standard of care and radiation dose reduction techniq ues were employed. CTDIvol: 14.4 mGy. DLP: 577 mGy-cm. mGy. LIMITATIONS: No technical limitations. FINDINGS: LUNGS AND PLEURA: Minimal bandlike scarring is present in the posterior aspect left upper lobe, stable over the series of exams. There is extensive obstructive lung disease with hyperinflation and hyperlucency. No acute infiltrat es. No pleural effusion. No pneumothorax. HILAR AND MEDIASTINAL STRUCTURES: No identified masses or abnormal nodes. No obvious aneurysm. HEART AND VASCULAR STRUCTURES: No aneurysm. No pericardial effusion. UPPER ABDOMEN: No significant findings. Limited exam. THYROID AND OTHER SOFT TISSUES: No masses. No adenopathy. BONES: Multiple stable treated compression deformities with kyphoplasty. Untreated stable upper lumb ar compression deformities. HARDWARE: Right-sided permanent central line tip superior vena cava OTHER: No other significant findings. IMPRESSION: Obstructive lung disease. Stable scarring posterior left upper lobe. TECHNICAL DOCUMENTATION: JOB ID: [id number] Quality ID # [id number]: Final reports with documentation of one or more dose reduction techniques (e.g., Au tomated exposure control, adjustment of the mA and/or kV according to patient size, use of iterative reconstruction technique) 2010 [employer]- All Rights Reserved
[2017-11-20 17:14] LABS: ANISOCYTOSIS 1+; HYPOCHROMASIA SLIGHT; PLATELET COMMENT ADEQUATE
[2017-11-20] MEDS ORDERED: CEFEPIME 1 GM/D5W RTU 1 GM/50 ML RTUPB IV ONE (21:30)
[2017-11-20] MEDS ORDERED: ACETAMINOPHEN 650 MG SUPP.RECT PR ONE (21:30)
[2017-11-20] MEDS: LEVALBUTEROL HCL NEB 1.25 MG/3 ML AMPUL NEB SCH (21:33)
[2017-11-20] MEDS ORDERED: LEVETIRACETAM 1,000 MG in NORMAL SALINE 100 ML IV SCH (22:00)
[2017-11-20] MEDS ORDERED: LEVETIRACETAM 1000 MG/NACL-ISO 1,000 MG/100 ML RTUPB IV SCH (22:00)
[2017-11-20] MEDS: HEPARIN SOD (PORCINE) 5,000 UNIT/ML 1 ML SYRINGE SUBCUT SCH (22:24)
[2017-11-20] MEDS ORDERED: LEVETIRACETAM INJ/PF 500 MG/5 ML SDV IV ONE (22:32)
[2017-11-20] MEDS: FAMOTIDINE INJ/PF 20 MG/2 ML SDV IV SCH (22:38)
[2017-11-20] MEDS: LEVETIRACETAM 1500 MG/NACL-ISO 1,500 MG/100 ML RTUPB IV SCH (22:50)
[2017-11-21] MEDS: LEVALBUTEROL HCL NEB 1.25 MG/3 ML AMPUL NEB SCH ×6 (00:09→20:41)
[2017-11-21] MEDS: HEPARIN SOD (PORCINE) 5,000 UNIT/ML 1 ML SYRINGE SUBCUT SCH ×3 (05:28→21:56)
[2017-11-21 07:16] LABS: ABSOLUTE LYMPHOCYTES (AUTO) 0.8 10^3/uL (0.5-4.7); ABSOLUTE MONOCYTES (AUTO) 0.5 10^3/uL (0.1-1.4); ABSOLUTE NEUT (AUTO) 3.6 10^3/uL (1.7-8.2); BASOPHILS % (AUTO) 0.7 % (0-2); MEAN CORPUSCULAR HEMOGLOBIN 29.5 pg (27.0-33.4); MEAN CORPUSCULAR HGB CONC 35.1 g/dL (32.0-36.0); MEAN CORPUSCULAR VOLUME 84 fl (80-97); MONOCYTES % (AUTO) 9.8 % (3-13); PLATELET COUNT 165 10^3/uL (150-450); RED BLOOD COUNT 4.04 10^6/uL (3.72-5.28); RED CELL DISTRIBUTION WIDTH 16.5 % (11.5-14.0); SEGMENTED NEUTROPHILS % (AUTO) 72.5 % (42-78); TOTAL CELLS COUNTED % (AUTO) 100 %; WHITE BLOOD COUNT 4.9 10^3/uL (4.0-10.5)
[2017-11-21 07:18] LABS: HEMOGLOBIN 11.9 g/dL (12.0-15.5)
[2017-11-21 07:22] LABS: ALANINE AMINOTRANSFERASE 163 U/L (9-52); ALBUMIN 3.5 g/dL (3.5-5.0); ALKALINE PHOSPHATASE 375 U/L (38-126); ANION GAP 9 (5-19); ASPARTATE AMINO TRANSFERASE 129 U/L (14-36); BILIRUBIN,DIRECT 2.5 mg/dL (0.0-0.4); BILIRUBIN,TOTAL 3.3 mg/dL (0.2-1.3); BLOOD UREA NITROGEN 11 mg/dL (7-20); CALCIUM 10.1 mg/dL (8.4-10.2); CARBON DIOXIDE 21 mmol/L (22-30); CHLORIDE 100 mmol/L (98-107); GLUCOSE 75 mg/dL (75-110); LIPASE 240.4 U/L (23-300); POTASSIUM 3.6 mmol/L (3.6-5.0); SODIUM 130.4 mmol/L (137-145); TOTAL PROTEIN 7.3 g/dL (6.3-8.2)
--- NOTE | 2017-11-21 08:44 | PDOC CONSULTATION ---
Consultation Consult Date: 11/21/17 Attending physician:: BARBARA TEJADA Consult reason:: Known hx of stage IV lung ca here w/ recurrent seizures and transaminase elevation History of Present Illness Admission Date/PCP: 11/20/17 17:58 BABRARA TEJADA MD Patient complains of: Seizures History of Present Illness: JOSELITO RODRIGUEZ is a 72 year old female well-known to our oncology clinic with known history of stage III versus 4 non-small cell lung cancer, who was on immunotherapy with Keytruda, she has had a complete response to therapy, most recent PET/CT was completely negative indicating continued full response. She has been tolerating the drug very well until recently. About 3 weeks ago, she began increasing her transaminases, the AST and ALT was being checked very closely on a weekly basis and they peaked at 400 each, the bilirubin also went up, up to 18, we did fractionate the bilirubin and it was primarily direct, we also did an extensive liver workup. We did lab work including hepatitis panel and she does have now diagnosed hepatitis C, she also had a full workup for autoimmune causes which were negative, we did a ultrasound first followed by MRCP, and there is nothing reversible noted on imaging. As noted previously the PET/CT showed a complete response of there is no liver metastasis on PET/ CT. Ultimately we thought this was either because of her inherent liver dysfunction, she does have an extensive drinking history, and probably has some element of cirrhosis, versus the hepatitis C, versus possibly the immunotherapy as 1 of the side effects is liver abnormalities, the mechanism would be T-cell up regulation and the cells attacking the liver along with the cancer cells. We put her on high-dose steroids at prednisone 40 mg daily about 2 weeks ago, it was after that that the bilirubin started trending down and the transaminases started trending down. However, we are unsure of the true cause of the liver dysfunction at this point. We did do an ammonia level and it was normal about 10 days ago. She presented to the ED with a witnessed seizure, she does have known history of seizure disorder, she was stabilized and then she was going to be discharged and as soon as she began leaving the building she had another seizure so she was admitted for observation. Since being admitted she has not had a witnessed seizure. Past Medical History Cardiac Medical History: Reports: Coronary Artery Disease Denies: Myocardial Infarction, Hypertension Pulmonary Medical History: Reports: Chronic Obstructive Pulmonary Disease (COPD) Denies: Asthma, Bronchitis, Pneumonia, Tuberculosis Neurological Medical History: Reports: Seizures - 2 MONTHS Malignancy Medical History: Reports: Lung Cancer GI Medical History: Reports: Gastroesophageal Reflux Disease Musculoskeltal Medical History: Reports: Arthritis Psychiatric Medical History: Reports: Dementia, Depression Hematology: Reports: Anemia Past Surgical History Past Surgical History: Reports: Cardiac Catheterization, Hysterectomy, Orthopedic Surgery - back, Vascular Surgery - Port-A-Cath Social History Smoking Status: Never Smoker Frequency of Alcohol Use: None Hx Recreational Drug Use: No Drugs: None Hx Prescription Drug Abuse: No Past Social History Note: Known history of heavy EtOH abuse, but none last year she has not had anything to drink. - Advance Directive Resuscitation Status: Full Code Family History Family History: Reviewed & Not Pertinent Parental Family History Reviewed: Yes Children Family History Reviewed: Yes Sibling(s) Family History Reviewed.: Yes Medication/Allergy Allergies/Adverse Reactions: codeine [Codeine] Allergy (Unknown, Verified 02/22/17 10:51) Review of Systems ROS unobtainable: Due to mental status Physical Exam Vital Signs: Temp Pulse Resp BP Pulse Ox 97.3 F 90 16 114/57 L 100 11/21/17 03:21 11/21/17 03:21 11/21/17 03:21 11/21/17 03:21 11/21/17 03:21 Intake & Output 11/20/17 11/21/17 11/22/17 06:59 06:59 06:59 Intake Total 420 Balance 420 Weight 38.3 kg General appearance: PRESENT: no acute distress, well-developed, well-nourished Head exam: PRESENT: atraumatic, normocephalic Eye exam: PRESENT: conjunctiva pink, EOMI, PERRLA. ABSENT: scleral icterus Ear exam: PRESENT: normal external ear exam Mouth exam: PRESENT: moist, tongue midline Neck exam: ABSENT: carotid bruit, JVD, lymphadenopathy, thyromegaly Respiratory exam: PRESENT: clear to auscultation pavel. ABSENT: rales, rhonchi, wheezes Cardiovascular exam: PRESENT: RRR. ABSENT: diastolic murmur, rubs, systolic murmur Pulses: PRESENT: normal dorsalis pedis pul Vascular exam: PRESENT: normal capillary refill GI/Abdominal exam: PRESENT: normal bowel sounds, soft. ABSENT: distended, guarding, mass, organolmegaly, rebound, tenderness Rectal exam: PRESENT: deferred Extremities exam: PRESENT: full ROM. ABSENT: calf tenderness, clubbing, pedal edema Neurological exam: PRESENT: alert, awake, oriented to person, oriented to place , oriented to time, oriented to situation, CN II-XII grossly intact. ABSENT: motor sensory deficit Psychiatric exam: PRESENT: appropriate affect, normal mood. ABSENT: homicidal ideation, suicidal ideation Skin exam: PRESENT: dry, intact, warm. ABSENT: cyanosis, rash Results Laboratory Results: 11/21/17 05:33 11/21/17 05:33 11/21/17 11/21/17 05:33 05:33 WBC 4.9 RBC 4.04 Hgb 11.9 L D Hct 34.0 L MCV 84 MCH 29.5 MCHC 35.1 RDW 16.5 H Plt Count 165 Seg Neutrophils % 72.5 Lymphocytes % 17.0 Monocytes % 9.8 Eosinophils % 0.0 Basophils % 0.7 Absolute Neutrophils 3.6 Absolute Lymphocytes 0.8 Absolute Monocytes 0.5 Absolute Eosinophils 0.0 Absolute Basophils 0.0 Sodium 130.4 L Potassium 3.6 Chloride 100 Carbon Dioxide 21 L Anion Gap 9 BUN 11 Creatinine 0.49 L Est GFR ( Amer) > 60 Est GFR (Non-Af Amer) > 60 Glucose 75 Calcium 10.1 Total Bilirubin 3.3 H AST 129 H ALT 163 H Alkaline Phosphatase 375 H Total Protein 7.3 Albumin 3.5 Lipase 240.4 Impressions: Head CT 11/20/17 15:44 IMPRESSION: No acute findings EVIDENCE OF ACUTE STROKE: NO. Chest CT 11/20/17 15:45 IMPRESSION: Obstructive lung disease. Stable scarring posterior left upper lobe. Assessment & Plan - Diagnosis (1) Abnormal LFTs Is this a current diagnosis for this admission?: Yes Plan: Unknown cause of elevation but it could be related to immunotherapy versus cirrhosis versus hepatitis C, Dr. Tejada has consulted Dr. Lemon, we will make sure that all of the labs that we joan through our office and other workup is in the chart. Of note the imaging was done here at [facility] so [facility]. Currently immunotherapy is on hold until transaminases normalize and prednisone is fully tapered. I have asked Dr. Tejada to continue the prednisone taper. But it does seem to be improving. (2) Adenocarcinoma of right lung Is this a current diagnosis for this admission?: Yes Plan: Patient complete response, doing very well from the standpoint, immunotherapy will be on hold as above until steroid is tapered down to less than 5 mg a day. We could restart, depending on how she is doing. (3) Seizure Is this a current diagnosis for this admission?: Yes Plan: Known seizure disorder, Keppra level pending, could be that the liver dysfunction had something to do with this, but otherwise not truly cancer related. - Time Time Spent: Greater than 70 Minutes - Inpatient Certification Based on my medical assessment, after consideration of the patient's comorbidities, presenting symptoms, or acuity I expect that the services needed warrant INPATIENT care.: Yes I certify that my determination is in accordance with my understanding of Medicare's requirements for reasonable and necessary INPATIENT services [42 CFR 412.3e].: Yes Medical Necessity: Risk of Complication if Not Cared For in Hospital
[2017-11-21] MEDS: LEVETIRACETAM 1500 MG/NACL-ISO 1,500 MG/100 ML RTUPB IV SCH ×2 (10:37→21:55)
[2017-11-21] MEDS: FAMOTIDINE INJ/PF 20 MG/2 ML SDV IV SCH ×2 (10:37→21:55)
[2017-11-21] MEDS: CEFEPIME 1 GM/D5W RTU 1 GM/50 ML RTUPB IV SCH ×2 (10:37→21:54)
--- NOTE | 2017-11-21 10:55 | PDOC PROGRESS REPORT ---
Subjective Progress Note for:: 11/21/17 Subjective:: Patient is currently doing fair No seizures activity Patient CT head and CT chest is all stable Patient's denied any chest pain denied any shortness of the breath Reason For Visit: UNCONTROLLED SEIZURE,ABNORMAL LFT,LUNG CANCER Physical Exam Vital Signs: Temp Pulse Resp BP Pulse Ox 98.5 F 86 15 100/53 L 99 11/21/17 08:25 11/21/17 08:25 11/21/17 08:25 11/21/17 08:25 11/21/17 08:25 Intake & Output 11/20/17 11/21/17 11/22/17 06:59 06:59 06:59 Intake Total 420 Balance 420 Weight 38.3 kg General appearance: PRESENT: no acute distress, well-developed, well-nourished Head exam: PRESENT: atraumatic, normocephalic Eye exam: PRESENT: conjunctiva pink, EOMI, PERRLA. ABSENT: scleral icterus Ear exam: PRESENT: normal external ear exam Mouth exam: PRESENT: moist, tongue midline Neck exam: PRESENT: full ROM. ABSENT: carotid bruit, JVD, lymphadenopathy, thyromegaly Respiratory exam: PRESENT: clear to auscultation pavel Cardiovascular exam: PRESENT: RRR. ABSENT: diastolic murmur, rubs, systolic murmur Pulses: PRESENT: normal dorsalis pedis pul, +2 pedal pulses bilateral Vascular exam: PRESENT: normal capillary refill GI/Abdominal exam: PRESENT: normal bowel sounds, soft. ABSENT: distended, guarding, mass, organolmegaly, rebound, tenderness Rectal exam: PRESENT: deferred Extremities exam: ABSENT: pedal edema Neurological exam: PRESENT: alert, awake, oriented to person, oriented to place. ABSENT: motor sensory deficit Psychiatric exam: PRESENT: appropriate affect, normal mood. ABSENT: homicidal ideation, suicidal ideation Skin exam: PRESENT: dry, intact, warm. ABSENT: cyanosis, rash Results Laboratory Results: 11/21/17 05:33 11/21/17 05:33 11/21/17 11/21/17 05:33 05:33 WBC 4.9 RBC 4.04 Hgb 11.9 L D Hct 34.0 L MCV 84 MCH 29.5 MCHC 35.1 RDW 16.5 H Plt Count 165 Seg Neutrophils % 72.5 Lymphocytes % 17.0 Monocytes % 9.8 Eosinophils % 0.0 Basophils % 0.7 Absolute Neutrophils 3.6 Absolute Lymphocytes 0.8 Absolute Monocytes 0.5 Absolute Eosinophils 0.0 Absolute Basophils 0.0 Sodium 130.4 L Potassium 3.6 Chloride 100 Carbon Dioxide 21 L Anion Gap 9 BUN 11 Creatinine 0.49 L Est GFR ( Amer) > 60 Est GFR (Non-Af Amer) > 60 Glucose 75 Calcium 10.1 Total Bilirubin 3.3 H AST 129 H ALT 163 H Alkaline Phosphatase 375 H Total Protein 7.3 Albumin 3.5 Lipase 240.4 Impressions: Head CT 11/20/17 15:44 IMPRESSION: No acute findings EVIDENCE OF ACUTE STROKE: NO. Chest CT 11/20/17 15:45 IMPRESSION: Obstructive lung disease. Stable scarring posterior left upper lobe. Assessment & Plan - Diagnosis (1) Uncontrolled seizures Qualifiers: Convulsion type: unspecified Qualified Code(s): R56.9 - Unspecified convulsions Is this a current diagnosis for this admission?: Yes (2) Abnormal LFTs Is this a current diagnosis for this admission?: Yes (3) Aspiration pneumonia Qualifiers: Aspiration pneumonia type: unspecified Is this a current diagnosis for this admission?: Yes (4) Hearing impairment Qualifiers: Hearing loss type: unspecified Is this a current diagnosis for this admission?: Yes (5) Lung cancer Qualifiers: Lung location: unspecified part of lung Is this a current diagnosis for this admission?: Yes (6) Migraine Qualifiers: Migraine type: unspecified Is this a current diagnosis for this admission?: Yes (7) Waldenstrom macroglobulinemia Is this a current diagnosis for this admission?: Yes - Time Time Spent with patient: 15-24 minutes Medications reviewed and adjusted accordingly: Yes Within: Other - Inpatient Certification Medical Necessity: Need For IV Fluids, Need for IV Antibiotics Post Hospital Care: D/C [employer] Documentation - Plan Summary Plan Summary: Continues to IV Keppra was switched to the p.o. once the patient's more stable in the next [address] Lemon to further evaluate about the abnormal LFT Continues IV fluid
[2017-11-21] MEDS ORDERED: ONDANSETRON HCL INJ/PF 4 MG/2 ML SDV IV PRN (13:00)
[2017-11-21] MEDS: GABAPENTIN 300 MG CAPSULE PO SCH ×2 (15:26→22:12)
[2017-11-21] MEDS ORDERED: INFLUENZA ADLT QUAD (36MOS+) 2017-18 VAC 0.5 ML SYR IM PRN (17:14)
--- NOTE | 2017-11-21 20:41 | PDOC CONSULTATION ---
Consultation Consult Date: 11/21/17 History of Present Illness Admission Date/PCP: 11/20/17 17:58 BARBARA TEJADA MD History of Present Illness: This is a 72-year-old patient who was admitted on 11/21/2017 with recurrent seizures and abnormal liver function tests. Consultation is requested for elevated liver function tests. Patient is confused and no history was obtainable. Review of her records shows a history of lung cancer that is being treated with immunotherapy. Her cancer seem to be under control with a negative PET scan recently. She has had problems with increasing liver function tests with her bilirubin going as high as 18. She had workup including hepatitis and autoimmune serology and came back as showing hepatitis C. I do not have access to these records. She also has a history of alcohol abuse. Currently bilirubin is 3.3 with a direct of 2.5. Her transaminases and alkaline phosphatase remain elevated. At home she was on Plavix, Lipitor, prednisone, metoprolol, gabapentin and Advair. She was also on Keytruda Past Medical History Cardiac Medical History: Reports: Coronary Artery Disease Denies: Myocardial Infarction, Hypertension Pulmonary Medical History: Reports: Chronic Obstructive Pulmonary Disease (COPD) Denies: Asthma, Bronchitis, Pneumonia, Tuberculosis Neurological Medical History: Reports: Seizures - 2 MONTHS Malignancy Medical History: Reports: Lung Cancer GI Medical History: Reports: Gastroesophageal Reflux Disease Musculoskeltal Medical History: Reports: Arthritis Psychiatric Medical History: Reports: Dementia, Depression Hematology: Reports: Anemia Past Surgical History Past Surgical History: Reports: Cardiac Catheterization, Hysterectomy, Orthopedic Surgery - back, Vascular Surgery - Port-A-Cath Social History Smoking Status: Never Smoker Frequency of Alcohol Use: None Hx Recreational Drug Use: No Drugs: None Hx Prescription Drug Abuse: No - Advance Directive Resuscitation Status: Full Code Family History Family History: Reviewed & Not Pertinent Parental Family History Reviewed: No Children Family History Reviewed: NA Sibling(s) Family History Reviewed.: NA Medication/Allergy Home Medications: Atorvastatin Calcium [Lipitor 40 mg Tablet] 40 mg PO DAILY 11/21/17 Clopidogrel Bisulfate [Plavix 75 mg Tablet] 75 mg PO DAILY 11/21/17 Fluticasone/Salmeterol [Advair 250-50 Diskus 14 Dose/Diskus] 1 puff IH Q12 11/21 Gabapentin [Neurontin 300 mg Capsule] 600 mg PO Q8 02/05/18 Metoprolol Succinate [Toprol Xl 25 mg Tab.sr] 25 mg PO DAILY 11/21/17 Prednisone [Deltasone 10 mg Tablet] 30 mg PO DAILY 11/21/17 Allergies/Adverse Reactions: codeine [Codeine] Allergy (Unknown, Verified 02/22/17 10:51) Review of Systems ROS unobtainable: Due to mental status Physical Exam Vital Signs: Temp Pulse Resp BP Pulse Ox 97.8 F 64 15 118/61 100 11/21/17 15:36 11/21/17 15:36 11/21/17 15:36 11/21/17 15:36 11/21/17 15:36 Intake & Output 11/20/17 11/21/17 11/22/17 06:59 06:59 06:59 Intake Total 420 700 Balance 420 700 Weight 38.3 kg Exam: General: Patient is alert very thin and confused HEENT: There is mild pallor and jaundice. PERRLA. Oropharynx normal Respiratory: There is some kyphoscoliosis. No respiratory distress. Chest wall palpitation was unremarkable. Breath sounds were normal Cardiovascular: Heart sounds 1 and 2 normal with no murmurs. Abdominal: Not distended. Soft and nontender. Liver and spleen not palpable. No ascites demonstrated. Bowel sounds active. Rectal examination was deferred. Extremities: No edema Neurological: not examined Skin: No significant rash Results Laboratory Results: 11/21/17 05:33 11/21/17 05:33 11/21/17 11/21/17 05:33 05:33 WBC 4.9 RBC 4.04 Hgb 11.9 L D Hct 34.0 L MCV 84 MCH 29.5 MCHC 35.1 RDW 16.5 H Plt Count 165 Seg Neutrophils % 72.5 Lymphocytes % 17.0 Monocytes % 9.8 Eosinophils % 0.0 Basophils % 0.7 Absolute Neutrophils 3.6 Absolute Lymphocytes 0.8 Absolute Monocytes 0.5 Absolute Eosinophils 0.0 Absolute Basophils 0.0 Sodium 130.4 L Potassium 3.6 Chloride 100 Carbon Dioxide 21 L Anion Gap 9 BUN 11 Creatinine 0.49 L Est GFR ( Amer) > 60 Est GFR (Non-Af Amer) > 60 Glucose 75 Calcium 10.1 Total Bilirubin 3.3 H AST 129 H ALT 163 H Alkaline Phosphatase 375 H Total Protein 7.3 Albumin 3.5 Lipase 240.4 Impressions: Head CT 11/20/17 15:44 IMPRESSION: No acute findings EVIDENCE OF ACUTE STROKE: NO. Chest CT 11/20/17 15:45 IMPRESSION: Obstructive lung disease. Stable scarring posterior left upper lobe. Assessment & Plan - Diagnosis (1) Abnormal LFTs Is this a current diagnosis for this admission?: Yes Plan: Her liver disease is most likely multifactorial. According to Dr. Turpin she has hepatitis C and her liver disease was probably made worse by some of her medications. Her bilirubin went as high as 18 but is now down to 3. She is not a candidate for hepatitis C treatment at this time but I will follow her up in the office. We should continue to avoid hepatotoxic drugs. (2) Hepatitis C Qualifiers: Viral hepatitis chronicity: chronic Is this a current diagnosis for this admission?: Yes (3) Adenocarcinoma of right lung Is this a current diagnosis for this admission?: Yes (4) Seizure Is this a current diagnosis for this admission?: Yes
[2017-11-21] MEDS: FLUTICASONE/SALMETEROL DISKUS 250-50 MCG/DOSE IH SCH (21:54)
[2017-11-22] MEDS: LEVALBUTEROL HCL NEB 1.25 MG/3 ML AMPUL NEB SCH ×6 (00:16→20:08)
[2017-11-22 06:04] LABS: ABSOLUTE LYMPHOCYTES (AUTO) 0.9 10^3/uL (0.5-4.7); ABSOLUTE MONOCYTES (AUTO) 0.5 10^3/uL (0.1-1.4); BASOPHILS % (AUTO) 1.3 % (0-2); EOSINOPHILS % (AUTO) 0.6 % (0-6); HEMATOCRIT 33.1 % (36.0-47.0); HEMOGLOBIN 11.2 g/dL (12.0-15.5); LYMPHOCYTES % (AUTO) 25.4 % (13-45); MEAN CORPUSCULAR HEMOGLOBIN 28.5 pg (27.0-33.4); MEAN CORPUSCULAR HGB CONC 33.8 g/dL (32.0-36.0); MEAN CORPUSCULAR VOLUME 84 fl (80-97); MONOCYTES % (AUTO) 13.2 % (3-13); PLATELET COUNT 137 10^3/uL (150-450); RED BLOOD COUNT 3.92 10^6/uL (3.72-5.28); RED CELL DISTRIBUTION WIDTH 16.8 % (11.5-14.0); SEGMENTED NEUTROPHILS % (AUTO) 59.5 % (42-78); TOTAL CELLS COUNTED % (AUTO) 100 %; WHITE BLOOD COUNT 3.4 10^3/uL (4.0-10.5)
[2017-11-22 06:24] LABS: ALANINE AMINOTRANSFERASE 126 U/L (9-52); ALBUMIN 3.4 g/dL (3.5-5.0); ALKALINE PHOSPHATASE 351 U/L (38-126); ANION GAP 6 (5-19); ASPARTATE AMINO TRANSFERASE 105 U/L (14-36); BILIRUBIN,DIRECT 2.4 mg/dL (0.0-0.4); BLOOD UREA NITROGEN 10 mg/dL (7-20); CALCIUM 9.6 mg/dL (8.4-10.2); CARBON DIOXIDE 26 mmol/L (22-30); CHLORIDE 106 mmol/L (98-107); GLUCOSE 64 mg/dL (75-110); SODIUM 137.8 mmol/L (137-145); TOTAL PROTEIN 7.2 g/dL (6.3-8.2)
[2017-11-22] MEDS: HEPARIN SOD (PORCINE) 5,000 UNIT/ML 1 ML SYRINGE SUBCUT SCH ×3 (06:30→21:36)
[2017-11-22 06:32] LABS: POTASSIUM 2.8 mmol/L (3.6-5.0)
[2017-11-22] MEDS: GABAPENTIN 300 MG CAPSULE PO SCH ×3 (06:32→21:32)
--- NOTE | 2017-11-22 07:56 | PDOC PROGRESS REPORT ---
Subjective Progress Note for:: 11/22/17 Subjective:: Pt was in restraints overnight, asks to go home today. apparently slept thru the night, yesterday was combative, so restraints had to be replaced. Reason For Visit: UNCONTROLLED SEIZURE,ABNORMAL LFT,LUNG CANCER Physical Exam Vital Signs: Temp Pulse Resp BP Pulse Ox 97.7 F 76 16 99/42 L 100 11/22/17 04:24 11/22/17 04:24 11/22/17 04:24 11/22/17 04:24 11/22/17 04:24 Intake & Output 11/21/17 11/22/17 11/23/17 06:59 06:59 06:59 Intake Total 420 1077 Output Total 100 Balance 420 977 Weight 38.3 kg 40.2 kg General appearance: PRESENT: hard of hearing Respiratory exam: PRESENT: clear to auscultation pavel. ABSENT: rales, rhonchi, wheezes Cardiovascular exam: PRESENT: RRR. ABSENT: diastolic murmur, rubs, systolic murmur GI/Abdominal exam: PRESENT: normal bowel sounds, soft. ABSENT: distended, guarding, mass, organolmegaly, rebound, tenderness Rectal exam: PRESENT: deferred Neurological exam: PRESENT: altered Results Laboratory Results: 11/22/17 05:18 11/22/17 05:18 11/22/17 11/22/17 05:18 05:18 WBC 3.4 L RBC 3.92 Hgb 11.2 L Hct 33.1 L MCV 84 MCH 28.5 MCHC 33.8 RDW 16.8 H Plt Count 137 L Seg Neutrophils % 59.5 Lymphocytes % 25.4 Monocytes % 13.2 H Eosinophils % 0.6 Basophils % 1.3 Absolute Neutrophils 2.0 Absolute Lymphocytes 0.9 Absolute Monocytes 0.5 Absolute Eosinophils 0.0 Absolute Basophils 0.0 Sodium 137.8 Potassium 2.8 L* Chloride 106 Carbon Dioxide 26 Anion Gap 6 BUN 10 Creatinine 0.50 L Est GFR ( Amer) > 60 Est GFR (Non-Af Amer) > 60 Glucose 64 L Calcium 9.6 Total Bilirubin 3.0 H AST 105 H ALT 126 H Alkaline Phosphatase 351 H Total Protein 7.2 Albumin 3.4 L Impressions: Head CT 11/20/17 15:44 IMPRESSION: No acute findings EVIDENCE OF ACUTE STROKE: NO. Chest CT 11/20/17 15:45 IMPRESSION: Obstructive lung disease. Stable scarring posterior left upper lobe. Assessment & Plan - Diagnosis (1) Abnormal LFTs Is this a current diagnosis for this admission?: Yes Plan: Multifactorial, bili improving, will con't to monitor. On pred taper (2) Adenocarcinoma of right lung Is this a current diagnosis for this admission?: Yes Plan: stable, no acute issue from this standpoint, con't to hold chemo (3) Seizure Is this a current diagnosis for this admission?: Yes Plan: No activity here
[2017-11-22] MEDS ORDERED: POTASSIUM CHLORIDE 10 MEQ TABLET.SA PO ONE (08:00)
[2017-11-22] MEDS ORDERED: HALOPERIDOL LACTATE INJ 5 MG/1 ML VIAL IV PRN (09:54)
[2017-11-22] MEDS ORDERED: PREDNISONE 10 MG TABLET PO SCH (10:00)
[2017-11-22] MEDS: LEVETIRACETAM 500 MG TABLET PO SCH ×2 (10:07→21:36)
[2017-11-22] MEDS: PREDNISONE 20 MG TABLET PO SCH (10:07)
[2017-11-22] MEDS: FAMOTIDINE INJ/PF 20 MG/2 ML SDV IV SCH ×2 (10:08→21:32)
[2017-11-22] MEDS: FLUTICASONE/SALMETEROL DISKUS 250-50 MCG/DOSE IH SCH ×2 (10:08→21:36)
[2017-11-22] MEDS: METOPROLOL SUCCINATE 25 MG TAB.SR.24H PO SCH (10:08)
[2017-11-22] MEDS: POTASSI CL 20 MEQ/50 ML RIDER 20 MEQ/50 ML RTUPB IV SCH ×2 (10:09→12:49)
[2017-11-22] MEDS: CEFEPIME 1 GM/D5W RTU 1 GM/50 ML RTUPB IV SCH ×2 (10:23→21:32)
--- NOTE | 2017-11-22 11:56 | PDOC PROGRESS REPORT ---
Subjective Progress Note for:: 11/22/17 Subjective:: Patient is currently doing fair Yesterday patient was very agitated but currently all stable Patient's denied any chest pain denied any shortness of the breath and no fever overnight No seizures activity noticed Reason For Visit: UNCONTROLLED SEIZURE,ABNORMAL LFT,LUNG CANCER Physical Exam Vital Signs: Temp Pulse Resp BP Pulse Ox 98.9 F 72 20 110/70 100 11/22/17 08:34 11/22/17 11:23 11/22/17 11:23 11/22/17 08:34 11/22/17 11:23 Intake & Output 11/21/17 11/22/17 11/23/17 06:59 06:59 06:59 Intake Total 420 2080 Output Total 100 Balance 420 1980 Weight 38.3 kg 40.2 kg General appearance: PRESENT: no acute distress, well-developed, well-nourished Head exam: PRESENT: atraumatic, normocephalic Eye exam: PRESENT: conjunctiva pink, EOMI, PERRLA. ABSENT: scleral icterus Ear exam: PRESENT: normal external ear exam Mouth exam: PRESENT: moist, tongue midline Neck exam: PRESENT: full ROM. ABSENT: carotid bruit, JVD, lymphadenopathy, thyromegaly Respiratory exam: PRESENT: clear to auscultation pavel Cardiovascular exam: PRESENT: RRR. ABSENT: diastolic murmur, rubs, systolic murmur Pulses: PRESENT: normal dorsalis pedis pul, +2 pedal pulses bilateral Vascular exam: PRESENT: normal capillary refill GI/Abdominal exam: PRESENT: normal bowel sounds, soft. ABSENT: distended, guarding, mass, organolmegaly, rebound, tenderness Rectal exam: PRESENT: deferred Extremities exam: ABSENT: pedal edema Neurological exam: PRESENT: alert, awake, oriented to person, oriented to place. ABSENT: motor sensory deficit Psychiatric exam: PRESENT: appropriate affect, normal mood. ABSENT: homicidal ideation, suicidal ideation Skin exam: PRESENT: dry, intact, warm. ABSENT: cyanosis, rash Results Laboratory Results: 11/22/17 05:18 11/22/17 05:18 11/22/17 11/22/17 05:18 05:18 WBC 3.4 L RBC 3.92 Hgb 11.2 L Hct 33.1 L MCV 84 MCH 28.5 MCHC 33.8 RDW 16.8 H Plt Count 137 L Seg Neutrophils % 59.5 Lymphocytes % 25.4 Monocytes % 13.2 H Eosinophils % 0.6 Basophils % 1.3 Absolute Neutrophils 2.0 Absolute Lymphocytes 0.9 Absolute Monocytes 0.5 Absolute Eosinophils 0.0 Absolute Basophils 0.0 Sodium 137.8 Potassium 2.8 L* Chloride 106 Carbon Dioxide 26 Anion Gap 6 BUN 10 Creatinine 0.50 L Est GFR ( Amer) > 60 Est GFR (Non-Af Amer) > 60 Glucose 64 L Calcium 9.6 Total Bilirubin 3.0 H AST 105 H ALT 126 H Alkaline Phosphatase 351 H Total Protein 7.2 Albumin 3.4 L Impressions: Head CT 11/20/17 15:44 IMPRESSION: No acute findings EVIDENCE OF ACUTE STROKE: NO. Chest CT 11/20/17 15:45 IMPRESSION: Obstructive lung disease. Stable scarring posterior left upper lobe. Assessment & Plan - Diagnosis (1) Uncontrolled seizures Qualifiers: Convulsion type: unspecified Qualified Code(s): R56.9 - Unspecified convulsions Is this a current diagnosis for this admission?: Yes Plan: Switch to the p.o. medications (2) Abnormal LFTs Is this a current diagnosis for this admission?: Yes Plan: Seen by the Dr. Lemon suggested continues to follow outpatient (3) Aspiration pneumonia Qualifiers: Aspiration pneumonia type: unspecified Is this a current diagnosis for this admission?: Yes Plan: We will repeat the chest x-ray (4) Hearing impairment Qualifiers: Hearing loss type: unspecified Is this a current diagnosis for this admission?: Yes (5) Lung cancer Qualifiers: Lung location: unspecified part of lung Is this a current diagnosis for this admission?: Yes Plan: Currently all stable (6) Migraine Qualifiers: Migraine type: unspecified Is this a current diagnosis for this admission?: Yes (7) Waldenstrom macroglobulinemia Is this a current diagnosis for this admission?: Yes - Time Time Spent with patient: 15-24 minutes Anticipated discharge: Home Within: Other - Inpatient Certification Medical Necessity: Need Close Monitoring Due to Risk of Patient Decompensation, Need for IV Antibiotics Post Hospital Care: D/C [employer] Documentation - Plan Summary Plan Summary: We will replace the potassium Repeat the chest x-ray DC the IV fluid PT evaluations
--- NOTE | 2017-11-22 15:02 | RADIOLOGY REPORT (SQ) ---
EXAM DESCRIPTION: CHEST PA/LAT COMPLETED DATE/TIME: 11/22/2017 2:46 pm REASON FOR STUDY: pnemonia COMPARISON: CT chest 11/20/2017 Two-view chest 08/30/2017 EXAM PARAMETERS: NUMBER OF VIEWS: two views TECHNIQUE: Digital Frontal and Lateral radiographic views of the chest acquired. RADIATION DOSE: NA LIMITATIONS: none FINDINGS: LUNGS AND PLEURA: Lungs are hyperinflated and hyperlucent. No focal infiltrates. No pleu ral effusion. No pneumothorax. Radiotherapy treatment markers over the left upper lobe. No adjacent mass by plain film. MEDIASTINUM AND HILAR STRUCTURES: No masses or contour abnormalities. HEART AND VASCULAR STRUCTURES: Heart normal size. No evidence for failure. BONES: Osteoporotic with multiple kyphoplasties in the mid thoracic spine HARDWARE: Right-sided permanent central line tip superior vena cava OTHER: No other significant finding. IMPRESSION: No acute infiltrates TECHNICAL DOCUMENTATION: JOB ID: [id number] [employer]- All Rights Reserved
[2017-11-23] MEDS: LEVALBUTEROL HCL NEB 1.25 MG/3 ML AMPUL NEB SCH ×4 (00:06→11:53)
[2017-11-23 06:04] LABS: ABSOLUTE LYMPHOCYTES (AUTO) 0.7 10^3/uL (0.5-4.7); ABSOLUTE MONOCYTES (AUTO) 0.4 10^3/uL (0.1-1.4); ABSOLUTE NEUT (AUTO) 2.3 10^3/uL (1.7-8.2); BASOPHILS % (AUTO) 0.6 % (0-2); EOSINOPHILS % (AUTO) 0.2 % (0-6); HEMATOCRIT 29.7 % (36.0-47.0); HEMOGLOBIN 10.2 g/dL (12.0-15.5); LYMPHOCYTES % (AUTO) 21.2 % (13-45); MEAN CORPUSCULAR HEMOGLOBIN 29.2 pg (27.0-33.4); MEAN CORPUSCULAR HGB CONC 34.4 g/dL (32.0-36.0); MEAN CORPUSCULAR VOLUME 85 fl (80-97); MONOCYTES % (AUTO) 12.2 % (3-13); PLATELET COUNT 100 10^3/uL (150-450); RED CELL DISTRIBUTION WIDTH 17.1 % (11.5-14.0); SEGMENTED NEUTROPHILS % (AUTO) 65.8 % (42-78); TOTAL CELLS COUNTED % (AUTO) 100 %; WHITE BLOOD COUNT 3.4 10^3/uL (4.0-10.5)
[2017-11-23] MEDS: GABAPENTIN 300 MG CAPSULE PO SCH (06:07)
[2017-11-23] MEDS: HEPARIN SOD (PORCINE) 5,000 UNIT/ML 1 ML SYRINGE SUBCUT SCH (06:08)
[2017-11-23 06:23] LABS: ALANINE AMINOTRANSFERASE 119 U/L (9-52); ALBUMIN 3.2 g/dL (3.5-5.0); ALKALINE PHOSPHATASE 307 U/L (38-126); ANION GAP 8 (5-19); ASPARTATE AMINO TRANSFERASE 83 U/L (14-36); BILIRUBIN,DIRECT 1.9 mg/dL (0.0-0.4); BILIRUBIN,TOTAL 2.5 mg/dL (0.2-1.3); BLOOD UREA NITROGEN 8 mg/dL (7-20); CARBON DIOXIDE 25 mmol/L (22-30); CHLORIDE 106 mmol/L (98-107); GLUCOSE 96 mg/dL (75-110); POTASSIUM 3.5 mmol/L (3.6-5.0); SODIUM 138.8 mmol/L (137-145); TOTAL PROTEIN 6.4 g/dL (6.3-8.2)
--- NOTE | 2017-11-23 08:03 | PDOC PROGRESS REPORT ---
Subjective Progress Note for:: 11/23/17 Subjective:: No acute events overnight, pt has been off restraints now x 24 hours, hopeful d/ c home today Reason For Visit: UNCONTROLLED SEIZURE,ABNORMAL LFT,LUNG CANCER Physical Exam Vital Signs: Temp Pulse Resp BP Pulse Ox 99.3 F 65 16 99/47 L 95 11/23/17 04:27 11/23/17 07:48 11/23/17 07:48 11/23/17 04:27 11/23/17 07:48 Intake & Output 11/22/17 11/23/17 11/24/17 06:59 06:59 06:59 Intake Total 2080 900 Output Total 100 Balance 1980 900 Weight 40.2 kg 46.1 kg General appearance: PRESENT: no acute distress Head exam: PRESENT: atraumatic Eye exam: PRESENT: other - scleral icterus greatly improved Teeth exam: PRESENT: poor dentation Respiratory exam: PRESENT: clear to auscultation pavel. ABSENT: rales, rhonchi, wheezes Cardiovascular exam: PRESENT: RRR. ABSENT: diastolic murmur, rubs, systolic murmur GI/Abdominal exam: PRESENT: normal bowel sounds, soft. ABSENT: distended, guarding, mass, organolmegaly, rebound, tenderness Rectal exam: PRESENT: deferred Neurological exam: PRESENT: altered Skin exam: PRESENT: other - jaundice greatly improved Results Laboratory Results: 11/23/17 05:22 11/23/17 05:22 11/23/17 11/23/17 05:22 05:22 WBC 3.4 L RBC 3.50 L Hgb 10.2 L Hct 29.7 L MCV 85 MCH 29.2 MCHC 34.4 RDW 17.1 H Plt Count 100 L Seg Neutrophils % 65.8 Lymphocytes % 21.2 Monocytes % 12.2 Eosinophils % 0.2 Basophils % 0.6 Absolute Neutrophils 2.3 Absolute Lymphocytes 0.7 Absolute Monocytes 0.4 Absolute Eosinophils 0.0 Absolute Basophils 0.0 Sodium 138.8 Potassium 3.5 L Chloride 106 Carbon Dioxide 25 Anion Gap 8 BUN 8 Creatinine 0.67 Est GFR ( Amer) > 60 Est GFR (Non-Af Amer) > 60 Glucose 96 Calcium 10.0 Total Bilirubin 2.5 H AST 83 H ALT 119 H Alkaline Phosphatase 307 H Total Protein 6.4 Albumin 3.2 L Impressions: Head CT 11/20/17 15:44 IMPRESSION: No acute findings EVIDENCE OF ACUTE STROKE: NO. Chest CT 11/20/17 15:45 IMPRESSION: Obstructive lung disease. Stable scarring posterior left upper lobe. Chest X-Ray 11/22/17 00:00 IMPRESSION: No acute infiltrates Assessment & Plan - Diagnosis (1) Abnormal LFTs Is this a current diagnosis for this admission?: Yes Plan: Multifactorial, improving, decrease pred to 20mg daily, d/c w/ 20mg daily x 1 wk then every other day x 1 wk then stop (2) Adenocarcinoma of right lung Is this a current diagnosis for this admission?: Yes Plan: Will be holding on restart of Keytruda until LFTs fully normalize. We will follow up next week. (3) Seizure Is this a current diagnosis for this admission?: Yes - Time Time Spent with patient: 35 or more minutes
--- NOTE | 2017-11-23 09:05 | PDOC DISCHARGE SUMMARY ---
General - Admit/Disc Date/PCP Admission Date/Primary Care Provider: 11/20/17 17:58 BARBARA TEJADA MD Discharge Date: 11/23/17 - Discharge Diagnosis (1) Uncontrolled seizures Is this a current diagnosis for this admission?: Yes Summary: Currently stable for the last 24 hours with the p.o. medications (2) Abnormal LFTs Is this a current diagnosis for this admission?: Yes Summary: Currently all stable follow-up outpatients Dr. Lemon most likely a medication side effect from immunotherapy (3) Aspiration pneumonia Is this a current diagnosis for this admission?: Yes Summary: Currently all resolved will give a Keflex as outpatients (4) Hearing impairment Is this a current diagnosis for this admission?: Yes (5) Lung cancer Is this a current diagnosis for this admission?: Yes Summary: Follow with the Dr. [place] (6) Migraine Is this a current diagnosis for this admission?: Yes Summary: Currently on gabapentin (7) Waldenstrom macroglobulinemia Is this a current diagnosis for this admission?: Yes Summary: Currently well under control per oncology - Additional Information Resuscitation Status: Full Code Discharge Diet: Cardiac Discharge Activity: Activity As Tolerated Prescriptions: Cephalexin Monohydrate [Keflex 500 mg Capsule] 500 mg PO TID #21 capsule Levetiracetam [Keppra 500 mg Tablet] 1,500 mg PO Q12 #60 tablet Prednisone [Deltasone 20 mg Tablet] 20 mg PO DAILY #10 tablet Home Medications: Fluticasone/Salmeterol [Advair 250-50 Diskus 14 Dose/Diskus] 1 puff IH Q12 11/21 Gabapentin [Neurontin 300 mg Capsule] 600 mg PO Q8 11/21/17 Metoprolol Succinate [Toprol Xl 25 mg Tab.sr] 25 mg PO DAILY 11/21/17 Cephalexin Monohydrate [Keflex 500 mg Capsule] 500 mg PO TID #21 capsule Levetiracetam [Keppra 500 mg Tablet] 1,500 mg PO Q12 #60 tablet 11/23/17 Prednisone [Deltasone 20 mg Tablet] 20 mg PO DAILY #10 tablet 11/23/17 History of Present Illness History of Present Illness: JOSELITO RODRIGUEZ is a 72 year old female This is a 72-year-old female present in the ER because of uncontrolled seizures and abnormal LFT and patient was admitted for IV medications and IV fluid Hospital Course Hospital Course: This is a 72-year-old female with a multiple hospital admissions with uncontrolled seizures due to the noncompliance of the medications came in the ER because of the uncontrolled seizures and patient was started on IV Keppra as usual and patient was started on IV fluid and IV antibiotic for possible aspirations due to the seizures activity Patient's response very well and switch to the p.o. seizures medications Since last 24 hours of the p.o. medications Patient was some behavior issues most likely from steroid induce which currently all resolved and taper the steroid doseAs per the discussed with the oncology Patient CT head and CT chest was all stable Patients have abnormal LFT with the bilirubin was high and patient had extensive workup done by oncology was all stable and seen by Dr. Lemon and suggest most likely medications and follow-up outpatients Patient's otherwise remained stable p.o. intake is good back to the baseline discussed with the daughter patient's discharge home with the stable condition and follow-up outpatients Is all culture is negative Patients have a pancytopenia which is follow with oncology as outpatient as he will repeat the CBC next week Physical Exam Vital Signs: Temp Pulse Resp BP Pulse Ox 98.5 F 65 16 124/68 95 11/23/17 07:17 11/23/17 07:48 11/23/17 07:48 11/23/17 07:17 11/23/17 07:48 Intake & Output 11/22/17 11/23/17 11/24/17 06:59 06:59 06:59 Intake Total 2080 900 Output Total 100 Balance 1980 900 Weight 40.2 kg 46.1 kg General appearance: PRESENT: no acute distress, well-developed, well-nourished Head exam: PRESENT: atraumatic, normocephalic Eye exam: PRESENT: conjunctiva pink, EOMI, PERRLA. ABSENT: scleral icterus Ear exam: PRESENT: normal external ear exam Mouth exam: PRESENT: moist, tongue midline Neck exam: PRESENT: full ROM. ABSENT: carotid bruit, JVD, lymphadenopathy, thyromegaly Respiratory exam: PRESENT: clear to auscultation pavel Cardiovascular exam: PRESENT: RRR. ABSENT: diastolic murmur, rubs, systolic murmur Pulses: PRESENT: normal dorsalis pedis pul, +2 pedal pulses bilateral Vascular exam: PRESENT: normal capillary refill GI/Abdominal exam: PRESENT: normal bowel sounds, soft. ABSENT: distended, guarding, mass, organolmegaly, rebound, tenderness Rectal exam: PRESENT: deferred Musculoskeletal exam: PRESENT: ambulatory Neurological exam: PRESENT: alert, awake, oriented to person, oriented to place , oriented to time, oriented to situation, CN II-XII grossly intact. ABSENT: motor sensory deficit Psychiatric exam: PRESENT: appropriate affect, normal mood. ABSENT: homicidal ideation, suicidal ideation Skin exam: PRESENT: dry, intact, warm. ABSENT: cyanosis, rash Results Laboratory Results: 11/23/17 05:22 11/23/17 05:22 11/23/17 11/23/17 05:22 05:22 WBC 3.4 L RBC 3.50 L Hgb 10.2 L Hct 29.7 L MCV 85 MCH 29.2 MCHC 34.4 RDW 17.1 H Plt Count 100 L Seg Neutrophils % 65.8 Lymphocytes % 21.2 Monocytes % 12.2 Eosinophils % 0.2 Basophils % 0.6 Absolute Neutrophils 2.3 Absolute Lymphocytes 0.7 Absolute Monocytes 0.4 Absolute Eosinophils 0.0 Absolute Basophils 0.0 Sodium 138.8 Potassium 3.5 L Chloride 106 Carbon Dioxide 25 Anion Gap 8 BUN 8 Creatinine 0.67 Est GFR ( Amer) > 60 Est GFR (Non-Af Amer) > 60 Glucose 96 Calcium 10.0 Total Bilirubin 2.5 H AST 83 H ALT 119 H Alkaline Phosphatase 307 H Total Protein 6.4 Albumin 3.2 L Impressions: Head CT 11/20/17 15:44 IMPRESSION: No acute findings EVIDENCE OF ACUTE STROKE: NO. Chest CT 11/20/17 15:45 IMPRESSION: Obstructive lung disease. Stable scarring posterior left upper lobe. Chest X-Ray 11/22/17 00:00 IMPRESSION: No acute infiltrates Plan Time Spent: Greater than 30 Minutes - Patient's discharge home with the stable conditions and p.o. intake is good and Walk in the hallway without any problems
[2017-11-23] MEDS ORDERED: POTASSIUM CHLORIDE 10 MEQ TABLET.SA PO ONE (09:30)
[2017-11-23] MEDS: FAMOTIDINE INJ/PF 20 MG/2 ML SDV IV SCH (09:32)
[2017-11-23] MEDS: CEFEPIME 1 GM/D5W RTU 1 GM/50 ML RTUPB IV SCH (09:32)
[2017-11-23] MEDS: FLUTICASONE/SALMETEROL DISKUS 250-50 MCG/DOSE IH SCH (09:32)
[2017-11-23] MEDS: METOPROLOL SUCCINATE 25 MG TAB.SR.24H PO SCH (09:33)
[2017-11-23] MEDS: PREDNISONE 20 MG TABLET PO SCH (09:33)
[2017-11-23] MEDS: LEVETIRACETAM 500 MG TABLET PO SCH (09:33)
[2017-11-23 12:50] VITALS: BP 94/44
--- NOTE | 2017-12-30 15:46 | PDOC H&P ---
History of Present Illness Admission Date/PCP: 11/20/17 17:58 BARBARA TEJADA MD Patient complains of: Uncontrolled seizures History of Present Illness: JOSELITO RODRIGUEZ is a 72 year old female This is a 72-year-old female present in the ER because of uncontrolled seizures and abnormal LFT and patient was admitted for IV medications and IV fluid Past Medical History Cardiac Medical History: Reports: Coronary Artery Disease Denies: Myocardial Infarction, Hypertension Pulmonary Medical History: Reports: Chronic Obstructive Pulmonary Disease (COPD) Denies: Asthma, Bronchitis, Pneumonia, Tuberculosis Neurological Medical History: Reports: Seizures - 2 MONTHS Malignancy Medical History: Reports: Lung Cancer GI Medical History: Reports: Gastroesophageal Reflux Disease Musculoskeltal Medical History: Reports: Arthritis Psychiatric Medical History: Reports: Dementia, Depression Hematology: Reports: Anemia Past Surgical History Past Surgical History: Reports: Cardiac Catheterization, Hysterectomy, Orthopedic Surgery - back, Vascular Surgery - Port-A-Cath Social History Smoking Status: Never Smoker Frequency of Alcohol Use: None Hx Recreational Drug Use: No Drugs: None Hx Prescription Drug Abuse: No - Advance Directive Resuscitation Status: Full Code Family History Family History: Reviewed & Not Pertinent Parental Family History Reviewed: Yes Children Family History Reviewed: Yes Sibling(s) Family History Reviewed.: Yes Medication/Allergy Home Medications: Fluticasone/Salmeterol [Advair 250-50 Diskus 14 Dose/Diskus] 1 puff IH Q12 11/21 Gabapentin [Neurontin 300 mg Capsule] 600 mg PO Q8 11/21/17 Metoprolol Succinate [Toprol Xl 25 mg Tab.sr] 25 mg PO DAILY 11/21/17 Cephalexin Monohydrate [Keflex 500 mg Capsule] 500 mg PO TID #21 capsule Levetiracetam [Keppra 500 mg Tablet] 1,500 mg PO Q12 #60 tablet 11/23/17 Prednisone [Deltasone 20 mg Tablet] 20 mg PO DAILY #10 tablet 11/23/17 Allergies/Adverse Reactions: codeine [Codeine] Allergy (Unknown, Verified 02/22/17 10:51) Review of Systems ROS unobtainable: Due to mental status All systems: as per PMH Physical Exam Vital Signs: Temp Pulse Resp BP Pulse Ox 98.5 F 69 16 107/52 L 97 11/23/17 12:17 11/23/17 12:17 11/23/17 12:17 11/23/17 12:17 11/23/17 12:17 General appearance: PRESENT: no acute distress Eye exam: PRESENT: PERRLA Neck exam: ABSENT: carotid bruit, full ROM, JVD, lymphadenopathy, meningismus, tenderness, thyromegaly, tracheal deviation, tracheostomy, other Respiratory exam: PRESENT: clear to auscultation pavel Cardiovascular exam: PRESENT: +S1, +S2 GI/Abdominal exam: PRESENT: normal bowel sounds, soft Extremities exam: ABSENT: pedal edema Neurological exam: PRESENT: altered Additional comments: Postictal Skin exam: PRESENT: dry Results Laboratory Results: 11/23/17 05:22 11/23/17 05:22 Impressions: Head CT 11/20/17 15:44 IMPRESSION: No acute findings EVIDENCE OF ACUTE STROKE: NO. Chest CT 11/20/17 15:45 IMPRESSION: Obstructive lung disease. Stable scarring posterior left upper lobe. Chest X-Ray 11/22/17 00:00 IMPRESSION: No acute infiltrates Assessment & Plan - Diagnosis (1) Uncontrolled seizures Qualifiers: Convulsion type: unspecified Qualified Code(s): R56.9 - Unspecified convulsions Is this a current diagnosis for this admission?: Yes Plan: Switch to the p.o. medications (2) Abnormal LFTs Is this a current diagnosis for this admission?: Yes Plan: Seen by the Dr. Lemon suggested continues to follow outpatient (3) Aspiration pneumonia Qualifiers: Aspiration pneumonia type: unspecified Is this a current diagnosis for this admission?: Yes Plan: We will repeat the chest x-ray (4) Hearing impairment Qualifiers: Hearing loss type: unspecified Is this a current diagnosis for this admission?: Yes (5) Lung cancer Qualifiers: Lung location: unspecified part of lung Is this a current diagnosis for this admission?: Yes Plan: Currently all stable (6) Migraine Qualifiers: Migraine type: unspecified Is this a current diagnosis for this admission?: Yes (7) Waldenstrom macroglobulinemia Is this a current diagnosis for this admission?: Yes - Time Time Spent: 30 to 50 Minutes Medications reviewed and adjusted accordingly: Yes Anticipated discharge: Home Within: Other - Inpatient Certification Medical Necessity: Need Close Monitoring Due to Risk of Patient Decompensation, Need For IV Fluids, Need for IV Antibiotics Post Hospital Care: D/C Command And Control Documentation - Plan Summary Plan Summary: See other MD orders
== END 2017-11-23 12:50 | disposition home or self-care (01) | DRG 101 ==
LOC: ER 15:21 → EH 17:58 → 3W 11-21 00:39
PROVIDERS: ADMIT Family Medicine; ATTEND Family Medicine
DX: G40.909 Epilepsy, unspecified, not intractable, without status epilepticus (principal); C34.91 Malignant neoplasm of unspecified part of right bronchus or lung; D61.818 Other pancytopenia; I25.10 Atherosclerotic heart disease of native coronary artery without angina pectoris; J44.9 Chronic obstructive pulmonary disease, unspecified; K21.9 Gastro-esophageal reflux disease without esophagitis; M19.90 Unspecified osteoarthritis, unspecified site; F41.9 Anxiety disorder, unspecified; F03.90 Unspecified dementia, unspecified severity, without behavioral disturbance, psychotic disturbance, mood disturbance, and anxiety; B18.2 Chronic viral hepatitis C; R74.0 Nonspecific elevation of levels of transaminase and lactic acid dehydrogenase [LDH]; F32.9 Major depressive disorder, single episode, unspecified; C88.0 Waldenstrom macroglobulinemia; H91.90 Unspecified hearing loss, unspecified ear; F10.10 Alcohol abuse, uncomplicated; G43.909 Migraine, unspecified, not intractable, without status migrainosus; Z78.1 Physical restraint status; Z88.5 Allergy status to narcotic agent; Z86.73 Personal history of transient ischemic attack (TIA), and cerebral infarction without residual deficits; Z91.19 Patient's noncompliance with other medical treatment and regimen; Z79.899 Other long term (current) drug therapy; Z90.710 Acquired absence of both cervix and uterus; Z79.02 Long term (current) use of antithrombotics/antiplatelets; T38.0X5A Adverse effect of glucocorticoids and synthetic analogues, initial encounter; R46.89 Other symptoms and signs involving appearance and behavior
CPT/HCPCS: 36415; 51701; 70450; 71046; 71250; 80048; 80053; 80076; 81001; 82962; 83690; 85025; 87040; 87086; 90686; 93005; 93010; 94640; 96374; 96375; 99284; 99291; G8978-GP; G8979-GP; G8980-GP; J0692; J1630; J1644; J1953; J2060; J3480; J3490; J7030; J7512; S0028

== ENCOUNTER → 2018-01-22 | Outpatient (CLI) | payer MEDICARE, MEDICAID ==
--- NOTE | 2018-01-23 17:02 | RADIOLOGY REPORT (SQ) ---
EXAM DESCRIPTION: PET CT SKULL/THIGH COMPLETED DATE/TIME: 01/22/2018 8:27 pm REASON FOR STUDY: LUNG CANCER C34.12 MALIGNANT NEOPLASM OF UPPER LOBE, LEFT BRONCHUS OR YAN COMPARISON: CT chest 11/20/2017 MRI abdomen 11/15/2017 PET-CT 10/30/2017, 06/17/2017, 09/10/2016 CT brain 08/30/2017 RADIONUCLIDE AND DOSE: 9.7 mCi F18 FDG The route of agent administration: Intravenous FASTING BLOOD SUGAR: 71 mg/dl CONTRAST TYPE AND DOSE: No CT contrast given. TECHNIQUE: Blood glucose level was verified. Above dose of FDG was injected intravenously. 2-D seg mented attenuation correction images were obtained from the base of the skull to the midthighs. Nonc ontrast CT images were obtained for attenuation correction and fusion with emission images. CT image s were performed without oral or intravenous contrast and are not sensitive for parenchymal lesions. A series of overlapping emission PET images were obtained. Images reviewed and manipulated at [facility] work station by the radiologist. Images stored on PACS. LIMITATIONS: None. FINDINGS: HEAD AND NECK: No areas of abnormal metabolic activity in the soft tissues of the head and neck. CHEST: There are non metabolic bandlike scars in the left upper lobe on axial images 61-65. These ar e unchanged from 11/20/2017, 10/30/2017, and 06/17/2017. Radiotherapy treatment markers are present in the left upper lobe. Obstructive lung disease. No worrisome pulmonary nodules. No pleural effusion. No hilar or mediast inal metabolically active lymph nodes. ABDOMEN AND PELVIS: No areas of abnormal metabolic activity in the abdomen or pelvis. Expected physi ologic activity is present in the genitourinary system and bowel. PROXIMAL LOWER EXTREMITIES: No areas of abnormal metabolic activity in the soft tissues of the lower extremities. BONES: Post kyphoplasty in the mid thoracic spine. Because of the density of the bone cement, there is artifactual FDG activity displaced on the fusion images. ADDITIONAL CT FINDINGS: Right central line tip superior vena cava. Thoracic kyphoplasties. Obstruct stephanie lung disease. Hiatal hernia. Atherosclerotic arterial vascular and calcifications, very heavy a long the abdominal aorta and iliac vessels. No abdominal aortic aneurysm. Liver background activity 1.76 SUV. Blood pool background activity 1.3 SUV OTHER: No other significant findings. IMPRESSION: No hypermetabolic lesions worrisome for recurrent lung adenocarcinoma TECHNICAL DOCUMENTATION: JOB ID: [id number] [employer]- All Rights Reserved Reading location - IP/workstation name: [email or web address]
== END ==
LOC: RAD 17:10
PROVIDERS: ATTEND Internal Medicine
DX: C34.12 Malignant neoplasm of upper lobe, left bronchus or lung (principal)
CPT/HCPCS: 78815; A9552

== ENCOUNTER 2018-04-12 14:48 | Emergency (ER) | payer MEDICARE, MEDICAID ==
--- NOTE | 2018-04-12 16:30 | RADIOLOGY REPORT (SQ) ---
EXAM DESCRIPTION: L SPINE WHOLE COMPLETED DATE/TIME: 04/12/2018 4:13 pm REASON FOR STUDY: fall/pain COMPARISON: None. NUMBER OF VIEWS: Five views including obliques. TECHNIQUE: AP, lateral, oblique, and sacral radiographic images acquired of the lumbar spine. LIMITATIONS: None FINDINGS: MINERALIZATION: Osteopenia SEGMENTATION: Normal. No transitional anatomy. ALIGNMENT: Normal. VERTEBRAE: There are multiple central compression fractures along the lower spine including L1, L2, L 3, L4. These are age indeterminate. DISCS: Preserved height. No significant osteophytes or end plate irregularity. POSTERIOR ELEMENTS: Pedicles and facets are intact. No pars defect or posterior arch defects. HARDWARE: None in the spine. PARASPINAL SOFT TISSUES: Normal. PELVIS: Intact as visualized. No fractures or worrisome bone lesions. SI joints intact. OTHER: No other significant finding. IMPRESSION: Multiple age indeterminate compression fractures. TECHNICAL DOCUMENTATION: JOB ID: [id number] [employer]- All Rights Reserved Reading location - IP/workstation name: [email or web address]
[2018-04-12] MEDS ORDERED: IBUPROFEN 400 MG TABLET PO ONE (16:40)
[2018-04-12] MEDS ORDERED: ACETAMINOPHEN 325 MG TABLET PO ONE (16:40)
--- NOTE | 2018-04-12 19:12 | RADIOLOGY REPORT (SQ) ---
EXAM DESCRIPTION: MRI LUMBAR SPINE WITHOUT COMPLETED DATE/TIME: 04/12/2018 6:53 pm REASON FOR STUDY: Fall, lumbar pain, compression fractures on x-ray COMPARISON: None. TECHNIQUE: Sagittal and Axial imaging includes T1, T2, STIR and gradient echo sequences. Coronal T2/ HASTE imaging. LIMITATIONS: None. FINDINGS: VISUALIZED UPPER ABDOMEN: Limited evaluation. No acute or suspicious findings suggested. SEGMENTATION: No transitional anatomy. The lowest well-developed disc space is labeled L5-S1. ALIGNMENT: Anatomic. VERTEBRAE: Compression changes are present at T12, L1, L2, and L3. There is slight loss of height of L4 and L5. There is some acute edema in the inferior aspect of the L2 vertebra suggesting an acute component. BONE MARROW: Normal. No marrow replacement or reactive changes. DISC SIGNAL: There is mildly decreased signal intensity at L4-5 and L5-S1. POSTERIOR ELEMENTS: Generally intact. No pars defect evident. HARDWARE: None in the spine. CORD AND CONUS: Normal in size and signal intensity. Conus at the L1-2 level. SOFT TISSUES: No aortic aneurysm seen. No bulky retroperitoneal adenopathy or mass. No paraspinal mas s or fluid. L1-L2: No significant spinal stenosis or exit foraminal stenosis. L2-L3: No significant spinal stenosis or exit foraminal stenosis. L3-L4: No significant spinal stenosis or exit foraminal stenosis. L4-L5: No significant spinal stenosis or exit foraminal stenosis. L5-S1: No significant spinal stenosis or exit foraminal stenosis. LOWER THORACIC: Incompletely imaged. No stenosis seen. SACRUM: Visualized upper sacrum intact. OTHER: No other significant findings. IMPRESSION: Multilevel relatively mild compression changes as described. The presence of some marro w edema at the inferior aspect of L2 suggests an acute compression component. TECHNICAL DOCUMENTATION: JOB ID: [id number] [employer]- All Rights Reserved Reading location - IP/workstation name: [email or web address]
--- NOTE | 2018-04-12 19:33 | ER Document Report ---
ED Neck/Back Problem - General Chief Complaint: Back Injury Stated Complaint: BACK PAIN Time Seen by Provider: 04/12/18 16:37 Notes: Patient is complaining of pain in the lower lumbar back. She says that this morning, she accidentally tripped on the carpet and fell landing on her left side and buttock area. She had difficulty getting up, but was eventually able to get up from the floor to a chair. Denies any other injuries. She can move both of her legs, although it seems painful to do so. No loss of use of either leg. No head or neck injury. Denies difficulty breathing or shortness of breath. Denies abdominal pains. TRAVEL OUTSIDE OF THE [place] IN LAST 30 DAYS: No - Related Data Allergies/Adverse Reactions: codeine [Codeine] Allergy (Unknown, Verified 02/22/17 10:51) aspirin Allergy (Verified 04/12/18 15:01) Past Medical History - Social History Smoking Status: Unknown if Ever Smoked Family History: Reviewed & Not Pertinent Patient has suicidal ideation: No Patient has homicidal ideation: No - Past Medical History Cardiac Medical History: Reports: Hx Coronary Artery Disease Pulmonary Medical History: Reports: Hx COPD Neurological Medical History: Reports: Hx Cerebrovascular Accident, Hx Seizures - 2 MONTHS. Denies: None, Hx Migraine, Other Malignancy Medical History: Reports: Hx Lung Cancer GI Medical History: Reports: Hx Gastroesophageal Reflux Disease Musculoskeltal Medical History: Reports Hx Arthritis, Reports Hx Musculoskeletal Trauma - spinal fx after fall, RECENT SHOULDER FX Psychiatric Medical History: Reports: Hx Dementia, Hx Depression Traumatic Medical History: Reports: Hx Fractures - Right shoulder fracture, spinal fractures after a fall Past Surgical History: Reports: Hx Cardiac Catheterization, Hx Hysterectomy, Hx Nose Surgery, Hx Orthopedic Surgery - back, Hx Vascular Surgery - Port-A-Cath - Immunizations Immunizations up to date: Yes Hx Diphtheria, Pertussis, Tetanus Vaccination: No Hx Pneumococcal Vaccination: 05/07/14 Review of Systems - Review of Systems Notes: REVIEW OF SYSTEMS: CONSTITUTIONAL : Denies fever. EENT: Denies eye, ear, nose or mouth or throat pain or other symptoms. CARDIOVASCULAR: Denies chest pain. RESPIRATORY: Denies cough, chest congestion, or shortness of breath. GASTROINTESTINAL: Denies abdominal pain or nausea, vomiting, or diarrhea. GENITOURINARY: Denies difficulty or painful urinating, urinary frequency, blood in urine. MUSCULOSKELETAL: See HPI. SKIN: Denies rash or skin lesions. NEUROLOGICAL: Denies LOC or altered mental status. Patient does have a history of dementia. Denies headache. Denies sensory loss or motor deficits. ALL OTHER SYSTEMS REVIEWED AND NEGATIVE. Physical Exam - Vital signs Vitals: Temp Pulse Resp BP 99.3 F 68 16 103/56 L 04/12/18 15:04 04/12/18 15:04 04/12/18 15:04 04/12/18 15:04 Interpretation: Normal - Notes Notes: PHYSICAL EXAMINATION: GENERAL: Well-appearing, in no acute distress. Laying comfortably on the stretcher. Moving both legs. HEAD: Atraumatic, normocephalic. ENT: oropharynx clear without exudates. Moist mucous membranes. NECK: Normal range of motion, supple. LUNGS: Breath sounds clear and equal bilaterally. No rib tenderness. HEART: Regular rate and rhythm without murmurs. ABDOMEN: Soft, nontender. No guarding or rebound. No masses. BACK: Tender to palpate across the lumbar spine area in the back. EXTREMITIES: Normal range of motion without pain. NEUROLOGICAL: Normal speech. Normal sensory, motor, and reflex exams. Awake, alert. Patient can stand at the bedside without assistance. She does appear to be a little unsteady on her feet and might benefit from a walker which I will prescribe. PSYCH: Normal mood, normal affect. SKIN: Warm, dry, no rashes. Course - Vital Signs Vital signs: Temp Pulse Resp BP Pulse Ox 98.3 F 64 17 122/64 100 04/12/18 19:33 04/12/18 19:33 04/12/18 19:33 04/12/18 19:33 04/12/18 19:33 - Diagnostic Test Radiology reviewed: Image reviewed, Reports reviewed - MRI of the lumbar back reveals multilevel mild compression changes, but no stenosis from L1 through S1 noted. Radiology results interpreted by me: 04/12/18 20:10 Multilevel compression injuries to the lumbar vertebrae noted on plain films. Discharge - Discharge Clinical Impression: Fall, Lumbar back pain Condition: Stable Disposition: HOME, SELF-CARE Additional Instructions: LOW BACK PAIN: Three out of every four people will have an episode of disabling back pain during their lifetime. Most commonly the pain is due to straining of the muscles and ligaments in the low back. Usual treatment includes: (1) Rest on a firm surface. Avoid lying on your stomach. (2) Ice pack the painful area. After a few days, gentle heat may be used intermittently to relax the area, or ice packs can be continued. (3) Medication may be needed -- muscle relaxers and antiinflammatory medicines are commonly used. (4) As the back improves, exercises are prescribed to strengthen the back and abdominal muscles. Your doctor will advise you on the proper care for your back at each stage in your recovery. You may be better in a few days -- or healing may take several weeks. If new symptoms of a "herniated disc" (radiation of pain, numbness, or tingling down the back of the leg or weakness in the leg) occur, you should be re-examined. Further testing may be necessary. USE OF ACETAMINOPHEN (Tylenol): Acetaminophen may be taken for pain relief or fever control. It's much safer than aspirin, offering a wider range of "safe" dosages. It is safe during . Some brand names are Tylenol, Panadol, Datril, Anacin 3, Tempra, and Liquiprin. Acetaminophen can be repeated every four hours. The following are maximum recommended dosages: WEIGHT Dose Drops Elixir Chewable( 80mg) (LBS.) drprs=droppers tsp=teaspoon >89 pounds or adults 650 mg to 900 mg Acetaminophen can be repeated every four hours. Maximum dose not to exceed 4000 mg a day. These maximum recommended dosages are slightly higher than the dosages written on the product container, but these dosages are very safe and below the toxic dosage for acetaminophen. ORAL NARCOTIC MEDICATION: You have been given a prescription for pain control. This medication is a narcotic. It's best taken with food, as nausea can result if taken on an empty stomach. Don't operate machinery or drive within six hours of taking this medication. Do not combine this medicine with alcohol, or with any medication which can cause sedation (such as cold tablets or sleeping pills) unless you get permission from the physician. Narcotics tend to cause constipation. If possible, drink plenty of fluids and eat a diet high in fiber and fruits. FOLLOW-UP CARE: If you have been referred to a physician for follow-up care, call the physician s office for an appointment as you were instructed or within the next two days. If you experience worsening or a significant change in your symptoms, notify the physician immediately or return to the Emergency Department at any time for re-evaluation. Follow-up with Dr. Tejada if you have continuing back pain. Return for us to evaluate at any time if you develop weakness or numbness or paralysis anywhere. Prescriptions: Oxycodone HCl/Acetaminophen [Percocet 5-325 mg Tablet] 1 tab PO Q6HP PRN #10 tablet PRN Reason: Walker [Folding Walker] 1 each MC ASDIR PRN #1 each PRN Reason: Forms: Return to Work Referrals: JACKIE TEJADA MD [Primary Care Provider] - Follow up as needed
[2018-04-12 19:35] VITALS: BP 122/64
== END 2018-04-12 19:45 | disposition home or self-care (01) ==
LOC: ER 14:48
DX: M54.5 Low back pain (principal); W18.09XA Striking against other object with subsequent fall, initial encounter; I25.10 Atherosclerotic heart disease of native coronary artery without angina pectoris; J44.9 Chronic obstructive pulmonary disease, unspecified
CPT/HCPCS: 99284; 72148; 72110; A9270

== ENCOUNTER → 2018-04-30 | Outpatient (CLI) | payer MEDICARE, MEDICAID ==
--- NOTE | 2018-05-01 09:33 | RADIOLOGY REPORT (SQ) ---
EXAM DESCRIPTION: PET CT SKULL/THIGH COMPLETED DATE/TIME: 04/30/2018 6:25 pm REASON FOR STUDY: LUNG CANCER C34.12 MALIGNANT NEOPLASM OF UPPER LOBE, LEFT BRONCHUS OR YAN COMPARISON: PET-CT 09/10/2016, 06/17/2017, 10/30/2017, 4188 RADIONUCLIDE AND DOSE: 10.4 mCi F18 FDG The route of agent administration: Intravenous FASTING BLOOD SUGAR: 76 mg/dl CONTRAST TYPE AND DOSE: No CT contrast given. TECHNIQUE: Blood glucose level was verified. Above dose of FDG was injected intravenously. 2-D seg mented attenuation correction images were obtained from the base of the skull to the midthighs. Nonc ontrast CT images were obtained for attenuation correction and fusion with emission images. CT image s were performed without oral or intravenous contrast and are not sensitive for parenchymal lesions. A series of overlapping emission PET images were obtained. Images reviewed and manipulated at [facility] work station by the radiologist. Images stored on PACS. LIMITATIONS: None. FINDINGS: HEAD AND NECK: No areas of abnormal metabolic activity in the soft tissues of the head and neck. CHEST: No areas of abnormal metabolic activity in the chest. There is minimal bandlike scarring in t he anterior left upper lobe axial image 67 which is non metabolic. Anterior left upper lobe pleural based nodule seen on 09/10/2016 is no longer identified. Underlying obstructive lung disease is pres ent. ABDOMEN AND PELVIS: No areas of abnormal metabolic activity in the abdomen or pelvis. Expected physi ologic activity is present in the genitourinary system and bowel. PROXIMAL LOWER EXTREMITIES: No areas of abnormal metabolic activity in the soft tissues of the lower extremities. BONES: No abnormal metabolic activity in the visualized skeleton. Old thoracic kyphoplasties. ADDITIONAL CT FINDINGS: Old left posterior temporal lobe infarct. Air-fluid level left maxillary sin us from sinusitis. 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 OTHER: Liver background activity 2.1 SUV. Blood pool background activity 1.6 SUV IMPRESSION: No findings worrisome for recurrent lung cancer TECHNICAL DOCUMENTATION: JOB ID: [id number]- All Rights Reserved Reading location - IP/workstation name: [email or web address]
== END ==
LOC: RAD 15:32
PROVIDERS: ATTEND Internal Medicine
DX: C34.12 Malignant neoplasm of upper lobe, left bronchus or lung (principal)
CPT/HCPCS: 78815; A9552

== ENCOUNTER 2018-07-17 19:52 | Emergency (ER) | payer MEDICARE, MEDICAID ==
[2018-07-17] MEDS ORDERED: ETOMIDATE INJ/PF 20 MG/10 ML SDV IV ONE ×2 (20:01→22:38)
[2018-07-17] MEDS ORDERED: NORMAL SALINE 500 ML IV ONE (20:08)
[2018-07-17] MEDS ORDERED: PROPOFOL 1,000 MG/100 ML INFUS..BTL IV ONE (20:18)
[2018-07-17] MEDS ORDERED: PROPOFOL 1,000 MG/100 ML INFUS..BTL IV PRN (20:18)
[2018-07-17 20:19] LABS: ABSOLUTE BASOPHILS # (AUTO) 0.1 10^3/uL (0.0-0.2); ABSOLUTE MONOCYTES (AUTO) 0.5 10^3/uL (0.1-1.4); ABSOLUTE NEUT (AUTO) 4.6 10^3/uL (1.7-8.2); BASOPHILS % (AUTO) 0.7 % (0-2); EOSINOPHILS % (AUTO) 0.2 % (0-6); HEMOGLOBIN 14.6 g/dL (12.0-15.5); MEAN CORPUSCULAR HEMOGLOBIN 29.3 pg (27.0-33.4); MEAN CORPUSCULAR HGB CONC 33.1 g/dL (32.0-36.0); MEAN CORPUSCULAR VOLUME 89 fl (80-97); MONOCYTES % (AUTO) 6.5 % (3-13); PLATELET COUNT 209 10^3/uL (150-450); RED BLOOD COUNT 4.97 10^6/uL (3.72-5.28); RED CELL DISTRIBUTION WIDTH 14.7 % (11.5-14.0); SEGMENTED NEUTROPHILS % (AUTO) 64.6 % (42-78); TOTAL CELLS COUNTED % (AUTO) 100 %; WHITE BLOOD COUNT 7.1 10^3/uL (4.0-10.5)
[2018-07-17 20:25] LABS: INTERNATIONAL RATION (INR) 0.94; PROTHROMBIN TIME 13.1 SEC (11.4-15.4)
[2018-07-17 20:36] LABS: ALANINE AMINOTRANSFERASE < 6 U/L (9-52); ALKALINE PHOSPHATASE 102 U/L (38-126); ASPARTATE AMINO TRANSFERASE 45 U/L (14-36); BILIRUBIN,DIRECT 0.7 mg/dL (0.0-0.4); BILIRUBIN,TOTAL 0.8 mg/dL (0.2-1.3); BLOOD UREA NITROGEN 8 mg/dL (7-20); CALCIUM 10.1 mg/dL (8.4-10.2); CREATINE KINASE 68 U/L (30-135); GLUCOSE 157 mg/dL (75-110); POTASSIUM 3.6 mmol/L (3.6-5.0); TOTAL PROTEIN 9.8 g/dL (6.3-8.2)
[2018-07-17 20:41] LABS: CARBON DIOXIDE 14 mmol/L (22-30); CHLORIDE 93 mmol/L (98-107); SODIUM 132.1 mmol/L (137-145)
[2018-07-17 20:42] LABS: ANION GAP 25 (5-19)
[2018-07-17] MEDS ORDERED: LEVETIRACETAM 1000 MG/NACL-ISO 1,000 MG/100 ML RTUPB IV ONE (21:36)
--- NOTE | 2018-07-17 21:36 | ER Document Report ---
ED General - General Chief Complaint: Unresponsive Stated Complaint: PROBABLE SEIZURE Time Seen by Provider: 07/17/18 20:08 Notes: Patient is a 73-year-old female with seizure disorder that presents to the emergency department for chief complaint of unresponsive and seizure activity at home. History provided by EMS and family members. According to the patient' s family she apparently had went into the bathroom, and then had collapsed and had generalized tonic-clonic seizure activity that lasted a few minutes according to the family. They called EMS and she was brought to the emergency department. They report that she has a history of noncompliance with her seizure medications, often she will tongue them and then spit them out. She does have a history of CVA in the past as well. She does ambulate according to the family at baseline. No other history obtainable at this time. Past medical history obtained from the patient's family that is at bedside. Past Medical History: CVA, seizure disorder, hypergammaglobulinemia Past Surgical History: Not obtainable or pertinent at this time Social History: Lives at home with family. Family History: Reviewed and noncontributory for presenting illness Allergies: Reviewed, see documented allergy list. REVIEW OF SYSTEMS: Completely review of systems is not obtainable at this time secondary to patient being unresponsive. PHYSICAL EXAMINATION: Vital signs reviewed, nursing noted reviewed. GENERAL: Frail, elderly female, unresponsive HEAD: Atraumatic, normocephalic. EYES: Fixed gaze palsy to the right, corneal reflexes intact, PERRLA ENT: nares patent, oropharynx clear without exudates. Dry mucous membranes NECK: supple without lymphadenopathy LUNGS: Breath sounds, equal bilaterally, some faint crackles at the bases bilaterally. HEART: Heart rate tachycardic, regular rhythm, no audible murmur ABDOMEN: Soft, not apparently tender, normoactive bowel sounds. No distention or rigidity. No masses appreciated. EXTREMITIES: no pitting or edema. NEUROLOGICAL: GCS: 6, right fix gaze palsy, no spontaneous limb movements, will withdrawal to noxious stimuli PSYCH: Unresponsive SKIN: Warm, Dry, normal turgor, no rashes or lesions noted on exposed skin TRAVEL OUTSIDE OF THE [place] IN LAST 30 DAYS: No - Related Data Allergies/Adverse Reactions: codeine [Codeine] Allergy (Unknown, Verified 02/22/17 10:51) aspirin Allergy (Verified 04/12/18 15:01) Past Medical History - Social History Smoking Status: Unknown if Ever Smoked Family History: Reviewed & Not Pertinent - Past Medical History Cardiac Medical History: Reports: Hx Coronary Artery Disease Denies: Hx Heart Attack, Hx Hypertension Pulmonary Medical History: Reports: Hx COPD Denies: Hx Asthma, Hx Bronchitis, Hx Pneumonia, Hx Tuberculosis Neurological Medical History: Reports: Hx Cerebrovascular Accident, Hx Seizures - 2 MONTHS. Denies: Hx Migraine Renal/ Medical History: Denies: Hx Peritoneal Dialysis Malignancy Medical History: Reports: Hx Lung Cancer GI Medical History: Reports: Hx Gastroesophageal Reflux Disease Musculoskeletal Medical History: Reports Hx Arthritis, Reports Hx Musculoskeletal Trauma - spinal fx after fall, RECENT SHOULDER FX Skin Medical History: Denies Hx MRSA Psychiatric Medical History: Reports: Hx Dementia, Hx Depression Traumatic Medical History: Reports: Hx Fractures - Right shoulder fracture, spinal fractures after a fall Past Surgical History: Reports: Hx Cardiac Catheterization, Hx Hysterectomy, Hx Nose Surgery, Hx Orthopedic Surgery - back, Hx Vascular Surgery - Port-A-Cath - Immunizations Immunizations up to date: Yes Hx Diphtheria, Pertussis, Tetanus Vaccination: No Hx Pneumococcal Vaccination: 05/07/14 Physical Exam - Vital signs Vitals: Pulse Ox 100 07/17/18 20:14 Course - Re-evaluation Re-evalutation: Patient seen and examined vital signs reviewed. Laboratory data and imaging were ordered as appropriate for the patient's presenting symptoms and complaint, with consideration of any critical or life threatening conditions that may be associated with their obtained history and exam as noted above. Patient was treated with intubation to protect her airway, GCS was 6 on presentation, and was not improving, patient had agonal breathing as well, she was intubated with etomidate, and rocuronium, and started on propofol infusion, she was given IV fluid bolus a total of 2 L, and given a bolus of 1000 mg of Keppra IV. Results were reviewed when available and demonstrated possible acute on chronic infarct in the left parietal lobe, blood work demonstrated metabolic acidosis, likely the related to the patient's recent seizure. The patient was re-evaluated and was stable on the ventilator Evaluation was most consistent with acute on chronic CVA, that likely led to nonconvulsive status epilepticus, as the patient does have a history of seizure disorder this could also be secondary to noncompliance with seizure medications. Patient was becoming mildly hypotensive, on propofol therefore she was switched to Versed and fentanyl. Results were discussed with the patient's family at this point after careful consideration I feel that that patient should be transferred to [facility] due to suspected non-convulsive status epilepticus. Case was discussed with the neuro ICU, and accepted to Dr. Knowles this was discussed with the patient family that it is in the best interest for their care to be transferred , the risks and benefits of transfer were discussed, including but not limited to clinical deterioration during transport, respiratory distress, and potential for traumatic injuries. Patient family agreed with this plan of care. *Note is created using voice recognition software and may contain spelling, syntax or grammatical errors. Laboratory 07/17/18 07/17/18 07/17/18 20:03 20:03 20:03 WBC 7.1 RBC 4.97 Hgb 14.6 Hct 44.0 MCV 89 MCH 29.3 MCHC 33.1 RDW 14.7 H Plt Count 209 Seg Neutrophils % 64.6 Lymphocytes % 28.0 Monocytes % 6.5 Eosinophils % 0.2 Basophils % 0.7 Absolute Neutrophils 4.6 Absolute Lymphocytes 2.0 Absolute Monocytes 0.5 Absolute Eosinophils 0.0 Absolute Basophils 0.1 PT 13.1 INR 0.94 Sodium 132.1 L Potassium 3.6 Chloride 93 L Carbon Dioxide 14 L Anion Gap 25 H BUN 8 Creatinine 0.61 Est GFR ( Amer) > 60 Est GFR (Non-Af Amer) > 60 Glucose 157 H Calcium 10.1 Magnesium 2.5 H Total Bilirubin 0.8 Direct Bilirubin 0.7 H Neonat Total Bilirubin Not Reportable Neonat Direct Bilirubin Not Reportable Neonat Indirect Bili Not Reportable AST 45 H ALT < 6 L Alkaline Phosphatase 102 Creatine Kinase 68 Troponin I Total Protein 9.8 H Albumin 5.0 07/17/18 20:03 WBC RBC Hgb Hct MCV MCH MCHC RDW Plt Count Seg Neutrophils % Lymphocytes % Monocytes % Eosinophils % Basophils % Absolute Neutrophils Absolute Lymphocytes Absolute Monocytes Absolute Eosinophils Absolute Basophils PT INR Sodium Potassium Chloride Carbon Dioxide Anion Gap BUN Creatinine Est GFR ( Amer) Est GFR (Non-Af Amer) Glucose Calcium Magnesium Total Bilirubin Direct Bilirubin Neonat Total Bilirubin Neonat Direct Bilirubin Neonat Indirect Bili AST ALT Alkaline Phosphatase Creatine Kinase Troponin I < 0.012 Total Protein Albumin Head CT 07/17/18 20:09 IMPRESSION: Probable sequela of prior insults. Acute extension of ischemia in the left parietal lobe or in the right granda radiata is not excluded. MRI is much more sensitive and specific for acute ischemia than CT and if there is persistent concern for acute ischemia, I recommend MRI. Head CTA 07/17/18 20:09 vascular abnormality. IMPRESSION: Stenoses as above. The right vertebral artery is quite small proximally and distally. There is also narrowing of each ICA cavernous portion. TECHNIQUE: Images stored on PACS. All CT scanners at this facility use dose modulation, iterative reconstruction, and/or weight based dosing when appropriate to reduce radiation dose to as low as reasonably achievable (ALARA). [facility]: Dose Right [facility]: CareDose [facility]: Dose Right [facility]: Teradose 4D [facility]: [employer] LIMITATIONS: None. FINDINGS: IMPRESSION: TECHNICAL DOCUMENTATION: Quality ID # [id number]: Final reports with documentation of one or more dose reduction techniques (e.g., Automated exposure control, adjustment of the mA and/or kV according to patient size, use of iterative reconstruction technique) 2010 [employer]- All Rights Reserved - Vital Signs Vital signs: Temp Pulse Resp BP Pulse Ox 96.9 F L 18 99/69 L 100 07/17/18 23:06 07/17/18 23:06 07/17/18 23:06 07/17/18 23:06 - Laboratory Result Diagrams: 07/17/18 20:03 07/17/18 20:03 Laboratory results interpreted by me: 07/17/18 07/17/18 20:03 20:03 RDW 14.7 H Sodium 132.1 L Chloride 93 L Carbon Dioxide 14 L Anion Gap 25 H Glucose 157 H Magnesium 2.5 H Direct Bilirubin 0.7 H AST 45 H ALT < 6 L Total Protein 9.8 H - EKG Interpretation by Me Additional EKG results interpreted by me: EKG demonstrates sinus tachycardia with a ventricular rate of 116 bpm, right axis deviation, QTC 470 ms, T wave inversion in lead aVL, this is compared with prior EKG from 11/20/2017 without significant change. Procedures - Intubation Orotracheal Airway evaluation: Normal anatomy Mallampati Classification: Class 1 Medications: Etomidate - 15mg, Other - Rocuronium 50mg Intubation method: Orotracheal Blade type: Chris Blade size: 4 ETT size: 7.0 ETT secured at: Lips Breath Sounds after Intubation: Equal End tidal CO2 confirmed: Yes Ventilator settings: SIMV Tidal volume: 350 FiO2: 40 Respirations: 12 Pressure support: 10 PEEP: 5 Post Intubation Xray: Yes Intubation Complications: No complications Critical Care Note - Critical Care Note Total time excluding time spent on procedures (mins): 100 Comments: Critical care time 100 minutes exclusive from separate billable procedures for a patient requiring complex medical decision making, and high potential for clinical deterioration. In a patient that required intubation with mechanical ventilation, close monitoring, frequent reassessments, and maintenance on propofol for sedation. Time spent obtaining history from patient or surrogate, discussions with consultants, development of treatment plan with patient or surrogate, evaluation of patient's response to treatment, examination of patient , ordering and performing treatments and interventions, ordering and review of laboratory studies, re-evaluation of patient's condition, ordering and review of radiographic studies and review of old charts Discharge - Discharge Clinical Impression: Non-convulsive status epilepticus, Metabolic acidosis Acute respiratory failure Qualifiers: Respiratory failure complication: unspecified whether with hypoxia or hypercapnia Qualified Code(s): J96.00 - Acute respiratory failure, unspecified whether with hypoxia or hypercapnia Condition: Critical Disposition: [facility] Referrals: KELLY TAPIA MD [ACTIVE STAFF] - Follow up as needed
--- NOTE | 2018-07-17 21:45 | RADIOLOGY REPORT (SQ) ---
EXAM DESCRIPTION: CT HEAD WITHOUT IV CONTRAST COMPLETED DATE/TME: 07/17/2018 20:09 CLINICAL HISTORY: 73 years, Female, seizure, unresponsive, head injury COMPARISON: None. EXAM DESCRIPTION: CLINICAL HISTORY: seizure, unresponsive, head injury COMPARISON: None Available TECHNIQUE: Contiguous axial CT images of the head were obtained. Coronal and sagittal reconstructions were created from the axial data. This exam was performed according to our departmental dose-optimization program, which includes automated exposure control, adjustment of the mA and/or kV according to patient size and/or use of iterative reconstruction technique. FINDINGS: There is a large region of encephalomalacia involving the left occipital and temporal and parietal lobes. At the superior margin of this region, involving the left granda radiata and left periatrial deep white matter as well as subcortical white matter of the left parietal lobe, there is decreased attenuation that is poorly defined. Extension of ischemia/infarct is not excluded. Edema due to other cause such as an inflammatory or even neoplastic etiology is less likely but possible. The appearance is not likely related to recent trauma. Poorly defined decreased attenuation the right granda radiata is also nonspecific but could be sequela of prior insult. There is no definite acute mass effect to document acute edema. There is fluid in the left maxillary sinus, with moderate mucosal thickening. Soft tissue swelling involves the left forehead. No other definite acute abnormality. IMPRESSION: Probable sequela of prior insults. Acute extension of ischemia in the left parietal lobe or in the right granda radiata is not excluded. MRI is much more sensitive and specific for acute ischemia than CT and if there is persistent concern for acute ischemia, I recommend MRI.
--- NOTE | 2018-07-17 21:52 | RADIOLOGY REPORT (SQ) ---
EXAM DESCRIPTION: CT HEAD ANGIOGRAPHY WITHOUT THEN WITH IV CONTRAST COMPLETED DATE/TME: 07/17/2018 20:09 CLINICAL HISTORY: 73 years, Female, fixed gaze palsy unresponsive COMPARISON: EXAM DESCRIPTION: CLINICAL HISTORY: fixed gaze palsy unresponsive COMPARISON: None Available TECHNIQUE: Contiguous axial CT images of the head and neck were obtained. Images were obtained prior to and following intravenous contrast administration. Coronal and sagittal reconstructions were then created along with MIPs through the vessels of mary[place] of [place] and the neck. This exam was performed according to our departmental dose-optimization program, which includes automated exposure control, adjustment of the mA and/or kV according to patient size and/or use of iterative reconstruction technique. NASCET criteria utilized for the evaluation of any stenotic lesions. FINDINGS: There is calcification without significant stenosis at each carotid bulb. Calcification involves each ICA cavernous portion with approximately 50% stenosis on the right and 60% stenosis on the left. Both vertebral arteries are small. The proximal right vertebral artery is quite poorly seen, suggesting greater than 90% stenosis. The distal right vertebral artery is also quite poorly seen from the level of C1. Terminus, also suggesting high-grade stenosis. There is no evidence of aneurysm or vascular malformation. No dissection is seen. There are calcified nodules measuring up to 4 mm in the left upper lung.. No other acute vascular abnormality. IMPRESSION: Stenoses as above. The right vertebral artery is quite small proximally and distally. There is also narrowing of each ICA cavernous portion. TECHNIQUE: Images stored on PACS. All CT scanners at this facility use dose modulation, iterative reconstruction, and/or weight based dosing when appropriate to reduce radiation dose to as low as reasonably achievable (ALARA). [facility]: Dose Right [facility]: CareDose [facility]: Dose Right [facility]: Teradose 4D [facility]: [employer] LIMITATIONS: None. FINDINGS: IMPRESSION: TECHNICAL DOCUMENTATION: Quality ID # [id number]: Final reports with documentation of one or more dose reduction techniques (e.g., Automated exposure control, adjustment of the mA and/or kV according to patient size, use of iterative reconstruction technique) 2010 [employer]- All Rights Reserved
[2018-07-17] MEDS ORDERED: NORMAL SALINE 1000 ML 1,000 ML IV ONE (22:02)
[2018-07-17] MEDS ORDERED: ROCURONIUM BROMIDE INJ 50 MG/5 ML VIAL IV ONE (22:38)
[2018-07-17] MEDS ORDERED: MIDAZOLAM HCL 50 MG/100 ML RTUINJ IV PRN (22:39)
--- NOTE | 2018-07-17 22:56 | EKG REPORT ---
SEVERITY:- ABNORMAL ECG - SINUS TACHYCARDIA BORDERLINE RIGHT AXIS DEVIATION NONSPECIFIC T ABNORMALITIES, LATERAL LEADS : Confirmed by: Adelina Nicolas 17-Jul-2018 22:56:03
[2018-07-17] MEDS ORDERED: FENTANYL CITRATE INJ/PF 100 MCG/2 ML AMPUL IV ONE (23:17)
[2018-07-17 23:44] LABS: APPEARANCE,URINE CLEAR; BILIRUBIN,URINE NEGATIVE (NEGATIVE); COLOR,URINE STRAW; GLUCOSE, URINE 50 mg/dL (NEGATIVE); KETONES,URINE NEGATIVE (NEGATIVE); LEUKOCYTE ESTERASE,URINE NEGATIVE (NEGATIVE); NITRITE,URINE NEGATIVE (NEGATIVE); PROTEIN,URINE 100 mg/dL (NEGATIVE); URINE SPECIFIC GRAVITY 1.023; UROBILINOGEN,URINE NEGATIVE mg/dL (<2.0)
[2018-07-18] LABS: URINE AMPHETAMINES SCREEN NEGATIVE; URINE BARBITURATES SCREEN NEGATIVE; URINE BENZODIAZEPINES SCREEN UNCONFIRMED POSITIVE; URINE COCAINE SCREEN NEGATIVE; URINE MARIJUANA (THC) SCREEN NEGATIVE; URINE METHADONE SCREEN NEGATIVE; URINE PHENCYCLIDINE SCREEN NEGATIVE
[2018-07-18 00:34] LABS: ARTERIAL BLOOD BASE EXCESS -5.5 mmol/L; ARTERIAL BLOOD H2CO3 1.48 mmol/L (1.05-1.35); ARTERIAL BLOOD HCO3 21.7 mmol/L (20-24); ARTERIAL BLOOD O2 SATURATION 98.5 % (94-98); ARTERIAL BLOOD PCO2 49.3 mmHg (35-45); ARTERIAL BLOOD PH 7.26 (7.35-7.45); ARTERIAL BLOOD PO2 146.5 mmHg (80-100); ARTERIAL BLOOD TOTAL CO2 23.2 mmol/L (21-25)
[2018-07-18 00:36] LABS: ARTERIAL BLOOD FIO2 40%
[2018-07-18 01:55] VITALS: BP 98/73
--- NOTE | 2018-07-18 09:07 | RADIOLOGY REPORT (SQ) ---
EXAM DESCRIPTION: CHEST SINGLE VIEW COMPLETED DATE/TIME: 07/17/2018 8:40 pm REASON FOR STUDY: seizure, post intubation COMPARISON: None. EXAM PARAMETERS: NUMBER OF VIEWS: One view. TECHNIQUE: Single frontal radiographic view of the chest acquired. RADIATION DOSE: NA LIMITATIONS: None. FINDINGS: LUNGS AND PLEURA: Hyperinflation consistent with COPD. MEDIASTINUM AND HILAR STRUCTURES: No masses. Contour normal. HEART AND VASCULAR STRUCTURES: The heart is normal with normal pulmonary vasculature. BONES: Changes of mid dorsal vertebroplasty are noted. HARDWARE: None in the chest. OTHER: Interval placement of endotracheal tube in good position above julien. Port-A-Cath noted with tip overlying SVC. IMPRESSION: COPD. Otherwise, no acute disease. TECHNICAL DOCUMENTATION: JOB ID: [id number] 2010 [employer]- All Rights Reserved Reading location - IP/workstation name: [email or web address]
--- NOTE | 2018-07-18 09:10 | RADIOLOGY REPORT (SQ) ---
EXAM DESCRIPTION: CTA NECK COMPLETE DATE/TIME: 07/17/2018 8:39 pm REASON FOR STUDY: fixed gaze palsy unresponsive FINDINGS: Please see combined report for performance of procedure and radiologic supervision and int erpretation. IMPRESSION: Please see combined report for performance of procedure and radiologic supervision and i nterpretation. Reading location - IP/workstation name: [email or web address]
== END 2018-07-18 02:23 | disposition short-term general hospital (02) ==
LOC: ER 19:52
DX: G40.901 Epilepsy, unspecified, not intractable, with status epilepticus (principal); J96.00 Acute respiratory failure, unspecified whether with hypoxia or hypercapnia; E87.2 Acidosis; R00.0 Tachycardia, unspecified; I25.10 Atherosclerotic heart disease of native coronary artery without angina pectoris; I67.82 Cerebral ischemia; J44.9 Chronic obstructive pulmonary disease, unspecified; Z85.118 Personal history of other malignant neoplasm of bronchus and lung; Z86.73 Personal history of transient ischemic attack (TIA), and cerebral infarction without residual deficits; Z88.5 Allergy status to narcotic agent; Z88.6 Allergy status to analgesic agent
CPT/HCPCS: 93005; 99291; 99292; 96361; 96365; 36415; 80177; 82803; 82550; 83735; 85025; 85610; 80053; 81001; 84484; 80307; 71045; 70450; 70496; 70498; 94660; 93010; 31500; J3490 ×2; J3010; J2704; J2250; J1953

== ENCOUNTER → 2018-08-20 | Outpatient (CLI) | payer MEDICARE, MEDICAID ==
--- NOTE | 2018-08-21 09:05 | RADIOLOGY REPORT (SQ) ---
EXAM DESCRIPTION: PET CT SKULL/THIGH COMPLETED DATE/TIME: 08/20/2018 9:06 pm REASON FOR STUDY: LUNG CANCER C34.12 MALIGNANT NEOPLASM OF UPPER LOBE, LEFT BRONCHUS OR YAN COMPARISON: 04/30/2018, 01/22/2018, and 10/30/2017. RADIONUCLIDE AND DOSE: 10 mCi F18 FDG The route of agent administration: Intravenous FASTING BLOOD SUGAR: 94 mg/dl CONTRAST TYPE AND DOSE: No CT contrast given. TECHNIQUE: Blood glucose level was verified. Above dose of FDG was injected intravenously. 2-D seg mented attenuation correction images were obtained from the base of the skull to the midthighs. Nonc ontrast CT images were obtained for attenuation correction and fusion with emission images. CT image s were performed without oral or intravenous contrast and are not sensitive for parenchymal lesions. A series of overlapping emission PET images were obtained. Images reviewed and manipulated at [facility] work station by the radiologist. Images stored on PACS. LIMITATIONS: None. FINDINGS: HEAD AND NECK: No areas of abnormal metabolic activity in the soft tissues of the head and neck. CHEST: No areas of abnormal metabolic activity in the chest. ABDOMEN AND PELVIS: No areas of abnormal metabolic activity in the abdomen or pelvis. Expected physi ologic activity is present in the genitourinary system and bowel. PROXIMAL LOWER EXTREMITIES: No areas of abnormal metabolic activity in the soft tissues of the lower extremities. BONES: No abnormal metabolic activity in the visualized skeleton. ADDITIONAL CT FINDINGS: Old cerebral infarct in the posterior left temporal lobe. Left maxillary sin us disease. Chronic emphysematous changes in the lungs with scarring. Dense vascular calcifications . Chronic changes in the spine with several areas of kyphoplasty. No additional significant finding s on the noncontrast CT images. OTHER: No other significant findings. Background blood pool activity mean SUV 1.46. Background live r activity mean SUV 1.9. IMPRESSION: STABLE PET-CT. NO FINDINGS FOR RECURRENT MALIGNANCY OR METASTASIS. STABLE CHRONIC CT F INDINGS ABOVE. TECHNICAL DOCUMENTATION: JOB ID: [id number] [employer]- All Rights Reserved Reading location - IP/workstation name: [email or web address]
== END ==
LOC: RAD 18:20
PROVIDERS: ATTEND Internal Medicine
DX: C34.12 Malignant neoplasm of upper lobe, left bronchus or lung (principal)
CPT/HCPCS: 78815; A9552

== ENCOUNTER → 2018-09-12 | Outpatient (CLI) | payer MEDICARE, MEDICAID ==
--- NOTE | 2018-09-12 16:43 | RADIOLOGY REPORT (SQ) ---
EXAM DESCRIPTION: CHEST PA/LATERAL COMPLETED DATE/TIME: 09/12/2018 4:30 pm REASON FOR STUDY: COPD COMPARISON: PET-CT 08/20/2018 Chest films 07/17/2018, 08/30/2017 EXAM PARAMETERS: NUMBER OF VIEWS: two views TECHNIQUE: Digital Frontal and Lateral radiographic views of the chest acquired. RADIATION DOSE: NA LIMITATIONS: none FINDINGS: LUNGS AND PLEURA: Lungs are hyperinflated and hyperlucent from obstructive disease. Old radiotherapy treatment markers left upper lobe unchanged. No acute infiltrates. No pleural effusion. No pneumothorax. MEDIASTINUM AND HILAR STRUCTURES: No masses or contour abnormalities. HEART AND VASCULAR STRUCTURES: Heart normal size. No evidence for failure. BONES: Osteoporotic stable midthoracic compression deformities treated with kyphoplasty HARDWARE: Right jugular central line tip superior vena cava OTHER: No other significant finding. IMPRESSION: Obstructive lung disease. No acute findings TECHNICAL DOCUMENTATION: JOB ID: [id number] [employer]- All Rights Reserved Reading location - IP/workstation name: [email or web address]
== END ==
LOC: OD 16:17
PROVIDERS: ATTEND Obstetrics & Gynecology
DX: J44.9 Chronic obstructive pulmonary disease, unspecified (principal)
CPT/HCPCS: 71046

== ENCOUNTER 2018-11-06 23:03 | Emergency (ER) | payer MEDICARE, MEDICAID ==
--- NOTE | 2018-11-06 23:56 | ER Document Report ---
ED Medical Screen (RME) - General Chief Complaint: Arm Problem Stated Complaint: ARM PROBLEM Primary Care Provider: BAKARI TEJADA MD [Primary Care Provider] - Follow up as needed Notes: Patient is a 73-year-old female presents to the emergency department for generalized right forearm pain and erythema. Patient's daughter states 24 hours ago she did not notice any erythema or pain to the patient's right arm but states today prior to arrival to the emergency room she noted that the patient's posterior right arm appeared red and the patient states that her fingers were "tingly." Daughter states patient does "stumble a lot" and we are unsure if there is any sort of injury to the right forearm. Past medical history: Seizures Medications: Gabapentin Allergies: Aspirin, codeine EXTREMITIES: Moves all 4 extremities spontaneously. No edema, normal radial and dorsalis pedis pulses bilaterally. No cyanosis. Patient complains of pain in the entire palpation of right forearm. SKIN: Warm, dry, normal turgor. area of erythema noted to the distal right posterior forearm, no fluctuance or induration noted. Area is not warm to touch. Capillary refill less than 2 seconds distally I have greeted and performed a rapid initial assessment of this patient. A comprehensive ED assessment and evaluation of the patient, analysis of test results and completion of the medical decision making process will be conducted by additional ED providers. TRAVEL OUTSIDE OF THE [place] IN LAST 30 DAYS: No - Related Data Allergies/Adverse Reactions: codeine [Codeine] Allergy (Unknown, Verified 02/22/17 10:51) aspirin Allergy (Verified 04/12/18 15:01) Past Medical History - Past Medical History Cardiac Medical History: Reports: Hx Coronary Artery Disease Denies: Hx Heart Attack, Hx Hypertension Pulmonary Medical History: Reports: Hx COPD Denies: Hx Asthma, Hx Bronchitis, Hx Pneumonia, Hx Tuberculosis Neurological Medical History: Reports: Hx Cerebrovascular Accident, Hx Seizures - 2 MONTHS. Denies: Hx Migraine Renal/ Medical History: Denies: Hx Peritoneal Dialysis Malignancy Medical History: Reports: Hx Lung Cancer GI Medical History: Reports: Hx Gastroesophageal Reflux Disease Musculoskeltal Medical History: Reports Hx Arthritis, Reports Hx Musculoskeletal Trauma - spinal fx after fall, RECENT SHOULDER FX Skin Medical History: Denies Hx MRSA Psychiatric Medical History: Reports: Hx Dementia, Hx Depression Traumatic Medical History: Reports: Hx Fractures - Right shoulder fracture, spinal fractures after a fall Past Surgical History: Reports: Hx Cardiac Catheterization, Hx Hysterectomy, Hx Nose Surgery, Hx Orthopedic Surgery - back, Hx Vascular Surgery - Port-A-Cath - Immunizations Immunizations up to date: Yes Hx Diphtheria, Pertussis, Tetanus Vaccination: No History of Influenza Vaccine for 07/2017 - 12/2017 Season: No Physical Exam - Vital signs Vitals: Temp Pulse Resp BP 98.2 F 78 16 113/60 11/06/18 23:09 11/06/18 23:09 11/06/18 23:09 11/06/18 23:09 Course - Vital Signs Vital signs: Temp Pulse Resp BP Pulse Ox 98.2 F 78 16 113/60 11/06/18 23:09 11/06/18 23:09 11/06/18 23:09 11/06/18 23:09 Doctor's Discharge - Discharge Referrals: BAKARI TEJADA MD [Primary Care Provider] - Follow up as needed
[2018-11-07] MEDS ORDERED: ACETAMINOPHEN 325 MG TABLET PO ONE (00:37)
--- NOTE | 2018-11-07 01:13 | RADIOLOGY REPORT (SQ) ---
EXAM DESCRIPTION: XR FOREARM 2 VIEWS COMPLETED DATE/TME: 11/06/2018 23:54 CLINICAL HISTORY: 73 years, Female, pain COMPARISON: None. NUMBER OF VIEWS: 2 TECHNIQUE: 2 views of the right forearm LIMITATIONS: None. FINDINGS: Osteopenia. Negative for acute fracture or dislocation. Soft tissues are unremarkable IMPRESSION: Osteopenia. No acute osseous abnormality copyright 2010 [employer]- All Rights Reserved
[2018-11-07] MEDS ORDERED: CEPHALEXIN 500 MG CAPSULE PO ONE (01:37)
--- NOTE | 2018-11-07 01:37 | ER Document Report ---
HPI - HPI Patient complains to provider of: arm erythema Time Seen by Provider: 11/07/18 00:37 Pain Level: 1 Context: Patient is a 73-year-old female presents to the emergency department for generalized right forearm pain and erythema. Patient's daughter states 24 hours ago she did not notice any erythema or pain to the patient's right arm but states today prior to arrival to the emergency room she noted that the patient's posterior right arm appeared red and the patient states that her fingers were "tingly." Daughter states patient does "stumble a lot" and we are unsure if there is any sort of injury to the right forearm. Past medical history: Seizures Medications: Gabapentin Allergies: Aspirin, codeine - REPRODUCTIVE Reproductive: DENIES: : - DERM Skin Color: Normal Past Medical History - General Information source: Patient, Relative - Social History Smoking Status: Current Every Day Smoker Frequency of alcohol use: None Drug Abuse: None Family History: Reviewed & Not Pertinent Patient has suicidal ideation: No Patient has homicidal ideation: No - Past Medical History Cardiac Medical History: Reports: Hx Coronary Artery Disease, Hx Hypertension Denies: Hx Heart Attack Pulmonary Medical History: Reports: Hx Bronchitis, Hx COPD Denies: Hx Asthma, Hx Pneumonia, Hx Tuberculosis Neurological Medical History: Reports: Hx Cerebrovascular Accident, Hx Seizures - 2 MONTHS. Denies: Hx Migraine Renal/ Medical History: Denies: Hx Peritoneal Dialysis Malignancy Medical History: Reports: Hx Lung Cancer GI Medical History: Reports: Hx Gastroesophageal Reflux Disease Musculoskeletal Medical History: Reports Hx Arthritis, Reports Hx Musculoskeletal Trauma - spinal fx after fall, RECENT SHOULDER FX Skin Medical History: Denies Hx MRSA Psychiatric Medical History: Reports: Hx Dementia, Hx Depression Traumatic Medical History: Reports: Hx Fractures - Right shoulder fracture, spinal fractures after a fall Past Surgical History: Reports: Hx Cardiac Catheterization, Hx Hysterectomy, Hx Nose Surgery, Hx Orthopedic Surgery - back, Hx Vascular Surgery - Port-A-Cath - Immunizations Immunizations up to date: Yes Hx Diphtheria, Pertussis, Tetanus Vaccination: No Hx Pneumococcal Vaccination: 05/07/14 Vertical Provider Document - CONSTITUTIONAL Agree With Documented VS: Yes Notes: GENERAL: Alert, interacts well. No acute distress. HEAD: Normocephalic, atraumatic. EYES: Pupils equal, round, and reactive to light. Extraocular movements intact. ENT: Oral mucosa moist, tongue midline. NECK: Full range of motion. Supple. Trachea midline. LUNGS: Clear to auscultation bilaterally, no wheezes, rales, or rhonchi. No respiratory distress. HEART: Regular rate and rhythm. No murmur ABDOMEN: Soft, non-tender. Non-distended. Bowel sounds present in all 4 quadrants. EXTREMITIES: Moves all 4 extremities spontaneously. normal radial and dorsalis pedis pulses bilaterally. No cyanosis. Full range of motion right wrist, right elbow, right shoulder. Capillary refill less than 2 seconds distally right upper extremity. BACK: no cervical, thoracic, lumbar midline tenderness. No saddle anesthesia, normal distal neurovascular exam. NEUROLOGICAL: Alert and oriented x3. Normal speech. cranial nerves II through XII grossly intact. PSYCH: Normal affect, normal mood. SKIN: Warm, dry, normal turgor. 10cm x 5cm irregularly shaped Non-circumferential erythema noted to the posterior distal aspect of the patient's right forearm. No fluctuance or induration noted. No obvious break in the skin. It is non-excoriated. - INFECTION CONTROL TRAVEL OUTSIDE OF THE [place] IN LAST 30 DAYS: No Course - Re-evaluation Re-evalutation: 11/07/18 01:[address] Avelina Leal who stated he feels as though the pts skin is very dry. Stated that she may have scratched the area and it is now infected. Recommended sending the pt. home on Keflex. Pts XR shows no signed of acute fracture at this time. Stable for d/c. - Vital Signs Vital signs: Temp Pulse Resp BP Pulse Ox 98.2 F 78 16 113/60 11/06/18 23:09 11/06/18 23:09 11/06/18 23:09 11/06/18 23:09 Discharge - Discharge Clinical Impression: Cellulitis Qualifiers: Site of cellulitis: extremity Site of cellulitis of extremity: upper extremity Laterality: right Qualified Code(s): L03.113 - Cellulitis of right upper limb Condition: Stable Disposition: HOME, SELF-CARE Instructions: Cellulitis ([facility]), Cephalexin ([facility]) Additional Instructions: As we discussed you have been seen and treated in the emergency department for a skin in for the anterior right forearm. Your x-rays revealed no signs of fracture at this time. Please take antibiotics as prescribed. Please follow-up with your primary care provider and return to the emergency room for any other concerning symptoms. Prescriptions: Cephalexin Monohydrate [Keflex 500 mg Capsule] 500 mg PO BID 7 Days #14 capsule Referrals: BAKARI TEJADA MD [Primary Care Provider] - Follow up as needed
[2018-11-07 02:59] VITALS: BP 114/68
== END 2018-11-07 03:00 | disposition home or self-care (01) ==
LOC: ER 23:03
DX: L03.113 Cellulitis of right upper limb (principal); M79.631 Pain in right forearm; R20.0 Anesthesia of skin; F17.200 Nicotine dependence, unspecified, uncomplicated
CPT/HCPCS: 99283; 73090; A9270

== ENCOUNTER → 2018-12-17 | Outpatient (CLI) | payer MEDICARE, MEDICAID ==
--- NOTE | 2018-12-18 08:21 | RADIOLOGY REPORT (SQ) ---
EXAM DESCRIPTION: PET CT SKULL/THIGH COMPLETED DATE/TIME: 12/17/2018 8:43 pm REASON FOR STUDY: LUNG CANCER C34.12 MALIGNANT NEOPLASM OF UPPER LOBE, LEFT BRONCHUS OR YAN COMPARISON: PET-CT 08/20/2018, 04/30/2018 RADIONUCLIDE AND DOSE: 11.6 mCi F18 FDG The route of agent administration: Intravenous FASTING BLOOD SUGAR: 83 mg/dl CONTRAST TYPE AND DOSE: No CT contrast given. TECHNIQUE: Blood glucose level was verified. Above dose of FDG was injected intravenously. 2-D seg mented attenuation correction images were obtained from the base of the skull to the midthighs. Nonc ontrast CT images were obtained for attenuation correction and fusion with emission images. CT image s were performed without oral or intravenous contrast and are not sensitive for parenchymal lesions. A series of overlapping emission PET images were obtained. Images reviewed and manipulated at [facility] work station by the radiologist. Images stored on PACS. LIMITATIONS: None. FINDINGS: HEAD AND NECK: No areas of abnormal metabolic activity in the soft tissues of the head and neck. CHEST: No areas of abnormal metabolic activity in the chest. ABDOMEN AND PELVIS: No areas of abnormal metabolic activity in the abdomen or pelvis. Expected physi ologic activity is present in the genitourinary system and bowel. PROXIMAL LOWER EXTREMITIES: No areas of abnormal metabolic activity in the soft tissues of the lower extremities. BONES: No abnormal metabolic activity in the visualized skeleton. ADDITIONAL CT FINDINGS: Chronic left maxillary sinusitis. Old left posterior temporal stroke. Obstr uctive lung disease with stable scarring in the posterior left upper lobe. Right permanent central l ine tip superior vena cava. Thoracic kyphoplasties. Atherosclerotic aortoiliac calcifications. OTHER: No other significant findings. IMPRESSION: No PET-CT evidence of recurrent lung cancer TECHNICAL DOCUMENTATION: JOB ID: [id number] [employer]- All Rights Reserved Reading location - IP/workstation name: [email or web address]
== END ==
LOC: RAD 14:45
PROVIDERS: ATTEND Internal Medicine
DX: C34.12 Malignant neoplasm of upper lobe, left bronchus or lung (principal)
CPT/HCPCS: 78815; A9552

== ENCOUNTER 2019-02-07 03:53 | Emergency (ER) | payer MEDICARE, MEDICAID ==
--- NOTE | 2019-02-07 04:25 | ER Document Report ---
ED General - General Stated Complaint: ALTERED MENTAL STATUS Time Seen by Provider: 02/07/19 04:01 Primary Care Provider: LUPE SHARMA PA [PHYSICIAN MANAGER RISK] - Follow up as needed Notes: Patient is a 73-year-old female that comes to the emergency department for chief complaint of altered mental status. She comes by EMS from home, she lives with her daughter. Family member at bedside states that she was told by daughter that patient was "jerking in the bathroom", they found her unstable and unsteady on her feet, they guided her to the couch. They state that she was shaking her extremities although she was still awake. They state that they gave her her Keppra after they checked her medications and found that she was missing doses. They state that she intermittently would have shaking episodes although she was still awake. They state that she was not responsive like usual and she is now confused and not conversational which is not her baseline. She does have baseline dementia and confusion but is much more oriented and conversational than currently per family members. No fever, vomiting, or sick symptoms reported. No fall or injury reported. Past medical history includes lung cancer, in remission, not on chemotherapy or radiation. She also has a history of CVA which caused some dementia and resulted in occasional seizures per family. On evaluation patient follows commands, she is able to identify her family members, however she is confused otherwise including events, location, time. TRAVEL OUTSIDE OF THE [place] IN LAST 30 DAYS: No - Related Data Allergies/Adverse Reactions: codeine [Codeine] Allergy (Unknown, Verified 02/22/17 10:51) aspirin Allergy (Verified 04/12/18 15:01) Past Medical History - General Information source: Patient - Social History Smoking Status: Never Smoker Frequency of alcohol use: None Drug Abuse: None Lives with: Family Family History: Reviewed & Not Pertinent - Past Medical History Cardiac Medical History: Reports: Hx Coronary Artery Disease, Hx Hypertension Denies: Hx Heart Attack Pulmonary Medical History: Reports: Hx Bronchitis, Hx COPD Denies: Hx Asthma, Hx Pneumonia, Hx Tuberculosis Neurological Medical History: Reports: Hx Cerebrovascular Accident, Hx Seizures - 2 MONTHS. Denies: Hx Migraine Renal/ Medical History: Denies: Hx Peritoneal Dialysis Malignancy Medical History: Reports: Hx Lung Cancer GI Medical History: Reports: Hx Gastroesophageal Reflux Disease Musculoskeletal Medical History: Reports Hx Arthritis, Reports Hx Musculoskeletal Trauma - spinal fx after fall, RECENT SHOULDER FX Skin Medical History: Denies Hx MRSA Psychiatric Medical History: Reports: Hx Dementia, Hx Depression Traumatic Medical History: Reports: Hx Fractures - Right shoulder fracture, spinal fractures after a fall Past Surgical History: Reports: Hx Cardiac Catheterization, Hx Hysterectomy, Hx Nose Surgery, Hx Orthopedic Surgery - back, Hx Vascular Surgery - Port-A-Cath - Immunizations Immunizations up to date: Yes Hx Diphtheria, Pertussis, Tetanus Vaccination: No Hx Pneumococcal Vaccination: 05/07/14 Review of Systems - Review of Systems Constitutional: See HPI EENT: No symptoms reported Cardiovascular: No symptoms reported Respiratory: No symptoms reported Gastrointestinal: No symptoms reported Genitourinary: No symptoms reported Female Genitourinary: No symptoms reported Musculoskeletal: See HPI Skin: No symptoms reported Hematologic/Lymphatic: No symptoms reported Neurological/Psychological: See HPI Physical Exam - Vital signs Vitals: Resp BP Pulse Ox 19 141/72 H 88 L 02/07/19 04:02 02/07/19 04:02 02/07/19 04:02 - Notes Notes: GENERAL: Alert, interacts well. No acute distress. HEAD: Normocephalic, atraumatic. EYES: Pupils equal, round, and reactive to light. Extraocular movements intact. ENT: Oral mucosa moist, tongue midline. Oropharynx unremarkable. Airway patent. Nares patent, no nasal septal hematoma, TM's intact. NECK: Full range of motion. Supple. Trachea midline. LUNGS: Clear to auscultation bilaterally, no wheezes, rales, or rhonchi. No respiratory distress. HEART: Regular rate and rhythm. No murmur ABDOMEN: Soft, non-tender. Non-distended. Bowel sounds present in all 4 quadrants. GENITOURINARY: Deferred EXTREMITIES: Moves all 4 extremities spontaneously. No edema, normal radial and dorsalis pedis pulses bilaterally. No cyanosis. BACK: no cervical, thoracic, lumbar midline tenderness. No saddle anesthesia, normal distal neurovascular exam. NEUROLOGICAL: Alert but only oriented to person and family. Normal speech. Cranial nerves II through XII grossly intact. PSYCH: Normal affect, normal mood. SKIN: Warm, dry, normal turgor. No rashes or lesions noted. Course - Re-evaluation Re-evalutation: Patient is frail but she is alert and otherwise well-appearing. She is conversational but only oriented to person and family. She is cooperative with all commands but cannot tell me any specifics of time, place, or events. Family told me she was having another episode, I observed the patient at bedside with what appears to be jerking motion of the arms, worse on the right, patient appears to be trying to grab the side of the bed. She is alert, still f ollowing commands. Family states that this is consistent with the "episode" that she had at home. I do not see any evidence of seizure. Physical examination is unremarkable otherwise. Initial pulse oxygen was recorded at 88% but I suspect this is inaccurate based on patient's monitoring after this without oxygen. Chest x-ray, CAT scan of the head, laboratory work-up with no acute findings except hypokalemia at 2.7. Magnesium is not low. EKG does not show QT prolongation. Patient with no significant change on reevaluation's. I called and spoke with Dr. Franco, patient's primary provider, he states he is very familiar with this patient, he states that my description is consistent with patient's mental baseline. He recommends that she be given potassium 40 mEq IV, 40 mEq p.o., and a dose of Keppra p.o. He states that he will recheck her potassium tomorrow in the office, patient can be discharged with return precautions. I called and spoke with Sage, patient's son, discussed evaluation, work-up, recommendations. He states satisfaction and agreement with plan. - Vital Signs Vital signs: Temp Pulse Resp BP Pulse Ox 97.7 F 70 21 H 119/54 L 97 02/07/19 04:18 02/07/19 04:18 02/07/19 07:01 02/07/19 07:01 02/07/19 07:01 - Laboratory Result Diagrams: 02/07/19 04:56 02/07/19 04:56 Laboratory results interpreted by me: 02/07/19 02/07/19 04:56 04:56 RDW 15.8 H Plt Count 149 L Potassium 2.7 L* Chloride 118 H Carbon Dioxide 21 L Anion Gap 2 L Creatinine 0.38 L Glucose 71 L Calcium 7.3 L AST 12 L Total Protein 5.8 L Albumin 2.7 L Discharge - Discharge Clinical Impression: Hypokalemia, Tremor Condition: Stable Disposition: HOME, SELF-CARE Additional Instructions: Evaluation shows low potassium but no other concerning findings. The potassium has been supplemented here in the emergency department, this needs to be rechecked tomorrow by Dr. Franco. I did speak to Dr. Franco about the evaluation and work-up today. Return if she worsens including fever, vomiting, difficulty breathing, chest pain, passing out, or any other concerning or worsening symptoms. Referrals: LUPE SHARMA PA [PHYSICIAN MANAGER RISK] - Follow up as needed
--- NOTE | 2019-02-07 04:52 | RADIOLOGY REPORT (SQ) ---
EXAM DESCRIPTION: CT HEAD WITHOUT IV CONTRAST COMPLETED DATE/TME: 02/07/2019 04:16 CLINICAL HISTORY: 73 years, Female, altered mental status COMPARISON: 07/17/2018 TECHNIQUE: Axial CT images of the brain were obtained without contrast. Sagittal and coronal reformats were performed. [facility] [id number] Images stored on PACS. All CT scanners at this facility use dose modulation, iterative reconstruction, and/or weight based dosing when appropriate to reduce radiation dose to as low as reasonably achievable (ALARA). [facility]: Dose Right [facility]: CareDose [facility]: Dose Right [facility]: Teradose 4D [facility]: [employer] LIMITATIONS: None. FINDINGS: Again noted is cephalization along the left parietal, temporal, and occipital lobes. There is diffuse cerebral atrophy with periventricular and deep white matter microvascular changes. There is no acute cortical infarct, hemorrhage, mass, edema, hydrocephalus, or extra-axial fluid collection. The myles-white matter differentiation is preserved. The mastoid air cells are clear. There is near complete opacification of the left maxillary sinus with periosteal changes. There is no acute fracture. IMPRESSION: No significant change compared to the prior exam. No acute intracranial abnormality. Acute on chronic left maxillary sinusitis. TECHNICAL DOCUMENTATION: Quality ID # 436: Final reports with documentation of one or more dose reduction techniques (e.g., Automated exposure control, adjustment of the mA and/or kV according to patient size, use of iterative reconstruction technique) copyright 2011 [employer]- All Rights Reserved
--- NOTE | 2019-02-07 04:55 | RADIOLOGY REPORT (SQ) ---
EXAM DESCRIPTION: XR CHEST 1 VIEW COMPLETED DATE/TME: 02/07/2019 04:16 CLINICAL HISTORY: 73 years Female, altered mental status COMPARISON:Sep 12 2018 NUMBER OF VIEWS/TECHNIQUE: 1/AP FINDINGS: Increased lung volume, clear parenchyma, normal cardiac silhouette, multilevel mid thoracic vertebroplasty, and right miniport central line tip at the cavoatrial junction. IMPRESSION: No acute cardiopulmonary findings.
[2019-02-07 05:07] LABS: ABSOLUTE LYMPHOCYTES (AUTO) 1.3 10^3/uL (0.5-4.7); ABSOLUTE MONOCYTES (AUTO) 0.5 10^3/uL (0.1-1.4); ABSOLUTE NEUT (AUTO) 3.8 10^3/uL (1.7-8.2); BASOPHILS % (AUTO) 0.5 % (0-2); EOSINOPHILS % (AUTO) 0.4 % (0-6); HEMATOCRIT 38.1 % (36.0-47.0); HEMOGLOBIN 13.2 g/dL (12.0-15.5); LYMPHOCYTES % (AUTO) 22.6 % (13-45); MEAN CORPUSCULAR HEMOGLOBIN 29.9 pg (27.0-33.4); MEAN CORPUSCULAR HGB CONC 34.6 g/dL (32.0-36.0); MEAN CORPUSCULAR VOLUME 87 fl (80-97); PLATELET COUNT 149 10^3/uL (150-450); RED BLOOD COUNT 4.41 10^6/uL (3.72-5.28); RED CELL DISTRIBUTION WIDTH 15.8 % (11.5-14.0); SEGMENTED NEUTROPHILS % (AUTO) 67.5 % (42-78); TOTAL CELLS COUNTED % (AUTO) 100 %; WHITE BLOOD COUNT 5.6 10^3/uL (4.0-10.5)
[2019-02-07 05:29] LABS: ALANINE AMINOTRANSFERASE 22 U/L (9-52); ALBUMIN 2.7 g/dL (3.5-5.0); ALKALINE PHOSPHATASE 52 U/L (38-126); ASPARTATE AMINO TRANSFERASE 12 U/L (14-36); BILIRUBIN,DIRECT 0.2 mg/dL (0.0-0.4); BILIRUBIN,TOTAL 0.3 mg/dL (0.2-1.3); BLOOD UREA NITROGEN 8 mg/dL (7-20); CALCIUM 7.3 mg/dL (8.4-10.2); GLUCOSE 71 mg/dL (75-110); TOTAL PROTEIN 5.8 g/dL (6.3-8.2)
[2019-02-07 05:34] LABS: CARBON DIOXIDE 21 mmol/L (22-30); CHLORIDE 118 mmol/L (98-107); SODIUM 140.9 mmol/L (137-145)
[2019-02-07 05:36] LABS: APPEARANCE,URINE SLIGHTLY-CLOUDY; BILIRUBIN,URINE NEGATIVE (NEGATIVE); COLOR,URINE YELLOW; GLUCOSE, URINE NEGATIVE (NEGATIVE); KETONES,URINE NEGATIVE (NEGATIVE); LEUKOCYTE ESTERASE,URINE NEGATIVE (NEGATIVE); NITRITE,URINE NEGATIVE (NEGATIVE); PROTEIN,URINE NEGATIVE (NEGATIVE); URINE SPECIFIC GRAVITY 1.016; UROBILINOGEN,URINE NEGATIVE mg/dL (<2.0)
[2019-02-07 05:38] LABS: ANION GAP 2 (5-19)
[2019-02-07 05:39] LABS: POTASSIUM 2.7 mmol/L (3.6-5.0)
[2019-02-07] MEDS: POTASSI CL 20 MEQ/50 ML RIDER 20 MEQ/50 ML RTUPB IV SCH ×2 (06:11→07:48)
[2019-02-07] MEDS ORDERED: POTASSIUM CHLORIDE 10 MEQ CAPSULE.ER PO ONE (07:06)
[2019-02-07] MEDS ORDERED: LEVETIRACETAM 500 MG TABLET PO ONE (07:06)
[2019-02-07] MEDS ORDERED: POTASSIUM CHLORIDE 20 MEQ PACKET PO ONE ×2 (07:07→11:00)
[2019-02-07] MEDS ORDERED: LEVETIRACETAM ORAL SOLN 500 MG/5 ML UDCUP PO ONE ×2 (07:08→11:00)
--- NOTE | 2019-02-07 07:54 | EKG REPORT ---
SEVERITY:- ABNORMAL ECG - SINUS RHYTHM BORDERLINE RIGHT AXIS DEVIATION NONSPECIFIC T ABNORMALITIES, ANT-LAT LEADS : Confirmed by: Rubio Rodriguez MD 07-Feb-2019 07:54:07
[2019-02-07 10:26] VITALS: BP 114/63
[2019-02-07] MEDS ORDERED: NORMAL SALINE INJ/PF 0.9% 10 ML SDV IV PRN (10:37)
== END 2019-02-07 11:05 | disposition home or self-care (01) ==
LOC: ER 03:53
DX: R41.82 Altered mental status, unspecified (principal); E87.6 Hypokalemia; R25.1 Tremor, unspecified; I25.10 Atherosclerotic heart disease of native coronary artery without angina pectoris; I10 Essential (primary) hypertension; Z86.73 Personal history of transient ischemic attack (TIA), and cerebral infarction without residual deficits; Z85.118 Personal history of other malignant neoplasm of bronchus and lung
CPT/HCPCS: 93005; 36591; 99285; 96365; 96366; 36415; 80177; 83735; 85025; 80053; 81001; 84484; 71045; 70450; 93010; J3490 ×3; J3480

== ENCOUNTER → 2019-04-04 | Outpatient (CLI) | payer MEDICARE, MEDICAID ==
--- NOTE | 2019-04-04 14:34 | RADIOLOGY REPORT (SQ) ---
EXAM DESCRIPTION: CHEST PA/LATERAL COMPLETED DATE/TIME: 04/04/2019 10:20 am REASON FOR STUDY: CHRONIC OBSTRUCTIVE PULMONARY DISEASE, UNSPECIFIED COMPARISON: Chest films 01/16/2019, 09/12/2018 PET-CT 12/17/2018 EXAM PARAMETERS: NUMBER OF VIEWS: two views TECHNIQUE: Digital Frontal and Lateral radiographic views of the chest acquired. RADIATION DOSE: NA LIMITATIONS: none FINDINGS: LUNGS AND PLEURA: Lungs are hyperinflated and hyperlucent but free of focal infiltrates. No pleural effusion. No pneumothorax. MEDIASTINUM AND HILAR STRUCTURES: No masses or contour abnormalities. HEART AND VASCULAR STRUCTURES: Heart normal size. No evidence for failure. BONES: Multiple midthoracic spine kyphoplasties. Bones are osteoporotic HARDWARE: Right-sided permanent central line tip superior vena cava, radiotherapy treatment markers l eft upper lobe. No adjacent soft tissue mass OTHER: No other significant finding. IMPRESSION: Stable hyperinflation and hyperlucency. No acute findings. TECHNICAL DOCUMENTATION: JOB ID: [id number] [employer]- All Rights Reserved Reading location - IP/workstation name: [email or web address]
== END ==
LOC: OD 10:04
PROVIDERS: ATTEND Family Medicine
DX: J44.9 Chronic obstructive pulmonary disease, unspecified (principal)
CPT/HCPCS: 71046

== ENCOUNTER → 2019-07-02 | Outpatient (CLI) | payer MEDICARE, MEDICAID ==
--- NOTE | 2019-07-02 14:10 | RADIOLOGY REPORT (SQ) ---
EXAM DESCRIPTION: CT CHEST WITHOUT COMPLETED DATE/TIME: 07/02/2019 8:48 am REASON FOR STUDY: C34.12 C34.12 MALIGNANT NEOPLASM OF UPPER LOBE, LEFT BRONCHUS OR YAN COMPARISON: CT 11/20/2017 TECHNIQUE: CT scan performed of the chest without intravenous contrast. Images reviewed with lung, soft tissue and bone windows. Reconstructed coronal and sagittal MPR images reviewed. All images st ored on PACS. All CT scanners at this facility use dose modulation, iterative reconstruction, and/or weight based d osing when appropriate to reduce radiation dose to as low as reasonably achievable (ALARA). [facility]: Dose Right [facility]: CareDose [facility]: Dose Right [facility]: Teradose 4D [facility]: [employer] RADIATION DOSE: mGy. LIMITATIONS: No technical limitations. FINDINGS: LUNGS AND PLEURA: Scarring in the left up image 32 series 6. Centrilobular emphysema. No new or recurrent pulmonary mass. HILAR AND MEDIASTINAL STRUCTURES: There are some nonspecific mediastinal nodes. No true adenopathy. HEART AND VASCULAR STRUCTURES: No aneurysm. No pericardial effusion. UPPER ABDOMEN: See separate report of the CT of the abdomen. THYROID AND OTHER SOFT TISSUES: No masses. No adenopathy. BONES: Multilevel compression changes with kyphoplasty. HARDWARE: Surgical clips. OTHER: No other significant findings. IMPRESSION: No evidence or recurrent or metastatic neoplasm. TECHNICAL DOCUMENTATION: JOB ID: [id number] Quality ID # [id number]: Final reports with documentation of one or more dose reduction techniques (e.g., Au tomated exposure control, adjustment of the mA and/or kV according to patient size, use of iterative reconstruction technique) 2010 [employer]- All Rights Reserved Reading location - IP/workstation name: [email or web address]
--- NOTE | 2019-07-02 14:15 | RADIOLOGY REPORT (SQ) ---
EXAM DESCRIPTION: CT ABD/PELVIS NO ORAL OR IV COMPLETED DATE/TIME: 07/02/2019 8:48 am REASON FOR STUDY: C34.12 MALIGNANT NEOPLASM OF UPPER LOBE, LEFT BRONCHUS OR LUNG C34.12 MALIGNANT N EOPLASM OF UPPER LOBE, LEFT BRONCHUS OR YAN COMPARISON: PET-CT 12/17/2018 TECHNIQUE: CT scan of the abdomen and pelvis performed without intravenous or oral contrast. Images reviewed with lung, soft tissue, and bone windows. Reconstructed coronal and sagittal MPR images revi ewed. All images stored on PACS. All CT scanners at this facility use dose modulation, iterative reconstruction, and/or weight based d osing when appropriate to reduce radiation dose to as low as reasonably achievable (ALARA). [facility]: Dose Right [facility]: CareDose [facility]: Dose Right [facility]: Teradose 4D [facility]: Smart [employer] RADIATION DOSE: CT Rad equipment meets quality standard of care and radiation dose reduction techniq ues were employed. CTDIvol: 4.4 - 4.5 mGy. DLP: 348 mGy-cm.mGy. LIMITATIONS: None. FINDINGS: LOWER CHEST: See separate report of the CT of the chest. NON-CONTRASTED LIVER, SPLEEN, ADRENALS: Evaluation limited by lack of IV contrast. No identified sign ificant masses. PANCREAS: No masses. No peripancreatic inflammatory changes. GALLBLADDER: No identified stones by CT criteria. No inflammatory changes to suggest cholecystitis. RIGHT KIDNEY AND URETER: No suspicious masses. Assessment limited by lack of IV contrast. No signif icant calcifications. No hydronephrosis or hydroureter. LEFT KIDNEY AND URETER: No suspicious masses. Assessment limited by lack of IV contrast. No signifi cant calcifications. No hydronephrosis or hydroureter. AORTA AND RETROPERITONEUM: No aneurysm. Extensive atherosclerosis in the aorta and iliac vessels. T here is fairly dense atherosclerosis in the origin of the left renal artery. BOWEL AND PERITONEAL CAVITY: Sigmoid diverticulosis with no associated inflammation. No obvious christen l mass. APPENDIX: Not identified. PELVIS, BLADDER, AND ABDOMINAL WALL:No abnormal masses. No free fluid. Bladder normal. BONES: Multilevel compression changes in the lumbar spine, likely chronic. OTHER: No other significant finding. IMPRESSION: There is no evidence of metastatic disease in the abdomen or pelvis. There is considera ble atherosclerotic disease. Multilevel compression changes are present in the lumbar spine. COMMENT: Quality ID # 436: Final reports with documentation of one or more dose reduction techniques (e.g., Automated exposure control, adjustment of the mA and/or kV according to patient size, use of iterative reconstruction technique) TECHNICAL DOCUMENTATION: JOB ID: [id number] [employer]- All Rights Reserved Reading location - IP/workstation name: [email or web address]
== END ==
LOC: RAD 08:19
PROVIDERS: ATTEND Physician Assistant Medical
DX: C34.12 Malignant neoplasm of upper lobe, left bronchus or lung (principal)
CPT/HCPCS: 71250; 74176

== ENCOUNTER 2019-08-22 22:48 | Emergency (ER) | payer MEDICARE, MEDICAID ==
[2019-08-22] MEDS ORDERED: MIDAZOLAM 2 MG/2 ML INJ ONE (22:57)
[2019-08-22] MEDS ORDERED: MIDAZOLAM 2 MG/2 ML INJ IV ONE (23:04)
[2019-08-22] MEDS ORDERED: LEVETIRACETAM 1000 MG/NACL-ISO 1,000 MG/100 ML RTUPB IV ONE ×2 (23:15→23:18)
--- NOTE | 2019-08-22 23:38 | ER Document Report ---
ED General - General Chief Complaint: Seizure Stated Complaint: SEIZURE Time Seen by Provider: 08/22/19 23:18 Primary Care Provider: DANIELLE WAGGONER PA-C [ALLIED HEALTH PROFESSIONAL] - Follow up as needed Mode of Arrival: Medic Information source: Relative TRAVEL OUTSIDE OF THE [place] IN LAST 30 DAYS: No - HPI Notes: Mary Grace Ayers is 74 BF with h/o WaldenStrom's macroglobulinemia which had in the past required intermittent plasmaphereses though which has not been needed over the last few months now, more remote lung cancer in remission per family for over a year, One son left for work at 6 PM and says at that time she was acting her usual self up and about. the other son who was still at home sunil found her having a generalized tonic-clonic seizure which they reported as lasting "20 minutes before EMS arrived EMS said she was not seizing when they picked her up but did have some tonic-clonic activity in route and so they gave her 2-/2 Versed which abated muscle contractions but she continued to have eye deviation to the left and some rhythmic jaw clenching. One EMS provider said that she seemed she was trying to answer 1 of his questions but could not get it out, and EMS noted that the brief seizure in route was one-sided with tonic-clonic activity mainly in the left upper extremity with eye deviation to the left. Blood pressure was 130s, heart rate 110s, initial glucose within normal limits. Family say she had not been clinic complaining of any pain her last seizure was over a month ago and she has been compliant with her Keppra. And that she has not needed any plasmapheresis in quite some time now". Initial information obtained from 2 sons. Daughter was able to give more history once she was able to arrive and says mom's last seizure was months ago in past breakthrough seizures have been usually found secondary to noncompliance with her Keppra at home. Daughter says she used to live with her mom and 2 brothers but she has her own family and has been seeing her mom less. She says she and her brothers have discussed that even though mom does usually take care of her on self they still need to be checking and making sure she is taking her Keppra because at times she will suddenly have the belief that she does not need a medicine and will independently decide to stop it. So it is pretty recent that much of any supervision relies on be the brothers that she is still doing well. Daughter feels it is still the case though that they still expect her to oversee much of what is going on with their mom's health - Related Data Allergies/Adverse Reactions: codeine [Codeine] Allergy (Unknown, Verified 02/22/17 10:51) aspirin Allergy (Verified 04/12/18 15:01) Past Medical History - General Information source: Relative - Social History Smoking Status: Unknown if Ever Smoked Lives with: Family - Per daughter at baseline ambulatory able to take her own meds manage her own meds eats well. Daughter denies knowing mom ever using alcohol or other illicit or other ogrk-fnf-wpdezti substances. She does not drive. Sometimes cooks dinner still. Family History: Reviewed & Not Pertinent - Past Medical History Cardiac Medical History: Reports: Hx Coronary Artery Disease, Hx Hypertension Denies: Hx Heart Attack Pulmonary Medical History: Reports: Hx Bronchitis, Hx COPD Denies: Hx Asthma, Hx Pneumonia, Hx Tuberculosis Neurological Medical History: Reports: Hx Cerebrovascular Accident, Hx Seizures. Denies: Hx Migraine Renal/ Medical History: Denies: Hx Peritoneal Dialysis Malignancy Medical History: Reports: Hx Lung Cancer GI Medical History: Reports: Hx Gastroesophageal Reflux Disease Musculoskeletal Medical History: Reports Hx Arthritis, Reports Hx Musculoskeletal Trauma - spinal fx after fall, RECENT SHOULDER FX Skin Medical History: Denies Hx MRSA Psychiatric Medical History: Reports: Hx Dementia, Hx Depression Traumatic Medical History: Reports: Hx Fractures - Right shoulder fracture, spinal fractures after a fall Past Surgical History: Reports: Hx Cardiac Catheterization, Hx Hysterectomy, Hx Nose Surgery, Hx Orthopedic Surgery - back, Hx Vascular Surgery - Port-A-Cath for when she was requiring plasmapheresis for macroglobinanemia - Immunizations Immunizations up to date: Yes Hx Diphtheria, Pertussis, Tetanus Vaccination: No Hx Pneumococcal Vaccination: 05/07/14 Review of Systems - Review of Systems -: Yes ROS unobtainable due to patient's medical condition - Supplied by 2 sons and then further by daughter Constitutional: See HPI. denies: Diaphoresis, Fever, Weakness, Weight gain, Weight loss, Recent illness EENT: denies: Ear discharge, Nose discharge, Difficulty swallowing, Vertigo Cardiovascular: denies: Chest pain, Palpitations, Orthopnea, Dyspnea, Syncope, Dizziness, Lightheaded, Paroxysmal Nocturnal Dysp Respiratory: denies: Cough, Hemoptysis, Short of breath, Stridor Gastrointestinal: denies: Abdomen distended, Abdominal pain, Diarrhea, Vomiting, Poor appetite, Poor fluid intake Genitourinary: denies: Incontinence, Pain Female Genitourinary: denies: Vaginal bleeding Musculoskeletal: denies: Back pain, Joint swelling, Muscle pain, Muscle stiffness, Neck pain, Leg swelling Skin: denies: Rash Hematologic/Lymphatic: denies: Easy bleeding, Easy bruising, Enlarged lymph nodes Neurological/Psychological: denies: Confusion, Dementia, Depression, Hallucinations, Homicidal ideation, Gait changes - Did not get into detailed history of falls but family deny that she had increased her very recent falls, Headaches, Suicidal ideation, Tremor Physical Exam - Vital signs Vitals: Resp 23 H 08/22/19 22:53 Notes: Initially very mildly tachypneic breathing spontaneously without other evidence of increased work of breathing no hypoxia. Afebrile. BP WNL. Symmetric B/L chest rise. - General Notes: Symmetric b/l chest rise w/ spontaneous respirations initial tachypnea resolved and within normal limits for hours while still in the ED being observed after seizure activity resolved and was improving slowly postictally. On auscultation no gross WRR or focal findings. +symmetric full BS heard all post/lateral/ant lung bennett. - HEENT Head: Normocephalic, Atraumatic. No: Abrasions, Ecchymosis, Open wounds Eyes: No: Pale conjunctiva, Scleral icterus Conjunctiva: No: Injected, Purulent discharge - Respiratory Respiratory status: No: Agonal respirations, Cyanosis, Depressed respirations, Pursed lip breathing, Retractions Chest status: No: Tender, Ecchymosis, Wounds, Splinting - Cardiovascular Notes: All ext WWP, pulses symmetric RRR easily palpable and symmetric at distal UE/LE. No peripheral/truncal edema or color changes to suggest PVD. No JVD w/ HOB @ 30 deg. Quiet precordium w/o heaves/lifts. On auscultation no gross MRG. - Abdominal Notes: Benign exam. No distention/color changes/obvious masses. Nontender to deep palpation all 4 quadrants, no palpable masses or OMG. - Genitourinary Notes: No suprapubic distention or ttp. Clear urine per straight cath specimen No gross ttp or palpable masses at CVA or inguinal regions b/l. - Back Back: No: Deformity/step-off, Wounds - Extremities Notes: ___MSK:___Thin, overall decreased muscle bulk not does have some signs of frai lty though no evidence of central atrophy or skin breakdown and no evidence of acute gross joint or bony deformities. - Neurological Notes: On arrival exam: Breathing spontaneously not responsive to voice or following commands. No intentional movements, localizes to moderate to deep physical stimuli all extremities . Neck rotated slightly to left, + subtle repetitive jaw clenching. Upper and lower extremities slightly increased in tone mild flexion but without alternating tonic-clonic activity. Eyes open but deviated to left. Not blinking to threat in any field. pupils 5mm ERRL. No clonus evident on forced ankle plantarflexion. Downgoing Babinski bilaterally - Psychological Associated symptoms: Other - Could not obtain because patient initially seizing and then still postictal though clearing at time of signout - Skin Skin Temperature: Warm - No overlying erythema or drainage surrounding right chest wall Port-A-Cath site Skin Color: negative: Ecchymosis Skin irregularity: negative: Decubitus ulcer Course - Re-evaluation Re-evalutation: 09/06/19 17:20 Given patient's eye and neck deviation to the left slight increase in tone in extremities and repetitive jaw clenching on arrival even though EMS had just given 2 mg of Versed and report seizure resolution of more generalized tonic- clonic activity I feel the patient is still seizing and is not responsive. Initial POC glucose WNL. Patient given another 2 mg of Versed. Continued to have spontaneous respirations. Vital signs remained stable and patient states to have above signs of seizure subclinical on exam. CTH shows no new findings and no blood. Over minutes and then for hours while observed in the ED patient drowsy but arousable moving all extremities with intention nonverbal still slowly patient intermittently responded verbally to daughter is ED observation continued sent Keppra level which is send out and will daughter understands be something her neurologist and PCP will need to review. At time of signout continuing to let patient post ictal state clear. Team will call family before end of shift and reassess patient's ability to stand bear weight and her vital signs and sensorium and behavior prior to discharge confirming that she is nearing her baseline per family and that they understand importance of plan to continue Keppra and follow-up soon with her primary care doctor and neurologist and electronics inspector (though no gross abnormalities in any of her other blood work today. Metabolic panel derangements consistent with recent seizure. - Vital Signs Vital signs: Temp Pulse Resp BP Pulse Ox 98.4 F 23 H 128/78 H 100 08/23/19 08:00 08/23/19 08:00 08/23/19 08:00 08/23/19 07:01 - Laboratory Result Diagrams: 08/22/19 23:02 08/22/19 23:02 Laboratory results interpreted by me: 08/22/19 08/22/19 08/22/19 22:59 23:02 23:02 RDW 14.8 H Carbon Dioxide 15 L Anion Gap 23 H BUN 6 L Glucose 121 H POC Glucose 139 H Ammonia Total Protein 9.0 H TSH 08/22/19 08/22/19 23:02 23:02 RDW Carbon Dioxide Anion Gap BUN Glucose POC Glucose Ammonia 78.7 H Total Protein TSH 10.60 H - Diagnostic Test Radiology reviewed: Image reviewed - viewed CT head images CT spine images and single AP chest x-ray image as well as reviewed radiology interpretations., Reports reviewed Radiology results interpreted by me: 09/06/19 17:15 Alergies codeine [Codeine] Allergy (Unknown, Verified 02/22/17 10:51) aspirin Allergy (Verified 04/12/18 15:01) Patient Prescrptions Gabapentin [Neurontin 300 mg Capsule] 600 mg PO Q8 11/21/17 Metoprolol Succinate [Toprol Xl 25 mg Tab.sr] 25 mg PO DAILY 11/21/17 Levetiracetam [Keppra 500 mg Tablet] 1,500 mg PO Q12 #60 tablet 11/23/17 Oxycodone HCl/Acetaminophen [Percocet 5-325 mg Tablet] 1 tab PO Q6HP PRN #10 tablet 04/12/18 Walker [Folding Walker] 1 each MC ASDIR PRN #1 each 04/12/18 Cephalexin Monohydrate [Keflex 500 mg Capsule] 500 mg PO BID 7 Days #14 capsule 11/07/18 Clinical Data Isolation Standard IV? Yes : No Please enter food consistency: Regular Consistency Please choose liquid type: Regular Liquids Discharge Information ED Provider: JESS LEGGETT Status: Discharge Time Seen by Provider: 08/22/19 23:18 Condition: Stable Triaged At: 08/22/19 22:48 Emergency Discharge Date/Time: 08/23/19 08:20 Emergency Discharge Disposition: HOME, SELF-CARE Clinical Impression Seizure Post-ictal state 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 Emergency Discharge Comment: Discharge Intervention Last Done Vital Signs (ED) 08/23/19 06:30 Query Result Temperature 98.3 F Temperature Source Oral Discharge Documentation 08/23/19 08:28 Query Result Condition at discharge Improved IV removed Yes Pain Level 0 Vital signs performed within 30 minutes Yes of discharge? DC Transport Method Personal Vehicle DC Method Wheelchair Discharge instructions given to patient/family Verbalized understanding of discharge Yes instructions Notes Angela HOANG provides d/c instructions to patient and family. Pt to wheelchair with 2 person assist and wheeled out of ED. Breahtes even and unlabored, family present. Left Without Being Seen (LWBS) Left Against Medical Advice (AMA)/Eloped Instructions: Seizure, Known Epileptic ([facility]) Stand-Alone Forms: Prescriptions: Visit Report - Forms: - Referrals: DANIELLE WAGGONER PA-C (ALLIED HEALTH PROFESSIONAL) - Follow up as needed - Additional text: Please follow-up as soon as possible with primary care physician and discuss strategies for family being able to ensure and continue to ensure patient is taking her actual meds every day since there are multiple strategies to be able to achieve this. We will not have the Kejudsonra level back tonight but her provider can call for that result. Please ensure in the next few days she does take all her medications as prescribed though please return obviously if she has any breakthrough seizures or fevers chills sweats or change in mental status or other concerns. Medications Discontinued Medications Generic Name Dose Route Start Last Admin Trade Name Freq PRN Reason Stop Dose Admin Levetiracetam Confirm 08/22/19 23:15 08/22/19 23:32 Keppra Rtu 1000 Mg/Nacl-Iso 100 Ml Premix Administered 08/22/19 23:16 Not Given Dose 1,000 mg in 100 mls @ ud IV .STK-MED ONE Levetiracetam 1,000 mg in 100 mls @ 400 mls/hr 08/22/19 23:18 08/22/19 23:46 Keppra Rtu 1000 Mg/Nacl-Iso 100 Ml Premix IV 08/22/19 23:32 Infused NOW ONE Infusion Midazolam HCl Confirm 08/22/19 22:57 08/22/19 23:06 Versed 2 Mg/2 Ml Inj Administered 08/22/19 22:58 Not Given Dose 2 mg .ROUTE .STK-MED ONE Midazolam HCl 2 mg 08/22/19 23:04 08/22/19 23:05 Versed 2 Mg/2 Ml Inj IV 08/22/19 23:05 2 mg NOW ONE Administration Nursing Notes 08/23/19 06:30 (created 08/23/19 06:46) ED Nursing Note by COLLIN LAU This RN and K Jaclyn PCT assist pt to stand and ambulate to chair. Pt needs assistance when standing and ambulating, but this RN is told this is pt's baseline. Pt is able to maintain alertness to ambulate. Pt states "I just want to go back to bed. I'm tired." Dr. Car informed. Provider states to call daughter for ride home. This RN speaks with Carmelina, pt's daughter, who states she can be at the ED to apple picker the pt is approximately 45-60 min Initialized on 08/23/19 06:46 - END OF NOTE 08/23/19 05:14 ED Nursing Note by COLLIN LAU RN and K Jaclyn PCT at bedside to clean pt, place brief, and change linens. Pt able to lift buttocks from stretcher to pull pants on and off. Dr. Morgan at bedside to assess pt with standing. This RN and PCT Jaclyn assist pt to standing position, but pt states multiple times "NO, I don't want to. I can't". Dr. Morgan states to try to ambulate pt again a little later. If pt is able to stand and take a few steps, this RN is to call pt's daughter to pick her up. Will continue to monitor Initialized on 08/23/19 05:14 - END OF NOTE 08/23/19 04:51 ED Nursing Note by COLLIN LAU RN at bedside. Pt is roused to verbal stimuli after 2 attempts of saying pt's name. Pt makes eye contact with this RN and states she has to urinate. Pt is able to place thermometer under tongue for temp. This RN will assist pt with bedpan and continue to monitor Initialized on 08/23/19 04:51 - END OF NOTE 08/23/19 02:01 ED Nursing Note by OSBALDO ELAM pt's daughter at bedside, informed that pt will remain in ed until out of the post itcal state. daughter's number written on dry erase board. Initialized on 08/23/19 02:01 - END OF NOTE 08/23/19 01:32 ED PCT Note by TANNER SAUCEDO red top drawn and sent to the lab [id number] Initialized on 08/23/19 01:32 - END OF NOTE 08/22/19 23:13 ED Nursing Note by ANJU HWANG pt arrived via EMS on stretcher eyes opened pursed lip breathing, eyes not tracking with blank stare. EMS reports pt came from home. Family called EMS due to pt having a 20 min long seizure. EMS did not witness seizure. pt placed in truck when pt had second seizure in truck witnessed by EMS pt was given 2.5 mg of versed by ems which immediately stopped seizure activity per EMS. Pt pupils not reactive to light. pt breathing even and unlabored. pulse ox 100 % RA pt placed on cardiac monitors. Dr Leggett at beside. Initialized on 08/22/19 23:13 - END OF NOTE Orders 08/22/19 CT CERVICAL SPINE WITHOUT [CT] Stat CT HEAD WITHOUT [CT] Stat 08/22/19 22:57 Midazolam HCl [Versed 2 mg/2 ml Inj] 2 mg .ROUTE .STK-MED ONE 08/22/19 23:02 AMMONIA [CHEM] Stat CBC WITH DIFF [HEME] Stat CMP [COMPREHENSIVE METABOLIC PANEL] [CHEM] Stat LIPASE [CHEM] Stat PARTIAL THROMBOPLASTIN TIME [COAG] Stat PROTHROMBIN TIME/INR [COAG] Stat THYROID STIMULATING HORMONE [CHEM] Stat TROPONIN I [CHEM] Stat 08/22/19 23:04 Midazolam HCl [Versed 2 mg/2 ml Inj] 2 mg IV NOW ONE 08/22/19 23:15 Levetiracetam 1000 mg/NaCl-Iso [Keppra RTU 1000 mg/NaCl-Iso 100 ml Premix] 1,000 mg in 100 ml IV .STK-MED 08/22/19 23:18 Levetiracetam 1000 mg/NaCl-Iso [Keppra RTU 1000 mg/NaCl-Iso 100 ml Premix] 1,000 mg in 100 ml IV NOW 08/23/19 00:21 CHEST SINGLE VIEW [RAD] Stat 08/23/19 04:50 LEVETIRACETAM (KEPPRA) Stat Vital Signs Temp Resp BP Pulse Ox 08/23/19 08:00 98.4 F 23 H 128/78 H 08/23/19 07:01 20 129/59 H 100 08/23/19 07:00 20 100 08/23/19 06:30 98.3 F 08/23/19 06:01 17 116/59 L 98 08/23/19 06:00 18 97 08/23/19 05:12 17 124/65 99 08/23/19 05:11 19 97 08/23/19 05:04 19 08/23/19 04:51 98.3 F 08/23/19 04:01 19 143/69 H 99 08/23/19 04:00 19 99 08/23/19 03:18 21 H 139/73 H 100 08/23/19 03:17 19 99 08/23/19 03:00 20 100 08/23/19 02:00 19 100 08/23/19 01:00 19 08/23/19 00:01 24 H 120/76 95 08/23/19 00:00 18 97 08/22/19 23:30 22 H 08/22/19 23:01 26 H 135/90 H 08/22/19 23:00 25 H 08/22/19 22:54 23 H 136/82 H 08/22/19 22:53 23 H Assessments/Treatments *Supply Charge Start: 08/22/19 22:48 Freq: PRN Status: Discharge Protocol: Activity Type Activity Date Activity User E-Sign Co-Sign Detail Recorded Client Recorded Date Recorded By Document 08/22/19 22:48 [id number] 08/22/19 23:09 LOI 08/22/19 22:48 Cardiac Lead Wire Cardiac Lead Wire Charge Initial Placement - Cardiac Lead Wire O2 Sensor Charges ADULT O2 Sensor Charge Initial Placement - Adult O2 Sensor *Budder CAPTURE Start: 08/22/19 22:48 Freq: Status: Discharge Protocol: Activity Type Activity Date Activity User E-Sign Co-Sign Detail Recorded Client Recorded Date Recorded By Document 08/22/19 22:53 [facility] [id number] 08/22/19 23:31 [facility] Document 08/22/19 22:54 [facility] [id number] 08/22/19 23:31 [facility] Document 08/22/19 23:00 [facility] [id number] 08/22/19 23:31 [facility] Document 08/22/19 23:01 [facility] [id number] 08/22/19 23:31 [facility] Document 08/22/19 23:30 LUCY [email or web address] 08/23/19 03:30 LUCY Document 08/23/19 00:00 LUCY [email or web address] 08/23/19 03:30 LUCY Document 08/23/19 00:01 LUCY [email or web address] 08/23/19 03:30 LUCY Document 08/23/19 01:00 LUCY [email or web address] 08/23/19 03:30 LUCY Document 08/23/19 02:00 LUCY [email or web address] 08/23/19 03:30 LUCY Document 08/23/19 03:00 LUCY [email or web address] 08/23/19 03:30 LUCY Document 08/23/19 03:17 LUCY [email or web address] 08/23/19 03:30 LUCY Document 08/23/19 03:18 LUCY [email or web address] 08/23/19 03:30 LUCY Document 08/23/19 04:00 KGR ECART_ED_06 08/23/19 04:34 KGR Document 08/23/19 04:01 KGR ECART_ED_06 08/23/19 04:34 KGR Document 08/23/19 05:04 KGR ECART_ED_06 08/23/19 05:17 KGR Document 08/23/19 05:11 KGR ECART_ED_06 08/23/19 05:17 KGR Document 08/23/19 05:12 KGR ECART_ED_06 08/23/19 05:17 KGR Document 08/23/19 06:00 KGR ECART_ED_06 08/23/19 06:56 KGR Document 08/23/19 06:01 KGR ECART_ED_06 08/23/19 06:56 KGR Document 08/23/19 07:00 LAD [email or web address] 08/23/19 08:02 LAD Document 08/23/19 07:01 LAD [email or web address] 08/23/19 08:02 LAD Document 08/23/19 08:00 LAD [email or web address] 08/23/19 08:02 LAD 08/22/19 08/22/19 08/22/19 22:53 22:54 23:00 Temperature (97.0 F-100.4 F) ED Monitor Capture Heart Rate (Monitors) 120 120 125 Respiratory Rate (12-20) 23 23 25 Pulse Oximetry (92-100) Blood Pressure (100/60-125/85) 136/82 Blood Pressure Mean (mm Hg) 100 08/22/19 08/22/19 08/23/19 23:01 23:30 00:00 Temperature (97.0 F-100.4 F) ED Monitor Capture Heart Rate (Monitors) 124 89 101 Respiratory Rate (12-20) 26 22 18 Pulse Oximetry (92-100) 97 Blood Pressure (100/60-125/85) 135/90 Blood Pressure Mean (mm Hg) 105 08/23/19 08/23/19 08/23/19 00:01 01:00 02:00 Temperature (97.0 F-100.4 F) ED Monitor Capture Heart Rate (Monitors) 81 72 69 Respiratory Rate (12-20) 24 19 19 Pulse Oximetry (92-100) 95 100 Blood Pressure (100/60-125/85) 120/76 Blood Pressure Mean (mm Hg) 90 08/23/19 08/23/19 08/23/19 03:00 03:17 03:18 Temperature (97.0 F-100.4 F) ED Monitor Capture Heart Rate (Monitors) 64 64 69 Respiratory Rate (12-20) 20 19 21 Pulse Oximetry (92-100) 100 99 100 Blood Pressure (100/60-125/85) 139/73 Blood Pressure Mean (mm Hg) 95 08/23/19 08/23/19 08/23/19 04:00 04:01 05:04 Temperature (97.0 F-100.4 F) ED Monitor Capture Heart Rate (Monitors) 64 74 88 Respiratory Rate (12-20) 19 19 19 Pulse Oximetry (92-100) 99 99 Blood Pressure (100/60-125/85) 143/69 Blood Pressure Mean (mm Hg) 93 08/23/19 08/23/19 08/23/19 05:11 05:12 06:00 Temperature (97.0 F-100.4 F) ED Monitor Capture Heart Rate (Monitors) 97 83 70 Respiratory Rate (12-20) 19 17 18 Pulse Oximetry (92-100) 97 99 97 Blood Pressure (100/60-125/85) 124/65 Blood Pressure Mean (mm Hg) 84 08/23/19 08/23/19 08/23/19 06:01 07:00 07:01 Temperature (97.0 F-100.4 F) ED Monitor Capture Heart Rate (Monitors) 69 67 68 Respiratory Rate (12-20) 17 20 20 Pulse Oximetry (92-100) 98 100 100 Blood Pressure (100/60-125/85) 116/59 129/59 Blood Pressure Mean (mm Hg) 78 82 08/23/19 08:00 Temperature (97.0 F-100.4 F) 98.4 F ED Monitor Capture Heart Rate (Monitors) 106 Respiratory Rate (12-20) 23 Pulse Oximetry (92-100) Blood Pressure (100/60-125/85) 128/78 Blood Pressure Mean (mm Hg) 94 AccuChek (ED PCT) Start: 08/22/19 23:01 Freq: NOW Status: Discharge Protocol: Activity Type Activity Date Activity User E-Sign Co-Sign Detail Recorded Client Recorded Date Recorded By Document 08/22/19 23:01 [facility] [id number] 08/22/19 23:02 [facility] 08/22/19 23:01 AccuChek Verification AccuChek Performed Yes AccuChek Results Range (31-549) AccuChek Result (mg/dL) 137 Accucheck Provider notified JESS LEGGETT Time of notification 23:02 Orders received Yes Blood Drawn Start: 08/22/19 22:48 Freq: Status: Discharge Protocol: Activity Type Activity Date Activity User E-Sign Co-Sign Detail Recorded Client Recorded Date Recorded By Document 08/22/19 22:48 [facility] [id number] 08/22/19 23:31 [facility] 08/22/19 22:48 Blood Drawn Blood Draw Blood drawn/ sent to lab Collect Specimen: [id number] (KEPPRA) Start: 08/23/19 03:50 Freq: ONCE Status: Complete Protocol: Activity Type Activity Date Activity User E-Sign Co-Sign Detail Recorded Client Recorded Date Recorded By Document 08/23/19 03:50 KGR [email or web address] 08/23/19 04:21 KGR Discharge Documentation Start: 08/22/19 22:48 Freq: Status: Discharge Protocol: Activity Type Activity Date Activity User E-Sign Co-Sign Detail Recorded Client Recorded Date Recorded By Document 08/23/19 08:28 KMI [email or web address] 08/23/19 08:29 KMI 08/23/19 08:28 Discharge Documentation Condition at discharge Improved IV removed Yes Pain Level 0 Vital signs performed within 30 minutes Yes of discharge? DC Transport Method Private Vehicle Patient Discharged Via Wheelchair Discharge instructions given to patient/family Verbalized understanding of discharge Yes instructions Notes Angela RN provides d/c instructions to patient and family. Pt to wheelchair with 2 person assist and wheeled out of ED. Breahtes even and unlabored, family present. ED Hourly ROUNDS - Nursing Start: 08/22/19 22:48 Freq: 0100,0300,0500,0700,0900,1100,1300,1500,1700,1900,2100,2300 Status: Discharge Protocol: Activity Type Activity Date Activity User E-Sign Co-Sign Detail Recorded Client Recorded Date Recorded By Document 08/23/19 03:20 KGR ECART_ED_06 08/23/19 04:38 KGR Document 08/23/19 05:00 KGR ECART_ED_06 08/23/19 06:53 KGR Document 08/23/19 07:19 KGR ECART_ED_06 08/23/19 07:19 KGR 08/23/19 08/23/19 08/23/19 03:20 05:00 07:19 Hourly Rounding Report Given To Jerome Lau RN Gabbie Llanos RN Report Received From Madelaine Lau RN Report Via In Person In Person R - Are You Comfortable? Yes Yes O - Other Side (Does Patient Need to No No Turn?) U - Use the Bathroom (Does Patient Need No No Assistance)? N - Need Anything? No No D - Door/Curtain Open or Closed for Door - Open Door - Open Privacy? S - Safety (Call Narayan Will Reach and No Yes Yes Tripping Hazards)? Patient Location Patient in Room Patient in Room Patient Position Supine Right Side Patient Activity Resting Resting Peacefully Peacefully Patient Condition Stable,Breathes Stable,Breathes Even & Even & Unlabored Unlabored Patient Distribution Spec Present No No HPI- Seizure Start: 08/22/19 22:48 Freq: Q12H Status: Discharge Protocol: Activity Type Activity Date Activity User E-Sign Co-Sign Detail Recorded Client Recorded Date Recorded By Document 08/22/19 22:48 [facility] [id number] 08/22/19 23:30 [facility] 08/22/19 22:48 HPI- Seizure Seizure information Hx of seizure disorder Multiple episodes (if yes when they Yes: approx started) 2200 When was most recent episode 30 min ago Duration 1 min Continued on arrival to ED No Can details of seizure be obtained/ Yes verified Episode witnessed (by whom) Yes: EMS Lost consciousness Yes Unresponsive Partially Motor activity Generalized " shaking", Staring Other post-ictal symptoms staring Overall pain level Denies ED Focused Assessment ROS below otherwise negative Yes Fever No Chills No Seeking Treatment Today For No Mental Health Issues Eye Opening Spontaneous Verbal Response None Motor Response None GCS Total (15 points) 6 Medical/Surgical History Hx Arthritis Yes Hx Asthma No Hx Bronchitis Yes Hx Chronic Obstructive Pulmonary Disease Yes (COPD) Hx Depression Yes Hx Gastroesophageal Reflux Disease Yes Hx Heart Attack No Hx Hypertension Yes Hx Migraine No Hx Pneumonia No Hx Seizures Yes: 2 MONTHS Hx Tuberculosis No Hx Cardiac Catheterization Yes Hx Hysterectomy Yes Hx Nose Surgery Yes Hx Orthopedic Surgery Yes: back Hx Vascular Surgery Yes: Port-A- Cath 08/22/19 23:13 ED Nursing Note by ANJU HWANG pt arrived via EMS on stretcher eyes opened pursed lip breathing, eyes not tracking with blank stare. EMS reports pt came from home. Family called EMS due to pt having a 20 min long seizure. EMS did not witness seizure. pt placed in truck when pt had second seizure in truck witnessed by EMS pt was given 2.5 mg of versed by ems which immediately stopped seizure activity per EMS. Pt pupils not reactive to light. pt breathing even and unlabored. pulse ox 100 % RA pt placed on cardiac monitors. Dr Leggett at [facility]. Initialized on 08/22/19 23:13 - END OF NOTE Outpatient Fall Risk Assessment Start: 08/22/19 22:48 Freq: NOW, Q12H Status: Discharge Protocol: Activity Type Activity Date Activity User E-Sign Co-Sign Detail Recorded Client Recorded Date Recorded By Document 08/22/19 22:48 [facility] [id number] 08/22/19 23:30 [facility] 08/22/19 22:48 Outpatient Fall Risk Assessment History of Falling (immediate or Yes previous) Secondary Diagnosis (more than 2 medical Yes diagnoses in chart) Ambulatory Aid None/bed rest/ nurse assist IV/Heparin Lock No Gait/Transferring Impaired Mental Status Forgets limitations Hoffman Fall Scale Score 75 Hoffman Fall Scale Risk Level High Fall Risk Hoffman Fall Scale Action Implement High Fall Risk Precautions Mod/High Fall Risk Precautions Provide call light within reach and ask patient to demo use,Provide adequate lighting in patient's room, Make sure patient's belongings are within reach, Keep bed brakes locked,Keep bed in low position,Side rail position as appropriate, up for all sedated patients Procedures Start: 08/22/19 22:48 Freq: Status: Discharge Protocol: Activity Type Activity Date Activity User E-Sign Co-Sign Detail Recorded Client Recorded Date Recorded By Document 08/23/19 01:30 MLA ECART_ED_05 08/23/19 02:01 MLA 08/23/19 01:30 Procedures Notes while securing iv that ems had placed, pt moved, iv to rigth forearm came out. new iv placed, flushes without difficulty, and secured. Blood Draw Blood drawn/ sent to lab Right Hand -Was IV started prior to arrival No -IV Catheter Type Saline Lock -IV Catheter Gauge (gauge) 24 -IV started using aseptic technique Yes -Redness or swelling noted at the site No -IV site patent/flushes without Yes difficulty -Dressing applied and catheter secured Yes -Number of attempts 1 -Was IV insertion US guided? No Triage Assessment Start: 08/22/19 22:48 Freq: NOW Status: Discharge Protocol: Activity Type Activity Date Activity User E-Sign Co-Sign Detail Recorded Client Recorded Date Recorded By Document 08/22/19 22:48 [facility] [id number] 08/22/19 23:30 [facility] 08/22/19 22:48 Triage Nursing Assessment Chief Complaint Seizure Priority Level 2 Were Vital Signs Captured/Entered? Yes Is this a TPA alert? No Pain Level Denies Is This a Long Bone Pain Patient? No Allergies Verified Yes Seeking Treatment Today For No Mental Health Issues Do You Live Alone? No Is there family present? Yes Signs and Symptoms of Abuse/Neglect No Present Thoughts of by Suicide in the Last No 30 Days Homicidial Thoughts in the Last 30 Days No Smoking Status Unknown if Ever Smoked Dialysis Status NOT Dialysis Patient- CURRENLTY Infection Control Screen CRE Precaution Screen Negative History Isolation Precautions Standard ED Medication Reconciliation ED/Outpatient Home Medication Unobtainable Reconciliation Vital Signs (ED) Start: 08/22/19 22:48 Freq: Q1H Status: Discharge Protocol: Activity Type Activity Date Activity User E-Sign Co-Sign Detail Recorded Client Recorded Date Recorded By Document 08/23/19 04:51 KGR ECART_ED_06 08/23/19 04:51 KGR Document 08/23/19 06:30 KGR ECART_ED_06 08/23/19 06:57 KGR 08/23/19 08/23/19 04:51 06:30 Vital Signs Temperature (97.0 F-100.4 F) 98.3 F 98.3 F Temperature Source Oral Oral Critical Care Note - Critical Care Note Total time excluding time spent on procedures (mins): 30 Discharge - Discharge Clinical Impression: Post-ictal state, 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, Seizure Condition: Stable Disposition: HOME, SELF-CARE Instructions: Seizure, Known Epileptic ([facility]) Additional Instructions: Please follow-up as soon as possible with primary care physician and discuss strategies for family being able to ensure and continue to ensure patient is taking her actual meds every day since there are multiple strategies to be able to achieve this. We will not have the Adeel level back tonight but her provider can call for that result. Please ensure in the next few days she does take all her medications as prescribed though please return obviously if she has any breakthrough seizures or fevers chills sweats or change in mental status or other concerns. Referrals: DANIELLE WAGGONER PA-C [ALLIED HEALTH PROFESSIONAL] - Follow up as needed
--- NOTE | 2019-08-22 23:50 | RADIOLOGY REPORT (SQ) ---
EXAM DESCRIPTION: CT HEAD WITHOUT IV CONTRAST COMPLETED DATE/TME: 08/22/2019 00:00 CLINICAL HISTORY: 74 years, Female, seizure COMPARISON: Multiple priors; most recent from 02/07/2019 TECHNIQUE: Noncontrast CT of head was performed. Coronal and sagittal reformations were created. Images stored on PACS. All CT scanners at this facility use dose modulation, iterative reconstruction, and/or weight based dosing when appropriate to reduce radiation dose to as low as reasonably achievable (ALARA). [facility]: Dose Right [facility]: CareDose [facility]: Dose Right [facility]: Teradose 4D [facility]: Ahead LIMITATIONS: None. FINDINGS: Evaluation of the brain parenchyma reveals a zone of encephalomalacia about the left posterior temporoparietooccipital region, indicating sequela of remote infarct. Associated ex vacuo dilatation of the left occipital horn is noted. Otherwise, there is superimposed mild/moderate periventricular and patchy subcortical white matter low attenuation. No acute intracranial hemorrhage, mass effect, or extra-axial fluid is seen. Ventricles and sulcal spaces are overall mildly enlarged. Globes and orbits show no acute abnormality. There is near complete opacification of the left maxillary antrum with associated hyperostosis. Remaining paranasal sinuses and mastoid air cells are clear. Calcifications are evident about the parasellar carotid arteries. There are no depressed skull fractures. IMPRESSION: No acute intracranial abnormality. Mild/moderate chronic microvascular ischemic change with mild generalized atrophy as well as remote infarct involving the left posterior temporoparietooccipital region. Chronic left maxillary sinusitis. TECHNICAL DOCUMENTATION: Quality ID # [id number]: Final reports with documentation of one or more dose reduction techniques (e.g., Automated exposure control, adjustment of the mA and/or kV according to patient size, use of iterative reconstruction technique) copyright 2010 [employer]- All Rights Reserved
[2019-08-22 23:58] LABS: ABSOLUTE BASOPHILS # (AUTO) 0.1 10^3/uL (0.0-0.2); ABSOLUTE MONOCYTES (AUTO) 0.6 10^3/uL (0.1-1.4); ABSOLUTE NEUT (AUTO) 3.6 10^3/uL (1.7-8.2); BASOPHILS % (AUTO) 0.8 % (0-2); EOSINOPHILS % (AUTO) 0.4 % (0-6); HEMATOCRIT 41.9 % (36.0-47.0); HEMOGLOBIN 14.1 g/dL (12.0-15.5); MEAN CORPUSCULAR HGB CONC 33.5 g/dL (32.0-36.0); MEAN CORPUSCULAR VOLUME 90 fl (80-97); MONOCYTES % (AUTO) 8.6 % (3-13); PLATELET COUNT 186 10^3/uL (150-450); RED BLOOD COUNT 4.68 10^6/uL (3.72-5.28); RED CELL DISTRIBUTION WIDTH 14.8 % (11.5-14.0); SEGMENTED NEUTROPHILS % (AUTO) 49.2 % (42-78); TOTAL CELLS COUNTED % (AUTO) 100 %; WHITE BLOOD COUNT 7.4 10^3/uL (4.0-10.5)
[2019-08-23] LABS: INTERNATIONAL RATION (INR) 0.98
[2019-08-23 00:01] LABS: PARTIAL THROMBOPLASTIN TIME 27.7 SEC (23.5-35.8)
--- NOTE | 2019-08-23 00:03 | RADIOLOGY REPORT (SQ) ---
EXAM DESCRIPTION: CT cervical spine without contrast CLINICAL HISTORY: 74 years Female, seizure COMPARISON: None. TECHNIQUE: Axial images of the cervical spine were performed, without the use of intravenous contrast, with sagittal and coronal reformatted images This exam was performed according to our departmental dose-optimization program which includes use of Automated Exposure Control, adjustment of the mA and/or kV according to patient size and/or use of iterative reconstruction technique. FINDINGS: No fracture or dislocation. No evidence of prevertebral swelling. There are relatively mild degenerative changes, with no significant spinal stenosis. There are emphysematous changes in the lung apices. IMPRESSION: No acute finding. Other findings as described.
[2019-08-23 00:07] LABS: ALBUMIN 4.7 g/dL (3.5-5.0); ALKALINE PHOSPHATASE 92 U/L (38-126); ASPARTATE AMINO TRANSFERASE 35 U/L (14-36); BILIRUBIN,DIRECT 0.4 mg/dL (0.0-0.4); BILIRUBIN,TOTAL 0.5 mg/dL (0.2-1.3); BLOOD UREA NITROGEN 6 mg/dL (7-20); CALCIUM 10.2 mg/dL (8.4-10.2); GLUCOSE 121 mg/dL (75-110); POTASSIUM 3.8 mmol/L (3.6-5.0)
[2019-08-23 00:13] LABS: CARBON DIOXIDE 15 mmol/L (22-30); CHLORIDE 100 mmol/L (98-107)
[2019-08-23 00:15] LABS: ANION GAP 23 (5-19)
--- NOTE | 2019-08-23 01:07 | RADIOLOGY REPORT (SQ) ---
EXAM DESCRIPTION: XR CHEST 1 VIEW COMPLETED DATE/TME: 08/23/2019 00:21 CLINICAL HISTORY: 74 years, Female, diminished breath sounds right COMPARISON: X-ray chest 04/04/2019 NUMBER OF VIEWS: TECHNIQUE: LIMITATIONS: None. FINDINGS: There is emphysema. No evidence of pulmonary infiltrate or pleural effusion. The heart and mediastinum are unremarkable. Pulmonary vascularity appears normal. There are atherosclerotic changes and tortuosity of the thoracic aorta. There is a right-sided Port-A-Cath with its tip in the superior vena cava. There is evidence of prior vertebroplasty at several thoracic levels. There is no significant change, as compared with the prior x-ray(s). IMPRESSION: Emphysema. copyright 2010 [employer]- All Rights Reserved
[2019-08-23 08:02] VITALS: BP 128/78
== END 2019-08-23 08:20 | disposition home or self-care (01) ==
LOC: ER 22:48
DX: G40.909 Epilepsy, unspecified, not intractable, without status epilepticus (principal); R79.89 Other specified abnormal findings of blood chemistry; Z88.6 Allergy status to analgesic agent; I25.10 Atherosclerotic heart disease of native coronary artery without angina pectoris; I10 Essential (primary) hypertension; J44.9 Chronic obstructive pulmonary disease, unspecified; Z86.73 Personal history of transient ischemic attack (TIA), and cerebral infarction without residual deficits; Z90.710 Acquired absence of both cervix and uterus
CPT/HCPCS: 99284; 96374; 96375; 36415; 80177; 82962; 82140; 83690; 84443; 85025; 85610; 85730; 80053; 84484; 71045; 70450; 72125; J2250; J1953

== ENCOUNTER 2019-10-06 19:01 | Emergency (ER) | payer MEDICARE, MEDICAID ==
[2019-10-06] MEDS ORDERED: LORAZEPAM INJ 2 MG/1 ML VIAL IV ONE ×2 (20:05→20:08)
[2019-10-06 20:07] LABS: APPEARANCE,URINE CLEAR; BILIRUBIN,URINE NEGATIVE (NEGATIVE); COLOR,URINE YELLOW; GLUCOSE, URINE NEGATIVE (NEGATIVE); KETONES,URINE NEGATIVE (NEGATIVE); LEUKOCYTE ESTERASE,URINE NEGATIVE (NEGATIVE); NITRITE,URINE NEGATIVE (NEGATIVE); PROTEIN,URINE NEGATIVE (NEGATIVE); URINE SPECIFIC GRAVITY 1.015; UROBILINOGEN,URINE NEGATIVE mg/dL (<2.0)
--- NOTE | 2019-10-06 20:23 | RADIOLOGY REPORT (SQ) ---
EXAM DESCRIPTION: RadLex: CT HEAD WITHOUT IV CONTRAST CLINICAL HISTORY: 74 years Female; altered mental status TECHNIQUE: Noncontrast CT head. All CT scans at this facility use dose modulation, iterative reconstruction, and/or weight based dosing when appropriate to reduce radiation dose to as low as reasonably achievable. COMPARISON: CT 08/22/2019 FINDINGS: Large area of left parietal occipital encephalomalacia is again noted. There are mild chronic ischemic changes in the cerebral white matter. No acute hemorrhage or mass effect. No acute cortical edema. There is mucosal thickening and an air-fluid level in the left maxillary sinus, similar to prior exam. Chronic left maxillary sinus wall thickening is again noted. Surgical clip in the left pterygopalatine fossa is again noted. Other paranasal sinuses are clear. No mastoid effusion. Calvarium is intact. IMPRESSION: 1. No acute intracranial findings. 2. Acute on chronic left maxillary sinusitis 3. Chronic left parieto-occipital encephalomalacia as on multiple prior exams.
--- NOTE | 2019-10-06 21:26 | EKG REPORT ---
SEVERITY:- ABNORMAL ECG - SINUS RHYTHM SUPRAVENTRICULAR BIGEMINY BORDERLINE RIGHT AXIS DEVIATION NONSPECIFIC T ABNORMALITIES, ANT-LAT LEADS : Confirmed by: Adelina Nicolas 06-Oct-2019 21:25:30
[2019-10-06 22:08] LABS: ABSOLUTE LYMPHOCYTES (AUTO) 1.2 10^3/uL (0.5-4.7); ABSOLUTE MONOCYTES (AUTO) 0.3 10^3/uL (0.1-1.4); ABSOLUTE NEUT (AUTO) 4.7 10^3/uL (1.7-8.2); BASOPHILS % (AUTO) 0.7 % (0-2); EOSINOPHILS % (AUTO) 0.1 % (0-6); HEMATOCRIT 38.9 % (36.0-47.0); HEMOGLOBIN 13.2 g/dL (12.0-15.5); LYMPHOCYTES % (AUTO) 19.2 % (13-45); MEAN CORPUSCULAR HEMOGLOBIN 29.1 pg (27.0-33.4); MEAN CORPUSCULAR HGB CONC 33.9 g/dL (32.0-36.0); MEAN CORPUSCULAR VOLUME 86 fl (80-97); MONOCYTES % (AUTO) 5.3 % (3-13); PLATELET COUNT 227 10^3/uL (150-450); RED BLOOD COUNT 4.53 10^6/uL (3.72-5.28); RED CELL DISTRIBUTION WIDTH 13.6 % (11.5-14.0); SEGMENTED NEUTROPHILS % (AUTO) 74.7 % (42-78); TOTAL CELLS COUNTED % (AUTO) 100 %; WHITE BLOOD COUNT 6.3 10^3/uL (4.0-10.5)
[2019-10-06 22:39] LABS: ALKALINE PHOSPHATASE 74 U/L (38-126); ANION GAP 11 (5-19); ASPARTATE AMINO TRANSFERASE 21 U/L (14-36); BILIRUBIN,DIRECT 0.2 mg/dL (0.0-0.4); BILIRUBIN,TOTAL 0.4 mg/dL (0.2-1.3); BLOOD UREA NITROGEN 11 mg/dL (7-20); CALCIUM 9.9 mg/dL (8.4-10.2); CARBON DIOXIDE 25 mmol/L (22-30); CHLORIDE 98 mmol/L (98-107); GLUCOSE 89 mg/dL (75-110); POTASSIUM 4.5 mmol/L (3.6-5.0)
--- NOTE | 2019-10-07 00:19 | ER Document Report ---
ED General - General Information source: Patient TRAVEL OUTSIDE OF THE [place] IN LAST 30 DAYS: No <SARAHAYDEE - Last Filed: 10/07/19 00:44> <JUJU ROWLEY IV - Last Filed: 10/07/19 01:35> - General Chief Complaint: Altered Mental Status Stated Complaint: ALTERED MENTAL STATUS Time Seen by Provider: 10/06/19 19:07 Primary Care Provider: BARBARA TEJADA MD [Primary Care Provider] - Follow up as needed Notes: This 74-year-old woman presents to the emergency department with a history of seizure disorder. Apparently began acting unusual at home and EMS was called. In the emergency department she was noted to have constant movement of the lips and smacking and then later had a seizure episode. She is on Keppra for s eizures. Patient has post ictal and airway is patent. No injury is noted. She has a past medical history of lung cancer which is remote and in remission according to chart review, COPD, Waldenstrom's macroglobulinemia, and seizure disorder. (AYDEE SMITH) - Related Data Allergies/Adverse Reactions: codeine [Codeine] Allergy (Unknown, Verified 02/22/17 10:51) aspirin Allergy (Verified 04/12/18 15:01) Past Medical History - Social History Smoking Status: Never Smoker Chew tobacco use (# tins/day): No Frequency of alcohol use: None Drug Abuse: None Family History: Reviewed & Not Pertinent Patient has suicidal ideation: No Patient has homicidal ideation: No - Past Medical History Cardiac Medical History: Reports: Hx Coronary Artery Disease, Hx Hypertension Denies: Hx Heart Attack Pulmonary Medical History: Reports: Hx Bronchitis, Hx COPD Denies: Hx Asthma, Hx Pneumonia, Hx Tuberculosis Neurological Medical History: Reports: Hx Cerebrovascular Accident, Hx Seizures. Denies: Hx Migraine Renal/ Medical History: Denies: Hx Peritoneal Dialysis Malignancy Medical History: Reports: Hx Lung Cancer GI Medical History: Reports: Hx Gastroesophageal Reflux Disease Musculoskeletal Medical History: Reports Hx Arthritis, Reports Hx Musculoskeletal Trauma - spinal fx after fall, RECENT SHOULDER FX Skin Medical History: Denies Hx MRSA Psychiatric Medical History: Reports: Hx Dementia, Hx Depression Traumatic Medical History: Reports: Hx Fractures - Right shoulder fracture, spinal fractures after a fall Past Surgical History: Reports: Hx Cardiac Catheterization, Hx Hysterectomy, Hx Nose Surgery, Hx Orthopedic Surgery - back, Hx Vascular Surgery - Port-A-Cath for when she was requiring plasmapheresis for macroglobinanemia - Immunizations Immunizations up to date: Yes Hx Diphtheria, Pertussis, Tetanus Vaccination: No Hx Pneumococcal Vaccination: 05/07/14 <AYDEE SMITH - Last Filed: 10/07/19 00:44> Review of Systems - Review of Systems -: Yes ROS unobtainable due to patient's medical condition - Patient is post ict al and poorly responsive. Does open her eyes to command <AYDEE SMITH - Last Filed: 10/07/19 00:44> Physical Exam <AYDEE SMITH - Last Filed: 10/07/19 00:44> - Vital signs Vitals: Resp 22 H 10/06/19 19:04 - Notes Notes: PHYSICAL EXAMINATION: Physical Exam: General: Frail elderly female in no acute distress HEENT: NC/AT, pupils equal round and reactive to light, MM moist,nares clear, Neck: supple, no adenopathy, no masses. Lungs: clear, no wheezing, no rales no rhonchi CVS: Regular rate and rhythm no murmur gallop or rub Abdomen: Soft active nontender, no masses, no hepatosplenomegaly Ext: No edema clubbing or cyanosis. Neuro: Somnolent, arousable, no obvious focal neurologic findings. Skin: Intact no open lesions, no rash (AYDEE SMITH) Course - Laboratory Result Diagrams: 10/06/19 19:25 10/06/19 19:25 - Diagnostic Test Radiology reviewed: Image reviewed, Reports reviewed - CT of the head noncontrast: No acute hemorrhage or changes. <AYDEE SMITH - Last Filed: 10/07/19 00:44> - Laboratory Result Diagrams: 10/06/19 19:25 10/06/19 19:25 <JUJU ROWLEY IV - Last Filed: 10/07/19 01:35> - Re-evaluation Re-evalutation: 10/07/19 00:18 Patient presents with altered mental status, seizure episode, post ictal. CT scan of the head reveals chronic changes, no acute findings. Review of her labs and a urinalysis are nondiagnostic of pathology. Patient has had an improved status while waiting in the emergency department and is more alert and responsive however according to the daughter, she is not at her baseline at this time. 10/07/19 00:19 I have explained to them and I do not think the patient merits admission to the hospital as this is a post ictal process, airway is patent and the patient is now able to say that she is cold and improved overall status. We will observe her in the emergency department for return to baseline. 10/07/19 00:44 At time of signout continuing to sleep patient post ictal state clear. Discuss ed with the nurse that the family is very be contacted before the end of the shift and before discharge. Patient is to be reassessed for ability to use and and also reaffirmation that she is back to her normal baseline. (AYDEE SMITH) - Vital Signs Vital signs: Temp Pulse Resp BP Pulse Ox 98.7 F 75 22 H 123/87 H 98 10/06/19 22:12 10/06/19 19:09 10/07/19 00:30 10/07/19 00:30 10/07/19 00:30 - Laboratory Laboratory results interpreted by me: 10/06/19 19:25 Sodium 133.6 L 10/07/19 00:28 I have reviewed laboratory data and used this information for the treatment decisions regarding the patient. (AYDEE SMITH) Discharge <AYDEE SMITH - Last Filed: 10/07/19 00:44> <JUJU ROWLEY IV - Last Filed: 10/07/19 01:35> - Discharge Clinical Impression: Seizure, Seizure disorder Condition: Good Disposition: HOME, SELF-CARE Additional Instructions: Today you had a seizure. It is very important that you do take the Keppra as prescribed. Follow-up with your primary care doctor or neurologist. Please return to the ED immediately if you have multiple seizures close together, develop a severe headache, weakness, numbness, difficulty speaking, have a seizure in which you do not return to normal within 1 hour of the seizure, or have any other symptoms that are concerning to you. Referrals: BARBARA TEJADA MD [Primary Care Provider] - Follow up as needed
[2019-10-07] MEDS ORDERED: LEVETIRACETAM 500 MG/NACL-ISO 500 MG/100 ML RTUPB IV ONE (00:51)
[2019-10-07 02:14] VITALS: BP 131/72
== END 2019-10-07 02:20 | disposition home or self-care (01) ==
LOC: ER 19:01
DX: G40.909 Epilepsy, unspecified, not intractable, without status epilepticus (principal); R41.82 Altered mental status, unspecified; I10 Essential (primary) hypertension; Z86.73 Personal history of transient ischemic attack (TIA), and cerebral infarction without residual deficits; Z88.6 Allergy status to analgesic agent; Z85.118 Personal history of other malignant neoplasm of bronchus and lung
CPT/HCPCS: 93005; 99285; 96375; 96365; 36415; 82962; 83735; 85025; 80053; 81001; 70450; 93010; J2060; J1953; J1642

== ENCOUNTER → 2020-01-01 | Outpatient (CLI) | payer MEDICARE, MEDICAID ==
--- NOTE | 2020-01-01 08:53 | RADIOLOGY REPORT (SQ) ---
EXAM DESCRIPTION: CT CHEST WITHOUT COMPLETED DATE/TIME: 01/01/2020 7:26 am REASON FOR STUDY: LUNG CA C34.12 MALIGNANT NEOPLASM OF UPPER LOBE, LEFT BRONCHUS OR YAN COMPARISON: CT chest, 11/20/2017. CT chest, 07/02/2019. PET CT, 12/17/2018. . TECHNIQUE: CT scan performed of the chest without intravenous contrast. Images reviewed with lung, soft tissue and bone windows. Reconstructed coronal and sagittal MPR images reviewed. All images st ored on PACS. All CT scanners at this facility use dose modulation, iterative reconstruction, and/or weight based d osing when appropriate to reduce radiation dose to as low as reasonably achievable (ALARA). [facility]: Dose Right [facility]: CareDose [facility]: Dose Right [facility]: Teradose 4D [facility]: [employer] RADIATION DOSE: CT Rad equipment meets quality standard of care and radiation dose reduction techniq ues were employed. CTDIvol: 2.8 mGy. DLP: 108 mGy-cm. mGy. LIMITATIONS: No technical limitations. FINDINGS: LUNGS AND PLEURA: Trachea has normal caliber and appearance. No bronchial wall thickening or bronchiectasis. Background moderate pulmonary emphysema is stable. Persistent spiculated scar i n the left upper lobe measuring 1.2 x 0.6 cm, unchanged from prior. There is subpleural scarring clifford ng the left anterolateral pleura also stable. Fiducial markers in the left upper lobe are unchanged. No new nodule. No focal consolidation. Tiny area of ground-glass attenuation in the posterior lef t lower lobe is stable from prior measuring 4 mm. No pleural effusion or pneumothorax. HILAR AND MEDIASTINAL STRUCTURES: No identified masses or abnormal nodes. No obvious aneurysm. HEART AND VASCULAR STRUCTURES: No aneurysm. No pericardial effusion. UPPER ABDOMEN: No significant findings. Limited exam. THYROID AND OTHER SOFT TISSUES: No masses. No adenopathy. BONES: Kyphoplasty T5-T8 levels, stable. Mild superior endplate compression deformities at T9, T12, L1 and L2 are stable from prior. No suspicious bone lesions. HARDWARE: None in the chest. OTHER: No other significant findings. IMPRESSION: 1. Stable post treatment scarring in the left upper lobe. No evidence of recurrent or metastatic dis ease. 2. Moderate pulmonary emphysema. 3. Kyphoplasty and chronic compression fractures in the thoracolumbar spine, stable. No new fracture or suspicious bone lesion. TECHNICAL DOCUMENTATION: JOB ID: [id number] Quality ID # [id number]: Final reports with documentation of one or more dose reduction techniques (e.g., Au tomated exposure control, adjustment of the mA and/or kV according to patient size, use of iterative reconstruction technique) 2010 [employer]- All Rights Reserved Reading location - IP/workstation name: [email or web address]
== END ==
LOC: RAD 08:19
PROVIDERS: ATTEND Physician Assistant Medical
DX: C34.12 Malignant neoplasm of upper lobe, left bronchus or lung (principal)
CPT/HCPCS: 71250

== ENCOUNTER 2020-01-10 12:51 | Emergency (ER) | payer MEDICARE, MEDICAID ==
[2020-01-10] MEDS ORDERED: LEVETIRACETAM 1000 MG/NACL-ISO 1,000 MG/100 ML RTUPB IV ONE (12:58)
[2020-01-10 13:34] LABS: ABSOLUTE LYMPHOCYTES (AUTO) 0.6 10^3/uL (0.5-4.7); ABSOLUTE MONOCYTES (AUTO) 0.3 10^3/uL (0.1-1.4); ABSOLUTE NEUT (AUTO) 5.1 10^3/uL (1.7-8.2); BASOPHILS % (AUTO) 0.8 % (0-2); EOSINOPHILS % (AUTO) 0.1 % (0-6); HEMATOCRIT 43.1 % (36.0-47.0); HEMOGLOBIN 14.4 g/dL (12.0-15.5); LYMPHOCYTES % (AUTO) 10.4 % (13-45); MEAN CORPUSCULAR HEMOGLOBIN 28.8 pg (27.0-33.4); MEAN CORPUSCULAR HGB CONC 33.3 g/dL (32.0-36.0); MEAN CORPUSCULAR VOLUME 86 fl (80-97); MONOCYTES % (AUTO) 4.3 % (3-13); PLATELET COUNT 137 10^3/uL (150-450); RED BLOOD COUNT 4.99 10^6/uL (3.72-5.28); RED CELL DISTRIBUTION WIDTH 14.6 % (11.5-14.0); SEGMENTED NEUTROPHILS % (AUTO) 84.4 % (42-78); TOTAL CELLS COUNTED % (AUTO) 100 %
--- NOTE | 2020-01-10 13:44 | ER Document Report ---
ED General - General Chief Complaint: Seizure Stated Complaint: SEIZURE Time Seen by Provider: 01/10/20 12:54 Primary Care Provider: DANIELLE WAGGONER PA-C [Primary Care Provider] - Follow up as needed TRAVEL OUTSIDE OF THE [place] IN LAST 30 DAYS: No - HPI Notes: 74-year-old female with history of old CVA, dementia and chronic seizure disorder transported here via EMS after family reported she had a seizure at home. Family members indicate that patient does this several times a year and will usually have several seizures in succession with these episodes. They are concerned about possibility of more seizures and called EMS for transport to the hospital. Unable to obtain any history from patient at this time. EMS reports they gave IM Versed during transport for second seizure. Family members advised them the patient had been eating and drinking normally and had not been running a fever or otherwise ill. She is on Keppra at home and family indicates that this has been given as prescribed. Review of past records indicates a past medical history of lung cancer which is remote and in remission according to chart review, COPD, Waldenstrom's macroglobulinemia, dementia, and seizure disorder. - Related Data Allergies/Adverse Reactions: codeine [Codeine] Allergy (Unknown, Verified 02/22/17 10:51) aspirin Allergy (Verified 04/12/18 15:01) Past Medical History - General Information source: Relative, Emergency Med Personnel, [facility] Records Cannot obtain history due to: Altered mental status - Social History Smoking Status: Former Smoker Frequency of alcohol use: None Drug Abuse: None Lives with: Family Family History: Reviewed & Not Pertinent - Past Medical History Cardiac Medical History: Reports: Hx Coronary Artery Disease, Hx Hypertension Denies: Hx Heart Attack Pulmonary Medical History: Reports: Hx Bronchitis, Hx COPD Denies: Hx Asthma, Hx Pneumonia, Hx Tuberculosis Neurological Medical History: Reports: Hx Cerebrovascular Accident, Hx Seizures. Denies: Hx Migraine Renal/ Medical History: Denies: Hx Peritoneal Dialysis Malignancy Medical History: Reports: Hx Lung Cancer GI Medical History: Reports: Hx Gastroesophageal Reflux Disease Musculoskeletal Medical History: Reports Hx Arthritis, Reports Hx Musculoskeletal Trauma - spinal fx after fall, RECENT SHOULDER FX Skin Medical History: Denies Hx MRSA Psychiatric Medical History: Reports: Hx Dementia, Hx Depression Traumatic Medical History: Reports: Hx Fractures - Right shoulder fracture, spinal fractures after a fall Past Surgical History: Reports: Hx Cardiac Catheterization, Hx Hysterectomy, Hx Nose Surgery, Hx Orthopedic Surgery - back, Hx Vascular Surgery - Port-A-Cath for when she was requiring plasmapheresis for macroglobinanemia - Immunizations Immunizations up to date: Yes Hx Diphtheria, Pertussis, Tetanus Vaccination: No Hx Pneumococcal Vaccination: 05/07/14 Review of Systems - Review of Systems -: Yes ROS unobtainable due to patient's medical condition Physical Exam - Vital signs Vitals: Resp Pulse Ox 19 100 01/10/20 12:58 01/10/20 12:58 - Notes Notes: GENERAL: Elderly female with eyes deviated to the left side and rigid posture consistent with ongoing seizure activity upon arrival here. SKIN: Good turgor no rashes. Superficial skin tears right wrist and hand dorsal aspect. HEAD: Normocephalic atraumatic. EYES: Pupils dilated and equal with eyes deviated to the left. Conjunctivae and sclerae clear. EARS: CANALS AND TMS CLEAR. NOSE: CLEAR. MOUTH: Moist mucosa. Good dentition. No stridor or edema. No drooling. NECK: Supple. No masses or thyromegaly. No adenopathy. Carotids 2+ without bruits. No JVD. BACK: Symmetrical without tenderness. CHEST: Port-A-Cath present right upper anterior chest wall. Respirations unlabored. Breath sounds clear and symmetrical. HEART: Regular rhythm. No murmur gallop or rub. ABDOMEN: Soft without masses, organomegaly or rebound. Bowel sounds normally active. No bruits. GENITALIA: Deferred. EXTREMITIES: No edema. No calf tenderness. Cap refill less than 1.5 seconds. Dorsalis pedis and posterior tibial pulses 3+ and symmetrical. NEUROLOGICAL: Actively seizing with generalized increased tone. PSYCHIATRIC: Unable to assess. Course - Re-evaluation Re-evalutation: 01/10/20 13:[address] patient on supplemental oxygen and cardiac monitoring and access to her Port-A-Cath. Initially she was given some additional IV Versed with termination of her seizure activity. I am going to load her with some additional Keppra 1 g IV and we will obtain a noncontrast head CT and CBC with routine chemistries. We will also check a cath urine specimen and a chest x- ray. 01/10/20 13:48 Patient is postictal but arousable with loud verbal and tactile stimuli now. She is moving all 4 extremities spontaneously. 01/10/20 16:54 Patient is now back to her usual state. Her work-up here is been essentially negative. I think she can return home and continue Keppra and return here as needed for new or worsening problems. - Vital Signs Vital signs: Temp Pulse Resp BP Pulse Ox 22 H 131/91 H 100 01/10/20 13:10 01/10/20 13:10 01/10/20 13:10 - Laboratory Result Diagrams: 01/10/20 13:27 01/10/20 13:27 Laboratory results interpreted by me: 01/10/20 01/10/20 01/10/20 13:24 13:27 13:27 RDW 14.6 H Plt Count 137 L Lymph % (Auto) 10.4 L Seg Neutrophils % 84.4 H Sodium 134.7 L Glucose 123 H Total Protein 8.5 H Urine Protein 30 H Urine Ketones TRACE H Urine Urobilinogen 4.0 H - Diagnostic Test Radiology reviewed: Reports reviewed - Per radiologist chest x-ray shows mild hyperinflation is otherwise unremarkable. Noncontrast head CT shows chronic changes only. Discharge - Discharge Clinical Impression: Seizure Condition: Stable Disposition: HOME, SELF-CARE Additional Instructions: Continue your usual medications. Follow-up with your primary care physician next 3 to 5 days. Return to the emergency department as needed for new or worsening symptoms Referrals: DANIELLE WAGGONER PA-C [Primary Care Provider] - Follow up as needed
[2020-01-10 13:51] LABS: ALBUMIN 4.2 g/dL (3.5-5.0); ALKALINE PHOSPHATASE 73 U/L (38-126); ANION GAP 12 (5-19); ASPARTATE AMINO TRANSFERASE 25 U/L (14-36); BILIRUBIN,DIRECT 0.3 mg/dL (0.0-0.4); BILIRUBIN,TOTAL 0.6 mg/dL (0.2-1.3); BLOOD UREA NITROGEN 10 mg/dL (7-20); CALCIUM 9.7 mg/dL (8.4-10.2); CARBON DIOXIDE 22 mmol/L (22-30); CHLORIDE 101 mmol/L (98-107); GLUCOSE 123 mg/dL (75-110); POTASSIUM 4.2 mmol/L (3.6-5.0); TOTAL PROTEIN 8.5 g/dL (6.3-8.2)
[2020-01-10 13:53] LABS: ALCOHOL < 10 mg/dL (NONE DETECTED)
[2020-01-10 14:04] LABS: APPEARANCE,URINE CLEAR; BILIRUBIN,URINE NEGATIVE (NEGATIVE); COLOR,URINE YELLOW; GLUCOSE, URINE NEGATIVE (NEGATIVE); KETONES,URINE TRACE mg/dL (NEGATIVE); PROTEIN,URINE 30 mg/dL (NEGATIVE); URINE SPECIFIC GRAVITY 1.019
--- NOTE | 2020-01-10 14:04 | RADIOLOGY REPORT (SQ) ---
EXAM DESCRIPTION: CT HEAD WITHOUT COMPLETED DATE/TIME: 01/10/2020 1:55 pm REASON FOR STUDY: seizure COMPARISON: 10/06/2019 TECHNIQUE: Axial images acquired through the brain without intravenous contrast. Images reviewed wi th bone, brain and subdural windows. Additional sagittal and coronal reconstructions were generated. Images stored on PACS. All CT scanners at this facility use dose modulation, iterative reconstruction, and/or weight based d osing when appropriate to reduce radiation dose to as low as reasonably achievable (ALARA). [facility]: Dose Right [facility]: CareDose [facility]: Dose Right [facility]: Teradose 4D [facility]: Little1 RADIATION DOSE: CT Rad equipment meets quality standard of care and radiation dose reduction techniq ues were employed. CTDIvol: 53.2 - 55.2 mGy. DLP: 2128 mGy-cm.mGy. LIMITATIONS: None. FINDINGS: VENTRICLES: Prominent. CEREBRUM: No masses. No hemorrhage. No midline shift. Areas of low density in the white matter mos t likely due to chronic micro-vascular ischemic change. No evidence for acute infarction. Focal are a of encephalomalacia in the left posterior parietal lobe is again noted and unchanged. CEREBELLUM: No masses. No hemorrhage. No alteration of density. No evidence for acute infarction. EXTRAAXIAL SPACES: Age-related involutional change. No fluid collections. No masses. ORBITS AND GLOBE: No intra- or extraconal masses. Normal contour of globe without masses. CALVARIUM: No fracture. PARANASAL SINUSES: Stable changes in the left maxillary sinus. SOFT TISSUES: No mass or hematoma. OTHER: No other significant finding. IMPRESSION: CHRONIC CHANGES OF ATROPHY AND MICROVASCULAR ISCHEMIA. NO ACUTE PROCESS. EVIDENCE OF ACUTE STROKE: NO. TECHNICAL DOCUMENTATION: JOB ID: [id number] Quality ID # [id number]: Final reports with documentation of one or more dose reduction techniques (e.g., Au tomated exposure control, adjustment of the mA and/or kV according to patient size, use of iterative reconstruction technique) 2010 [employer]- All Rights Reserved Reading location - IP/workstation name: [email or web address]
--- NOTE | 2020-01-10 14:07 | RADIOLOGY REPORT (SQ) ---
EXAM DESCRIPTION: CHEST SINGLE VIEW COMPLETED DATE/TIME: 01/10/2020 1:58 pm REASON FOR STUDY: seizure COMPARISON: 08/23/2019 EXAM PARAMETERS: NUMBER OF VIEWS: One view. TECHNIQUE: Single frontal radiographic view of the chest acquired. RADIATION DOSE: NA LIMITATIONS: None. FINDINGS: LUNGS AND PLEURA: Lung bennett are hyperexpanded. Central line remains in place. No conso lidation or effusions. No pneumothorax. MEDIASTINUM AND HILAR STRUCTURES: No masses. Contour normal. HEART AND VASCULAR STRUCTURES: Heart normal in size. Normal vasculature. BONES: Unchanged. HARDWARE: None in the chest. OTHER: No other significant finding. IMPRESSION: Hyperexpansion otherwise negative portable chest. TECHNICAL DOCUMENTATION: JOB ID: [id number] 2010 [employer]- All Rights Reserved Reading location - IP/workstation name: [email or web address]
[2020-01-10 14:20] LABS: VENOUS BLOOD BASE EXCESS -3.8 mmol/L; VENOUS BLOOD PCO2 48.3 mmHg (35-63); VENOUS BLOOD PH 7.3 (7.30-7.42)
[2020-01-10 14:21] LABS: URINE AMPHETAMINES SCREEN NEGATIVE; URINE BARBITURATES SCREEN NEGATIVE; URINE COCAINE SCREEN NEGATIVE; URINE MARIJUANA (THC) SCREEN NEGATIVE; URINE METHADONE SCREEN NEGATIVE; URINE PHENCYCLIDINE SCREEN NEGATIVE
[2020-01-10 14:23] LABS: URINE BENZODIAZEPINES SCREEN UNCONFIRMED POSITIVE
--- NOTE | 2020-01-10 18:21 | RADIOLOGY REPORT (SQ) ---
EXAM DESCRIPTION: HAND RIGHT 3 VIEWS COMPLETED DATE/TIME: 01/10/2020 5:57 pm REASON FOR STUDY: fall COMPARISON: None. EXAM PARAMETERS: NUMBER OF VIEWS: Three views. TECHNIQUE: AP, lateral and oblique radiographic images acquired of the right hand. LIMITATIONS: None. FINDINGS: MINERALIZATION: Osteopenia. BONES: No acute fracture or dislocation. JOINTS: No effusions. SOFT TISSUES: No soft tissue swelling or radiopaque foreign body. OTHER: No other finding. IMPRESSION: No acute osseous abnormality of the right hand. TECHNICAL DOCUMENTATION: JOB ID: [id number] 2010 [employer]- All Rights Reserved Reading location - IP/workstation name: [email or web address]
[2020-01-10 19:08] VITALS: BP 126/76
--- NOTE | 2020-01-10 19:55 | EKG REPORT ---
SEVERITY:- ABNORMAL ECG - SINUS TACHYCARDIA BORDERLINE RIGHT AXIS DEVIATION NONSPECIFIC ST-T CHANGES LATERAL LEADS : Confirmed by: Rubio Rodriguez MD 10-Jan-2020 19:55:14
== END 2020-01-10 19:22 | disposition home or self-care (01) ==
LOC: ER 12:51
DX: G40.909 Epilepsy, unspecified, not intractable, without status epilepticus (principal); S61.511A Laceration without foreign body of right wrist, initial encounter; S61.411A Laceration without foreign body of right hand, initial encounter; X58.XXXA Exposure to other specified factors, initial encounter; J44.9 Chronic obstructive pulmonary disease, unspecified; I25.10 Atherosclerotic heart disease of native coronary artery without angina pectoris; I10 Essential (primary) hypertension; Z79.899 Other long term (current) drug therapy; Z87.891 Personal history of nicotine dependence; Z88.6 Allergy status to analgesic agent; Z88.5 Allergy status to narcotic agent; Z88.8 Allergy status to other drugs, medicaments and biological substances
CPT/HCPCS: 93005; 36591; 99285; 96365; 36415; 82962; 80307 ×2; 83735; 85025; 80053; 81001; 82803; 71045; 73130; 70450; 93010; J1953; J1642

== ENCOUNTER 2020-04-29 17:44 | Emergency (ER) | payer MEDICARE, MEDICAID ==
[2020-04-29] MEDS ORDERED: ONDANSETRON HCL INJ/PF 4 MG/2 ML SDV IV ONE (18:35)
[2020-04-29] MEDS ORDERED: HYDROMORPHONE HCL INJ/PF 2 MG/ML AMPULE IV ONE (18:35)
--- NOTE | 2020-04-29 19:13 | ER Document Report ---
ED General - General Chief Complaint: Probable Seizure Stated Complaint: SEIZURES Time Seen by Provider: 04/29/20 18:08 Primary Care Provider: DANIELLE WAGGONER PA-C [Primary Care Provider] - Follow up as needed Notes: 75-year-old female with a history of seizures brought to the emergency department via EMS for 2 seizures today. Speaking with the daughter the daughter states that the patient does not always take her Keppra as directed. She has a history of breakthrough seizures and typically has several at a time. Today she had one seizure at home and then normalized and walked inside and then had a second seizure inside. States that after the seizure she became confused and was in her usual postictal state. Daughter states that usually takes her 6 to 7 hours to normalize. Family spoke with the patient's primary care physician Dr. Franco who stated that they should bring the patient to the hospital so that we could see if her drug levels were normal. Family states that typically they would have kept her at home and not done anything. TRAVEL OUTSIDE OF THE [place] IN LAST 30 DAYS: No - Related Data Allergies/Adverse Reactions: codeine [Codeine] Allergy (Unknown, Verified 04/29/20 18:22) aspirin Allergy (Verified 04/29/20 18:22) Past Medical History - General Information source: Parent - Social History Smoking Status: Former Smoker Lives with: Family Family History: Reviewed & Not Pertinent Patient has homicidal ideation: No - Past Medical History Cardiac Medical History: Reports: Hx Coronary Artery Disease, Hx Hypertension Denies: Hx Heart Attack Pulmonary Medical History: Reports: Hx Bronchitis, Hx COPD Denies: Hx Asthma, Hx Pneumonia, Hx Tuberculosis Neurological Medical History: Reports: Hx Cerebrovascular Accident, Hx Seizures. Denies: Hx Migraine Renal/ Medical History: Denies: Hx Peritoneal Dialysis Malignancy Medical History: Reports: Hx Lung Cancer GI Medical History: Reports: Hx Gastroesophageal Reflux Disease Musculoskeletal Medical History: Reports Hx Arthritis, Reports Hx Musculoskeletal Trauma - spinal fx after fall, RECENT SHOULDER FX Skin Medical History: Denies Hx MRSA Psychiatric Medical History: Reports: Hx Dementia, Hx Depression Traumatic Medical History: Reports: Hx Fractures - Right shoulder fracture, spinal fractures after a fall Past Surgical History: Reports: Hx Cardiac Catheterization, Hx Hysterectomy, Hx Nose Surgery, Hx Orthopedic Surgery - back, Hx Vascular Surgery - Port-A-Cath for when she was requiring plasmapheresis for macroglobinanemia - Immunizations Immunizations up to date: Yes Hx Diphtheria, Pertussis, Tetanus Vaccination: No Hx Pneumococcal Vaccination: 05/07/14 Review of Systems - Review of Systems -: Yes ROS unobtainable due to patient's medical condition - Patient is very confused, cannot answer any questions. Physical Exam - Vital signs Vitals: Resp Pulse Ox 14 94 04/29/20 18:06 04/29/20 18:06 Interpretation: Hypertensive - Notes Notes: GENERAL: Alert, no acute distress. HEAD: Normocephalic, atraumatic EYES: Pupils equal, round and reactive to light, extraocular movements intact. ENT: Oral mucosa moist, tongue midline. NECK: Full range of motion, supple, trachea midline. LUNGS: Clear to auscultation bilaterally, no wheezes, rales or rhonchi, no respiratory distress. HEART: Regular rate and rhythm, no murmurs, gallops, rubs. ABDOMEN: Soft, nontender, nondistended, bowel sounds present in all 4 quadrants. EXTREMITIES: Moves all 4 extremities spontaneously, no edema, radial and dorsalis pedis pulses 2/4 bilaterally. No cyanosis. NEUROLOGICAL: Awake but confused, cannot tell me the date or where she is, does respond to her name, normal speech, no facial droop, biceps and patellar DTRs 2+ bilaterally. Does not follow commands. PSYCH: Appears somewhat anxious. SKIN: Warm, Dry, normal turgor, no rashes or lesions noted. Course - Re-evaluation Re-evalutation: 04/30/20 00:16 CBC shows very mild thrombocytopenia with platelets of 141, CMP shows slight low sodium at 133.6, calcium slightly elevated at 10.3 otherwise unremarkable, urinalysis shows trace ketones and trace leukocyte esterase, she has no symptoms of UTI, this will be sent for culture. Keppra level is pending. Chest x-ray is unremarkable. Patient is more awake than she has been, is able to follow instructions to squeeze my fingers but still cannot answer questions regarding orientation. Discussed with Dr. Franco possibly bringing her in for observation overnight as she still has not normalized. He states that this is actually pretty close to her baseline, states that if she can ambulate she can go home to continue normalizing and he will see her first thing in the morning. We will attempt to ambulate this patient. 04/30/20 01:42 Patient ambulated without difficulty, case discussed with family member, they are agreeable to the patient going home. Patient will be discharged. - Vital Signs Vital signs: Temp Pulse Resp BP Pulse Ox 98.1 F 70 18 142/78 H 97 04/29/20 18:22 04/29/20 18:22 04/30/20 00:00 04/29/20 22:00 04/30/20 00:00 - Laboratory Result Diagrams: 04/29/20 20:21 04/29/20 20:21 Laboratory results interpreted by me: 04/29/20 04/29/20 04/29/20 20:21 20:21 20:26 RDW 14.6 H Plt Count 141 L Lymph % (Auto) 10.5 L Seg Neutrophils % 85.6 H Sodium 133.6 L Calcium 10.3 H Total Protein 9.2 H Urine Protein 30 H Urine Ketones TRACE H Ur Leukocyte Esterase TRACE H Discharge - Discharge Clinical Impression: Post-ictal state Uncontrolled seizures Qualifiers: Convulsion type: unspecified Qualified Code(s): R56.9 - Unspecified convulsions Condition: Stable Disposition: HOME, SELF-CARE Additional Instructions: We did check a Keppra level, this is a send out which means it will not be back for 1 to 2 weeks. You will need to follow-up with Dr. Franco regarding this. Dr. Franco has stated that he will follow-up with you first thing in the morning if you are not completely back to your baseline. Please return to the emergency department this evening if you have another seizure. Referrals: DANIELLE WAGGONER PA-C [Primary Care Provider] - Follow up as needed
--- NOTE | 2020-04-29 19:29 | RADIOLOGY REPORT (SQ) ---
EXAM DESCRIPTION: CHEST SINGLE VIEW IMAGES COMPLETED DATE/TIME: 04/29/2020 7:18 pm REASON FOR STUDY: seizures COMPARISON: 01/10/2020. EXAM PARAMETERS: NUMBER OF VIEWS: One view. TECHNIQUE: Single frontal radiographic view of the chest acquired. RADIATION DOSE: NA LIMITATIONS: None. FINDINGS: LUNGS AND PLEURA: Hyperinflation of the lungs, unchanged finding. No acute pulmonary con solidation. No pneumothorax or pleural effusion. MEDIASTINUM AND HILAR STRUCTURES: No masses. Contour normal. HEART AND VASCULAR STRUCTURES: Heart normal in size. Normal vasculature. BONES: The osseous structures are stable in appearance. No acute findings. HARDWARE: Right Kfyphc-H-Zhdx catheter, unchanged finding. Three linear opaque densities overlie th e left upper lung zone, unchanged finding. OTHER: No other significant finding. IMPRESSION: 1. No significant interval changes since the prior examination dated 01/10/2020. Hyperi nflation of the lungs. No acute findings. TECHNICAL DOCUMENTATION: JOB ID: [id number] 2010 [employer]- All Rights Reserved Reading location - IP/workstation name: [email or web address]
[2020-04-29 20:37] LABS: APPEARANCE,URINE CLEAR; BILIRUBIN,URINE NEGATIVE (NEGATIVE); COLOR,URINE YELLOW; GLUCOSE, URINE NEGATIVE (NEGATIVE); KETONES,URINE TRACE mg/dL (NEGATIVE); LEUKOCYTE ESTERASE,URINE TRACE (NEGATIVE); NITRITE,URINE NEGATIVE (NEGATIVE); PROTEIN,URINE 30 mg/dL (NEGATIVE); URINE SPECIFIC GRAVITY 1.015; UROBILINOGEN,URINE NEGATIVE mg/dL (<2.0)
[2020-04-29 20:41] LABS: ABSOLUTE LYMPHOCYTES (AUTO) 0.6 10^3/uL (0.5-4.7); ABSOLUTE MONOCYTES (AUTO) 0.2 10^3/uL (0.1-1.4); ABSOLUTE NEUT (AUTO) 5.2 10^3/uL (1.7-8.2); BASOPHILS % (AUTO) 0.5 % (0-2); EOSINOPHILS % (AUTO) 0.1 % (0-6); HEMOGLOBIN 15.2 g/dL (12.0-15.5); LYMPHOCYTES % (AUTO) 10.5 % (13-45); MEAN CORPUSCULAR HEMOGLOBIN 29.1 pg (27.0-33.4); MEAN CORPUSCULAR HGB CONC 33.8 g/dL (32.0-36.0); MEAN CORPUSCULAR VOLUME 86 fl (80-97); MONOCYTES % (AUTO) 3.3 % (3-13); PLATELET COUNT 141 10^3/uL (150-450); RED BLOOD COUNT 5.24 10^6/uL (3.72-5.28); RED CELL DISTRIBUTION WIDTH 14.6 % (11.5-14.0); SEGMENTED NEUTROPHILS % (AUTO) 85.6 % (42-78); TOTAL CELLS COUNTED % (AUTO) 100 %; WHITE BLOOD COUNT 6.1 10^3/uL (4.0-10.5)
[2020-04-29 20:58] LABS: ALBUMIN 4.8 g/dL (3.5-5.0); ALKALINE PHOSPHATASE 80 U/L (38-126); ANION GAP 9 (5-19); ASPARTATE AMINO TRANSFERASE 31 U/L (14-36); BILIRUBIN,DIRECT 0.1 mg/dL (0.0-0.4); BILIRUBIN,TOTAL 0.6 mg/dL (0.2-1.3); BLOOD UREA NITROGEN 12 mg/dL (7-20); CALCIUM 10.3 mg/dL (8.4-10.2); CARBON DIOXIDE 27 mmol/L (22-30); CHLORIDE 98 mmol/L (98-107); GLUCOSE 94 mg/dL (75-110); POTASSIUM 4.4 mmol/L (3.6-5.0); TOTAL PROTEIN 9.2 g/dL (6.3-8.2)
[2020-04-29 22:14] VITALS: BP 142/78
== END 2020-04-30 01:52 | disposition home or self-care (01) ==
LOC: ER 17:44
DX: R56.9 Unspecified convulsions (principal); Z79.899 Other long term (current) drug therapy; Z88.8 Allergy status to other drugs, medicaments and biological substances; Z87.891 Personal history of nicotine dependence; I25.10 Atherosclerotic heart disease of native coronary artery without angina pectoris; I10 Essential (primary) hypertension; J44.9 Chronic obstructive pulmonary disease, unspecified
CPT/HCPCS: 36415; 71045; 80053; 80177; 81001; 85025; 87086; 99284

== ENCOUNTER → 2020-06-18 | Outpatient (CLI) | payer MEDICARE, MEDICAID ==
--- NOTE | 2020-06-18 11:55 | RADIOLOGY REPORT (SQ) ---
EXAM DESCRIPTION: CT CHEST WITHOUT IMAGES COMPLETED DATE/TIME: 06/18/2020 8:30 am REASON FOR STUDY: LUNG CANCER C34.12 MALIGNANT NEOPLASM OF UPPER LOBE, LEFT BRONCHUS OR YAN COMPARISON: CT of the chest without contrast from 01/01/2020. TECHNIQUE: CT scan performed of the chest without intravenous contrast. Images reviewed with lung, soft tissue and bone windows. Reconstructed coronal and sagittal MPR images reviewed. All images st ored on PACS. All CT scanners at this facility use dose modulation, iterative reconstruction, and/or weight based d osing when appropriate to reduce radiation dose to as low as reasonably achievable (ALARA). [facility]: Dose Right [facility]: CareDose [facility]: Dose Right [facility]: Teradose 4D [facility]: [employer] RADIATION DOSE: CT Rad equipment meets quality standard of care and radiation dose reduction techniq ues were employed. CTDIvol: 4.8 mGy. DLP: 183 mGy-cm. LIMITATIONS: No technical limitations. FINDINGS: LUNGS AND PLEURA: Unchanged moderate to severe centrilobular emphysema. The trachea and ma in bronchi are patent. There is no bronchial wall thickening, bronchiectasis or segmental mucus plug ging. The spiculated scar in the left upper lobe (image 16 of series 4), the fiducial markers in the left upper lobe, and the pleural thickening in the anterosuperior aspect of the left hemithorax (karla ge 13 of series 4) are unchanged. There is no new or enlarging pulmonary nodule. There is no acute consolidation, ground-glass opacification, pleural effusion or pneumothorax. HILAR AND MEDIASTINAL STRUCTURES: Evaluation of the meghana for adenopathy is limited due to the absence of intravenous contrast. There is no mediastinal adenopathy. HEART AND VASCULAR STRUCTURES: Atherosclerotic calcification of the thoracic aorta and coronary arter ies. There is no cardiomegaly or pericardial effusion. UPPER ABDOMEN: Atherosclerotic calcification of the abdominal aorta. THYROID AND OTHER SOFT TISSUES: No adenopathy or mass. BONES: Status post kyphoplasty at T5, T6, T7 and T8. The chronic compression fractures of the superi or endplates of the T9, T12, L1, L2 and L3 vertebral bodies are unchanged. There is no acute fractur e or osseous lesion. HARDWARE: Intact right IJ approach single-lumen port. OTHER: No other findings. IMPRESSION: Stable spiculated scar in the left upper lobe. There is no evidence of recurrent or met astatic disease. TECHNICAL DOCUMENTATION: JOB ID: [id number] Quality ID # [id number]: Final reports with documentation of one or more dose reduction techniques (e.g., Au tomated exposure control, adjustment of the mA and/or kV according to patient size, use of iterative reconstruction technique) 2010 [employer]- All Rights Reserved Reading location - IP/workstation name: [email or web address]
== END ==
LOC: RAD 08:40
PROVIDERS: ATTEND Internal Medicine
DX: C34.12 Malignant neoplasm of upper lobe, left bronchus or lung (principal); J43.2 Centrilobular emphysema; M48.54XD Collapsed vertebra, not elsewhere classified, thoracic region, subsequent encounter for fracture with routine healing
CPT/HCPCS: 71250

== ENCOUNTER 2020-11-07 16:34 | Emergency (ER) | payer MEDICARE, MEDICAID ==
--- NOTE | 2020-11-07 17:19 | ER Document Report ---
ED Medical Screen (RME) - General Stated Complaint: POSSIBLE SEIZURE Time Seen by Provider: 11/07/20 17:08 Primary Care Provider: KELLY TAPIA MD [Primary Care Provider] - Follow up as needed Notes: Patient was observed walking in the house and was shaking. Patient does have an underlying history of seizures as well as dementia. RN reports that family was concerned that she might of had a seizure although no loss of consciousness was reported and they were concerned it may be a preseizure. Patient with dementia and poor historian. Patient does acknowledge that she does not feel well. Patient reports feeling cold and having chills. I have greeted and performed a rapid initial assessment of this patient. A comprehensive ED assessment and evaluation of the patient, analysis of test results and completion of the medical decision making process will be conducted by additional ED providers. TRAVEL OUTSIDE OF THE [place] IN LAST 30 DAYS: No - Related Data Allergies/Adverse Reactions: codeine [Codeine] Allergy (Unknown, Verified 04/29/20 18:22) aspirin Allergy (Verified 04/29/20 18:22) Past Medical History - Past Medical History Cardiac Medical History: Reports: Hx Coronary Artery Disease, Hx Hypertension Denies: Hx Heart Attack Pulmonary Medical History: Reports: Hx Bronchitis, Hx COPD Denies: Hx Asthma, Hx Pneumonia, Hx Tuberculosis Neurological Medical History: Reports: Hx Cerebrovascular Accident, Hx Seizures. Denies: Hx Migraine Renal/ Medical History: Denies: Hx Peritoneal Dialysis Malignancy Medical History: Reports: Hx Lung Cancer GI Medical History: Reports: Hx Gastroesophageal Reflux Disease Musculoskeltal Medical History: Reports Hx Arthritis, Reports Hx Musculoskeletal Trauma - spinal fx after fall, RECENT SHOULDER FX Skin Medical History: Denies Hx MRSA Psychiatric Medical History: Reports: Hx Dementia, Hx Depression Traumatic Medical History: Reports: Hx Fractures - Right shoulder fracture, spinal fractures after a fall Past Surgical History: Reports: Hx Cardiac Catheterization, Hx Hysterectomy, Hx Nose Surgery, Hx Orthopedic Surgery - back, Hx Vascular Surgery - Port-A-Cath for when she was requiring plasmapheresis for macroglobinanemia - Immunizations Immunizations up to date: Yes Hx Diphtheria, Pertussis, Tetanus Vaccination: No Physical Exam - Vital signs Vitals: Resp 17 11/07/20 16:41 - General General appearance: Alert Notes: Appears to not feel well, complains of feeling cold, respirations unlabored - Cardiovascular Rhythm: Regular. No: Tachycardia Heart sounds: S1 appreciated, S2 appreciated Course - Vital Signs Vital signs: Temp Pulse Resp BP Pulse Ox 15 128/74 H 11/07/20 17:01 11/07/20 17:01 Doctor's Discharge - Discharge Referrals: KELLY TAPIA MD [Primary Care Provider] - Follow up as needed
--- NOTE | 2020-11-07 18:01 | RADIOLOGY REPORT (SQ) ---
EXAM DESCRIPTION: CHEST SINGLE VIEW IMAGES COMPLETED DATE/TIME: 11/07/2020 4:36 pm REASON FOR STUDY: shaking, doesn't feel well COMPARISON: None available EXAM PARAMETERS: NUMBER OF VIEWS: One view. TECHNIQUE: Single frontal radiographic view of the chest acquired. RADIATION DOSE: NA LIMITATIONS: None. FINDINGS: LUNGS AND PLEURA: Lungs are hyperinflated. Biapical pleural and parenchymal scarring. No focal consolidation or pleural effusion. No pneumothorax. MEDIASTINUM AND HILAR STRUCTURES: No masses. Contour normal. HEART AND VASCULAR STRUCTURES: Heart normal in size. Normal vasculature. BONES: No acute findings. HARDWARE: Right MediPort catheter with tip at the cavoatrial junction. OTHER: No other significant finding. IMPRESSION: No acute cardiopulmonary disease. Hyperinflated lungs which can be seen with obstructiv e lung disease. TECHNICAL DOCUMENTATION: JOB ID: [id number] 2010 [employer]- All Rights Reserved Reading location - IP/workstation name: [email or web address]
[2020-11-07 18:26] LABS: APPEARANCE,URINE CLEAR; BILIRUBIN,URINE NEGATIVE (NEGATIVE); COLOR,URINE YELLOW; GLUCOSE, URINE NEGATIVE (NEGATIVE); KETONES,URINE NEGATIVE (NEGATIVE)
[2020-11-07 18:27] LABS: LEUKOCYTE ESTERASE,URINE NEGATIVE (NEGATIVE); NITRITE,URINE NEGATIVE (NEGATIVE); PROTEIN,URINE 30 mg/dL (NEGATIVE); URINE SPECIFIC GRAVITY 1.024
--- NOTE | 2020-11-07 18:56 | EKG REPORT ---
SEVERITY:- ABNORMAL ECG - SINUS RHYTHM BORDERLINE RIGHT AXIS DEVIATION NONSPECIFIC T ABNORMALITIES, ANT-LAT LEADS : Confirmed by: Rubio Rodriguez MD 07-Nov-2020 18:55:41
[2020-11-07 19:04] LABS: ABSOLUTE LYMPHOCYTES (AUTO) 1.1 10^3/uL (0.5-4.7); ABSOLUTE MONOCYTES (AUTO) 0.3 10^3/uL (0.1-1.4); ABSOLUTE NEUT (AUTO) 3.3 10^3/uL (1.7-8.2); BASOPHILS % (AUTO) 0.6 % (0-2); EOSINOPHILS % (AUTO) 0.3 % (0-6); HEMATOCRIT 40.4 % (36.0-47.0); HEMOGLOBIN 13.8 g/dL (12.0-15.5); LYMPHOCYTES % (AUTO) 22.4 % (13-45); MEAN CORPUSCULAR HEMOGLOBIN 28.5 pg (27.0-33.4); MEAN CORPUSCULAR HGB CONC 34.2 g/dL (32.0-36.0); MEAN CORPUSCULAR VOLUME 83 fl (80-97); PLATELET COUNT 128 10^3/uL (150-450); RED BLOOD COUNT 4.84 10^6/uL (3.72-5.28); RED CELL DISTRIBUTION WIDTH 14.3 % (11.5-14.0); SEGMENTED NEUTROPHILS % (AUTO) 69.7 % (42-78); TOTAL CELLS COUNTED % (AUTO) 100 %; WHITE BLOOD COUNT 4.8 10^3/uL (4.0-10.5)
[2020-11-07 19:24] LABS: ALKALINE PHOSPHATASE 82 U/L (38-126); ANION GAP 5 (5-19); ASPARTATE AMINO TRANSFERASE 24 U/L (14-36); BILIRUBIN,DIRECT 0.3 mg/dL (0.0-0.4); BILIRUBIN,TOTAL 0.6 mg/dL (0.2-1.3); BLOOD UREA NITROGEN 15 mg/dL (7-20); CALCIUM 9.7 mg/dL (8.4-10.2); CARBON DIOXIDE 31 mmol/L (22-30); CHLORIDE 103 mmol/L (98-107); GLUCOSE 81 mg/dL (75-110); POTASSIUM 4.9 mmol/L (3.6-5.0); TOTAL PROTEIN 7.9 g/dL (6.3-8.2)
[2020-11-07] MEDS ORDERED: LEVETIRACETAM ORAL SOLN 500 MG/5 ML UDCUP PO ONE (21:00)
--- NOTE | 2020-11-07 21:04 | ER Document Report ---
ED General - General Chief Complaint: Tremor Stated Complaint: POSSIBLE SEIZURE Time Seen by Provider: 11/07/20 17:08 Primary Care Provider: KELLY TAPIA MD [Primary Care Provider] - Follow up as needed BARBARA TEJADA MD [ACTIVE STAFF] - Follow up in 3-5 days TRAVEL OUTSIDE OF THE [place] IN LAST 30 DAYS: No - HPI Notes: Patient is a 75-year-old female with a past medical history of seizures on Keppra who presents with tremors. Patient is a poor historian due to dementia. I spoke to her daughter over the phone. Her daughter states that they saw her stumble today on the porch. She did not fall. They then noticed that she had some shaking of her extremities. She was alert during this. She never lost consciousness. They called EMS and EMS also witnessed the shaking. Daughter thinks that she has been compliant with her Keppra. Patient is resting on the stretcher, no acute distress. - Related Data Allergies/Adverse Reactions: codeine [Codeine] Allergy (Unknown, Verified 04/29/20 18:22) aspirin Allergy (Verified 04/29/20 18:22) Home Medications: gabapentin, keppra Past Medical History - General Information source: Relative - Social History Smoking Status: Unknown if Ever Smoked Family History: Reviewed & Not Pertinent - Past Medical History Cardiac Medical History: Reports: Hx Coronary Artery Disease, Hx Hypertension Denies: Hx Heart Attack Pulmonary Medical History: Reports: Hx Bronchitis, Hx COPD Denies: Hx Asthma, Hx Pneumonia, Hx Tuberculosis Neurological Medical History: Reports: Hx Cerebrovascular Accident, Hx Seizures. Denies: Hx Migraine Renal/ Medical History: Denies: Hx Peritoneal Dialysis Malignancy Medical History: Reports: Hx Lung Cancer GI Medical History: Reports: Hx Gastroesophageal Reflux Disease Musculoskeletal Medical History: Reports Hx Arthritis, Reports Hx Musculoskeletal Trauma - spinal fx after fall, RECENT SHOULDER FX Skin Medical History: Denies Hx MRSA Psychiatric Medical History: Reports: Hx Dementia, Hx Depression Traumatic Medical History: Reports: Hx Fractures - Right shoulder fracture, spinal fractures after a fall Past Surgical History: Reports: Hx Cardiac Catheterization, Hx Hysterectomy, Hx Nose Surgery, Hx Orthopedic Surgery - back, Hx Vascular Surgery - Port-A-Cath for when she was requiring plasmapheresis for macroglobinanemia - Immunizations Immunizations up to date: Yes Hx Diphtheria, Pertussis, Tetanus Vaccination: No Hx Pneumococcal Vaccination: 07/22/14 Review of Systems - Review of Systems Notes: NEUROLOGIC: Positive for episode of tremors. -: Yes ROS unobtainable due to patient's medical condition Physical Exam - Vital signs Vitals: Resp 17 11/07/20 16:41 - General General appearance: Appears well In distress: None Notes: VITAL SIGNS: Within normal limits. GENERAL: No acute distress, non-toxic appearance. HEAD: Normal with no signs of head trauma. EYES: Conjunctiva normal, no discharge. EARS: Hearing grossly intact. NOSE: Normal. NECK: Normal range of motion, no tenderness. CHEST: Clear breath sounds bilaterally. No wheezes, rales, or rhonchi. CARDIAC: Regular rate and rhythm. VASCULAR: No Edema. ABDOMEN: Normal and soft with no tenderness, no masses or pulsatile masses. MUSCULOSKELETAL: Good range of motion of all major joints. Extremities without clubbing, cyanosis or edema. NEUROLOGICAL: Alert. No focal sensory or strength deficits. Speech normal. Follows commands appropriately. PSYCHIATRIC: Normal Affect. SKIN: Normal appearance with no rashes or lesions. Course - Re-evaluation Re-evalutation: 11/08/20 02:06 I spoke with the patient's daughter. She states patient never lost consciousness. They just noticed tremors and became concerned. Daughter states that she has not had her evening Keppra today. I will give her the evening Keppra dose. I will order a Keppra level. This will not come back right away. I told the daughter that she needs to call the PCP first thing on Tuesday to follow-up on the Keppra level. Patient is resting comfortably. She is moving all her extremities. She is in no acute distress. I do not believe she needs a CT scan as she has a history of seizures and never had a true seizure today. Her work-up was unremarkable. Patient will be discharged home with PCP follow-up. - Vital Signs Vital signs: Temp Pulse Resp BP Pulse Ox 98.1 F 79 25 H 106/57 L 100 11/07/20 22:02 11/07/20 22:02 11/07/20 22:02 11/07/20 22:02 11/07/20 22:02 - Laboratory Results Result Diagrams: 11/07/20 18:48 11/07/20 18:48 Laboratory Results Interpreted: 11/07/20 11/07/20 11/07/20 17:50 18:48 18:48 RDW 14.3 H Plt Count 128 L Carbon Dioxide 31 H Urine Protein 30 H Urine Urobilinogen 2.0 H Critical Laboratory Results Reviewed: No Critical Results - Radiology Results Critical Radiology Results Reviewed: No Critical Results - EKG Interpretation by Me EKG shows normal: Sinus rhythm Rate: Normal Rhythm: NSR When compared to previous EKG there are: No significant change Additional EKG results interpreted by me: 11/07/20 21:04 Sinus rhythm at a rate of 63. QTc 435. No acute ST changes. EKG is similar to previous. Discharge - Discharge Clinical Impression: Occasional tremors Condition: Stable Disposition: HOME, SELF-CARE Instructions: Seizure, Known Epileptic ([facility]) Additional Instructions: Your work-up today is reassuring. I have checked a Keppra level. Please call your family doctor on Tuesday so he can follow-up on those results. Make sure you are taking your Keppra as directed. Please return to the ER for any return of symptoms. Referrals: KELLY TAPIA MD [Primary Care Provider] - Follow up as needed BARBARA TEJADA MD [ACTIVE STAFF] - Follow up in 3-5 days
[2020-11-07 21:36] VITALS: BP 106/57
== END 2020-11-07 22:08 | disposition home or self-care (01) ==
LOC: ER 16:34
DX: R25.1 Tremor, unspecified (principal); R56.9 Unspecified convulsions; F03.90 Unspecified dementia, unspecified severity, without behavioral disturbance, psychotic disturbance, mood disturbance, and anxiety; I10 Essential (primary) hypertension; J44.9 Chronic obstructive pulmonary disease, unspecified; Z85.118 Personal history of other malignant neoplasm of bronchus and lung; Z79.899 Other long term (current) drug therapy; Z88.6 Allergy status to analgesic agent; Z88.5 Allergy status to narcotic agent; Z88.8 Allergy status to other drugs, medicaments and biological substances; I25.10 Atherosclerotic heart disease of native coronary artery without angina pectoris
CPT/HCPCS: 93005; 99285; 36415; 80177; 85025; 80053; 81001; 71045; 93010; A9270; J3490